=== PATIENT | female | born 1955 | race Caucasian/White ===

== ENCOUNTER 2020-05-23 11:46 | Inpatient (IN) | payer MEDICARE, MEDICAID, SELFPAY ==
[2020-05-23] VITALS (13 sets, daily range): BP systolic 124–164; BP diastolic 52–64; PULSE 86–104; RESP 16–20; TEMP 36.6–38; O2SAT 83–100; BMI 31.1; BMI 35.2
--- NOTE | 2020-05-23 11:57 | HMH.EDGENADL ---
ED Disposition Clinical Impression: Gangrene of lower extremity, Hyponatremia Disposition: Admitted As Inpatient Condition on Discharge: Serious Referrals: PCP,No [Primary Care Provider] - - Critical Care Critical Care Time: No Attestation: On , the high probability of a clinically significant, sudden or life threatening deterioration of the following system(s) required my full and direct attention, intervention and personal management. The time I documented below is in addition to time spent performing reported procedures but includes the following listed in this critical care notation. Medical Decision Making - Medical Records Medical records reviewed: Yes: I reviewed the patient's medical records. - Raudel Inquiry Pt receiving controlled substance: No Vital Signs: 05/23/20 11:47 05/23/20 12:18 05/23/20 12:20 Temperature 98.4 F 100.4 F H Temperature Source Oral Oral Pulse Rate [Right Radial] 104 H 94 H Respiratory Rate 20 18 Blood Pressure [Right Arm] 157/52 H 124/52 L Blood Pressure Mean [Right Arm] 87 76 Blood Pressure Source [Right Arm] Automatic Cuff Automatic Cuff Blood Pressure Position [Right Arm] Sitting Sitting 02 Sat by Pulse Oximetry 97 96 Oxygen Delivery Method Room Air Room Air Oxygen Flow Rate (LPM) 05/23/20 14:06 05/23/20 14:30 Temperature 98.7 F Temperature Source Oral Pulse Rate [Right Radial] 93 H 92 H Respiratory Rate 18 18 Blood Pressure [Right Arm] 146/58 H 157/60 H Blood Pressure Mean [Right Arm] 87 92 Blood Pressure Source [Right Arm] Automatic Cuff Blood Pressure Position [Right Arm] Sitting 02 Sat by Pulse Oximetry 94 L 91 L Oxygen Delivery Method Room Air Nasal Cannula Oxygen Flow Rate (LPM) 2 - Lab Data Lab Results 05/23/20 11:30: SARS-CoV-2 IgG Ab (Rapid) Negative, SARS-CoV-2 IgM Ab (Rapid) Negative 05/23/20 11:50: WBC 12.7 H, RBC 2.56 L, Hgb 8.6 L, Hct 24.6 L, MCV 96.1, MCH 33.6 H, MCHC 35.0, RDW 14.3, Plt Count 347, MPV 8.0, Neut % (Auto) 81.9 H, Lymph % (Auto) 9.9 L, Eddy % (Auto) 7.4, Eos % (Auto) 0.4, Baso % (Auto) 0.4, Neut # (Auto) 10.4 H, Lymph # (Auto) 1.3, Eddy # (Auto) 0.9, Eos # (Auto) 0.1, Baso # (Auto) 0.1, ESR > 140 H 05/23/20 11:50: PT 42.5 H, INR 4.56 H, APTT 52.1 H* 05/23/20 11:50: Sodium 129 L, Potassium 3.5, Chloride 88 L, Carbon Dioxide 27, Anion Gap 17.5 H, BUN 18 H, Creatinine 0.80, Estimated Creat Clear 69, Estimated GFR 72, Est GFR ( Amer) 87, Glucose 146 H, Calcium 9.1, Total Bilirubin 1.1, AST 52 H, ALT 20, Alkaline Phosphatase 118, C-Reactive Protein 67.1 H, Total Protein 7.1, Albumin 3.8, Globulin 3.3 H, Albumin/Globulin Ratio 1.2 05/23/20 11:50: Lactate 2.4 H 05/23/20 12:15: Urine Color Yellow, Urine Appearance Clear, Urine pH 6.0, Ur Specific [place] 1.010, Urine Protein Negative, Urine Glucose (UA) Negative, Urine Ketones 1+, Urine Blood Negative, Urine Nitrate Negative, Urine Bilirubin Negative, Urine Urobilinogen 0.2, Ur Leukocyte Esterase Negative, Urine RBC None, Urine WBC Occasional, Ur Squamous Epith Cells 10-20, Urine Bacteria Trace Result diagrams: 05/23/20 11:50 05/23/20 11:50 Orders (Tests/Meds): ED MEDICATIONS Discontinued Medications Generic Name Dose Route Start Last Admin Trade Name Charlene PRN Reason Stop Dose Admin Acetaminophen 1,000 mg 05/23/20 12:20 05/23/20 12:34 Tylenol 500mg Tablet PO 05/23/20 12:21 1,000 mg ONCE ONE Administration Vancomycin HCl 2,000 mg/ 250 mls @ 125 mls/hr 05/23/20 12:10 05/23/20 13:51 Sodium Chloride IV 05/23/20 14:09 125 mls/hr ONCE ONE Administration Protocol Clindamycin Phosphate 900 mg/ 106 mls @ 100 mls/hr 05/23/20 12:12 05/23/20 13:51 Sodium Chloride IV 05/23/20 13:15 100 mls/hr ONCE ONE Administration Protocol Cefepime HCl 1 gm/ Sodium 50 mls @ 100 mls/hr 05/23/20 12:13 05/23/20 12:35 Chloride IV 05/23/20 12:14 100 mls/hr ONCE ONE Administration Protocol Sodium Chloride 500 mls @ 999 mls/hr
--- NOTE | 2020-05-23 12:06 | XR_ITS ---
PROCEDURE: XR TIBIA FIBULA LT 2V CLINICAL INDICATION: gangrene/fall COMPARISON: No exams were available for comparison FINDINGS: No fracture or dislocation. No lytic or blastic change. There is normal mineralization. The joint spaces are well-preserved. No significant degenerative/arthritic changes. No erosive changes evident. Other findings:Soft tissue swelling IMPRESSION: Soft tissue swelling otherwise negative Dictated by: Jame Allen MD 05/23/2020 14:19 Jame Allen MD in [place] 05/23/2020 14:19
--- NOTE | 2020-05-23 12:06 | XR_ITS ---
PROCEDURE: XR ANKLE RT MIN 3V CLINICAL INDICATION: gangrene/fall COMPARISON: No exams were available for comparison FINDINGS: No fracture or dislocation. No lytic or blastic change. Artifact from a pillow are garment noted along the lower leg posteriorly IMPRESSION: No acute findings. Dictated by: Jame Allen MD 05/23/2020 14:24 Jame Allen MD in [place] 05/23/2020 14:24
--- NOTE | 2020-05-23 12:06 | XR_ITS ---
PROCEDURE: XR KNEE LT 3V CLINICAL INDICATION: gangrene/fall Pain COMPARISON: CT CT ANGIO LE BI from 05/23/2020 FINDINGS: No fracture or dislocation. No lytic or blastic change. There is normal mineralization. The joint spaces are well-preserved. No significant degenerative/arthritic changes. No erosive changes evident. Other findings:Mild diffuse soft tissue swelling. Increased density in the suprapatellar region suggesting knee joint effusion IMPRESSION: Soft tissue swelling with possible knee joint effusion otherwise negative Dictated by: Jame Allen MD 05/23/2020 14:20 Jame Allen MD in [place] 05/23/2020 14:20
--- NOTE | 2020-05-23 12:06 | XR_ITS ---
PROCEDURE: XR TIBIA FIBULA RT 2V CLINICAL INDICATION: gangrene/fall Pain COMPARISON: No exams were available for comparison FINDINGS: No fracture or dislocation. No lytic or blastic change. There is normal mineralization. The joint spaces are well-preserved. No significant degenerative/arthritic changes. No erosive changes evident. Other findings:Artifact from a pillow or garment along the posterior aspect of the leg obscures soft tissue detail IMPRESSION: No acute findings. Dictated by: Jame Allen MD 05/23/2020 14:23 Jame Allen MD in [place] 05/23/2020 14:23
--- NOTE | 2020-05-23 12:06 | XR_ITS ---
PROCEDURE: XR ANKLE LT MIN 3V CLINICAL INDICATION: gangrene/fall COMPARISON: No exams were available for comparison FINDINGS: Mild diffuse soft tissue swelling. No bony or joint abnormality evident. IMPRESSION: Soft tissue swelling otherwise negative Dictated by: Jame Allen MD 05/23/2020 14:22 Jame Allen MD in [place] 05/23/2020 14:22
--- NOTE | 2020-05-23 12:06 | XR_ITS ---
PROCEDURE: XR FOOT LT MIN 3V CLINICAL INDICATION: gangrene/fall Pain COMPARISON: No exams were available for comparison FINDINGS: No fracture or dislocation. No lytic or blastic change. There is normal mineralization. The joint spaces are well-preserved. No significant degenerative/arthritic changes. No erosive changes evident. Other findings:Mild diffuse soft tissue swelling IMPRESSION: Mild diffuse soft tissue swelling otherwise negative Dictated by: Jame Allen MD 05/23/2020 14:21 Jame Allen MD in [place] 05/23/2020 14:21
--- NOTE | 2020-05-23 12:06 | XR_ITS ---
PROCEDURE: XR FOOT RT MIN 3V CLINICAL INDICATION: gangrene/fall Pain COMPARISON: No exams were available for comparison FINDINGS: No fracture or dislocation. No lytic or blastic change. There is normal mineralization. The joint spaces are well-preserved. No significant degenerative/arthritic changes. No erosive changes evident. Other findings:None. IMPRESSION: No acute findings. Dictated by: Jame Allen MD 05/23/2020 14:26 Jame Allen MD in [place] 05/23/2020 14:26
--- NOTE | 2020-05-23 12:06 | CT_ITS ---
Procedure: CT ANGIO LE BI CLINICAL HISTORY: gangrene Left knee and left lower extremity gangrene COMPARISON: CT ABDPELW CT ABD PELVIS W/ CONTRAST from 09/13/2014 TECHNIQUE: IV Contrast: 100ml Optiray 350 Axial images obtained with sagittal and coronal reformats. All CT scans at the facility use one or more dose reduction, viz: automated exposure control, ma/kV adjustment per patient size (including targeted exams where dose is matched to indication, i.e. head), or iterative reconstruction technique. FINDINGS: There are diffuse atheromatous changes involving the abdominal aorta and its branches. There is mild dilatation of the mid aspect of the abdominal aorta at 2 cm. This is 7 cm below the level of the left renal artery. There is severe stenosis of the ostium the celiac artery of approximately 90 percent. The SMA is small but with no significant stenosis. The PAULINE is patent. There are 2 right renal arteries and 1 left renal artery. Calcific plaque is present at the bifurcation of the left renal artery without significant stenosis. Mild amount mural thrombus is present along the right aspect of the abdominal aorta at the area of dilatation. Scattered atheromatous changes are present involving the right common iliac and external iliac artery as well as the right superficial femoral artery and popliteal artery. No significant stenosis. There is 3 vessel runoff to the ankle on the right. The left iliac, femoral, SFA and popliteal also demonstrate scattered atheromatous changes but with no significant stenotic lesion in. There is 3 vessel runoff to the ankle on the left. There is fairly extensive subcutaneous edema of the left lower extremity beginning in the upper thigh and extending through the foot. There is mild subcutaneous edema on the right beginning at the level of the knee. No bony erosive process is evident. No localized fluid collection evident that would indicate an abscess. There is also mild edema of the quadriceps muscles on the left. No soft tissue gas apparent. Patchy infiltrate is present in the right middle lobe. There is a well demarcated zone of decreased attenuation involving most of the liver with what appears represent represent normal attenuation in the anterior peripheral aspect of the right and left hepatic lobe. This with somewhat similar on the previous exam but with different degrees of attenuation on that study. The spleen, gallbladder, and adrenal glands are unremarkable. There is lobularity of both kidneys. The pancreas has an unremarkable appearance. There is a Marrero catheter present. There is diffuse colonic diverticulosis. There is thickening of the colon at the rectosigmoid region and could be due to nondistention versus colitis. The anterior abdominal wall is cut off on the left. Bowel gas pattern is nonspecific with air in gas-filled loops of small and large bowel. No evidence of appendicitis. There are osteoarthritic changes of the hips. On the right there are sub chondral cystic changes with collapse of the right femoral head and flattening of the right femoral head which may be due to osteoarthritis with subchondral cystic change and dysplastic change versus avascular necrosis. Previously noted large cystic mass of the abdomen pelvis is no longer apparent. IMPRESSION: 1. No occluding thrombus or embolus evident within the lower extremities. 2. There is mild diffuse atheromatous changes of the aorta and its branches as well as the lower extremities as described above but no significant stenotic lesion evident of the lower extremities. 3. 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 4. Mild dilatation of the abdominal aorta at 2 cm with mura
--- NOTE | 2020-05-23 12:06 | XR_ITS ---
PROCEDURE: XR KNEE RT 3V CLINICAL INDICATION: gangrene/fall Pain COMPARISON: No exams were available for comparison FINDINGS: No fracture or dislocation. No lytic or blastic change. There is normal mineralization. The joint spaces are well-preserved. No significant degenerative/arthritic changes. No erosive changes evident. Other findings:None. IMPRESSION: No acute findings. Dictated by: Jame Allen MD 05/23/2020 14:22 Jame Allen MD in [place] 05/23/2020 14:22
--- NOTE | 2020-05-23 12:15 | PC.NURSE ---
Pt BLE and maria l feet have sloughing like skin noted but also dry areas of skin that have peeled off, 2-3+ edema noted bilaterally. Skin noted around sloughing area area dark in color. 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
[2020-05-23 12:18] LABS: Basophils # 0.1 K/mm3 (0-0.2); Basophils % 0.4 % (0.1-2.0); Eosinophils # 0.1 K/mm3 (0.0-0.4); Eosinophils % 0.4 % (0.1-12.0); Hematocrit 24.6 % (37.0-47.0); Hemoglobin 8.6 g/dL (12.2-16.2); Lymphocytes # 1.3 K/mm3 (0.7-4.5); Lymphocytes % 9.9 % (10-50); Mean Corpuscular Hemoglobin 33.6 pg (27.0-31.2); Mean Corpuscular Volume 96.1 fl (81-99); Monocytes # 0.9 K/mm3 (0.1-1.0); Monocytes % 7.4 % (1.7-9.3); Neutrophils # 10.4 K/mm3 (1.8-7.8); Neutrophils % 81.9 % (37.0-80.0); Platelet Count 347 K/mm3 (142-424); Red Blood Count 2.56 M/mm3 (4.20-5.40); Red Cell Distribution Width 14.3 % (11.5-17.5); White Blood Count 12.7 K/mm3 (4.8-10.8)
[2020-05-23 12:24] LABS: Alanine Aminotransferase 20 U/L (12-78); Albumin Level 3.8 g/dl (3.5-5.0); Albumin/Globulin Ratio 1.2 (1.1-1.8); Alkaline Phosphatase 118 U/L (38-126); Anion Gap 17.5 mEq/L (5-15); Aspartate Amino Transferase 52 U/L (14-36); Bilirubin,Total 1.1 mg/dl (0.2-1.3); Blood Urea Nitrogen 18 mg/dl (7-17); Calcium 9.1 mg/dl (8.4-10.2); Carbon Dioxide 27 mmol/L (22.0-30.0); Chloride 88 mmol/L (98-107); Creatinine Clearance Estimated 69 mL/min (50-200); Estimated Glomerular Filt Rate 72 ml/min (>60); GFR (African American) 87 ML/MIN (>60); Globulin 3.3 g/dL (1.3-3.2); Glucose 146 mg/dl (74-100); Potassium 3.5 mmoL/L (3.5-5.1); Sodium 129 mmol/L (136-145); Total Protein,Serum 7.1 g/dl (6.3-8.2)
[2020-05-23 12:26] LABS: Prothrombin Time 42.5 seconds (9.4-11.8)
[2020-05-23 12:28] LABS: C-Reactive Protein 67.1 mg/L (0-4)
[2020-05-23 12:39] LABS: Lactic Acid 2.4 mmol/L (0.7-2.1)
[2020-05-23 12:44] LABS: Erythrocyte Sedimentation Rate > 140 mm/hr (0-30)
[2020-05-23 12:47] LABS: Microscopic, Urine URINE MICROSCOPIC (MICROSCOPIC)
[2020-05-23 12:48] LABS: Appearance,Urine CLEAR (Clear); Bilirubin,Urine Negative (Negative); Blood, Urine Negative (Negative); Color,Urine YELLOW (Yellow); Glucose,Urine (UA) Negative (Negative); Ketones,Urine 1+ (Negative); Leukocyte Esterase,Urine Negative (Negative); Nitrate,Urine Negative (Negative); Protein,Urine Negative (Negative); Urobilinogen,Urine 0.2 EU/dl (0.2)
[2020-05-23 12:50] LABS: Activated Partial Thrombo Time 52.1 seconds (23.6-34.0); INR 4.56 (0.9-1.1)
[2020-05-23 13:08] LABS: Coronavirus 19 IgG Antibody Negative (Negative); Coronavirus 19 IgM Antibody Negative (Negative)
[2020-05-23 13:10] LABS: WBC,Urine Occasional #/hpf (0-3)
[2020-05-23 13:11] LABS: Bacteria,Urine Trace /lpf
--- NOTE | 2020-05-23 13:43 | PC.NURSE ---
pt return from ct
--- NOTE | 2020-05-23 14:30 | PC.NURSE ---
placed call for surgeon, dr Das speaking with Dr Aquino at this time.
--- NOTE | 2020-05-23 14:37 | PC.NURSE ---
Dr Das speaking with Dr Guevara at this time
--- NOTE | 2020-05-23 14:43 | PC.NURSE ---
dr julia aviles, if he will accept pt for service then heidy will consult.
--- NOTE | 2020-05-23 14:50 | PC.NURSE ---
ALONDRA DOBSON speaking with Dr. Knight who is cold reduction roller for service pts
--- NOTE | 2020-05-23 15:03 | PC.NURSE ---
notified care management of admission
--- NOTE | 2020-05-23 15:33 | PC.NURSE ---
notified per Dr. Knight that after speaking with Dr. Mckeon- Dr. Mckeon is pts PCP. Dr. Moraes office has called us to speak with ER to speak about admitting pt. ER MD is speaking with at this time
--- NOTE | 2020-05-23 15:41 | HMH.PHAVTE ---
[facility] Pharmacy VTE Monitoring - Patient Demographics Admission date: 05/23/20 Report Date: 05/23/20 Time: 15:41 Allergies/Adverse Reactions: Patient Allergies codeine [CODEINE] Allergy (Unknown, Verified 05/23/20 12:33) Penicillins [PENICILLINS] Allergy (Unknown, Verified 05/23/20 12:33) Height: 1.57 m Weight: 77.111 kg Patient Problems: Current Active Problems Gangrene of lower extremity (Acute) Hyponatremia (Acute) - VTE Risk Labs: VTE Related Lab Results Hgb 8.6 g/dL (12.2-16.2) L 05/23/20 11:50 Hct 24.6 % (37.0-47.0) L 05/23/20 11:50 Plt Count 347 K/mm3 (142-424) 05/23/20 11:50 PT 42.5 seconds (9.4-11.8) H 05/23/20 11:50 INR 4.56 (0.9-1.1) H 05/23/20 11:50 APTT 52.1 seconds (23.6-34.0) H* 05/23/20 11:50 BUN 18 mg/dl (7-17) H 05/23/20 11:50 Creatinine 0.80 mg/dl (0.52-1.04) 05/23/20 11:50 Estimated Creat Clear 69 mL/min (50-200) 05/23/20 11:50 Clinical Trial Participant: No - Prophylaxis VTE Prophylaxis Ordered?: Yes Types of VTE Prophylaxis: TEDS Knee High
--- NOTE | 2020-05-23 15:45 | HMH.PHACONS ---
- Pharmacy Consult Date: 05/23/20 Time: 15:45 Referring provider: DR. GONZALEZ Reason for Consult:: VANCOMYCIN DOSING Allergies and ADEs:: Allergies Allergy/AdvReac Type Severity Reaction Status Date / Time codeine [CODEINE] Allergy Unknown Verified 05/23/20 12:33 Penicillins [PENICILLINS] Allergy Unknown Verified 05/23/20 12:33 Home Medications:: Home Medications Medication Instructions Recorded Confirmed Type Amlodipine Besylate [Amlodipine 10 mg PO DAILY 05/23/20 05/23/20 History 10mg Tab] Aspirin [Aspirin 81mg EC Tab] 81 mg PO DAILY 05/23/20 05/23/20 History Atorvastatin Calcium [Lipitor 40mg 40 mg PO HS 05/23/20 05/23/20 History Tablet] Warfarin Sodium 2.5 mg PO DIRECTED 05/23/20 05/23/20 History Warfarin Sodium 5 mg PO DIRECTED 05/23/20 05/23/20 History lisinopriL [Lisinopril 40mg Tablet] 80 mg PO DAILY 05/23/20 05/23/20 History Height: 1.57 m Weight: 77.111 kg Laboratory Results:: Laboratory Results - last 24 hr 05/23/20 11:30: SARS-CoV-2 IgG Ab (Rapid) Negative, SARS-CoV-2 IgM Ab (Rapid) Negative 05/23/20 11:50: WBC 12.7 H, RBC 2.56 L, Hgb 8.6 L, Hct 24.6 L, MCV 96.1, MCH 33.6 H, MCHC 35.0, RDW 14.3, Plt Count 347, MPV 8.0, Neut % (Auto) 81.9 H, Lymph % (Auto) 9.9 L, Dew[place] % (Auto) 7.4, Eos % (Auto) 0.4, Baso % (Auto) 0.4, Neut # (Auto) 10.4 H, Lymph # (Auto) 1.3, Dewitt # (Auto) 0.9, Eos # (Auto) 0.1, Baso # (Auto) 0.1, ESR > 140 H 05/23/20 11:50: PT 42.5 H, INR 4.56 H, APTT 52.1 H* 05/23/20 11:50: Sodium 129 L, Potassium 3.5, Chloride 88 L, Carbon Dioxide 27, Anion Gap 17.5 H, BUN 18 H, Creatinine 0.80, Estimated Creat Clear 69, Estimated GFR 72, Est GFR ( Amer) 87, Glucose 146 H, Calcium 9.1, Total Bilirubin 1.1, AST 52 H, ALT 20, Alkaline Phosphatase 118, C-Reactive Protein 67.1 H, Total Protein 7.1, Albumin 3.8, Globulin 3.3 H, Albumin/Globulin Ratio 1.2 05/23/20 11:50: Lactate 2.4 H 05/23/20 12:15: Urine Color Yellow, Urine Appearance Clear, Urine pH 6.0, Ur Specific [place] 1.010, Urine Protein Negative, Urine Glucose (UA) Negative, Urine Ketones 1+, Urine Blood Negative, Urine Nitrate Negative, Urine Bilirubin Negative, Urine Urobilinogen 0.2, Ur Leukocyte Esterase Negative, Urine RBC None, Urine WBC Occasional, Ur Squamous Epith Cells 10-20, Urine Bacteria Trace Medical History: Denies:: Diabetes Mellitus Type 1, Diabetes Mellitus Type 2 Assessment and Plan - Assessment and plan all Dx Assessment and Plan for all problems:: IBW (kg): 50.10 Dosing wt(kg): 77 Estimated Creatinine clearance (ml/min): 45.0 CRCL method: Cockcroft and Gault using ibw(default). Drug selected: Vancomycin Loading dose (mg): 0 Vd (liters): 61.6 (factor used: 0.8 L/kg) Reji (hr-1): 0.042 Half life (hrs): 16.50 Recommended dose: 1500 mg Interval: 24 hrs Infusion time (hrs): 2.0 Predicted peak (mcg/mL): 36.8 Predicted trough (mcg/mL): 14.61 Total body weight is being used for vancomycin dosing. Recommendations: Give Vancomycin 1500 mg q 24 hrs with an expected Cpeak of 36.8 mcg/ml and an expected Ctrough of 14.61 mcg/ml Thank you for the consult, will continue to follow.
[2020-05-23 16:15] LABS: Reflex Lactic Add Lactic Reflex
--- NOTE | 2020-05-23 16:18 | PC.NURSE ---
report called to conchita hurst rn on second floor, stated she will sent staff down to transport pt
--- NOTE | 2020-05-23 16:26 | PC.NURSE ---
spoke with office about consult and was told that Dr. Guevara knew and would see patient in the morning(05/24/2020).
--- NOTE | 2020-05-23 16:39 | HMH.HP ---
*Admission Date: 05/23/20 *Chief complaint: Bilateral leg pain *History of present illness: Ms Hull is a 64-year-old female with a history of a CVA 2 years ago who has not left her house in the last year with a history of hypertension, hypercholesterolemia, previous first CVA at the age of 22, ASCVD, left ICA stenosis, acute upper GI bleed, tobacco use disorder, and previous kidney stones, who presented to [facility] with worsening pain of bilateral lower extremities after a ground-level mechanical fall 4 days ago whereby she landed on her left knee. She also noticed foul-smelling odor from her legs but states that she has been unable to check her own legs. Nobody has checked her legs for her. EMS felt she had gangrene to both lower extremities that the patient was unaware of. She has not been taking any medication for this. She states that her nephew sees her once weekly but otherwise she has not seen a physician or anybody outside of her home. She did have a tele-visit with Dr. Mckeon on 01/24/2020 for renewal of medications. At that time she had a plan to come to [facility] for laboratory work but was unable to find someone to accompany her. She denies fever, chills, nausea, vomiting, numbness, tingling, diarrhea, constipation, shortness of breath, and palpitations. She does have a chronic cough and continues to smoke. With evaluation in the emergency room she was felt to be hemodynamically stable. White blood cell count was noted to be elevated. Also noted was hyponatremia with a sodium of 129, elevated CRP and sed rate. She was started on IV vancomycin, cefepime, and clindamycin on arrival. Blood cultures were obtained. She had several x-rays which showed no fractures. CT angiogram of the lower extremities bilaterally reveals no occluding thrombus or embolus, mild diffuse atheromatosis changes of the aorta and its branches as well as the lower extremities. 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 No obvious abscess. She did receive 4 mg of IV morphine for pain control. Orthopedic surgeon was consulted. At the time of this exam patient appears comfortable. She is eating her dinner. She is conversant. She has a frequent cough and appears short of breath with conversation. [facility] History Medical History: Reports:: Atherosclerotic Heart Disease, Carotid Stenosis, Cerebrovascular Accident, Gastroesophageal Reflux Disease(GERD), Gastrointestinal Bleed, Heart Murmur, Hyperlipidemia, Hypertension, Kidney Stones Denies:: Diabetes Mellitus Type 1, Diabetes Mellitus Type 2 *Have you ever received a pneumonia vaccine?: No *Have you received a flu vaccine this season?: No Other Medical History: Reports: Anemia Laterality Cases: Right: Carpal Tunnel Release Other Surgeries: Yes: Hysterectomy-Partial Comment: stent for kidney stones - *Social History Last grade of school completed: High school graduate Smoking Status: Current every day smoker # Packs/Day (cigarettes): 2 Alcohol Intake: current Alcohol Intake Frequency:: 0-2 drinks per day *Occupational Status:: other Housing: house Household Members: other (Nephew) *Travel in the last 8 weeks: None Family Hx:: Cancer (mother with lung cancer and father with cholangiocarcinoma) Review of Systems - Constitutional Denies chills, Denies fever(s) - Eyes Denies change in vision - ENT Denies ear pain, Denies headache(s), Denies nasal congestion, Denies sore throat - *Cardiovascular Reports shortness of breath, Reports shortness of breath with activity, Denies chest pain - *Respiratory Reports cough (non Productive), Denies coughing up blood - *Gastrointestinal Denies abdominal pain, Denies change in bowel habits, Denies constipation, Denies heartburn, Denies vomiting blood, Denies loose st
[2020-05-23 17:04] LABS: Lactic Acid Follow Up (RFLX 1) 0.9 mmol/L (0.7-2.1)
--- NOTE | 2020-05-23 19:02 | PC.NURSE ---
report given to lukasz
--- NOTE | 2020-05-23 20:07 | PC.NURSE ---
Pt alert and oriented and able to make needs known. Does have scattered wheezes. Have cleaned legs with warm cloth and applied kristina bandages per Dr. Bose. Bruising to L upper leg and 2 intact blisters anteriorly on leg. CB in reach.K Pad also in place to L leg per Dr. Bose. VSS. Marrero in place and draining yellow urine. Pt did pull out R AC IV, there is still an IV in th LAC with 0.45 NS 20 K infusing per nov.
[2020-05-24] VITALS (27 sets, daily range): BP systolic 95–151; BP diastolic 51–97; PULSE 78–100; RESP 16–20; TEMP 36.6–37.3; O2SAT 3–98; BMI 34.4
--- NOTE | 2020-05-24 04:14 | PC.NURSE ---
Pt has rested intermittently this shift. Pt has c/o of pain in LLE x3 this shift. PRN pain meds have been administered per MAR along with application of warm blankets and position change. SARAY wraps and dressing remain in place on BLE with no drainage noted. Wheezing heard during inhalation and exhalation t/o all lung reyna upon auscultation. Pt remains in upper 90's on 2LNC. Marrero is draining clear, dark yellow urine per gravity. No other acute changes at this time, will continue to monitor.
--- NOTE | 2020-05-24 06:15 | PC.NURSE ---
0435 PRN morphine administered for 10/10 pain in left heel. Pt then called out x3 stating the medicine isn't help, you have to do something patient was given warm blankets, position changes attempted x2 with no decrease in pain. MD Bose notified, new orders received. SEE PROVIDER NOTIFICATION.
[2020-05-24 06:33] LABS: Basophils % 0.2 % (0.1-2.0); Eosinophils # 0.1 K/mm3 (0.0-0.4); Eosinophils % 0.7 % (0.1-12.0); Lymphocytes # 1.2 K/mm3 (0.7-4.5); Lymphocytes % 9.4 % (10-50); Mean Corpuscular HGB Conc 33.4 g/dL (31.8-35.4); Mean Corpuscular Hemoglobin 33.7 pg (27.0-31.2); Mean Corpuscular Volume 100.9 fl (81-99); Mean Platelet Volume 8.2 fl (7.4-10.4); Neutrophils # 10.1 K/mm3 (1.8-7.8); Neutrophils % 81.8 % (37.0-80.0); Platelet Count 279 K/mm3 (142-424); Red Blood Count 2.18 M/mm3 (4.20-5.40); Red Cell Distribution Width 14.5 % (11.5-17.5); White Blood Count 12.4 K/mm3 (4.8-10.8)
[2020-05-24 06:40] LABS: Chloride 94 mmol/L (98-107); Hemoglobin 7.3 g/dL (12.2-16.2); Potassium 3.4 mmoL/L (3.5-5.1); Sodium 131 mmol/L (136-145)
[2020-05-24 06:43] LABS: Blood Urea Nitrogen 14 mg/dl (7-17); Creatinine Clearance Estimated 76 mL/min (50-200); Estimated Glomerular Filt Rate 84 ml/min (>60); GFR (African American) 102 ML/MIN (>60)
[2020-05-24 06:44] LABS: Anion Gap 9.4 mEq/L (5-15); Calcium 8.2 mg/dl (8.4-10.2); Carbon Dioxide 31 mmol/L (22.0-30.0); Glucose 126 mg/dl (74-100)
[2020-05-24 06:54] LABS: INR 5.07 (0.9-1.1)
--- NOTE | 2020-05-24 08:13 | HMH.ACPN2 ---
Internal Medicine - PN: Subj *Date: 05/24/20 *Time: 08:13 Interval history: Patient states she is in a lot of pain this morning. She states the worst pain is in her left heel and it is a burning pain. She states the morphine is not helping at all. She continues to get short of breath when lying down and if she has to talk for long periods of time. Her sats have been slightly low this morning in the upper 80s. Exam Vital signs and Labs for Last 24 Hours: Temp Pulse Resp BP Pulse Ox 98.0 F 78 18 104/51 L 95 05/24/20 08:00 05/24/20 08:00 05/24/20 08:00 05/24/20 08:00 05/24/20 08:00 Laboratory Results - last 24 hr 05/23/20 11:30: SARS-CoV-2 IgG Ab (Rapid) Negative, SARS-CoV-2 IgM Ab (Rapid) Negative 05/23/20 11:50: WBC 12.7 H, RBC 2.56 L, Hgb 8.6 L, Hct 24.6 L, MCV 96.1, MCH 33.6 H, MCHC 35.0, RDW 14.3, Plt Count 347, MPV 8.0, Neut % (Auto) 81.9 H, Lymph % (Auto) 9.9 L, [place] % (Auto) 7.4, Eos % (Auto) 0.4, Baso % (Auto) 0.4, Neut # (Auto) 10.4 H, Lymph # (Auto) 1.3, [place] # (Auto) 0.9, Eos # (Auto) 0.1, Baso # (Auto) 0.1, ESR > 140 H 05/23/20 11:50: PT 42.5 H, INR 4.56 H, APTT 52.1 H* 05/23/20 11:50: Sodium 129 L, Potassium 3.5, Chloride 88 L, Carbon Dioxide 27, Anion Gap 17.5 H, BUN 18 H, Creatinine 0.80, Estimated Creat Clear 69, Estimated GFR 72, Est GFR ( Amer) 87, Glucose 146 H, Calcium 9.1, Total Bilirubin 1.1, AST 52 H, ALT 20, Alkaline Phosphatase 118, C-Reactive Protein 67.1 H, Total Protein 7.1, Albumin 3.8, Globulin 3.3 H, Albumin/Globulin Ratio 1.2 05/23/20 11:50: Lactate 2.4 H 05/23/20 12:15: Urine Color Yellow, Urine Appearance Clear, Urine pH 6.0, Ur Specific Dale 1.010, Urine Protein Negative, Urine Glucose (UA) Negative, Urine Ketones 1+, Urine Blood Negative, Urine Nitrate Negative, Urine Bilirubin Negative, Urine Urobilinogen 0.2, Ur Leukocyte Esterase Negative, Urine RBC None, Urine WBC Occasional, Ur Squamous Epith Cells 10-20, Urine Bacteria Trace 05/23/20 16:46: Lactate 0.9 05/24/20 06:03: WBC 12.4 H, RBC 2.18 L, Hgb 7.3 L*, Hct 22.0 L*, MCV 100.9 H, MCH 33.7 H, MCHC 33.4, RDW 14.5, Plt Count 279, MPV 8.2, Neut % (Auto) 81.8 H, Lymph % (Auto) 9.4 L, [place] % (Auto) 8.0, Eos % (Auto) 0.7, Baso % (Auto) 0.2, Neut # (Auto) 10.1 H, Lymph # (Auto) 1.2, [place] # (Auto) 1.0, Eos # (Auto) 0.1, Baso # (Auto) 0.0 05/24/20 06:03: Sodium 131 L, Potassium 3.4 L, Chloride 94 L, Carbon Dioxide 31 H, Anion Gap 9.4, BUN 14, Creatinine 0.70, Estimated Creat Clear 76, Estimated GFR 84, Est GFR ( Amer) 102, Glucose 126 H, Calcium 8.2 L, TSH 9.10 H 05/24/20 06:03: PT 47.0 H, INR 5.07 H 05/24/20 07:12: Blood Type O Positive, Crossmatch (AHG) See Detail I & O for Last 24 hours: Intake & Output 05/21/20 05/22/20 05/23/20 05/24/20 11:59 11:59 11:59 11:59 Intake Total 2405 / 2405 Output Total 1825 / 1825 Balance 580 / 580 Weight 170 lb 187 lb 5 oz - Constitutional no acute distress - *Routine Respiratory Exam Present: rhonchi, wheezes - *Routine Cardiovascular Exam Present: RRR - *Routine Abdominal Exam Present: soft, normoactive bowel sounds. Absent: tenderness - *Routine Extremities Exam Present: edema (mild bilateral LE's). Absent: cyanosis, clubbing - *Routine Skin Exam Present: warm. Absent: rash Comments: Bilateral elbows with some ecchymosis. Left knee with ecchymosis and effusion. Below the knee is erythema with chunks of dry skin. Great toenails are extended. Right knee without ecchymosis. Minimal edema of the right leg. Anterior lower leg with chunks of dry skin. Both feet with extremely dry skin. - *Routine Neurological Exam Present: alert, oriented X3 Assessment and Plan (1) Cellulitis Current visit: Yes Status: Acute Category: Medical Code(s): L03.90 - Cellulitis, unspecified (2) Hypertension Current visit: Yes Status: Chronic Category: Medical Code(s): I10 - Essential (primary) hypertension (3) History of CVA (cerebrovascular ac
[2020-05-24 08:45] LABS: Iron 24 ug/dL (37-170)
[2020-05-24 08:54] LABS: Total Iron Binding Capacity 272 ug/dL (265-497)
[2020-05-24 08:55] LABS: Reticulocyte % (Auto) 5.2 % (0.9-3.2)
--- NOTE | 2020-05-24 09:02 | XR_ITS ---
PROCEDURE: XR CHEST PORTABLE CLINICAL HISTORY: Asthmatic bronchitis COPD COMPARISON: No exams were available for comparison FINDINGS: There is borderline cardiomegaly without failure. Calcified nodules are present in the right mid upper lung zone. The remaining lungs are clear. No acute bony abnormalities. IMPRESSION: Borderline cardiomegaly with old granulomatous disease Dictated by: Jame Allen MD 05/24/2020 11:06 Jame Allen MD in [place] 05/24/2020 11:06
[2020-05-24 09:13] LABS: 25-OH Vitamin D, Total 28.3 ng/mL (30-100)
[2020-05-24 09:22] LABS: Ferritin 181 ng/ml (11.1-264)
[2020-05-24 10:02] LABS: Vitamin B12 665 pg/mL (239-931)
[2020-05-24 10:06] LABS: Folate 7.46 ng/mL
--- NOTE | 2020-05-24 11:05 | HMH.PTWOUND ---
Rehab Inpt Wound Evaluation Rehab IP Wound Evaluation Start: 05/24/20 08:58 Freq: ONCE Status: Active Protocol: Document 05/24/20 10:58 PHOBLAZE (Rec: 05/24/20 11:05 PHORNE [id number]) Rehab PT Wound Assessment Subjective Subjective 64 yowf adm to [facility] with L knee hematoma after fall and significant B lower leg hyperkeratosis. She reports she lives alone and is unable to reach or even see her lower legs and so she does not care for them. Wound Left Medial Knee Wound Type Blister Is This a Chronic Wound No Wound Length (cm) 3.0 Wound Width (cm) 2.0 Wound Bed Appearance Blisters,Edematous Wound Margins Description Well Defined Surrounding Tissue Appearance Purple Edema Type Non-Pitting Edema Degree 2+ Query Text:1+ Trace, Barely Detectable, Rebound 15-30 seconds 2+ Moderate, Slight Indentation, Rebound 10-20 seconds 3+ Deep, Deeper Indentation, Rebound > 30 seconds 4+ Very Deep, Rebound > 60 seconds Edema Appearance Puffy,Purple Drainage Amount None Wound Debridement Amount of Tissue None Removed Dressing Change Patient Tolerance Tolerated Well Plan/Recommendation Comment Currently the only noticable wound pt has is the blister on the medial L knee as noted above which is most likely due to edema and hematoma after her fall at home. B lwoer legs have significant amoutns of hyperkeratosis, but no wounds noted at this time. Nsg instructed to clean B LE very well and then cover with petroleum jelly and gauze to facilitate to removal of this dry skin. Once this is accomplished, new open areas may be noted. However, no inpatient wound care is required at this time, just adequate hygene from the pts perspective. She may need rehab placement if she is unable to provide adequate
--- NOTE | 2020-05-24 12:33 | HMH.ORTHOCON ---
*Admission Date: 05/23/20 *Reason for consult:: eval for BLE BKA *History of present illness: 64-year-old female admitted overnight through the emergency department with pain in bilateral lower extremities. The ER physician contacted me with concern that she would require bilateral BKA's for gangrene. The patient notes that she recently fell at home. She has a history of CVA with left-sided weakness and uses a walker at home. She caught her great toe on the carpet and fell forward, landing on the left lower extremity. She cannot see her legs and was not able to assess the status of her skin; she does not believe she had any open wounds. After her pain continued to increase, she asked that 911 be called and she be transported to the hospital. She typically sees Dr. Mckeon as an outpatient, but has not left her house in 1 year. After the COVID-19 pandemic kit, she stopped coming for outpatient visits. He saw her via telehealth for medicine refills and arranged to have her INR checked in her car, so she did not do, to the hospital. However, she did not have anyone that would bring her to the hospital. She has been on Coumadin for several years and her dosage has not changed. She is compliant with her medication at home but has not had her INR checked in some time. On admission her INR was 4.56, today it is 5. Hemoglobin is dropped 7.3 overnight. She has been seen by wound care, who recommended soaking the legs with sterile saline and Vaseline to help soften and remove hyperkeratotic tissue on the legs. She denies any fevers or chills at home, but did have mild leukocytosis on admission, with white blood cell count of 12.7; it is 12.4 today. She was started on antibiotic therapy on admission, with Vanco, cefepime and clindamycin. Patient denies any history of diabetes, no baseline peripheral neuropathy. [facility] History I have reviewed the patient's past medical history: Yes Medical History: Reports:: Atherosclerotic Heart Disease, Carotid Stenosis, Cerebrovascular Accident, Gastroesophageal Reflux Disease(GERD), Gastrointestinal Bleed, Heart Murmur, Hyperlipidemia, Hypertension, Kidney Stones Denies:: Diabetes Mellitus Type 1, Diabetes Mellitus Type 2 *Have you ever received a pneumonia vaccine?: No *Have you received a flu vaccine this season?: No Other Medical History: Reports: Anemia Laterality Cases: Right: Carpal Tunnel Release Other Surgeries: Yes: Hysterectomy-Partial - *Social History Last grade of school completed: High school graduate Smoking Status: Current every day smoker Tobacco Type: cigarettes # Packs/Day (cigarettes): 1 Alcohol Intake: current Alcohol Intake Frequency:: 0-2 drinks per day *Occupational Status:: disabled Housing: house Household Members: other (Nephew) *Travel in the last 8 weeks: None Family Hx:: Cancer (mother with lung cancer and father with cholangiocarcinoma) Review of Systems - Review of Systems Review of systems:: pertinent systems reviewed and negative unless documented below - *Neurologic Reports abnormal walking (uses a walker), Denies abnormal speech, Denies seizure-like activity, Denies dizziness, Denies headache(s) Meds Home Medications Medication Instructions Recorded Confirmed Type Amlodipine Besylate [Amlodipine 10 mg PO DAILY 05/23/20 05/23/20 History 10mg Tab] Aspirin [Aspirin 81mg EC Tab] 81 mg PO DAILY 05/23/20 05/23/20 History Atorvastatin Calcium [Lipitor 40mg 40 mg PO HS 05/23/20 05/23/20 History Tablet] Warfarin Sodium 2.5 mg PO VUONG 05/23/20 05/24/20 History Warfarin Sodium 5 mg PO MOTUWETHFRSA 05/23/20 05/24/20 History lisinopriL [Lisinopril 40mg Tablet] 80 mg PO DAILY 05/23/20 05/23/20 History Allergies Allergy/AdvReac Type Severity Reaction Status Date / Time codeine [CODEINE] Allergy Unknown Verified 05/23/20 12:33 Penicillins [PENICILLINS] Allergy Unknown Verified 05/23/20 12:33 Exam Vital signs and Labs for Last 24 Hours: Temp Pulse
--- NOTE | 2020-05-24 15:06 | HMH.ORTHOCON ---
*Admission Date: 05/23/20 <Taylor Verdin - 05/24/20 15:56> *Reason for consult:: Nail trim and Routine foot care evaluation <Taylor Verdin - 05/24/20 15:56> *History of present illness: 64-year-old female admitted overnight through the emergency department with pain in bilateral lower extremities. The ER physician contacted me with concern that she would require bilateral BKA's for gangrene. The patient notes that she recently fell at home. She has a history of CVA with left-sided weakness and uses a walker at home. She caught her great toe on the carpet and fell forward, landing on the left lower extremity. She cannot see her legs and was not able to assess the status of her skin; she does not believe she had any open wounds. After her pain continued to increase, she asked that 911 be called and she be transported to the hospital. She typically sees Dr. Mckeon as an outpatient, but has not left her house in 1 year. After the COVID-19 pandemic kit, she stopped coming for outpatient visits. He saw her via telehealth for medicine refills and arranged to have her INR checked in her car, so she did not do, to the hospital. However, she did not have anyone that would bring her to the hospital. She has been on Coumadin for several years and her dosage has not changed. She is compliant with her medication at home but has not had her INR checked in some time. On admission her INR was 4.56, today it is 5. Hemoglobin is dropped 7.3 overnight. She has been seen by wound care, who recommended soaking the legs with sterile saline and Vaseline to help soften and remove hyperkeratotic tissue on the legs. She denies any fevers or chills at home, but did have mild leukocytosis on admission, with white blood cell count of 12.7; it is 12.4 today. She was started on antibiotic therapy on admission, with Vanco, cefepime and clindamycin. Patient denies any history of diabetes, no baseline peripheral neuropathy. Podiatry consult placed by Dr Guevara for patient to have Routine foot care evaluation with nail trimming. The patient was awake and resting in bed upon entering her room. Patient states that her legs hurt and that she had suffered a fall at home. Patient is badly bruised to her left upper leg thigh and knee. There were a couple of fluid filled blisters noted to the medial side of the knee as well. Patient has hyperkeratotic skin noted to lower legs, patches on her feet, tops of toes, soles of feet. B/L hallux nails are the longest of nails, extending out 4-5 inches from the base of the nailbed and Pincer nail deformity squeezing her toe flesh in the center of the nail causing alot of pain when trimming the nail back. All the nails are yellow discolored and crumble when trimmed. Nails 2-5 are long but she did not voice pain when trimming. The Left 3rd nail avulsed off when trimming, no blood noted. The b/l hallux now have excess skin after trimming due from the Pincer deformity pushing the skin up under the nail. This should hopefully reside once the skin relaxes back to normal. The nails 2-5 b/l was curved inward on the nailbed, no SOI noted. Patient's pedal pulses palpated, she has trace of pedal edema and the left lower leg has some erythema as well as 1+edema noted. Their is bruising noted to the top of left foot and toes from her fall. Skin is very dry, leathery texture, some peeling also seen. <Taylor Verdin - 05/24/20 18:18> [facility] History Medical History: Reports:: Atherosclerotic Heart Disease, Carotid Stenosis, Cerebrovascular Accident, Gastroesophageal Reflux Disease(GERD), Gastrointestinal Bleed, Heart Murmur, Hyperlipidemia, Hypertension, Kidney Stones Denies:: Diabetes Mellitus Type 1, Diabetes Mellitus Type 2 <Taylor Verdin - 05/24/20 15:56> *Have you ever received a pneumonia vaccine?: No <Taylor Verdin 05/24/20 15:56> *Have you received a flu vaccine this season?: No <Taylor Verdin 05/24/20 15:56> Other Medical History: Repor
--- NOTE | 2020-05-24 21:05 | PC.NURSE ---
Pt's room air sat at rest = 87%.
--- NOTE | 2020-05-25 03:40 | PC.NURSE ---
A&OX4. PT HAS TOLERATED 3LNC WELL THIS SHIFT. PT HAS HAD NO C/O SOA OR TROUBLE BREATHING. BRUISING PRESENT TO LLE. BLISTER PRESENT TO TOP OF L KNEE. PT HAS BLE WRAPPED, CDI. PT HAS C/O PAIN IN LLE T/O SHIFT, 10 ON 1-10 SCALE. PT HAS REQUESTED HER PRN MORPHINE Q2H THIS SHIFT. PT STATES THAT THIS HELPS HER PAIN FOR A LITTLE WHILE BUT SHE FEELS IT COMING BACK EVERY 2 HOURS. THIS NURSE ENCOURAGED PT TO MOVE HER LEGS AND FEET WHILE LAYING IN THE BED. PT DEMONSTRATED DOING SO. PT HAS ATTEMPTED TO HAVE A BM X2 THIS SHIFT WITH NO SUCCESS. PT HAS HAD NO OTHER C/O. F/C PRESENT DRAINING DARK YELLOW URINE. VSS WILL CONTINUE TO MONITOR.
[2020-05-25 04:00] VITALS: BP 129/61; PULSE 88; RESP 17; TEMP 36.9; O2SAT 95
[2020-05-25 05:00] VITALS: BMI 36.1
[2020-05-25 06:39] VITALS: PULSE 94; PULSE 95; O2SAT 94
[2020-05-25 07:54] VITALS: BP 147/63; PULSE 99; RESP 17; TEMP 37; O2SAT 90
--- NOTE | 2020-05-25 08:08 | HMH.ACPN2 ---
Internal Medicine - PN: Subj *Date: 05/25/20 *Time: 08:08 Interval history: Patient states she is feeling better today. She slept good for the first time in a while. She is able to eat breakfast this morning. She was seen by Ortho and podiatry yesterday. Exam Vital signs and Labs for Last 24 Hours: Temp Pulse Resp BP Pulse Ox 98.6 F 99 H 17 147/63 H 90 L 05/25/20 07:54 05/25/20 07:54 05/25/20 07:54 05/25/20 07:54 05/25/20 07:54 Laboratory Results - last 24 hr 05/24/20 06:03: Vitamin B12 665, Folate 7.46 05/24/20 06:03: 25-OH Vitamin D Total 28.3 L 05/24/20 06:03: Iron 24 L, TIBC 272, Iron Saturation 8.16773 L 05/24/20 06:03: Retic Count (auto) 5.2 H 05/24/20 06:03: Ferritin 181 05/24/20 07:12: Blood Type O Positive, Antibody Screen Negative, Crossmatch (AHG) See Detail 05/24/20 08:10: Blood Type Confirm O Positive 05/24/20 16:28: Hgb 11.0 L D, Hct 32.0 L I & O for Last 24 hours: Intake & Output 05/22/20 05/23/20 05/24/20 05/25/20 11:59 11:59 11:59 11:59 Intake Total 2405 / 2405 2886 / 2886 Output Total 1825 / 1825 775 / 775 Balance 580 / 580 2111 / 2111 Weight 170 lb 187 lb 5 oz 196 lb - Constitutional no acute distress - *Routine Respiratory Exam Present: decreased breath sounds, wheezes (less) - *Routine Cardiovascular Exam Present: RRR - *Routine Abdominal Exam Present: soft, normoactive bowel sounds. Absent: tenderness - *Routine Extremities Exam Absent: cyanosis, clubbing, edema Comments: bilateral legs wrapped, nails have been trimmed, still ecchymosis around the left knee - *Routine Skin Exam Present: warm. Absent: rash - *Routine Neurological Exam Present: alert, oriented X3 Assessment and Plan (1) Cellulitis Current visit: Yes Status: Acute Category: Medical Code(s): L03.90 - Cellulitis, unspecified (2) Hypertension Current visit: Yes Status: Chronic Category: Medical Code(s): I10 - Essential (primary) hypertension (3) History of CVA (cerebrovascular accident) Current visit: Yes Status: Chronic Category: Medical Code(s): Z86.73 - Personal history of transient ischemic attack (TIA), and cerebral infarction without residual deficits (4) COPD (chronic obstructive pulmonary disease) Current visit: Yes Status: Chronic Category: Medical Code(s): J44.9 - Chronic obstructive pulmonary disease, unspecified (5) Hyperlipidemia Current visit: Yes Status: Chronic Category: Medical Code(s): E78.5 - Hyperlipidemia, unspecified (6) Hyponatremia Current visit: Yes Status: Chronic Category: Medical Code(s): E87.1 - Hypo-osmolality and hyponatremia (7) Anemia Current visit: Yes Status: Acute Category: Medical Code(s): D64.9 - Anemia, unspecified (8) Onychodystrophy Start date: 05/24/20 Current visit: Yes Status: Acute Category: Medical Code(s): L60.3 - Nail dystrophy (9) Onychogryphosis Start date: 05/24/20 Current visit: Yes Status: Acute Category: Medical Code(s): L60.2 - Onychogryphosis (10) Pincer nail deformity Start date: 05/24/20 Current visit: Yes Status: Acute Category: Medical Code(s): L60.8 - Other nail disorders (11) Hyperkeratosis of skin Start date: 05/24/20 Current visit: Yes Status: Acute Category: Medical Code(s): L85.9 - Epidermal thickening, unspecified (12) Avulsion of nail Start date: 05/24/20 (Left 3rd nail) Current visit: Yes Status: Acute Category: Medical (13) Onychoincurvatum Start date: 05/24/20 Current visit: Yes Status: Acute Category: Medical Code(s): L60.8 - Other nail disorders (14) Onychomycosis Start date: 05/24/20 Current visit: Yes Status: Acute Category: Medical Code(s): B35.1 - Tinea unguium (15) Pain around nail Start date: 05/24/20 Current visit: Yes Status: Acute Category: Medical (16) Leg edema, left Start date: 05/24/20 Current visit: Yes Status: A
[2020-05-25 09:32] LABS: Anion Gap 9.9 mEq/L (5-15); Blood Urea Nitrogen 15 mg/dl (7-17); Carbon Dioxide 30 mmol/L (22.0-30.0); Chloride 97 mmol/L (98-107); Creatinine Clearance Estimated 80 mL/min (50-200); Estimated Glomerular Filt Rate 72 ml/min (>60); GFR (African American) 87 ML/MIN (>60); Glucose 141 mg/dl (74-100); Potassium 3.9 mmoL/L (3.5-5.1); Sodium 133 mmol/L (136-145)
[2020-05-25 09:43] LABS: Basophils % 0.2 % (0.1-2.0); Eosinophils # 0.2 K/mm3 (0.0-0.4); Eosinophils % 1.4 % (0.1-12.0); Hematocrit 29.9 % (37.0-47.0); Hemoglobin 10.2 g/dL (12.2-16.2); Lymphocytes # 1.1 K/mm3 (0.7-4.5); Lymphocytes % 8.8 % (10-50); Mean Corpuscular HGB Conc 34.1 g/dL (31.8-35.4); Mean Corpuscular Hemoglobin 32.1 pg (27.0-31.2); Mean Corpuscular Volume 94.3 fl (81-99); Monocytes # 0.9 K/mm3 (0.1-1.0); Monocytes % 6.9 % (1.7-9.3); Neutrophils # 10.2 K/mm3 (1.8-7.8); Neutrophils % 82.6 % (37.0-80.0); Platelet Count 267 K/mm3 (142-424); Red Blood Count 3.17 M/mm3 (4.20-5.40); Red Cell Distribution Width 16.6 % (11.5-17.5); White Blood Count 12.3 K/mm3 (4.8-10.8)
[2020-05-25 09:54] LABS: INR 5.23 (0.9-1.1); Prothrombin Time 48.3 seconds (9.4-11.8)
--- NOTE | 2020-05-25 11:04 | HMH.OTEV ---
OT Inpatient Evaluation Rehab OT IP Evaluation Start: 05/25/20 09:05 Freq: ONCE Status: Complete Protocol: Document 05/25/20 10:56 LARA (Rec: 05/25/20 11:04 [facility] [id number]) Rehab OT IP Assessment Subjective History Pt oriented x 3 on arrival. Pt agreeable to engage in therapy evaluation. Pt was admitted via ED on 05/23/20 after a fall at home on left knee and continued pain in bilateral lower extremities ( gangrene). Pt has a past medical history of HTN, CVA, HCL, ASCVD, ICA stenosis, and upper GI bleed. Pt reports she lived at home alone prior to admission. Pt claims he nephew does check on her twice a week, but she does not have 24 hour supervision. Pt claims she is independent with ADLs such as showering, dressing, and feeding. She also reports she cooks small meals for herself and cleans, but her family does grocery shop for her. Pt uses a walker at all times during ambulation. Pt no longer drives and has not left her house since last CVA. Subjective My legs are sore. Objective Patient Orientation Person,Place,Birthday Upper Extremity Gross ROM WFL Transfer Training Sit/Stand Transfer Assist Level Minimal x 1 (25% assist) Chair Transfer Ability Minimal x 1 (25% assist) Chair Transfer Technique Sit to/from Ambulatory Chair Transfer Assistive Devices Rolling Walker Lower Body Dressing Ability Maximum Assistance Rehab OT IP prob,goals,plan Problems Date of Evaluation: 05/25/20 OT IP Problems Bed Mobility,Transfers,Gait, Balance,Self care,Safety Rehab Potential Rehab Potential Good Equipment Needs Assistive Devices Rolling / Wheeled Walker Plan OT intervention Plan Bed Mobility,Transfers,Gait, Balance,Self care,Safety, Therapeutic Exercise OT Plan Frequency Daily Duration LOS Discharge Goals Sit to Stand Chair Transfer Ability Superv
--- NOTE | 2020-05-25 11:08 | HMH.PTEV ---
Physical Therapy Evaluation Rehab PT IP Evaluation Start: 05/25/20 09:04 Freq: .once Status: Active Protocol: Document 05/25/20 10:58 MERLINE (Rec: 05/25/20 11:08 MERLINE [id number]) Subjective/History History History Patient was admitted to [facility] 05/23/20 secondary to knee pain after a fall 4 days prior at home. Upon arrival to ER she was diagnosed with gangrene to B distal lower extremities. Patient lives at home with nephew who is only home 1 day per week. Pt report she requires other family members to complete household and community tasks. Pt reports she has not left home in approx 1 year. Subjective Subjective My legs are sore. Rehab PT IP Eval Objective Appearance Patient Behavior Appropriate,Cooperative Patient Orientation Person,Place,Time,Birthday Difficulty following instructions none Speech Pattern Clear,Appropriate Ambulation Patient Able to Ambulate Yes Ambulation Observation IP General Gait Pattern Observation Decrease Weight Bear (L) Ambulation Distance (feet) 5 Ambulation Assistive Device Rolling Walker Ambulation Ability Minimal x 1 (25% assist) Balance Ability to Arise Able, uses arms to help Sitting Balance Steady, safe Standing Balance Unsteady Dynamic Sitting Balance Ability Normal Dynamic Standing Balance Ability Good Transfers Sit to Stand Chair Transfer Ability Minimal x 1 (25% assist) ROM All Extremities PT ROM Status WFL MMT All Extremities PT MMT WFL Rehab PT IP prob,goals,plan Problems Date of Evaluation: 05/25/20 PT IP Problems Transfers,Gait,Balance,Self care,Safety Rehab Potential Rehab Potential Good Plan PT Intervention Plan Bed Mobility,Transfers,Gait, Balance,Self care,Safety, Therapeutic Exercise PT Plan Frequency BID Duration LOS Discharge Goals Bed Transfer Ability Independent Sit to Stand Chair Transfer Ability Contact Guard/Hand Hold Ambulation Assistive Device Rolling Walker Ambulation Distance (feet) 100 Discharge Plan PT Discharge Plan Patient would benefit from discharging to SNF after
--- NOTE | 2020-05-25 11:26 | US_ITS ---
PROCEDURE: US LIVER CLINICAL INDICATION: abnormal PT/INR COMPARISON: CT CT ANGIO LE BI from 05/23/2020 FINDINGS: PANCREAS: Pancreas is not well delineated due to overlying bowel gas. CT or MRI without and with contrast with pancreatic protocol may provide further evaluation if clinically desired. LIVER: There is mostly increased echogenicity of the liver consistent with fatty liver. Areas of decreased echogenicity are present anteriorly and may be due to sparing of fatty liver. No biliary ductal dilatation. RIGHT KIDNEY: Unremarkable. Normal size and echogenicity. No hydronephrosis GALLBLADDER: No gallstones, gallbladder wall thickening, pericholecystic fluid, or biliary dilatation. IMPRESSION: Mostly fatty liver with decreased echogenicity peripherally which may be due to sparing of fatty liver otherwise negative Dictated by: Jame Allen MD 05/25/2020 18:00 Jame Allen MD in [place] 05/25/2020 18:00
--- NOTE | 2020-05-25 11:54 | SW/DCPLANNER ---
Addendum entered by Precious Blandon 05/30/20 11:17: PATIENT DISCHARGING TO [facility] TODAY AND WILL BE SKILLED UNDER HER MEDICARE BENEFIT.... Addendum entered by Precious Blandon 05/29/20 10:07: sent updates with anticipation for this patient to discharge to [facility] in the am ([facility]U) Addendum entered by Precious Blandon 05/28/20 13:52: MADE ROUNDS WITH DR GOLD THIS MORNING AND HE STATED PATIENT IS NOT READY TO DISCHARGE YET... I DID CONTACT DARYA AT [facility] AND TOLD HER PATIENT WAS NOT COMING TODAY AND WILL FOLLOW UP IN THE AM... Addendum entered by Maame Blanco 05/25/20 14:34: This patient has been accepted to [facility] per Lillian for Thursday. I will notify patient, sister in law and Dr Bose. Dr Bose is fine with waiting till Thursday for this patient. COVID testing will be ordered. Addendum entered by Maame Blanco 05/25/20 12:09: Patient information has been faxed to [facility] at this time. Original Note: I have spoke with this patient regarding discharge plans. PT/OT has recommended short term placement to regain strength. Patient will also require daily dressing changes that she admits she can NOT complete herself. I did explain the options of placement vs home health to this patient. Patient stated that she prefers to return home with home health but is open to placement. Patient requested that I contact her sister in law (Mariah) at [phone]. I did call and speak with Mariah this morning. Mariah stated that she thinks patient would be better served at discharge to discharge to a short term facility for rehab. Mariah stated that she would prefer patient to be in [facility] or closer to [place]. Patient preferred [place] location. I will contact [facility] and [facility] regarding bed availability. Discharge date is unknown at this time. I will also follow up with
--- NOTE | 2020-05-25 12:43 | HMH.ORTHPN ---
Subjective Date: 05/25/20 Time: 12:00 Principal diagnosis: L leg hematoma, cellulitis Interval history: The patient feels better today after 2 units PRBC, wound care for her legs and nail trim. PN: Obj Ex Vital signs: Temp Pulse Resp BP Pulse Ox 98.6 F 99 H 17 147/63 H 90 L 05/25/20 07:54 05/25/20 07:54 05/25/20 07:54 05/25/20 07:54 05/25/20 07:54 - Constitutional no acute distress, obese - Routine HEENT Exam Head: Present: normocephalic Eye: Present: EOMI ENT: Present: mucous membranes moist - Routine Neck Exam Present: trachea midline - Routine Respiratory Exam Absent: respiratory distress - Routine Cardiovascular Exam Present: RRR - Routine Abdominal Exam Present: soft. Absent: tenderness - Routine Extremities Exam Comments: Left lower extremity with extensive ecchymosis across the knee circumferentially and the medial and lateral thighs. There are 2 small hemorrhagic blisters over the medial aspect of the knee, but otherwise no open wounds on either lower extremity. There are no gangrenous changes on bilateral lower extremities No wounds, ulcers or open lesions on bilateral feet Toenails are thick and yellow, much improved after nail trim There is diffuse, scaly hyperkeratosis on bilateral lower extremities from the knee distally -- much improved from yesterday Moderate peripheral edema, nonpitting. Mild erythema of left lower extremity may be consistent with a mild cellulitis, improving Range of motion left knee restricted by swelling and pain, though patient does tolerate arc from 0 to 90 degrees; range of motion right knee 0 to 120 degrees with some discomfort Strength is 5 out of 5 in bilateral lower extremities with hip flexion and extension, knee flexion and extension, ankle dorsiflexion and plantarflexion Palpable pedal pulses bilateral lower extremities, though weakly so; skin is thickened keratotic in this region Skin is warm and pink, appears to be well perfused Sensation intact to light touch bilateral lower extremities in all distributions - Routine Skin Exam Present: warm - Routine Neurological Exam Present: alert, oriented X3, moving all extremities, normal tone, vision grossly intact, hearing grossly intact, normal speech. Absent: sensory deficit, motor deficit, altered mental status - Urinary Catheter Management Marrero Cath placed during this visit: no Progress Note: A&P (1) Cellulitis Status: Acute Current Visit: Yes (2) Hypertension Status: Chronic Current Visit: Yes (3) History of CVA (cerebrovascular accident) Status: Chronic Current Visit: Yes (4) COPD (chronic obstructive pulmonary disease) Status: Chronic Current Visit: Yes (5) Hyperlipidemia Status: Chronic Current Visit: Yes (6) Hyponatremia Status: Chronic Current Visit: Yes (7) Anemia Status: Acute Current Visit: Yes (8) Onychodystrophy Status: Acute Current Visit: Yes (9) Onychogryphosis Status: Acute Current Visit: Yes (10) Pincer nail deformity Status: Acute Current Visit: Yes (11) Hyperkeratosis of skin Status: Acute Current Visit: Yes (12) Avulsion of nail Status: Acute Current Visit: Yes (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 Assessment and Plan for All Diagnoses:: 64yo F status post fall at home, w/LLE hematoma, BLE hyperkeratotic plaques w/onychomycosis -- continue local wound care/debridement of hyperkeratoses -- elevate, ice L thigh/knee frequently -- physical therapy for mobilization, gait training, strength -- will continue to follow while admitted, january f/u PRN after discharge
[2020-05-25 13:14] LABS: Vancomycin,Trough 12.8 ug/mL (5.0-10.0)
--- NOTE | 2020-05-25 13:53 | HMH.PHACONS ---
- Pharmacy Consult Date: 05/25/20 Time: 13:53 Referring provider: DR. GONZALEZ Reason for Consult:: VANCOMYCIN TROUGH LEVEL Allergies and ADEs:: Allergies Allergy/AdvReac Type Severity Reaction Status Date / Time codeine [CODEINE] Allergy Unknown Verified 05/23/20 12:33 Penicillins [PENICILLINS] Allergy Unknown Verified 05/23/20 12:33 Home Medications:: Home Medications Medication Instructions Recorded Confirmed Type Amlodipine Besylate [Amlodipine 10 mg PO DAILY 05/23/20 05/23/20 History 10mg Tab] Aspirin [Aspirin 81mg EC Tab] 81 mg PO DAILY 05/23/20 05/23/20 History Atorvastatin Calcium [Lipitor 40mg 40 mg PO HS 05/23/20 05/23/20 History Tablet] Warfarin Sodium 2.5 mg PO VUONG 05/23/20 05/24/20 History Warfarin Sodium 5 mg PO MOTUWETHFRSA 05/23/20 05/24/20 History lisinopriL [Lisinopril 40mg Tablet] 80 mg PO DAILY 05/23/20 05/23/20 History Height: 1.57 m Weight: 88.904 kg Laboratory Results:: Laboratory Results - last 24 hr 05/24/20 07:12: Crossmatch (AHG) See Detail 05/24/20 16:28: Hgb 11.0 L D, Hct 32.0 L 05/25/20 09:00: WBC 12.3 H, RBC 3.17 L D, Hgb 10.2 L, Hct 29.9 L, MCV 94.3, MCH 32.1 H, MCHC 34.1, RDW 16.6, Plt Count 267, MPV 8.0, Neut % (Auto) 82.6 H, Lymph % (Auto) 8.8 L, [place] % (Auto) 6.9, Eos % (Auto) 1.4, Baso % (Auto) 0.2, Neut # (Auto) 10.2 H, Lymph # (Auto) 1.1, [place] # (Auto) 0.9, Eos # (Auto) 0.2, Baso # (Auto) 0.0 05/25/20 09:00: Sodium 133 L, Potassium 3.9, Chloride 97 L, Carbon Dioxide 30, Anion Gap 9.9, BUN 15, Creatinine 0.80, Estimated Creat Clear 80, Estimated GFR 72, Est GFR ( Amer) 87, Glucose 141 H, Calcium 8.0 L 05/25/20 09:00: PT 48.3 H, INR 5.23 H 05/25/20 11:10: Vancomycin Trough 12.8 H Medical History: Reports:: Atherosclerotic Heart Disease, Carotid Stenosis, Cerebrovascular Accident, Gastroesophageal Reflux Disease(GERD), Gastrointestinal Bleed, Heart Murmur, Hyperlipidemia, Hypertension, Kidney Stones Denies:: Diabetes Mellitus Type 1, Diabetes Mellitus Type 2 Assessment and Plan (1) Cellulitis Current visit: Yes Status: Acute Category: Medical Code(s): L03.90 - Cellulitis, unspecified (2) Hypertension Current visit: Yes Status: Chronic Category: Medical Code(s): I10 - Essential (primary) hypertension (3) History of CVA (cerebrovascular accident) Current visit: Yes Status: Chronic Category: Medical Code(s): Z86.73 - Personal history of transient ischemic attack (TIA), and cerebral infarction without residual deficits (4) COPD (chronic obstructive pulmonary disease) Current visit: Yes Status: Chronic Category: Medical Code(s): J44.9 - Chronic obstructive pulmonary disease, unspecified (5) Hyperlipidemia Current visit: Yes Status: Chronic Category: Medical Code(s): E78.5 - Hyperlipidemia, unspecified (6) Hyponatremia Current visit: Yes Status: Chronic Category: Medical Code(s): E87.1 - Hypo-osmolality and hyponatremia (7) Anemia Current visit: Yes Status: Acute Category: Medical Code(s): D64.9 - Anemia, unspecified (8) Onychodystrophy Start date: 05/24/20 Current visit: Yes Status: Acute Category: Medical Code(s): L60.3 - Nail dystrophy (9) Onychogryphosis Start date: 05/24/20 Current visit: Yes Status: Acute Category: Medical Code(s): L60.2 - Onychogryphosis (10) Pincer nail deformity Start date: 05/24/20 Current visit: Yes Status: Acute Category: Medical Code(s): L60.8 - Other nail disorders (11) Hyperkeratosis of skin Start date: 05/24/20 Current visit: Yes Status: Acute Category: Medical Code(s): L85.9 - Epidermal thickening, unspecified (12) Avulsion of nail Start date: 05/24/20 (Left 3rd nail) Current visit: Yes Status: Acute Category: Medical (13) Onychoincurvatum Start date: 05/24/20 Current visit: Yes Status: Acute Category: Medical Code(s): L60.8 - Other nail disorders (14) Onychomycosis Start date: 05/24
[2020-05-25 16:00] VITALS: BP 167/76; PULSE 100; RESP 19; TEMP 36.9; O2SAT 88
--- NOTE | 2020-05-25 16:50 | PC.NURSE ---
PATIENT A&OX4, LUNGS DIMINSHED, PATIENT DOES NOT TAKE DEEP BREATHS WHEN INSTRUCTED. PULSES EQUAL. THIS RN REMOVED OLD DRESSING FROM BLE. YELLOW DRAINAGE NOTED ON LEFT LOWER LEG DRESSING. BLE WASHED WITH HIBACLENS SOAP AND WATER. AREA PATTED DRIED, VASELINE GAUZE AND AQUAPHORE APPLIED. BLE WRAPPED WITH KERLIX AND SECURED WITH TAPE. PATIENT HAD MINIMAL COMPLAINT OF PAIN DURING WOUND DRESSING CHANGE. PATIENT UP TO CHAIR FOR SEVERAL HOURS, PATIENT AMBULATED FROM CHAIR TO BED USING A WALKER. PATIENT COMPLAINED OF PAIN DURING AMBULATION OF 5 FEET. NO OTHER NEEDS OR CONCERNS AT THIS TIME.
--- NOTE | 2020-05-25 19:05 | PC.NURSE ---
report given to merry
[2020-05-25 19:47] VITALS: BP 144/58; PULSE 98; RESP 18; TEMP 37.3; O2SAT 92
[2020-05-25 20:13] VITALS: PULSE 89; O2SAT 92
[2020-05-26] VITALS (8 sets, daily range): BP systolic 128–159; BP diastolic 70–90; PULSE 87–99; RESP 18–20; TEMP 36.8–37.7; O2SAT 83–92; BMI 36.2
--- NOTE | 2020-05-26 04:03 | PC.NURSE ---
Pt is alert and oriented x4. Pt rested well with eyes closed most of this shift. Upon awakening from a deep rest, pt rang out for this RN's assistance. Upon entering room pt noted to be anxious and stating she is confused . Pt able to answer all questions appropriately for this RN. Encouraged deep breathing exercises with pt while at bedside. Pt states, I woke up frightful and confused and got nervous . Pt tolerated 3lnc well with no c/o soa. RA sat noted at 87% at beginning of shift. Will attempt to wean o2 this am. Pt states she does not wear o2 at home. PERRLA. Bilateral hand deaf and hard of hearing teacher noted equal and strong. Cap refill < 3 seconds. Bilateral lung sounds noted with inspiratory and expiratory wheezing t/o upon auscultation. Active bowel sounds noted in all 4 quads. No BM noted this shift thus far. Passing flatulence often. FC site noted c/d/i. Urine noted clear and straw color per FC. BLE noted discolored with bruising, dsg x2 in place noted c/d/i. BLE remain elevated while lying in bed. Ice pack intermittently applied to LLE. VSS. Remains safe. Call light within reach. Will continue to monitor.
--- NOTE | 2020-05-26 05:05 | PC.NURSE ---
RA sat noted at 83% this am. Reapplied 3lnc at this time. O2 sats noted at 91% on 3lnc. No respiratory distress noted.
[2020-05-26 09:17] LABS: Occult Blood,Stool Positive (Negative)
--- NOTE | 2020-05-26 09:20 | HMH.ACPN2 ---
Internal Medicine - PN: Ko *Date: 05/26/20 *Time: :20 Interval history: She is to be discharged Thursday to SNF. She still asks for morphine regularly. She does not want her catheter removed at this time. Exam Vital signs and Labs for Last 24 Hours: Temp Pulse Resp BP Pulse Ox 98.5 F 95 H 20 146/77 H 92 L 05/26/20 08:00 05/26/20 08:00 05/26/20 08:00 05/26/20 08:00 05/26/20 08:00 Laboratory Results - last 24 hr 05/24/20 07:12: Crossmatch (AHG) See Detail 05/25/20 09:00: WBC 12.3 H, RBC 3.17 L D, Hgb 10.2 L, Hct 29.9 L, MCV 94.3, MCH 32.1 H, MCHC 34.1, RDW 16.6, Plt Count 267, MPV 8.0, Neut % (Auto) 82.6 H, Lymph % (Auto) 8.8 L, [place] % (Auto) 6.9, Eos % (Auto) 1.4, Baso % (Auto) 0.2, Neut # (Auto) 10.2 H, Lymph # (Auto) 1.1, [place] # (Auto) 0.9, Eos # (Auto) 0.2, Baso # (Auto) 0.0 05/25/20 09:00: Sodium 133 L, Potassium 3.9, Chloride 97 L, Carbon Dioxide 30, Anion Gap 9.9, BUN 15, Creatinine 0.80, Estimated Creat Clear 80, Estimated GFR 72, Est GFR ( Amer) 87, Glucose 141 H, Calcium 8.0 L 05/25/20 09:00: PT 48.3 H, INR 5.23 H 05/25/20 11:10: Vancomycin Trough 12.8 H 05/26/20 08:20: Stool Occult Blood Positive A I & O for Last 24 hours: Intake & Output 05/23/20 05/24/20 05/25/20 05/26/20 11:59 11:59 11:59 11:59 Intake Total 2405 / 2405 2886 / 2886 1925 / 1925 Output Total 1825 / 1825 775 / 775 1025 / 1025 Balance 580 / 580 2111 / 2111 900 / 900 Weight 170 lb 187 lb 5 oz 196 lb 197 lb 1 oz Microbiology Reports for the Last 24 Hours: Microbiology 05/23/20 11:50 Blood Blood Culture - Preliminary NO GROWTH AFTER 48 HOURS 05/23/20 11:50 Blood Blood Culture - Preliminary NO GROWTH AFTER 48 HOURS - Constitutional no acute distress - *Routine HEENT Exam Head: Present: normocephalic Eye: Present: PERRL ENT: Present: mucous membranes moist - *Routine Respiratory Exam Present: CTA bilaterally (Much improved!) - *Routine Cardiovascular Exam Present: RRR - *Routine Abdominal Exam Present: soft, tenderness (nontender) - *Routine Extremities Exam Present: edema (much reduced, skin improved) Assessment and Plan (1) Cellulitis Current visit: Yes Status: Acute Category: Medical Code(s): L03.90 - Cellulitis, unspecified (2) Hypertension Current visit: Yes Status: Chronic Category: Medical Code(s): I10 - Essential (primary) hypertension (3) History of CVA (cerebrovascular accident) Current visit: Yes Status: Chronic Category: Medical Code(s): Z86.73 - Personal history of transient ischemic attack (TIA), and cerebral infarction without residual deficits (4) COPD (chronic obstructive pulmonary disease) Current visit: Yes Status: Chronic Category: Medical Code(s): J44.9 - Chronic obstructive pulmonary disease, unspecified (5) Hyperlipidemia Current visit: Yes Status: Chronic Category: Medical Code(s): E78.5 - Hyperlipidemia, unspecified (6) Hyponatremia Current visit: Yes Status: Chronic Category: Medical Code(s): E87.1 - Hypo-osmolality and hyponatremia (7) Anemia Current visit: Yes Status: Acute Category: Medical Code(s): D64.9 - Anemia, unspecified (8) Onychodystrophy Start date: 05/24/20 Current visit: Yes Status: Acute Category: Medical Code(s): L60.3 - Nail dystrophy (9) Onychogryphosis Start date: 05/24/20 Current visit: Yes Status: Acute Category: Medical Code(s): L60.2 - Onychogryphosis (10) Pincer nail deformity Start date: 05/24/20 Current visit: Yes Status: Acute Category: Medical Code(s): L60.8 - Other nail disorders (11) Hyperkeratosis of skin Start date: 05/24/20 Current visit: Yes Status: Acute Category: Medical Code(s): L85.9 - Epidermal thickening, unspecified (12) Avulsion of nail Start date: 05/24/20 (Left 3rd nail) Current visit: Yes Status: Acute Category: Medical (13)
--- NOTE | 2020-05-26 19:15 | PC.NURSE ---
PATIENT IS A&O X4, LUNGS ARE DIMINISHED. PULSES EQUAL. THIS RN REMOVED OLD DRESSING: SANGUINEOUS DRAINAGE NOTED ON LEFT LOWER LIMB. THIS RN WASHED BLE WITH HIBICLENS AND WATER, DRIED AREA, APPLY AQUAPHOR OINTMENT AND WRAPPED WITH KERLIX. PATIENT TOLERATED WELL, NO COMPLAINTS OF PAIN DURING CLEANING. PATIENT REFUSED TO AMBULATE TO CHAIR DURING THIS RN SHIFT. NO OTHER CONCERNS AT THIS TIME.
--- NOTE | 2020-05-26 21:42 | HMH.ORTHPN ---
Subjective Date: 05/26/20 Time: 10:00 Principal diagnosis: L leg hematoma, cellulitis Interval history: pt c/o pain and is concerned about morphine being discontinued in favor of orals. EXAM--previously discussed with Dr. Guevara. No apparent change, sensate to light touch toes and moves toes/ankles. Seems to have adequate perfusion. Findings otherwise as previously noted. ASSESSMENT--Orthopaedically stable w/o indications for surgical intervention at present. PLAN--dispositon per attending. PN: Obj Ex Vital signs: Temp Pulse Resp BP Pulse Ox 98.6 F 87 18 152/90 H 90 L 05/26/20 19:32 05/26/20 21:01 05/26/20 19:32 05/26/20 19:32 05/26/20 19:32 - Urinary Catheter Management Marrero Cath placed during this visit: no Progress Note: A&P (1) Cellulitis Status: Acute Current Visit: Yes (2) Hypertension Status: Chronic Current Visit: Yes (3) History of CVA (cerebrovascular accident) Status: Chronic Current Visit: Yes (4) COPD (chronic obstructive pulmonary disease) Status: Chronic Current Visit: Yes (5) Hyperlipidemia Status: Chronic Current Visit: Yes (6) Hyponatremia Status: Chronic Current Visit: Yes (7) Anemia Status: Acute Current Visit: Yes (8) Onychodystrophy Status: Acute Current Visit: Yes (9) Onychogryphosis Status: Acute Current Visit: Yes (10) Pincer nail deformity Status: Acute Current Visit: Yes (11) Hyperkeratosis of skin Status: Acute Current Visit: Yes (12) Avulsion of nail Status: Acute Current Visit: Yes (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
[2020-05-27] VITALS (11 sets, daily range): BP systolic 142–171; BP diastolic 65–89; PULSE 70–102; RESP 18–22; TEMP 36.8–37.3; O2SAT 89–95; BMI 36.1
--- NOTE | 2020-05-27 03:40 | PC.NURSE ---
0308: Pt states she is very soa and it is difficult for her to breathe. HOB elevated, 3lnc in use at this time. O2 sats noted at 83% on 3lnc. Titrated O2 up to 4lnc, O2 noted at 85%. Titrated O2 up to 4.5 lnc, O2 noted at 87%. Pt continues to exhibit respiratory distress. 0311: Spoke with PCP iron pellet tester, Juice, to update about pt complaints at this time. 4.5lnc, O2 at 87%. SOA. RR 22. HR 107. Next Duoneb tx at 0600. Denies pain when asked by this RN. Wheezing noted to bilat lung sounds. pt noted very anxious at this time. gave orders for: Albuterol neb tx once, Lasix 20 mg IV once, Solumedrol 125 mg IV once, and decrease IVF to 50 ml/hr. Administered all meds to pt, tolerated well. O2 increased to 95% during Albuterol tx. Slowly decreased O2 back down to 3lnc, O2 noted at 91% at this time. No respiratory distress noted. Pt states she feels much better. HOB remains elevated.
--- NOTE | 2020-05-27 05:55 | PC.NURSE ---
Pt is alert and oriented x4. Pt rested well this shift with eyes closed. C/o at beginning of shift, administered scheduled [place] per nov. No further c/o pain this shift. PERRLA. 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 Cap refill < 3 seconds. Tolerated 3lnc well until this am. Did well with Albuterol tx and tolerated lasix and Solumedrol well with adequate output noted. 900 ml out since being given lasix this am. Pt remains on 3lnc this am, with O2 sats WNL at 91%. No further respiratory distress noted. Bilateral lungs noted with wheezing and rhonchi this am with diminished breath sounds noted bilaterally. Encouraged use of incentive spirometer while awake. FC remains in place, site c/d/i. Urine noted clear and dark yellow in color. VSS. Remains safe. Call light within reach. Will continue to monitor.
[2020-05-27 08:38] LABS: Covid-19 Nasal PCR Sendout UK Not Detected
[2020-05-27 09:52] LABS: Basophils % 0.2 % (0.1-2.0); Eosinophils # 0.1 K/mm3 (0.0-0.4); Eosinophils % 1.2 % (0.1-12.0); Hematocrit 34.8 % (37.0-47.0); Hemoglobin 11.8 g/dL (12.2-16.2); Lymphocytes # 0.4 K/mm3 (0.7-4.5); Lymphocytes % 3.4 % (10-50); Mean Corpuscular HGB Conc 33.8 g/dL (31.8-35.4); Mean Corpuscular Hemoglobin 32.2 pg (27.0-31.2); Mean Corpuscular Volume 95.2 fl (81-99); Mean Platelet Volume 8.2 fl (7.4-10.4); Monocytes # 0.2 K/mm3 (0.1-1.0); Monocytes % 1.3 % (1.7-9.3); Neutrophils # 11.4 K/mm3 (1.8-7.8); Neutrophils % 93.9 % (37.0-80.0); Platelet Count 425 K/mm3 (142-424); Red Blood Count 3.66 M/mm3 (4.20-5.40); Red Cell Distribution Width 15.7 % (11.5-17.5); White Blood Count 12.2 K/mm3 (4.8-10.8)
[2020-05-27 09:54] LABS: Chloride 95 mmol/L (98-107); Potassium 4.5 mmoL/L (3.5-5.1); Sodium 134 mmol/L (136-145)
[2020-05-27 09:57] LABS: Anion Gap 16.5 mEq/L (5-15); Blood Urea Nitrogen 13 mg/dl (7-17); Calcium 8.6 mg/dl (8.4-10.2); Carbon Dioxide 27 mmol/L (22.0-30.0); Creatinine Clearance Estimated 80 mL/min (50-200); Estimated Glomerular Filt Rate 72 ml/min (>60); GFR (African American) 87 ML/MIN (>60); Glucose 175 mg/dl (74-100); MANUAL DIFFERENTIAL MANUAL DIFFERENTIAL (MANUAL DIFF)
[2020-05-27 10:46] LABS: Lymphocytes % 9 % (10-50); Neutrophils % 91 % (42-76); Total Cells Counted 100
[2020-05-27 10:47] LABS: Platelet Estimate Normal; RBC Morphology Normal
--- NOTE | 2020-05-27 10:52 | HMH.ACPN ---
Internal Medicine - PN: Subj *Date: 05/27/20 *Time: 10:52 Exam Vital signs and Labs for Last 24 Hours: Temp Pulse Resp BP Pulse Ox 98.6 F 96 H 20 150/89 H 94 L 05/27/20 07:40 05/27/20 10:24 05/27/20 07:40 05/27/20 07:40 05/27/20 07:40 Laboratory Results - last 24 hr 05/25/20 15:00: COVID-19 PCR Not detected 05/27/20 09:32: WBC 12.2 H, RBC 3.66 L, Hgb 11.8 L, Hct 34.8 L, MCV 95.2, MCH 32.2 H, MCHC 33.8, RDW 15.7, Plt Count 425 H D, MPV 8.2, Neut % (Auto) 93.9 H, Lymph % (Auto) 3.4 L, [place] % (Auto) 1.3 L, Eos % (Auto) 1.2, Baso % (Auto) 0.2, Neut # (Auto) 11.4 H, Lymph # (Auto) 0.4 L, [place] # (Auto) 0.2, Eos # (Auto) 0.1, Baso # (Auto) 0.0, Total Counted 100, Neutrophils % (Manual) 91 H, Lymphocytes % (Manual) 9 L, Platelet Estimate Normal, RBC Morphology Normal 05/27/20 09:32: Sodium 134 L, Potassium 4.5, Chloride 95 L, Carbon Dioxide 27, Anion Gap 16.5 H, BUN 13, Creatinine 0.80, Estimated Creat Clear 80, Estimated GFR 72, Est GFR ( Amer) 87, Glucose 175 H, Calcium 8.6 I & O for Last 24 hours: Intake & Output 05/24/20 05/25/20 05/26/20 05/27/20 23:59 23:59 23:59 23:59 Intake Total 2824 / 2824 2165 / 2285 1838 / 1838 1299 / 1299 Output Total 1325 / 1325 575 / 575 1999 / 1999 3250 / 3250 Balance 1499 / 1499 1590 / 1710 -162 / -162 -195 / -1950 Weight 84.964 kg 88.904 kg 89.386 kg 88.961 kg Assessment and Plan (1) Cellulitis Current visit: Yes Status: Acute Category: Medical Code(s): L03.90 - Cellulitis, unspecified (2) Hypertension Current visit: Yes Status: Chronic Category: Medical Code(s): I10 - Essential (primary) hypertension (3) History of CVA (cerebrovascular accident) Current visit: Yes Status: Chronic Category: Medical Code(s): Z86.73 - Personal history of transient ischemic attack (TIA), and cerebral infarction without residual deficits (4) COPD (chronic obstructive pulmonary disease) Current visit: Yes Status: Chronic Category: Medical Code(s): J44.9 - Chronic obstructive pulmonary disease, unspecified (5) Hyperlipidemia Current visit: Yes Status: Chronic Category: Medical Code(s): E78.5 - Hyperlipidemia, unspecified (6) Hyponatremia Current visit: Yes Status: Chronic Category: Medical Code(s): E87.1 - Hypo-osmolality and hyponatremia (7) Anemia Current visit: Yes Status: Acute Category: Medical Code(s): D64.9 - Anemia, unspecified (8) Onychodystrophy Start date: 05/24/20 Current visit: Yes Status: Acute Category: Medical Code(s): L60.3 - Nail dystrophy (9) Onychogryphosis Start date: 05/24/20 Current visit: Yes Status: Acute Category: Medical Code(s): L60.2 - Onychogryphosis (10) Pincer nail deformity Start date: 05/24/20 Current visit: Yes Status: Acute Category: Medical Code(s): L60.8 - Other nail disorders (11) Hyperkeratosis of skin Start date: 05/24/20 Current visit: Yes Status: Acute Category: Medical Code(s): L85.9 - Epidermal thickening, unspecified (12) Avulsion of nail Start date: 05/24/20 (Left 3rd nail) Current visit: Yes Status: Acute Category: Medical (13) Onychoincurvatum Start date: 05/24/20 Current visit: Yes Status: Acute Category: Medical Code(s): L60.8 - Other nail disorders (14) Onychomycosis Start date: 05/24/20 Current visit: Yes Status: Acute Category: Medical Code(s): B35.1 - Tinea unguium (15) Pain around nail Start date: 05/24/20 Current visit: Yes Status: Acute Category: Medical (16) Leg edema, left Start date: 05/24/20 Current visit: Yes Status: Acute Category: Medical Code(s): R60.0 - Localized edema The patient's infection will respond to the chosen ABx?: Yes Is the patient receiving the right drug, dose, and route?: Yes Could a more targeted ABx be ordered?: No (VANCOMYCIN, CEFEPIME, CLINDA-PATIENT WITH GANGRENE OF LE.)
[2020-05-27 11:41] LABS: Vancomycin,Trough 12.2 ug/mL (5.0-10.0)
--- NOTE | 2020-05-27 13:21 | HMH.ACPN2 ---
Internal Medicine - PN: Subj *Date: 05/27/20 *Time: 13:21 Interval history: She had an episode during the night where her oxygen saturations dropped and she was wheezing. I ordered an albuterol treatment, Solu-Medrol 125 mg IV, and 20 mg IV of furosemide. This seemed to resolve the issue. She seems stable on rounds today. She still does not want the catheter removed. She is anxious about leaving the hospital. She asks how she will be transported tomorrow if she is discharged. Exam Vital signs and Labs for Last 24 Hours: Temp Pulse Resp BP Pulse Ox 98.6 F 96 H 20 150/89 H 94 L 05/27/20 07:40 05/27/20 10:24 05/27/20 07:40 05/27/20 07:40 05/27/20 07:40 Laboratory Results - last 24 hr 05/25/20 15:00: COVID-19 PCR Not detected 05/27/20 09:30: Vancomycin Trough 12.2 H 05/27/20 09:32: WBC 12.2 H, RBC 3.66 L, Hgb 11.8 L, Hct 34.8 L, MCV 95.2, MCH 32.2 H, MCHC 33.8, RDW 15.7, Plt Count 425 H D, MPV 8.2, Neut % (Auto) 93.9 H, Lymph % (Auto) 3.4 L, Dunn % (Auto) 1.3 L, Eos % (Auto) 1.2, Baso % (Auto) 0.2, Neut # (Auto) 11.4 H, Lymph # (Auto) 0.4 L, Dunn # (Auto) 0.2, Eos # (Auto) 0.1, Baso # (Auto) 0.0, Total Counted 100, Neutrophils % (Manual) 91 H, Lymphocytes % (Manual) 9 L, Platelet Estimate Normal, RBC Morphology Normal 05/27/20 09:32: Sodium 134 L, Potassium 4.5, Chloride 95 L, Carbon Dioxide 27, Anion Gap 16.5 H, BUN 13, Creatinine 0.80, Estimated Creat Clear 80, Estimated GFR 72, Est GFR ( Amer) 87, Glucose 175 H, Calcium 8.6 I & O for Last 24 hours: Intake & Output 05/25/20 05/26/20 05/27/2020 11:59 11:59 11:59 11:59 Intake Total 2886 / 2886 2285 / 2285 1910 / 1910 240 / 240 Output Total 775 / 775 1325 / 1325 4325 / 4325 Balance 2110 / 2110 960 / 960 -2415 / -2415 240 / 240 Weight 196 lb 197 lb 1 oz 196 lb 2 oz - Constitutional no acute distress - *Routine HEENT Exam Head: Present: normocephalic Eye: Present: PERRL ENT: Present: mucous membranes moist - *Routine Respiratory Exam Present: wheezes (Some wheezes but moving air fairly well.) - *Routine Cardiovascular Exam Present: RRR - *Routine Abdominal Exam Present: soft. Absent: tenderness - *Routine Exam Comments: Marrero catheter in place, urine clear. - *Routine Extremities Exam Present: edema (Less), joint swelling (The bruising of the knee seems to be improving.) Assessment and Plan (1) Cellulitis Current visit: Yes Status: Acute Category: Medical Code(s): L03.90 - Cellulitis, unspecified (2) Hypertension Current visit: Yes Status: Chronic Category: Medical Code(s): I10 - Essential (primary) hypertension (3) History of CVA (cerebrovascular accident) Current visit: Yes Status: Chronic Category: Medical Code(s): Z86.73 - Personal history of transient ischemic attack (TIA), and cerebral infarction without residual deficits (4) COPD (chronic obstructive pulmonary disease) Current visit: Yes Status: Chronic Category: Medical Code(s): J44.9 - Chronic obstructive pulmonary disease, unspecified (5) Hyperlipidemia Current visit: Yes Status: Chronic Category: Medical Code(s): E78.5 - Hyperlipidemia, unspecified (6) Hyponatremia Current visit: Yes Status: Chronic Category: Medical Code(s): E87.1 - Hypo-osmolality and hyponatremia (7) Anemia Current visit: Yes Status: Acute Category: Medical Code(s): D64.9 - Anemia, unspecified (8) Onychodystrophy Start date: 05/24/20 Current visit: Yes Status: Acute Category: Medical Code(s): L60.3 - Nail dystrophy (9) Onychogryphosis Start date: 05/24/20 Current visit: Yes Status: Acute Category: Medical Code(s): L60.2 - Onychogryphosis (10) Pincer nail deformity Start date: 05/24/20 Current visit: Yes Status: Acute Category: Medical Code(s): L60.8 - Other nail disorders (11) Hyperkeratosis of skin Start date: 05/24/20 Current visit: Yes Status: Acute Category: Medical
--- NOTE | 2020-05-27 13:33 | HMH.ORTHPN ---
Subjective Date: 05/27/20 Time: 09:39 Principal diagnosis: L leg hematoma, cellulitis Interval history: states episode of SOB last night. Albuterol RX given. States pain in legs when WB. Denies loss of sensation or pain with movement of feet/legs. Legs currently covered and edema treatment underway. Possible dicharge in a.m. if Dr. Bose feels indicated. PN: Obj Ex Vital signs: Temp Pulse Resp BP Pulse Ox 98.6 F 96 H 20 150/89 H 94 L 05/27/20 07:40 05/27/20 10:24 05/27/20 07:40 05/27/20 07:40 05/27/20 07:40 - Urinary Catheter Management Marrero Cath placed during this visit: no Progress Note: A&P (1) Cellulitis Status: Acute Current Visit: Yes (2) Hypertension Status: Chronic Current Visit: Yes (3) History of CVA (cerebrovascular accident) Status: Chronic Current Visit: Yes (4) COPD (chronic obstructive pulmonary disease) Status: Chronic Current Visit: Yes (5) Hyperlipidemia Status: Chronic Current Visit: Yes (6) Hyponatremia Status: Chronic Current Visit: Yes (7) Anemia Status: Acute Current Visit: Yes (8) Onychodystrophy Status: Acute Current Visit: Yes (9) Onychogryphosis Status: Acute Current Visit: Yes (10) Pincer nail deformity Status: Acute Current Visit: Yes (11) Hyperkeratosis of skin Status: Acute Current Visit: Yes (12) Avulsion of nail Status: Acute Current Visit: Yes (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
--- NOTE | 2020-05-27 19:40 | PC.NURSE ---
THIS RN REMOVED OLD DRESSING ON BLE. CLEANED AREA WITH HIBICLENS AND WATER. APPLIED AQUAPHOR AND WRAPPED WITH KERLIX. PATIENT TOLERATED WELL. PATIENT USED WALKER TO HELP STABLE SELF TO SIT ON BEDSIDE COMMODE. PATIENT TOLERATED WELL. NO NEW CONCERNS AT THIS TIME.
[2020-05-28] VITALS (8 sets, daily range): BP systolic 142–169; BP diastolic 62–87; PULSE 78–95; RESP 16–18; TEMP 36.6–36.9; O2SAT 95–99; BMI 35.2
--- NOTE | 2020-05-28 03:12 | PC.NURSE ---
Pt is alert and oriented x4. Rested intermittently t/o shift with eyes closed. No acute changes noted from previous shift. Denies pain when asked. Pt states she feels much better. PERRLA. Bilateral hand insurance collector noted equal and strong. Cap refill < 3 seconds. Left lung noted clear t/o and right lung noted with wheezing t/o upon auscultation. Tolerated 3lnc well with no c/o soa. Nicotine patch applied per pt request. Pt noted less anxious since applying patch, very pleasant. BLE remained elevated while lying in bed. +2 non-pitting edema noted to LLE. Tolerates amb with standby assit from staff and use of walker to BSC well. Adequate urine output noted per FC. FC site noted c/d/i. Complete bed bath with hair care, [place]ot[place] care and nail care provided to pt this shift. VSS. Remains safe. Call light within reach. Will continue to monitor.
[2020-05-28 06:38] LABS: Chloride 95 mmol/L (98-107)
[2020-05-28 06:39] LABS: Sodium 134 mmol/L (136-145)
[2020-05-28 06:41] LABS: Blood Urea Nitrogen 17 mg/dl (7-17); Creatinine Clearance Estimated 78 mL/min (50-200); Estimated Glomerular Filt Rate 84 ml/min (>60); GFR (African American) 102 ML/MIN (>60)
[2020-05-28 06:42] LABS: Calcium 8.3 mg/dl (8.4-10.2); Carbon Dioxide 30 mmol/L (22.0-30.0); Glucose 135 mg/dl (74-100)
[2020-05-28 06:45] LABS: Basophils % 0.1 % (0.1-2.0); Eosinophils % 0.2 % (0.1-12.0); Mean Corpuscular HGB Conc 33.8 g/dL (31.8-35.4); Mean Corpuscular Hemoglobin 31.9 pg (27.0-31.2); Mean Corpuscular Volume 94.3 fl (81-99); Mean Platelet Volume 7.4 fl (7.4-10.4); Monocytes # 1.1 K/mm3 (0.1-1.0); Neutrophils % 82.7 % (37.0-80.0)
[2020-05-28 07:10] LABS: Hematocrit 31.7 % (37.0-47.0); Lymphocytes # 0.8 K/mm3 (0.7-4.5); Lymphocytes % 7.3 % (10-50); Monocytes % 9.7 % (1.7-9.3); Neutrophils # 9.1 K/mm3 (1.8-7.8); Platelet Count 429 K/mm3 (142-424); Red Blood Count 3.36 M/mm3 (4.20-5.40); Red Cell Distribution Width 15.3 % (11.5-17.5)
[2020-05-28 07:18] LABS: Hemoglobin 10.7 g/dL (12.2-16.2)
--- NOTE | 2020-05-28 08:21 | HMH.ACPN2 ---
<Bertha Bob - Last Filed: 05/28/20 08:21> Internal Medicine - PN: Subj *Date: 05/28/20 *Time: 08:21 Interval history: Patient is nervous about being transferred to [place] today. She continues to want her Marrero catheter due to difficulty getting out of bed. Is eating without problems. Bowels have moved. She has periods of shortness of breath. She has been out of bed to the bedside commode. Exam Vital signs and Labs for Last 24 Hours: Temp Pulse Resp BP Pulse Ox 97.9 F 93 H 18 168/87 H 95 05/28/20 07:39 05/28/20 07:39 05/28/20 07:39 05/28/20 07:39 05/28/20 07:39 Laboratory Results - last 24 hr 05/25/20 15:00: COVID-19 PCR Not detected 05/27/20 09:30: Vancomycin Trough 12.2 H 05/27/20 09:32: WBC 12.2 H, RBC 3.66 L, Hgb 11.8 L, Hct 34.8 L, MCV 95.2, MCH 32.2 H, MCHC 33.8, RDW 15.7, Plt Count 425 H D, MPV 8.2, Neut % (Auto) 93.9 H, Lymph % (Auto) 3.4 L, Fleming % (Auto) 1.3 L, Eos % (Auto) 1.2, Baso % (Auto) 0.2, Neut # (Auto) 11.4 H, Lymph # (Auto) 0.4 L, Fleming # (Auto) 0.2, Eos # (Auto) 0.1, Baso # (Auto) 0.0, Total Counted 100, Neutrophils % (Manual) 91 H, Lymphocytes % (Manual) 9 L, Platelet Estimate Normal, RBC Morphology Normal 05/27/20 09:32: Sodium 134 L, Potassium 4.5, Chloride 95 L, Carbon Dioxide 27, Anion Gap 16.5 H, BUN 13, Creatinine 0.80, Estimated Creat Clear 80, Estimated GFR 72, Est GFR ( Amer) 87, Glucose 175 H, Calcium 8.6 05/28/20 05:50: WBC 11.0 H, RBC 3.36 L, Hgb 10.7 L, Hct 31.7 L, MCV 94.3, MCH 31.9 H, MCHC 33.8, RDW 15.3, Plt Count 429 H, MPV 7.4, Neut % (Auto) 82.7 H, Lymph % (Auto) 7.3 L, Fleming % (Auto) 9.7 H, Eos % (Auto) 0.2, Baso % (Auto) 0.1, Neut # (Auto) 9.1 H, Lymph # (Auto) 0.8, Fleming # (Auto) 1.1 H, Eos # (Auto) 0.0, Baso # (Auto) 0.0 05/28/20 05:50: Sodium 134 L, Potassium 4.0, Chloride 95 L, Carbon Dioxide 30, Anion Gap 13.0, BUN 17 D, Creatinine 0.70, Estimated Creat Clear 78, Estimated GFR 84, Est GFR ( Amer) 102, Glucose 135 H D, Calcium 8.3 L I & O for Last 24 hours: Intake & Output 05/25/20 05/26/20 05/27/20 05/28/20 11:59 11:59 11:59 11:59 Intake Total 2886 / 2886 2285 / 2285 1910 / 1910 1856 / 1856 Output Total 775 / 775 1325 / 1325 4325 / 5275 2725 / 2725 Balance 2111 / 2111 960 / 960 -2415 / -3365 -869 / -869 Weight 196 lb 197 lb 1 oz 196 lb 2 oz 191 lb 3 oz - Constitutional no acute distress, cooperative Comments: Dyspneic with talking - *Routine Respiratory Exam Comments: Bilateral inspiratory wheezing. - *Routine Cardiovascular Exam Present: RRR - *Routine Abdominal Exam Present: soft, normoactive bowel sounds. Absent: tenderness - *Routine Extremities Exam Comments: Next dressings on bilateral lower extremities. Much less edema. Much less ecchymosis around the left knee. - *Routine Neurological Exam Present: alert, oriented X3 Assessment and Plan (1) Cellulitis Current visit: Yes Status: Acute Category: Medical Code(s): L03.90 - Cellulitis, unspecified (2) Hypertension Current visit: Yes Status: Chronic Category: Medical Code(s): I10 - Essential (primary) hypertension (3) History of CVA (cerebrovascular accident) Current visit: Yes Status: Chronic Category: Medical Code(s): Z86.73 - Personal history of transient ischemic attack (TIA), and cerebral infarction without residual deficits (4) COPD (chronic obstructive pulmonary disease) Current visit: Yes Status: Chronic Category: Medical Code(s): J44.9 - Chronic obstructive pulmonary disease, unspecified (5) Hyperlipidemia Current visit: Yes Status: Chronic Category: Medical Code(s): E78.5 - Hyperlipidemia, unspecified (6) Hyponatremia Current visit: Yes Status: Chronic Category: Medical Code(s): E87.1 - Hypo-osmolality and hyponatremia (7) Anemia Current visit: Yes Status: Acute Category: Medical Code(s): D64.9 - Anemia, unspecified (8) Onychodystrophy Start date: 05/24/20 Current visit: Yes
[2020-05-28 16:52] LABS: Prothrombin Time 14.9 seconds (9.4-11.8)
--- NOTE | 2020-05-28 18:00 | PC.NURSE ---
ALERT AND ORIENTED X4. PT APPEARS TO ENJOY THE COMPANY OF STAFF. SMOKING CESSATION EDUCATION PROVIDED, PT VERBALIZED UNDERSTANDING. APPETITE IS ADEQUATE. CIWA SCORE IS ZERO. LUNGS CONTINUE TO HAVE SCATTERED INSPIRATORY WHEEZING. O2 SATURATION REMAINS IN MID 90'S ON RA AND 85% ON RA. ABDOMEN IS SOFT, LARGE, ROUND, AND NON-TENDER WITH ACTIVE BS IN ALL QUADS. NO REPORTED BM. STANDBY ASSIST TO AMBULATE WITH WALKER AND BSC. VSS. NO DISTRESS NOTED. WILL CONTINUE TO MONITOR
--- NOTE | 2020-05-28 19:13 | PC.NURSE ---
report given to lukasz
[2020-05-29] VITALS (7 sets, daily range): BP systolic 128–181; BP diastolic 69–82; PULSE 74–99; RESP 18–19; TEMP 36.6–36.8; O2SAT 91–99; BMI 33.7
--- NOTE | 2020-05-29 03:03 | PC.NURSE ---
A&OX4. PT TOLERATING 2LNC T/O SHIFT. PT UP TO BC WITH X1 ASSIST, NO BM THUS FAR. FC PRESENT DRAINING DARK YELLOW URINE. ADEQUATE URINE OUTPUT NOTED. PT BLE WRAPPED IN KERLEX, CDI. PT C/O PAIN IN BLE AT BEGINNING OF SHIFT, TX WITH SCHEDULED PAIN MED. ON REASSESSMENT, PT RESTING IN BED WITH NO MORE C/O PAIN. PT HAS HAD NO MORE C/O THUS FAR. RESTING IN BED MAJORITY OF SHIFT. VSS WILL CONTINUE TO MONITOR.
--- NOTE | 2020-05-29 06:53 | PC.NURSE ---
PT AMBULATING VERY WELL WITH USE OF WALKER AND STANDBY ASSIST TO BATHROOM THIS MORNING. PT REPORTS PASSING LOTS OF GAS. NO OTHER C/O. VSS WILL CONTINUE TO MONITOR.
[2020-05-29 08:16] LABS: Basophils % 0.4 % (0.1-2.0); Eosinophils # 0.1 K/mm3 (0.0-0.4); Eosinophils % 1.3 % (0.1-12.0); Hematocrit 32.6 % (37.0-47.0); Hemoglobin 10.9 g/dL (12.2-16.2); Lymphocytes # 1.3 K/mm3 (0.7-4.5); Mean Corpuscular HGB Conc 33.4 g/dL (31.8-35.4); Mean Corpuscular Hemoglobin 31.6 pg (27.0-31.2); Mean Corpuscular Volume 94.7 fl (81-99); Mean Platelet Volume 7.6 fl (7.4-10.4); Monocytes # 1.1 K/mm3 (0.1-1.0); Neutrophils # 6.1 K/mm3 (1.8-7.8); Neutrophils % 70.2 % (37.0-80.0); Platelet Count 491 K/mm3 (142-424); Red Blood Count 3.45 M/mm3 (4.20-5.40); Red Cell Distribution Width 15.1 % (11.5-17.5); White Blood Count 8.7 K/mm3 (4.8-10.8)
[2020-05-29 08:29] LABS: Chloride 92 mmol/L (98-107); Potassium 3.6 mmoL/L (3.5-5.1); Sodium 133 mmol/L (136-145)
[2020-05-29 08:32] LABS: Anion Gap 12.6 mEq/L (5-15); Blood Urea Nitrogen 20 mg/dl (7-17); Carbon Dioxide 32 mmol/L (22.0-30.0); Creatinine Clearance Estimated 75 mL/min (50-200); Estimated Glomerular Filt Rate 63 ml/min (>60); GFR (African American) 76 ML/MIN (>60)
[2020-05-29 08:33] LABS: Calcium 8.4 mg/dl (8.4-10.2); Glucose 107 mg/dl (74-100)
--- NOTE | 2020-05-29 08:43 | HMH.ACPN2 ---
<Bertha Bob - Last Filed: 05/29/20 08:43> Internal Medicine - PN: Subj *Date: 05/29/20 *Time: 08:43 Interval history: Patient feels she is better today. Her breathing has been easy. She has been up to the bathroom and had a bowel movement this morning. She had excellent urinary output after receiving Lasix yesterday. She is eating without difficulty. Left knee periodically hurts especially after ambulation. She has continued to work with physical therapy. She is sort of looking forward to her rehab. Laboratory data that today with a sodium of 133, potassium of 3.6, BUN is 20 with a creatinine of 0.9. Hemoglobin is 10.9 with hematocrit of 32.6. White blood cell count is 8700. Cultures are negative at 5 days. Exam Vital signs and Labs for Last 24 Hours: Temp Pulse Resp BP Pulse Ox 98.2 F 74 19 128/69 93 L 05/29/20 07:49 05/29/20 07:49 05/29/20 07:49 05/29/20 07:49 05/29/20 07:49 Laboratory Results - last 24 hr 05/28/20 05:50: PT 14.9 H, INR 1.50 H 05/29/20 06:35: WBC 8.7, RBC 3.45 L, Hgb 10.9 L, Hct 32.6 L, MCV 94.7, MCH 31.6 H, MCHC 33.4, RDW 15.1, Plt Count 491 H, MPV 7.6, Neut % (Auto) 70.2, Lymph % (Auto) 15.0, Hayes % (Auto) 13.0 H, Eos % (Auto) 1.3, Baso % (Auto) 0.4, Neut # (Auto) 6.1, Lymph # (Auto) 1.3, Hayes # (Auto) 1.1 H, Eos # (Auto) 0.1, Baso # (Auto) 0.0 05/29/20 06:35: Sodium 133 L, Potassium 3.6, Chloride 92 L, Carbon Dioxide 32 H, Anion Gap 12.6, BUN 20 H, Creatinine 0.90 D, Estimated Creat Clear 75, Estimated GFR 63, Est GFR ( Amer) 76 D, Glucose 107 H, Calcium 8.4 I & O for Last 24 hours: Intake & Output 05/26/20 05/27/20 05/28/20 05/29/20 11:59 11:59 11:59 11:59 Intake Total 2285 / 2285 1910 / 1910 1856 / 1856 600 / 600 Output Total 1325 / 1325 4325 / 5275 2725 / 2725 3625 / 3625 Balance 960 / 960 -2415 / -3365 -869 / -869 -3025 / -3025 Weight 197 lb 1 oz 196 lb 2 oz 191 lb 3 oz 183 lb 9 oz Microbiology Reports for the Last 24 Hours: Microbiology 05/23/20 11:50 Blood Blood Culture - Final NO GROWTH AFTER 5 DAYS 05/23/20 11:50 Blood Blood Culture - Final NO GROWTH AFTER 5 DAYS - Constitutional no acute distress - *Routine Respiratory Exam Comments: Scattered inspiratory and expiratory distant wheezing. Good bilateral air exchange - *Routine Cardiovascular Exam Present: RRR - *Routine Abdominal Exam Present: soft, normoactive bowel sounds, obese. Absent: tenderness - *Routine Extremities Exam Present: full ROM. Absent: edema, calf tenderness - *Routine Skin Exam Comments: Bilateral lower legs with softer skin and less dry/ skin. Ecchymosis around the knee and foot is less. - *Routine Neurological Exam Present: alert, oriented X3 Assessment and Plan (1) Cellulitis Current visit: Yes Status: Acute Category: Medical Code(s): L03.90 - Cellulitis, unspecified (2) Hypertension Current visit: Yes Status: Chronic Category: Medical Code(s): I10 - Essential (primary) hypertension (3) History of CVA (cerebrovascular accident) Current visit: Yes Status: Chronic Category: Medical Code(s): Z86.73 - Personal history of transient ischemic attack (TIA), and cerebral infarction without residual deficits (4) COPD (chronic obstructive pulmonary disease) Current visit: Yes Status: Chronic Category: Medical Code(s): J44.9 - Chronic obstructive pulmonary disease, unspecified (5) Hyperlipidemia Current visit: Yes Status: Chronic Category: Medical Code(s): E78.5 - Hyperlipidemia, unspecified (6) Hyponatremia Current visit: Yes Status: Chronic Category: Medical Code(s): E87.1 - Hypo-osmolality and hyponatremia (7) Anemia Current visit: Yes Status: Acute Category: Medical Code(s): D64.9 - Anemia, unspecified (8) Onychodystrophy Start date: 05/24/20 Current visit: Yes Status: Acute Category: Medical Code(s): L60.3
[2020-05-29 12:59] LABS: INR 1.25 (0.9-1.1); Prothrombin Time 12.5 seconds (9.4-11.8)
--- NOTE | 2020-05-29 20:35 | PC.NURSE ---
Alert and oriented and able to make needs known. NAD. have weaned 02 to RA and kaley well. Marrero removed and voiding well. SBA to bathroom. CB in reach. No acute changes. Dsgs changed this shift to BLE.
--- NOTE | 2020-05-30 02:42 | PC.NURSE ---
Pt is alert and oriented x4. No acute changes noted since previous shift. Pt rested intermittently t/o shift. PERRLA. Bilateral hand locker room supervisor noted equal and strong. Cap refill < 3 seconds. Bilateral lungs noted clear t/o upon auscultation. Tolerated RA well with no c/o SOA. No use of supplemental O2 needed this shift thus far. Pt states her nasal canal feels dry and irritated and requesting to have nasal spray in am , none on MAR for administration. Pt refused for this RN to call MD this shift, said she would tolerate it, seems to be better some after breathing tx administrations . CIWA performed, score noted 0. Will continue to monitor for signs of ETOH w/d. Bowel sounds noted in all 4 quads upon auscultation. Tolerates regular diet well with no complaints. Non-pitting edema noted to LLE. Dsg remain c/d/i on BLE. Elevated BLE while lying in bed. Tolerates ambulation well with use of walker to and from bathroom with standby staff assist. Urine noted clear and bright yellow in color. VSS. Remains safe. Call light within reach. Will continue to monitor.
[2020-05-30 04:00] VITALS: BP 172/80; PULSE 88; RESP 17; TEMP 36.9; O2SAT 90
[2020-05-30 05:00] VITALS: BMI 34.0
[2020-05-30 06:23] LABS: Basophils # 0.1 K/mm3 (0-0.2); Basophils % 0.5 % (0.1-2.0); Eosinophils # 0.2 K/mm3 (0.0-0.4); Hematocrit 33.4 % (37.0-47.0); Lymphocytes # 1.5 K/mm3 (0.7-4.5); Lymphocytes % 16.5 % (10-50); Mean Corpuscular Hemoglobin 31.4 pg (27.0-31.2); Mean Corpuscular Volume 95.1 fl (81-99); Monocytes % 11.7 % (1.7-9.3); Neutrophils # 6.2 K/mm3 (1.8-7.8); Neutrophils % 69.3 % (37.0-80.0); Platelet Count 523 K/mm3 (142-424); Red Blood Count 3.51 M/mm3 (4.20-5.40); Red Cell Distribution Width 14.9 % (11.5-17.5); White Blood Count 8.9 K/mm3 (4.8-10.8)
[2020-05-30 06:29] LABS: Chloride 92 mmol/L (98-107); Potassium 3.7 mmoL/L (3.5-5.1); Sodium 134 mmol/L (136-145)
[2020-05-30 06:31] LABS: Blood Urea Nitrogen 18 mg/dl (7-17); Creatinine Clearance Estimated 75 mL/min (50-200); Estimated Glomerular Filt Rate 63 ml/min (>60); GFR (African American) 76 ML/MIN (>60)
[2020-05-30 06:32] VITALS: O2SAT 91
[2020-05-30 06:32] LABS: Anion Gap 9.7 mEq/L (5-15); Calcium 8.8 mg/dl (8.4-10.2); Carbon Dioxide 36 mmol/L (22.0-30.0); Glucose 104 mg/dl (74-100)
[2020-05-30 06:33] VITALS: PULSE 71; PULSE 74
[2020-05-30 08:00] VITALS: BP 142/60; PULSE 80; RESP 17; TEMP 36.7; O2SAT 94
--- NOTE | 2020-05-30 08:07 | HMH.ACPN2 ---
<Bertha Bob - Last Filed: 05/30/20 08:07> Internal Medicine - PN: Subj *Date: 05/30/20 *Time: 08:07 Interval history: Patient feels she is doing well. Her breathing has been stable without her oxygen. She has walked independently to the bathroom. She is eating without difficulties. Bowels have moved. She is voiding QS without her catheter. Labs this morning reveal white blood cell count of 8900 with a hemoglobin of 11 and hematocrit of 33.4. Blood chemistries are stable. INR is pending Exam Vital signs and Labs for Last 24 Hours: Temp Pulse Resp BP Pulse Ox 98.5 F 74 17 172/80 H 91 L 05/30/20 04:00 05/30/20 06:33 05/30/20 04:00 05/30/20 04:00 05/30/20 06:32 Laboratory Results - last 24 hr 05/29/20 06:35: WBC 8.7, RBC 3.45 L, Hgb 10.9 L, Hct 32.6 L, MCV 94.7, MCH 31.6 H, MCHC 33.4, RDW 15.1, Plt Count 491 H, MPV 7.6, Neut % (Auto) 70.2, Lymph % (Auto) 15.0, Millard % (Auto) 13.0 H, Eos % (Auto) 1.3, Baso % (Auto) 0.4, Neut # (Auto) 6.1, Lymph # (Auto) 1.3, Millard # (Auto) 1.1 H, Eos # (Auto) 0.1, Baso # (Auto) 0.0 05/29/20 06:35: PT 12.5 H, INR 1.25 H 05/29/20 06:35: Sodium 133 L, Potassium 3.6, Chloride 92 L, Carbon Dioxide 32 H, Anion Gap 12.6, BUN 20 H, Creatinine 0.90 D, Estimated Creat Clear 75, Estimated GFR 63, Est GFR ( Amer) 76 D, Glucose 107 H, Calcium 8.4 05/30/20 06:08: WBC 8.9, RBC 3.51 L, Hgb 11.0 L, Hct 33.4 L, MCV 95.1, MCH 31.4 H, MCHC 33.0, RDW 14.9, Plt Count 523 H, MPV 8.0, Neut % (Auto) 69.3, Lymph % (Auto) 16.5, Millard % (Auto) 11.7 H, Eos % (Auto) 2.0, Baso % (Auto) 0.5, Neut # (Auto) 6.2, Lymph # (Auto) 1.5, Millard # (Auto) 1.0, Eos # (Auto) 0.2, Baso # (Auto) 0.1 05/30/20 06:08: Sodium 134 L, Potassium 3.7, Chloride 92 L, Carbon Dioxide 36 H, Anion Gap 9.7, BUN 18 H, Creatinine 0.90, Estimated Creat Clear 75, Estimated GFR 63, Est GFR ( Amer) 76, Glucose 104 H, Calcium 8.8 I & O for Last 24 hours: Intake & Output 05/27/20 05/28/20 05/29/20 05/30/20 11:59 11:59 11:59 11:59 Intake Total 1910 / 1910 1856 / 1856 600 / 600 970 / 970 Output Total 4325 / 5275 2725 / 2725 3625 / 3625 251 / 251 Balance -2415 / -3365 -869 / -869 -3025 / -3025 719 / 719 Weight 196 lb 2 oz 191 lb 3 oz 183 lb 9 oz 185 lb 3 oz Microbiology Reports for the Last 24 Hours: Microbiology 05/29/20 14:45 Nasopharyngeal Coronavirus COVID-19 PCR - Final - Constitutional no acute distress (Sitting on the bedside getting ready to eat breakfast. She has just been to the bathroom and is not short of breath.) - *Routine Respiratory Exam Comments: Rare scattered wheezing - *Routine Cardiovascular Exam Present: RRR - *Routine Abdominal Exam Present: soft, normoactive bowel sounds. Absent: tenderness - *Routine Extremities Exam Absent: edema Comments: Legs continue to heal. Currently she has wraps from the knees down to the toes. - *Routine Neurological Exam Present: alert, oriented X3 Assessment and Plan (1) Cellulitis Current visit: Yes Status: Acute Category: Medical Code(s): L03.90 - Cellulitis, unspecified (2) Hypertension Current visit: Yes Status: Chronic Category: Medical Code(s): I10 - Essential (primary) hypertension (3) History of CVA (cerebrovascular accident) Current visit: Yes Status: Chronic Category: Medical Code(s): Z86.73 - Personal history of transient ischemic attack (TIA), and cerebral infarction without residual deficits (4) COPD (chronic obstructive pulmonary disease) Current visit: Yes Status: Chronic Category: Medical Code(s): J44.9 - Chronic obstructive pulmonary disease, unspecified (5) Hyperlipidemia Current visit: Yes Status: Chronic Category: Medical Code(s): E78.5 - Hyperlipidemia, unspecified (6) Hyponatremia Current visit: Yes Status: Chronic Category: Medical Code(s): E87.1 - Hypo-osmolality and hyponatremia (7) Anemia Current visit: Yes Status: Acute Category: Medical Code(s): D64
--- NOTE | 2020-05-30 08:14 | HMH.DCSUM ---
General - General Admission date:: 05/23/20 Discharge date: 05/30/20 HPI HPI: Ms Hull is a 64-year-old female with a history of a CVA 2 years ago who has not left her house in the last year with a history of hypertension, hypercholesterolemia, previous first CVA at the age of 22, ASCVD, left ICA stenosis, acute upper GI bleed, tobacco use disorder, and previous kidney stones, who presented to [facility] with worsening pain of bilateral lower extremities after a ground-level mechanical fall 4 days ago whereby she landed on her left knee. She also noticed foul-smelling odor from her legs but stated that she had been unable to check her own legs. Nobody checked her legs for her. EMS felt she had gangrene to both lower extremities that the patient was unaware of. She had not been taking any medication for this. She stated that her nephew was seeing her once weekly but otherwise she had not seen a physician or anybody outside of her home. She did have a tele-visit with Dr. Mckeon on 01/24/2020 for renewal of medications. At that time she had a plan to come to [facility] for laboratory work but was unable to find someone to accompany her. She denied fever, chills, nausea, vomiting, numbness, tingling, diarrhea, constipation, shortness of breath, and palpitations. She did have a chronic cough and continued to smoke. With evaluation in the emergency room she was felt to be hemodynamically stable. White blood cell count was noted to be elevated. Also noted was hyponatremia with a sodium of 129, elevated CRP and sed rate. She was started on IV vancomycin, cefepime, and clindamycin on arrival. Blood cultures were obtained. She had several x-rays which showed no fractures. 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 She did receive 4 mg of IV morphine for pain control. Orthopedic surgeon was consulted. At the time of exam patient appeared comfortable. She was eating her dinner. She was conversant. She had a frequent cough and appeared short of breath with conversation. Hospital Course Hospital Course: On admission patient was started on dose of Cefepime, Vancomycin and , clindamycin, Patient was started on wound care on admission With leg scrubs with Hibiclens and application of Aquaphor. They were then wrapped as well. She was seen by Dr. English, Orthopedic surgeon, who felt Patient had bilateral lower extremity hyperkeratotic plaques. She did not feel the patient had any signs of gangrene. She felt the hematoma was likely due to combination of supratherapeutic INR and a fall at home. She recommended wound care starting with scrubbing of the bilateral lower extremities with Hibiclens to remove the keratoses. Soaking with saline to moisten gauze and or Vaseline were noted to be helpful. She felt she was on appropriate antibiotic treatment. She recommended offloading of the bilateral heels with elevating the legs to keep the swelling and control.Physical therapy was ordered for patient ambulation and strength. Patient was also seen by podiatry who trimmed bilateral hallux nails Which were extending 5 inches out from the base of the nailbed. Patient was smoking 1-1/2 packs/day prior to admission. She did have some breathing difficulties and was started on duo nebs and continued with oxygen. She did have an issue 1 night which required IV Lasix, Solu-Medrol, and an additional neb treatment which resolved the issue. She received additional dose of Lasix after which she diuresed well. She was able to be weaned from the oxygen with satisfact
[2020-05-30 09:45] VITALS: PULSE 81; PULSE 82
[2020-05-30 12:22] LABS: INR 1.21 (0.9-1.1); Prothrombin Time 12.1 seconds (9.4-11.8)
--- NOTE | 2020-05-30 14:00 | PC.NURSE ---
PATIENT COMPLAINS OF PAIN TO BLE UPON MOVEMENT. THIS RN ADMINISTERED SCHEDULED PAIN MEDICATION. THIS RN PROVIDED D/C INSTRUCTIONS TO PATIENT AND TO RICK ESPINOSA MARKHAM. NO NEW CONCERNS AT D/C.
== END 2020-05-30 12:35 | DRG 603 ==
LOC: ER 15:03 → 2ND 15:39
PROVIDERS: Nurse Practitioner Family; Physician Assistant; Admitting Provider Family Medicine; Emergency Provider Physician Assistant; PCP Family Medicine; Visit Provider Family Medicine
DX: L03.116 Cellulitis of left lower limb (principal); E87.1 Hypo-osmolality and hyponatremia; I69.354 Hemiplegia and hemiparesis following cerebral infarction affecting left non-dominant side; L03.115 Cellulitis of right lower limb; I10 Essential (primary) hypertension; J44.9 Chronic obstructive pulmonary disease, unspecified; E78.5 Hyperlipidemia, unspecified; K21.9 Gastro-esophageal reflux disease without esophagitis; L85.9 Epidermal thickening, unspecified; I25.10 Atherosclerotic heart disease of native coronary artery without angina pectoris; D64.9 Anemia, unspecified; Z72.0 Tobacco use; R79.1 Abnormal coagulation profile; L60.8 Other nail disorders; Z79.01 Long term (current) use of anticoagulants; Z88.8 Allergy status to other drugs, medicaments and biological substances; Z88.5 Allergy status to narcotic agent
CPT/HCPCS: 36415; 71045; 73562; 73590; 73610; 73630; 73701; 76705; 80048; 80053; 80202; 81001; 82272; 82306; 82607; 82728; 82746; 83540; 83550; 83605; 84443; 85007; 85014; 85018; 85025; 85044; 85610; 85651; 85730; 86140; 86328; 86850; 87040; 94640; 94761; 96365; 96366; 96375; 97116; 97165; 97530; 99285; G0328; J0692; J2405; J3370; P9016; Q9967; U0003

== ENCOUNTER → 2020-09-28 12:13 | Outpatient (CLI) | payer MEDICARE, MEDICAID, SELFPAY ==
[2020-09-28 13:12] LABS: Blood Urea Nitrogen 20 mg/dl (7-17); Calcium 10.4 mg/dl (8.4-10.2); Carbon Dioxide 20 mmol/L (22.0-30.0); Chloride 89 mmol/L (98-107); Estimated Glomerular Filt Rate 38 ml/min (>60); GFR (African American) 46 ML/MIN (>60); Glucose 111 mg/dl (74-100); Sodium 129 mmol/L (136-145)
== END ==
PROVIDERS: Visit Provider Family Medicine
DX: I10 Essential (primary) hypertension (principal)
CPT/HCPCS: 80048

== ENCOUNTER 2020-11-07 23:44 | Inpatient (IN) | payer MEDICARE, MEDICAID, SELFPAY ==
[2020-11-07 23:40] VITALS: BP 104/46; PULSE 86; RESP 16; TEMP 37.1; O2SAT 90; BMI 32.0
--- NOTE | 2020-11-07 23:47 | ECG_ITS ---
APPROVED REPORT Exam: Resting ECG HR:85 bpm ECG Measurements Heart Rate 85 AXES NH 128 P 55 QRSd 82 QRS 71 QT 390 T 63 QTc 464 Conclusion Normal sinus rhythm ST abnormality, possible digitalis effect Abnormal ECG Electronically signed by : Jacob Delgado, 11/08/2020 08:52:26
[2020-11-08] VITALS (38 sets, daily range): BP systolic 90–165; BP diastolic 33–91; PULSE 79–110; RESP 15–22; TEMP 36.4–36.7; O2SAT 93–100; BMI 31.1
[2020-11-08] LABS: Adenovirus,PCR Not Detected (NotDetected); Bordetella Pertussis Not Detected (NotDetected); Chlamydophila Pneumoniae, PCR Not Detected (NotDetected); Coronavirus 19, PCR Not Detected (NotDetected); Coronavirus 229E Not Detected (NotDetected); Coronavirus NL63 Not Detected (NotDetected); Coronavirus OC43 Not Detected (NotDetected); Coronovirus HKU1,PCR Not Detected (NotDetected); Human Metapneumovirus Not Detected (NotDetected); Influenza A, PCR Not Detected (NotDetected); Influenza AH1, 2009 Not Detected (NotDetected); Influenza AH1, PCR Not Detected (NotDetected); Influenza AH3,PCR Not Detected (NotDetected); Influenza B, PCR Not Detected (NotDetected); Mycoplasma Pneumoniae, PCR Not Detected (NotDetected); Parainfluenza 1, PCR Not Detected (NotDetected); Parainfluenza 2, PCR Not Detected (NotDetected); Parainfluenza 3, PCR Not Detected (NotDetected); Parainfluenza 4, PCR Not Detected (NotDetected); Respiratory Syncytial Virus Not Detected (NotDetected); Rhinovirus/Enterovirus Not Detected (NotDetected)
[2020-11-08 00:03] LABS: Basophils # 0.1 K/mm3 (0-0.2); Basophils % 0.4 % (0.1-2.0); Eosinophils % 0.3 % (0.1-12.0); Hematocrit 29.1 % (37.0-47.0); Hemoglobin 9.5 g/dL (12.2-16.2); Lymphocytes # 2.9 K/mm3 (0.7-4.5); Lymphocytes % 22.3 % (10-50); Mean Corpuscular HGB Conc 32.6 g/dL (31.8-35.4); Mean Corpuscular Hemoglobin 32.1 pg (27.0-31.2); Mean Corpuscular Volume 98.5 fl (81-99); Mean Platelet Volume 7.9 fl (7.4-10.4); Monocytes # 0.6 K/mm3 (0.1-1.0); Monocytes % 4.7 % (1.7-9.3); Neutrophils # 9.4 K/mm3 (1.8-7.8); Neutrophils % 72.3 % (37.0-80.0); Platelet Count 328 K/mm3 (142-424); Red Blood Count 2.96 M/mm3 (4.20-5.40); Red Cell Distribution Width 13.8 % (11.5-17.5); White Blood Count 12.9 K/mm3 (4.8-10.8)
[2020-11-08 00:09] LABS: Alanine Aminotransferase 20 U/L (12-78); Albumin Level 4.1 g/dl (3.5-5.0); Albumin/Globulin Ratio 1.4 (1.1-1.8); Alkaline Phosphatase 81 U/L (38-126); Amylase 53 U/L (30-110); Anion Gap 27.4 mEq/L (5-15); Aspartate Amino Transferase 41 U/L (14-36); Bilirubin,Total 0.7 mg/dl (0.2-1.3); Blood Urea Nitrogen 46 mg/dl (7-17); Calcium 10.4 mg/dl (8.4-10.2); Carbon Dioxide 14 mmol/L (22.0-30.0); Chloride 94 mmol/L (98-107); Creatinine Clearance Estimated 47 mL/min (50-200); Estimated Glomerular Filt Rate 35 ml/min (>60); GFR (African American) 42 ML/MIN (>60); Globulin 2.9 g/dL (1.3-3.2); Glucose 134 mg/dl (74-100); Lipase 290 U/L (23-300); Sodium 133 mmol/L (136-145)
--- NOTE | 2020-11-08 00:10 | HMH.EDGIBL ---
ED Disposition Clinical Impression: History of CVA (cerebrovascular accident), Tobacco use disorder, Acute blood loss anemia (ABLA), Prolonged pt (prothrombin time), Lactic acidosis, Elevated erythrocyte sedimentation rate, Hypokalemia, Renal insufficiency, Obesity (BMI 30.0-34.9) GI bleed Qualifiers: GI bleed type/associated pathology: unspecified gastrointestinal hemorrhage type Qualified Code(s): K92.2 - Gastrointestinal hemorrhage, unspecified EtOH dependence Qualifiers: Substance use status: unspecified alcohol-induced disorder Qualified Code(s): F10.29 - Alcohol dependence with unspecified alcohol-induced disorder Disposition: Admitted As Inpatient Condition on Discharge: Serious Instructions: DI for Acute Abdominal Pain Referrals: Chung Mckeon MD [Primary Care Provider] - - Critical Care Critical Care Time: Yes Attestation: On 11/07/20, the high probability of a clinically significant, sudden or life threatening deterioration of the following system(s) required my full and direct attention, intervention and personal management. The time I documented below is in addition to time spent performing reported procedures but includes the following listed in this critical care notation. Total Critical Care Time: 60 Vital system(s) involved:: Metabolic Failure, Renal Failure My critical care processes included: Assessment & monitoring of V/S, Initial and Re-exams, Data Review/Interpretation, Coordinating Care, Medication Orders and management, Documentation Medical Decision Making - Medical Records Medical records reviewed: Yes: I reviewed the patient's medical records. - Raudel Inquiry Pt receiving controlled substance: No Vital Signs: 11/07/20 23:40 11/08/20 00:00 11/08/20 01:00 Temperature 98.7 F Temperature Source Oral Pulse Rate Pulse Rate [Left] 86 88 86 Respiratory Rate 16 18 22 Blood Pressure [Left Arm] 104/46 L 101/44 L 119/49 L Blood Pressure Mean [Left Arm] 65 63 72 Blood Pressure Source [Left Arm] Automatic Cuff Blood Pressure Position [Left Arm] Supine 02 Sat by Pulse Oximetry 90 L 95 95 Oxygen Delivery Method Room Air Nasal Cannula Nasal Cannula Oxygen Flow Rate (LPM) 2 2 11/08/20 01:30 11/08/20 02:00 11/08/20 02:03 Temperature Temperature Source Pulse Rate 79 Pulse Rate [Left] 79 82 Respiratory Rate 22 Blood Pressure [Left Arm] 94/41 L 90/54 L Blood Pressure Mean [Left Arm] 58 66 Blood Pressure Source [Left Arm] Blood Pressure Position [Left Arm] 02 Sat by Pulse Oximetry 93 L 95 Oxygen Delivery Method Nasal Cannula Nasal Cannula Oxygen Flow Rate (LPM) 2 2 11/08/20 02:30 11/08/20 03:00 11/08/20 03:30 Temperature Temperature Source Pulse Rate Pulse Rate [Left] 83 83 87 Respiratory Rate 17 16 17 Blood Pressure [Left Arm] 107/41 L 104/36 L 117/46 L Blood Pressure Mean [Left Arm] 63 58 69 Blood Pressure Source [Left Arm] Automatic Cuff Automatic Cuff Automatic Cuff Blood Pressure Position [Left Arm] Supine Supine Supine 02 Sat by Pulse Oximetry 99 99 98 Oxygen Delivery Method Nasal Cannula Nasal Cannula Nasal Cannula Oxygen Flow Rate (LPM) 2 2 2 11/08/20 03:55 11/08/20 04:30 11/08/20 04:48 Temperature Temperature Source Pulse Rate Pulse Rate [Left] 84 81 92 H Respiratory Rate Blood Pressure [Left Arm] 113/39 L 102/45 L 123/59 L Blood Pressure Mean [Left Arm] 63 64 80 Blood Pressure Source [Left Arm] Blood Pressure Position [Left Arm] 02 Sat by Pulse Oximetry 99 97 100 Oxygen Delivery Method Nasal Cannula Nasal Cannula Nasal Cannula Oxygen Flow Rate (LPM) 2 2 2 11/08/20 05:00 11/08/20 05:30 11/08/20 06:00 Temperature Temperature Source Pulse Rate Pulse Rate [Left] 82 90 87 Respiratory Rate 16 Blood Pressure [Left Arm] 113/52 L 112/49 L 107/45 L Blood Pressure Mean [Left Arm] 72 70 65 Blood Pressure Source [Left Arm] Blood Pressure Position [Left Arm] 02 Sat by Pulse Oximetry 97 98 97 O
--- NOTE | 2020-11-08 00:18 | XR_ITS ---
PROCEDURE: XR CHEST PORTABLE CLINICAL HISTORY: SOA Shortness of air COMPARISON: CR XR CHEST PORTABLE from 05/24/2020 FINDINGS: The cardiomediastinal silhouette and pulmonary vascularity are within normal limits. The lungs are clear without infiltrates, suspicious nodules, or pleural effusions. Old granulomatous disease. No acute bony findings. IMPRESSION: No acute findings. Dictated by: Jame Allen MD 11/08/2020 05:01 Jame Allen MD in [place] 11/08/2020 05:01
[2020-11-08 00:26] LABS: Potassium 2.4 mmoL/L (3.5-5.1)
--- NOTE | 2020-11-08 00:28 | CT_ITS ---
PROCEDURE: CT ABDOMEN PELVIS WO CON CLINICAL INDICATION: ABD PAIN, POSSIBLE GI BLEED COMPARISON: CT ABDPELW CT ABD PELVIS W/ CONTRAST from 09/13/2014 TECHNIQUE: Axial images obtained with sagittal and coronal reformats. All CT scans at the facility use one or more dose reduction, viz: automated exposure control, ma/kV adjustment per patient size (including targeted exams where dose is matched to indication, i.e. head), or iterative reconstruction technique. FINDINGS: There is mild thickening of the pericardium inferiorly. Coronary artery calcifications are present. Irregular areas of decreased attenuation are present throughout the liver having a similar appearance compared to 09/13/2014 and may be due to fatty infiltration. The liver has a somewhat lobular contour. The spleen is unremarkable. No adrenal mass. Nonobstructing punctate bilateral renal calculi are noted. No hydronephrosis. No ureteral calculi. The pancreas is unremarkable. No evidence of appendicitis. No intestinal obstruction or free air. There is diffuse colonic diverticulosis but no evidence of diverticulitis. Urinary bladder is collapsed the. Previously there was a large pelvic mass extending into the abdomen. This is no longer apparent. There has been interval hysterectomy. Severe osteoarthritic changes are present involving the right hip with subchondral cystic changes and mild collapse of the femoral head IMPRESSION: 1. Overall no significant change with no acute finding. 2. Abnormal appearance of the liver with streaky areas of low-attenuation similar to the previous exam and may represent a atypical areas of fatty infiltration. 3. Iyer diverticulosis. No evidence of diverticulitis. 4. Nonobstructing bilateral renal calculi. 5. Severe end-stage osteoarthritis of the right hip with subchondral cystic changes and mild flattening of the femoral heads Dictated by: Jame Allen MD 11/08/2020 05:25 Jame Allen MD in [place] 11/08/2020 05:25
[2020-11-08 00:32] LABS: ABG Base Excess -14.7 mmol/L (-2.4-2.3); ABG HCO3 12.1 mmhg (22.0-26.0); ABG Oxygen Saturation 97 % (90-100); ABG PCO2 26.5 mmhg (35.0-45.0); ABG PH 7.28 mmol/L (7.35-7.45); ABG PO2 118.5 mmhg (80-100); ABG TCO2 12.9 mmhg (23-27)
[2020-11-08 00:33] LABS: Ethyl Alcohol 55 mg/dl (0-10)
[2020-11-08 00:33] LABS: Allen's Test Acceptable; Oxygen 2L NC %; Source Right Radial
[2020-11-08 00:33] LABS: Occult Blood,Stool Positive (Negative)
[2020-11-08 00:33] LABS: Procalcitonin 0.193 ng/mL (0.0-2.0)
[2020-11-08 00:53] LABS: Erythrocyte Sedimentation Rate 122 mm/hr (0-30)
[2020-11-08 01:13] LABS: Troponin I 0.07 ng/ml (0.00-0.034)
--- NOTE | 2020-11-08 01:25 | PC.NURSE ---
RECEIVED CALL FROM LAB. SPOKE WITH ANGI AND SHE STATED THAT HAD RAN THE PT/INR TWICE AND KEEPS SAYING IT WON'T RUN AND GIVE ME A RESULT ; KEPT STATING NO COAGULATION . DISCUSSED FURTHER AND WE AGREED TO DRAW A DIFFERENT TUBE FOR HER TO RUN. SHE AGREED TO RUN ADDITIONAL QC ON THE EQUIPMENT.
[2020-11-08 02:53] LABS: Lactic Acid 7.9 mmol/L (0.7-2.1)
[2020-11-08 03:21] LABS: Troponin I 0.07 ng/ml (0.00-0.034)
[2020-11-08 03:40] LABS: Microscopic, Urine URINE MICROSCOPIC (MICROSCOPIC)
[2020-11-08 04:06] LABS: Appearance,Urine CLEAR (Clear); Blood, Urine TRACE-L (Negative); Color,Urine YELLOW (Yellow); Glucose,Urine (UA) Negative (Negative); Ketones,Urine 1+ (Negative); Leukocyte Esterase,Urine Negative (Negative); Nitrate,Urine Negative (Negative); PH,Urine 5.5 (5.0-8.5); Protein,Urine 1+ (Negative); Specific Gravity, Urine 1.015 (1.005-1.030); Urobilinogen,Urine 0.2 EU/dl (0.2)
[2020-11-08 04:18] LABS: Bilirubin,Urine Negative (Negative)
[2020-11-08 04:26] LABS: Amorphous Sediment,Urine 1+ /lpf; Bacteria,Urine 1+ /lpf; RBC,Urine Occasional #/hpf (0-3)
[2020-11-08 05:51] LABS: Reflex Lactic Add Lactic Reflex
[2020-11-08 06:01] LABS: Lactic Acid Follow Up (RFLX 1) 1.3 mmol/L (0.7-2.1)
[2020-11-08 06:13] LABS: Prothrombin Time > 300.0 seconds (9.4-11.8)
[2020-11-08 06:29] LABS: Chloride 102 mmol/L (98-107); Sodium 134 mmol/L (136-145)
[2020-11-08 06:32] LABS: Blood Urea Nitrogen 50 mg/dl (7-17); Creatinine Clearance Estimated 54 mL/min (50-200); Estimated Glomerular Filt Rate 41 ml/min (>60); GFR (African American) 50 ML/MIN (>60)
[2020-11-08 06:33] LABS: Anion Gap 13.7 mEq/L (5-15); Carbon Dioxide 21 mmol/L (22.0-30.0); Glucose 164 mg/dl (74-100)
[2020-11-08 06:47] LABS: Basophils % 0.2 % (0.1-2.0); Eosinophils # 0.1 K/mm3 (0.0-0.4); Eosinophils % 0.6 % (0.1-12.0); Lymphocytes # 0.4 K/mm3 (0.7-4.5); Lymphocytes % 2.3 % (10-50); Mean Corpuscular HGB Conc 32.7 g/dL (31.8-35.4); Mean Corpuscular Hemoglobin 32.2 pg (27.0-31.2); Mean Corpuscular Volume 98.6 fl (81-99); Mean Platelet Volume 8.9 fl (7.4-10.4); Monocytes # 0.5 K/mm3 (0.1-1.0); Monocytes % 2.5 % (1.7-9.3); Neutrophils # 17.9 K/mm3 (1.8-7.8); Neutrophils % 94.3 % (37.0-80.0); Platelet Count 250 K/mm3 (142-424); Red Blood Count 2.42 M/mm3 (4.20-5.40); Red Cell Distribution Width 14.2 % (11.5-17.5); White Blood Count 18.9 K/mm3 (4.8-10.8)
[2020-11-08 06:48] LABS: Troponin I 0.01 ng/ml (0.00-0.034)
[2020-11-08 06:51] LABS: Hematocrit 23.8 % (37.0-47.0); Hemoglobin 7.8 g/dL (12.2-16.2); Potassium 2.7 mmoL/L (3.5-5.1)
[2020-11-08 06:52] LABS: Calcium 8.8 mg/dl (8.4-10.2)
[2020-11-08 06:53] LABS: MANUAL DIFFERENTIAL MANUAL DIFFERENTIAL (MANUAL DIFF)
--- NOTE | 2020-11-08 06:55 | PC.NURSE ---
placed on bedside commode
--- NOTE | 2020-11-08 06:57 | PC.NURSE ---
Notified fredi of critical H&H and potassium
--- NOTE | 2020-11-08 07:09 | PC.NURSE ---
Dr Carbajal speaking with Dr Mckeon at this time.
--- NOTE | 2020-11-08 07:15 | PC.NURSE ---
Pt up to bedside potty chair.
--- NOTE | 2020-11-08 07:20 | PC.NURSE ---
Pt had a bloody bowel movement at this time
--- NOTE | 2020-11-08 07:32 | PC.NURSE ---
pt resting, easily aroused to verbal stimuli. offers no c/o at present
--- NOTE | 2020-11-08 07:36 | PC.NURSE ---
Pt up to bedside commode again at this time. call ward within reach for when she finishes.
[2020-11-08 07:49] LABS: Anisocytosis 1+; Lymphocytes % 11 % (10-50); Monocytes % 4 % (2-9); Neutrophils % 85 % (42-76); Total Cells Counted 100
[2020-11-08 07:50] LABS: Hypochromasia 1+; Platelet Estimate Normal
--- NOTE | 2020-11-08 08:12 | PC.NURSE ---
Pt arrived to the floor at this time.
--- NOTE | 2020-11-08 09:26 | HMH.HP ---
*Admission Date: 11/08/20 <Jyothi Gillespie 11/08/20 09:37> *Chief complaint: blood in stool, vomiting blood <Jyothi Gillespie 11/08/20 09:37> *History of present illness: Ms. Hull is a 65-year-old female with a history of CVA, hypertension, ASCVD, UTIs, and history of an upper GI bleed. She is on Coumadin and states that home health was checking her Coumadin level up until a few months ago when she was discharged from home health. She has been scared to follow-up in the office of [facility] due to Covid for her Coumadin checks, therefore she has not had it checked. She states for the past few weeks she has had some lower abdominal pressure and gas. Her bowel movements were not normal. Last night she had 2 bowel movements that looked like black paste. She called 911 and was transported to the emergency room. She states she did have an episode of vomiting dark black blood in the ambulance on the way to the ER. She was evaluated in the emergency room and found to be anemic. She states she had dark bowel movements all night long. She was admitted and a blood transfusion was ordered. Her INR was greater than 9.99. Her white blood cell count was elevated this morning at 18.9 and her hemoglobin and hematocrit were down to 7.8 and 23.8. Her potassium was also low at 2.7 and her renal function was elevated. Her initial troponin was elevated, but it has normalized. Her stool for blood was positive and her alcohol level was 55. <Jyothi Gillespie 11/08/20 09:37> [facility] History I have reviewed the patient's past medical history: Yes <Jyothi Gillespie 11/08/20 09:37> Medical History: Reports:: Atherosclerotic Heart Disease, Carotid Stenosis, Cerebrovascular Accident, Gastroesophageal Reflux Disease(GERD), Gastrointestinal Bleed, Heart Murmur, Hyperlipidemia, Hypertension, Kidney Stones Denies:: Cancer, Diabetes Mellitus Type 1, Diabetes Mellitus Type 2, MRSA <Jyothi Gillespie 11/08/20 09:37> *Have you ever received a pneumonia vaccine?: No <Jyothi Gillespie 11/08/20 09:37> *Have you received a flu vaccine this season?: No <Jyothi Gillespie 11/08/20 09:37> Other Medical History: Reports: Anemia <Jyothi Gillespie 11/08/20 09:37> Laterality Cases: Right: Carpal Tunnel Release <Jyothi Gillespie 11/08/20 09:37> Other Surgeries: Yes: Hysterectomy-Partial <Jyothi Gillespie 11/08/20 09:37> Amputation: No <Jyothi Gillespie 11/08/20 09:37> - *Social History Smoking Status: Current every day smoker <Jyothi Gillespie 11/08/20 09:37> Tobacco Type: cigarettes <Jyothi Gillespie 11/08/20 09:37> # Packs/Day (cigarettes): 2 <Jyothi Gillespie 11/08/20 09:37> Alcohol Intake: current <Jyothi Gillespie 11/08/20 09:37> Alcohol Intake Frequency:: 3 or more drinks per day <Jyothi Gillespie 11/08/20 09:37> *Occupational Status:: disabled <Jyothi Gillespie 11/08/20 09:37> Housing: house <Jyothi Gillespie 11/08/20 09:37> Household Members: children <Jyothi Gillespie 11/08/20 09:37> *Travel in the last 8 weeks: None <Jyothi Gillespie 11/08/20 09:37> Family Hx:: Cancer <Jyothi Gillespie 11/08/20 09:37> Review of Systems - Constitutional Reports malaise, Reports weakness, Denies chills, Denies fever(s) <Jyothi Gillespie 11/08/20 09:37> - Eyes Denies blurry vision, Denies double vision <Jyothi Gillespie 11/08/20 09:37> - ENT Denies nasal congestion, Denies sore throat <Jyothi Gillespie 11/08/20 09:37> - *Cardiovascular Reports shortness of breath, Denies chest pain <Jyothi Gillespie 11/08/20 09:37> - *Respiratory Reports shortness of breath, Denies cough <Jyothi Gillespie 11/08/20 09:37> - *Gastrointestinal Reports abdominal pain, Reports coffee ground vomit, Reports vomiting blood, Reports black, tarry stools, Reports nausea, Reports vomiting <Jyothi Gillespie 11/08/20 09:37> - *Genitourinary Denies difficulty urinating, Denies painful urination <Jyothi Gillespie 11/08/20 09:37> - *Musculoskeletal Denies joint pain <Jyothi Gillespie
--- NOTE | 2020-11-08 15:32 | P.CONPHA_ITS ---
[facility] Pharmacy VTE Monitoring - Patient Demographics Admission date: 11/08/20 Report Date: 11/08/20 Time: 15:32 Allergies/Adverse Reactions: Patient Allergies codeine [CODEINE] Allergy (Unknown, Verified 11/07/20 23:47) Penicillins [PENICILLINS] Allergy (Unknown, Verified 11/07/20 23:47) Height: 1.57 m Weight: 77.111 kg Patient Problems: Current Active Problems Hypertension (Chronic) History of CVA (cerebrovascular accident) (Chronic) COPD (chronic obstructive pulmonary disease) (Chronic) Hyperlipidemia (Chronic) Tobacco use disorder (Chronic) EtOH dependence (Chronic) GI bleed (Acute) Acute blood loss anemia (ABLA) (Acute) Prolonged pt (prothrombin time) (Acute) Lactic acidosis (Acute) Elevated erythrocyte sedimentation rate (Acute) Hypokalemia (Acute) Renal insufficiency (Acute) Obesity (BMI 30.0-34.9) (Acute) - VTE Risk Labs: VTE Related Lab Results Hgb 7.8 g/dL (12.2-16.2) L* 11/08/20 06:04 Hct 23.8 % (37.0-47.0) L* 11/08/20 06:04 Plt Count 250 K/mm3 (142-424) 11/08/20 06:04 PT > 300.0 seconds (9.4-11.8) H* 11/08/20 01:39 INR > 9.99 (0.9-1.1) H 11/08/20 01:39 BUN 50 mg/dl (7-17) H 11/08/20 06:04 Creatinine 1.30 mg/dl (0.52-1.04) H 11/08/20 06:04 Estimated Creat Clear 54 mL/min (50-200) 11/08/20 06:04 Was VTE Risk Assessment Performed: No VTE Score: 6 VTE Risk Level: Moderate Risk Clinical Trial Participant: No - Prophylaxis VTE Prophylaxis Ordered?: Yes Types of VTE Prophylaxis: TEDS Knee High, Pharmacological Pharmacologic Type: Warfarin (INR SUPRATHERAPEUTIC AT >9.99)
--- NOTE | 2020-11-08 16:20 | PC.NURSE ---
PT HAS DONE OK TODAY. PT HAS BEEN UP WITH ASSISTANCE TO BSC QUITE FREQUENTLY. MULTIPLE BLOODY STOOLS. NO VOMITING THIS SHIFT. PT RECEIVED A SHOWER THIS SHIFT. PT IS ON HER SECOND UNIT OF PRBC, TOLERATING WELL. VSS. WILL CONT. TO MONITOR.
--- NOTE | 2020-11-08 17:36 | PC.NURSE ---
PER MD GOLD- GET A ONE HOUR POST H&H BETWEEN THE SECOND AND THIRD UNIT AND CALL HIM WITH RESULTS.
[2020-11-08 18:25] LABS: Hematocrit 32.1 % (37.0-47.0)
[2020-11-08 18:55] LABS: Hemoglobin 10.4 g/dL (12.2-16.2)
--- NOTE | 2020-11-08 19:03 | PC.NURSE ---
PER MD GOLD, DO NOT INFUSE LAST TWO UNITS OF BLOOD.
[2020-11-09] VITALS (16 sets, daily range): BP systolic 86–147; BP diastolic 48–97; PULSE 61–87; RESP 18–21; TEMP 36.4–36.8; O2SAT 90–100; BMI 31.2
--- NOTE | 2020-11-09 04:06 | PC.NURSE ---
PATIENT UP TO BEDSIDE COMMODE SEVERAL TIMES DURING THIS RN SHIFT. PATIENT HAD SMALL AMOUNT OF BLOODY STOOL WITH EACH BOWEL MOVEMENT. PATIENT COMPLAINED OF CRAMPING, THIS RN ADMINISTERED TYLENOL. NO OTHER CONCERNS AT THIS TIME.
--- NOTE | 2020-11-09 05:41 | PC.NURSE ---
PATIENT COMPLAINS OF DIFFICULTY BREATHING. THIS RN PAGED DR. GOLD, THIS RN PROVIDED SYMPTOMS AND REPORT OF BLOOD CULTURES. ORDERED DUO NEBS Q6HRS PRN. NO OTHER CONCERNS AT THIS TIME.
[2020-11-09 07:04] LABS: Basophils % 0.1 % (0.1-2.0); Hematocrit 26.4 % (37.0-47.0); Lymphocytes # 0.9 K/mm3 (0.7-4.5); Lymphocytes % 7.7 % (10-50); Mean Corpuscular HGB Conc 32.3 g/dL (31.8-35.4); Mean Corpuscular Hemoglobin 31.1 pg (27.0-31.2); Mean Corpuscular Volume 96.1 fl (81-99); Mean Platelet Volume 8.6 fl (7.4-10.4); Monocytes # 0.8 K/mm3 (0.1-1.0); Monocytes % 7.2 % (1.7-9.3); Neutrophils # 9.6 K/mm3 (1.8-7.8); Platelet Count 208 K/mm3 (142-424); Red Blood Count 2.75 M/mm3 (4.20-5.40); White Blood Count 11.3 K/mm3 (4.8-10.8)
[2020-11-09 07:16] LABS: Chloride 105 mmol/L (98-107); Sodium 136 mmol/L (136-145)
[2020-11-09 07:17] LABS: Potassium 3.6 mmoL/L (3.5-5.1)
[2020-11-09 07:19] LABS: Blood Urea Nitrogen 57 mg/dl (7-17); Creatinine Clearance Estimated 62 mL/min (50-200); Estimated Glomerular Filt Rate 50 ml/min (>60); GFR (African American) 60 ML/MIN (>60)
[2020-11-09 07:20] LABS: Anion Gap 8.6 mEq/L (5-15); Calcium 8.7 mg/dl (8.4-10.2); Carbon Dioxide 26 mmol/L (22.0-30.0); Glucose 156 mg/dl (74-100)
[2020-11-09 07:23] LABS: MANUAL DIFFERENTIAL MANUAL DIFFERENTIAL (MANUAL DIFF)
[2020-11-09 07:35] LABS: INR > 8.00 (0.9-1.1)
[2020-11-09 07:38] LABS: Prothrombin Time 78.7 seconds (9.4-11.8)
[2020-11-09 07:59] LABS: Hemoglobin 8.5 g/dL (12.2-16.2)
[2020-11-09 08:23] LABS: Activated Partial Thrombo Time 61.2 seconds (23.6-34.0)
--- NOTE | 2020-11-09 08:33 | HMH.ACPN2 ---
<Jyothi Gillespie - Last Filed: 11/09/20 08:33> Internal Medicine - PN: Subj *Date: 11/09/20 *Time: 08:33 Interval history: Patient states she is feeling a little bit better today. Her abdomen is still cramping and she is still having blood in her stool. She has had numerous bowel movements throughout the night and is actually on the bedside commode this morning. She states she was able to sleep a little bit better last night and tolerated some food. She has had no further hematemesis. Exam Vital signs and Labs for Last 24 Hours: Temp Pulse Resp BP Pulse Ox 97.5 F L 87 18 138/97 H 100 11/09/20 08:00 11/09/20 08:00 11/09/20 08:00 11/09/20 08:00 11/09/20 08:00 Laboratory Results - last 24 hr 11/08/20 02:45: Blood Type O Positive, Antibody Screen Negative, Crossmatch (AHG) See Detail 11/08/20 18:13: Hgb 10.4 L D, Hct 32.1 L 11/09/20 06:14: APTT 61.2 H* D 11/09/20 06:14: PT 78.7 H, INR > 8.00 H 11/09/20 06:14: WBC 11.3 H D, RBC 2.75 L, Hgb 8.5 L D, Hct 26.4 L, MCV 96.1, MCH 31.1, MCHC 32.3, RDW 15.0, Plt Count 208, MPV 8.6, Neut % (Auto) 85.0 H, Lymph % (Auto) 7.7 L, [place] % (Auto) 7.2, Eos % (Auto) 0.0 L, Baso % (Auto) 0.1, Neut # (Auto) 9.6 H, Lymph # (Auto) 0.9, [place] # (Auto) 0.8, Eos # (Auto) 0.0, Baso # (Auto) 0.0 11/09/20 06:14: Sodium 136, Potassium 3.6 D, Chloride 105, Carbon Dioxide 26 D, Anion Gap 8.6, BUN 57 H, Creatinine 1.10 H, Estimated Creat Clear 62, Estimated GFR 50 L, Est GFR ( Amer) 60, Glucose 156 H, Calcium 8.7, Magnesium 1.0 L I & O for Last 24 hours: Intake & Output 11/06/20 11/07/20 11/08/20 11/09/20 11:59 11:59 11:59 11:59 Intake Total 970 / 970 Output Total 625 / 625 508 / 508 Balance -625 / -625 462 / 462 Weight 170 lb 170 lb Microbiology Reports for the Last 24 Hours: Microbiology 11/08/20 01:30 Blood Blood Culture - Preliminary - Constitutional no acute distress - *Routine Respiratory Exam Present: CTA bilaterally - *Routine Cardiovascular Exam Present: RRR - *Routine Abdominal Exam Present: soft, normoactive bowel sounds, tenderness (diffuse), distended - *Routine Extremities Exam Present: edema (trace bilateral LE edema). Absent: cyanosis, clubbing - *Routine Skin Exam Present: warm. Absent: rash - *Routine Neurological Exam Present: alert, oriented X3 Assessment and Plan (1) GI bleed Status: Acute Qualifiers: GI bleed type/associated pathology: unspecified gastrointestinal hemorrhage type Qualified Code(s): K92.2 - Gastrointestinal hemorrhage, unspecified Category: Medical Code(s): K92.2 - Gastrointestinal hemorrhage, unspecified (2) Acute blood loss anemia (ABLA) Status: Acute Category: Medical Code(s): D62 - Acute posthemorrhagic anemia (3) Elevated erythrocyte sedimentation rate Status: Acute Category: Medical Code(s): R70.0 - Elevated erythrocyte sedimentation rate (4) Hypokalemia Status: Acute Category: Medical Code(s): E87.6 - Hypokalemia (5) Lactic acidosis Status: Acute Category: Medical Code(s): E87.2 - Acidosis (6) Prolonged pt (prothrombin time) Status: Acute Category: Medical Code(s): R79.1 - Abnormal coagulation profile (7) Renal insufficiency Status: Acute Category: Medical Code(s): N28.9 - Disorder of kidney and ureter, unspecified (8) EtOH dependence Status: Chronic Qualifiers: Substance use status: unspecified alcohol-induced disorder Qualified Code(s): F10.29 - Alcohol dependence with unspecified alcohol-induced disorder Category: Medical Code(s): F10.20 - Alcohol dependence, uncomplicated (9) History of CVA (cerebrovascular accident) Status: Chronic Category: Medical Code(s): Z86.73 - Personal history of transient ischemic attack (TIA), and cerebral infarction without residual deficits (10) Tobacco use disorder Status: Chronic Category: Medical Code(s): F17.200 - Nicotine dependence, unspecified, uncomplicat
--- NOTE | 2020-11-09 08:44 | PC.NURSE ---
NOTIFIED DR GOLD OF LAB VALUES.
--- NOTE | 2020-11-09 11:12 | HMH.GSCON ---
*Admission Date: 11/08/20 *Reason for consult:: GI bleed *History of present illness: Ms. Hull is a 65-year-old female with a history of CVA, hypertension, ASCVD, UTIs, and reported prior history of an upper GI bleed. She is on chronic warfarin anticoagulation therapy and previously was evaluated by [facility]. She has been reluctant to come in for INR evaluation due to concerns about Covid. She states for the past few weeks she has had some lower abdominal pressure and gas. She had developed symptoms consistent with melena. She called 911 and was transported to the emergency room. She states she did have an episode of vomiting dark black blood in the ambulance on the way to the ER. . Evaluation in the emergency department revealed initial hemoglobin of 9.5. This decreased to 7.8. She was transfused a couple of units of packed red blood cells which resulted in good response with hemoglobin of 10.4. However her hemoglobin has subsequently diminished once again. Her INR was greater than 9.99 on admission. Her potassium was also low at 2.7 and her renal function was elevated. Her initial troponin was elevated, but it has normalized. Her stool for blood was positive and her alcohol level was 55. INR is still approximately 8. Surgical consultation was obtained. Her main complaint is abdominal cramping and swelling. Review of Systems - Review of Systems Review of systems:: pertinent systems reviewed and negative unless documented below - *Neurologic Reports dizziness, Reports weakness, Denies localized weakness, Denies headache(s), Denies seizure-like activity [facility] History I have reviewed the patient's past medical history: Yes Medical History: Reports:: Atherosclerotic Heart Disease, Carotid Stenosis, Cerebrovascular Accident, Gastroesophageal Reflux Disease(GERD), Gastrointestinal Bleed, Heart Murmur, Hyperlipidemia, Hypertension, Kidney Stones Denies:: Cancer, Diabetes Mellitus Type 1, Diabetes Mellitus Type 2, MRSA *Have you ever received a pneumonia vaccine?: No *Have you received a flu vaccine this season?: No Other Medical History: Reports: Anemia Laterality Cases: Right: Carpal Tunnel Release Other Surgeries: Yes: Hysterectomy-Partial Amputation: No - *Social History Smoking Status: Current every day smoker Tobacco Type: cigarettes # Packs/Day (cigarettes): 2 Alcohol Intake: current Alcohol Intake Frequency:: 3 or more drinks per day *Occupational Status:: disabled Housing: house Household Members: children *Travel in the last 8 weeks: None Family Hx:: Cancer Meds Home Medications Medication Instructions Recorded Confirmed Type Warfarin Sodium 2.5 - 5 mg PO DAILY 05/23/20 11/08/20 History Amlodipine Besylate [Amlodipine 10 mg PO DAILY #30 tab 05/30/20 11/08/20 Rx 10mg Tab] Aspirin [Aspirin 81mg EC Tab] 81 mg PO DAILY #30 tab 05/30/20 11/08/20 Rx Atorvastatin Calcium [Lipitor 40mg 40 mg PO HS #30 tab 05/30/20 11/08/20 Rx Tablet*] Ferrous Sulfate [Ferrous Sulfate 325 mg PO BID #60 tab 05/30/20 11/08/20 Rx 325mg Tablet] Albuterol Sulfate [Proventil-HFA 2 puffs IH QIDP PRN 11/08/20 11/08/20 History 90mcg/puff Inh] Furosemide [Furosemide 20mg Tab*] 20 mg PO DAILY 11/08/20 11/08/20 History Levothyroxine Sodium [Synthroid 25 mcg PO DAILY 11/08/20 11/08/20 History 25mcg (0.025mg) tablet] Multivitamin [Multi-Vitamin Plain] 1 each PO DAILY 11/08/20 11/08/20 History lisinopriL [Lisinopril 40mg Tablet] 40 mg PO DAILY 11/08/20 11/08/20 History Allergies Allergy/AdvReac Type Severity Reaction Status Date / Time codeine [CODEINE] Allergy Unknown Verified 11/07/20 23:47 Penicillins [PENICILLINS] Allergy Unknown Verified 11/07/20 23:47 Exam Vital signs and Labs for Last 24 Hours: Temp Pulse Resp BP Pulse Ox 97.5 F L 87 18 138/97 H 100 11/09/20 08:00 11/09/20 08:00 11/09/20 08:00 11/09/20 08:00 11/09/20 08:00 Laboratory Results - last 24 hr 11/08/20 02:45: Bl
[2020-11-09 11:23] LABS: Lymphocytes % 8 % (10-50); Monocytes % 4 % (2-9); Neutrophils % 82 % (42-76); Platelet Estimate Normal; RBC Morphology Normal; Total Cells Counted 100
--- NOTE | 2020-11-09 16:01 | PC.NURSE ---
SHE IS AOX4, ABLE TO MAKE NEEDS KNOWN TO STAFF, SHE HAS TOLERATED AMBULATION TO THE BSC BUT OTHERWISE HAS BEEN IN BED FOR MOST OF THE DAY. SHE IS STILL REQUIRING 2LNC FOR O2 SUPPORT, SHE HAS NOT C/O SOB THIS SHIFT, SHE HAS C/O OF GASTRIC DISCOMFORT THIS SHIFT AND WAS TREATED WITH PROTONIX IV PER MAR WITH GOOD EFFECTIVENESS. MULTIPLE SMALL MUCOID BM'S NOTED THIS SHIFT, STOOL IS BLACK AND WATERY IN APPEARANCE. HER VS HAVE REMAINED STABLE, SHE WAS MEDICATED WITH PRN TYLENOL X1 FOR PAIN. NO NEEDS AT THIS TIME.
--- NOTE | 2020-11-09 19:30 | PC.NURSE ---
RA SATS 94 RETURN PT TO 2LPM NC
[2020-11-10] VITALS (16 sets, daily range): BP systolic 90–120; BP diastolic 43–80; PULSE 69–87; RESP 16–20; TEMP 36.4–36.8; O2SAT 95–100; BMI 31.2
[2020-11-10 07:14] LABS: Basophils % 0.2 % (0.1-2.0); Eosinophils % 0.7 % (0.1-12.0); Hematocrit 30.1 % (37.0-47.0); Hemoglobin 10.1 g/dL (12.2-16.2); Lymphocytes # 1.2 K/mm3 (0.7-4.5); Lymphocytes % 32.7 % (10-50); Mean Corpuscular HGB Conc 33.4 g/dL (31.8-35.4); Mean Corpuscular Hemoglobin 30.3 pg (27.0-31.2); Mean Corpuscular Volume 90.6 fl (81-99); Mean Platelet Volume 7.8 fl (7.4-10.4); Monocytes # 0.4 K/mm3 (0.1-1.0); Monocytes % 9.5 % (1.7-9.3); Neutrophils # 2.1 K/mm3 (1.8-7.8); Platelet Count 154 K/mm3 (142-424); Red Blood Count 3.33 M/mm3 (4.20-5.40); Red Cell Distribution Width 14.9 % (11.5-17.5); White Blood Count 3.7 K/mm3 (4.8-10.8)
[2020-11-10 07:23] LABS: Chloride 109 mmol/L (98-107); Potassium 3.8 mmoL/L (3.5-5.1); Sodium 139 mmol/L (136-145)
[2020-11-10 07:26] LABS: Blood Urea Nitrogen 46 mg/dl (7-17); Creatinine Clearance Estimated 68 mL/min (50-200); Estimated Glomerular Filt Rate 63 ml/min (>60); GFR (African American) 76 ML/MIN (>60)
[2020-11-10 07:27] LABS: Calcium 8.6 mg/dl (8.4-10.2); Glucose 103 mg/dl (74-100)
[2020-11-10 07:37] LABS: INR 1.51 (0.9-1.1); Prothrombin Time 17.3 seconds (9.4-11.8)
[2020-11-10 07:53] LABS: Anion Gap 6.8 mEq/L (5-15); Carbon Dioxide 27 mmol/L (22.0-30.0)
--- NOTE | 2020-11-10 08:36 | HMH.ACPN2 ---
Internal Medicine - PN: Subj *Date: 11/10/20 *Time: 08:36 Interval history: Patient feels hungry this morning. Exam Vital signs and Labs for Last 24 Hours: Temp Pulse Resp BP Pulse Ox 98.3 F 80 19 113/52 L 97 11/10/20 08:00 11/10/20 08:00 11/10/20 08:00 11/10/20 08:00 11/10/20 08:00 Laboratory Results - last 24 hr 11/08/20 02:45: Blood Type O Positive, Antibody Screen Negative, Crossmatch ([facility]) See Detail 11/09/20 06:14: Total Counted 100, Neutrophils % (Manual) 82 H, Band Neutrophils % 2.0, Lymphocytes % (Manual) 8 L, Monocytes % (Manual) 4, Metamyelocytes % 4.0 H, Platelet Estimate Normal, RBC Morphology Normal 11/10/20 06:25: WBC 3.7 L D, RBC 3.33 L, Hgb 10.1 L, Hct 30.1 L, MCV 90.6, MCH 30.3, MCHC 33.4, RDW 14.9, Plt Count 154 D, MPV 7.8, Neut % (Auto) 57.0, Lymph % (Auto) 32.7, [place] % (Auto) 9.5 H, Eos % (Auto) 0.7, Baso % (Auto) 0.2, Neut # (Auto) 2.1, Lymph # (Auto) 1.2, [place] # (Auto) 0.4, Eos # (Auto) 0.0, Baso # (Auto) 0.0 11/10/20 06:25: PT 17.3 H, INR 1.51 H 11/10/20 06:25: Sodium 139, Potassium 3.8, Chloride 109 H, Carbon Dioxide 27, Anion Gap 6.8, BUN 46 H, Creatinine 0.90, Estimated Creat Clear 68, Estimated GFR 63, Est GFR ( Amer) 76 D, Glucose 103 H, Calcium 8.6 Vital Signs - 24 hr 11/09/20 15:18 11/09/20 15:20 11/09/20 15:25 Temperature 97.7 F 97.7 F 97.9 F Pulse Rate 83 81 82 Pulse Rate [Left] Respiratory Rate 18 18 18 Blood Pressure 95/51 L 118/72 125/58 L Blood Pressure [Left Arm] 02 Sat by Pulse Oximetry 100 100 100 11/09/20 15:30 11/09/20 15:35 11/09/20 15:50 Temperature 98.0 F 97.9 F 98 F Pulse Rate 84 83 84 Pulse Rate [Left] Respiratory Rate 18 18 18 Blood Pressure 119/67 120/71 117/73 Blood Pressure [Left Arm] 02 Sat by Pulse Oximetry 99 99 100 11/09/20 16:05 11/09/20 16:20 11/09/20 17:20 Temperature 97.8 F 98 F 98.3 F Pulse Rate 83 83 84 Pulse Rate [Left] Respiratory Rate 18 18 18 Blood Pressure 119/51 L 100/48 L 138/78 Blood Pressure [Left Arm] 02 Sat by Pulse Oximetry 100 100 100 11/09/20 18:00 11/09/20 19:25 11/09/20 19:58 Temperature 98.3 F 98.1 F Pulse Rate 84 84 Pulse Rate [Left] 85 Respiratory Rate 18 18 Blood Pressure 124/72 Blood Pressure [Left Arm] 117/57 L 02 Sat by Pulse Oximetry 100 94 L 99 11/09/20 23:55 11/10/20 00:00 11/10/20 00:05 Temperature 97.8 F 97.8 F 97.7 F Pulse Rate 79 81 81 Pulse Rate [Left] Respiratory Rate 20 20 20 Blood Pressure 86/67 L 91/53 L 110/48 L Blood Pressure [Left Arm] 02 Sat by Pulse Oximetry 100 98 99 11/10/20 00:10 11/10/20 00:15 11/10/20 00:30 Temperature 97.7 F 97.6 F 97.6 F Pulse Rate 79 77 80 Pulse Rate [Left] Respiratory Rate 20 18 18 Blood Pressure 104/58 L 115/47 L 120/70 Blood Pressure [Left Arm] 02 Sat by Pulse Oximetry 100 100 98 11/10/20 00:45 11/10/20 01:00 11/10/20 02:00 Temperature 97.7 F 97.8 F 97.7 F Pulse Rate 74 77 87 Pulse Rate [Left] Respiratory Rate 18 18 20 Blood Pressure 103/45 L 98/47 L 102/43 L Blood Pressure [Left Arm] 02 Sat by Pulse Oximetry 99 98 97 11/10/20 03:00 11/10/20 03:27 11/10/20 04:00 Temperature 98.1 F Pulse Rate 71 69 Pulse Rate [Left] 82 Respiratory Rate 16 16 16 Blood Pressure 99/46 L 91/49 L Blood Pressure [Left Arm] 104/50 L 02 Sat by Pulse Oximetry 99 98 100 11/10/20 04:27 11/10/20 08:00 Temperature 97.5 F L 98.3 F Pulse Rate 79 Pulse Rate [Left] 80 Respiratory Rate 16 19 Blood Pressure 104/80 L Blood Pressure [Left Arm] 113/52 L 02 Sat by Pulse Oximetry 100 97 I & O for Last 24 hours: Intake & Output 11/07/20 11/08/20 11/09/20 11/10/20 23:59 23:59 23:59 23:59 Intake Total 610 / 610 960 / 960 970 / 970 Output Total 633 / 633 1100 / 1550 450 / 450 Balance -23 / -23 -140 / -590 520 / 520 Weight 175 lb 170 lb 169 lb 12.095 oz 169 lb 12.095 oz Microbiology Reports for the Last 24 Hours: Microbiology 11/08/20 01:30 Blood Blood Culture - Preli
--- NOTE | 2020-11-10 09:00 | HMH.GSPN ---
Subjective Patient reports: feels better Narrative: Overall feels better. Still describes some abdominal soreness. Cramping has improved. She requests mashed potatoes. She also asks about something to help her sleep in the evening. Progress Note: A&P (1) GI bleed Status: Acute (2) Acute blood loss anemia (ABLA) Status: Acute Assessment and plan: Coagulation profile improved. Hemoglobin 10 after 4 unit transfusion. Monitor hemoglobin for stability. Proton pump inhibitor. EGD in the near future. (3) Elevated erythrocyte sedimentation rate Status: Acute (4) Hypokalemia Status: Acute (5) Lactic acidosis Status: Acute (6) Prolonged pt (prothrombin time) Status: Acute (7) Renal insufficiency Status: Acute (8) EtOH dependence Status: Chronic (9) History of CVA (cerebrovascular accident) Status: Chronic (10) Tobacco use disorder Status: Chronic (11) COPD (chronic obstructive pulmonary disease) Status: Chronic (12) Hyperlipidemia Status: Chronic (13) Hypertension Status: Chronic Exam Vital signs and Labs for Last 24 Hours: Temp Pulse Resp BP Pulse Ox 98.3 F 80 19 113/52 L 97 11/10/20 08:00 11/10/20 08:00 11/10/20 08:00 11/10/20 08:00 11/10/20 08:00 Laboratory Results - last 24 hr 11/08/20 02:45: Blood Type O Positive, Antibody Screen Negative, Crossmatch ([facility]) See Detail 11/09/20 06:14: Total Counted 100, Neutrophils % (Manual) 82 H, Band Neutrophils % 2.0, Lymphocytes % (Manual) 8 L, Monocytes % (Manual) 4, Metamyelocytes % 4.0 H, Platelet Estimate Normal, RBC Morphology Normal 11/10/20 06:25: WBC 3.7 L D, RBC 3.33 L, Hgb 10.1 L, Hct 30.1 L, MCV 90.6, MCH 30.3, MCHC 33.4, RDW 14.9, Plt Count 154 D, MPV 7.8, Neut % (Auto) 57.0, Lymph % (Auto) 32.7, [place] % (Auto) 9.5 H, Eos % (Auto) 0.7, Baso % (Auto) 0.2, Neut # (Auto) 2.1, Lymph # (Auto) 1.2, [place] # (Auto) 0.4, Eos # (Auto) 0.0, Baso # (Auto) 0.0 11/10/20 06:25: PT 17.3 H, INR 1.51 H 11/10/20 06:25: Sodium 139, Potassium 3.8, Chloride 109 H, Carbon Dioxide 27, Anion Gap 6.8, BUN 46 H, Creatinine 0.90, Estimated Creat Clear 68, Estimated GFR 63, Est GFR ( Amer) 76 D, Glucose 103 H, Calcium 8.6 I & O for Last 24 hours: Intake & Output 11/07/20 11/08/20 11/09/20 11/10/20 11:59 11:59 11:59 11:59 Intake Total 970 / 970 1570 / 1570 Output Total 625 / 625 508 / 508 1050 / 1050 Balance -625 / -625 462 / 462 520 / 520 Weight 170 lb 170 lb 169 lb 12.095 oz Microbiology Reports for the Last 24 Hours: Microbiology 11/08/20 01:30 Blood Blood Culture - Preliminary Gram Positive Cocci 11/08/20 01:30 Blood Blood Culture - Preliminary NO GROWTH AFTER 48 HOURS - *Routine Abdominal Exam Present: soft
[2020-11-10 09:10] LABS: Magnesium 1.6 mg/dl (1.6-2.3)
--- NOTE | 2020-11-10 14:54 | PC.NURSE ---
SHE IS AOX4, HAS BEEN UP TO CHAIR FOR MOST OF SHIFT, SHE HAS AMBULATED TO BR WITH HER WALKER/STANDBY ASSIST MULTIPLE TIMES. SHE STILL REQUIRES 2LNC FOR O2 SUPPORT, TOLERATING ADVANCED DIET WELL, SHE HAS NOT C/O ABD DISCOMFORT AND DENIES N/D. VITAL SIGNS HAVE REMAINED STABLE AND SHE STATES THAT SHE FEELS BETTER TODAY. SCDS HAVE BEEN IN PLACE T/O SHIFT. GOOD CATH WAS D/C THIS AM AND URINARY OUTPUT HAS BEEN NOTED SINCE REMOVING THE CATHETER. NO NEEDS AT THIS TIME WILL CONTINUE TO MONITOR.
[2020-11-11] VITALS: BP 97/40; PULSE 81; RESP 16; TEMP 36.3; O2SAT 98
[2020-11-11 04:00] VITALS: BP 111/53; PULSE 61; RESP 18; TEMP 36.3; O2SAT 91
--- NOTE | 2020-11-11 04:38 | PC.NURSE ---
PATIENT IS A&L X4, LUNGS ARE DIMINISHED WITH AUDIBLE WHEEZING HEARD. BUE EDEMA NOTED DURING 2ND ASSESSMENT. PATIENT RESTED WELL THRU THIS RN SHIFT. NO OTHER CONCERNS AT THIS TIME.
[2020-11-11 05:00] VITALS: BMI 31.4
[2020-11-11 07:33] LABS: Basophils % 0.4 % (0.1-2.0); Eosinophils # 0.1 K/mm3 (0.0-0.4); Eosinophils % 1.9 % (0.1-12.0); Hematocrit 28.3 % (37.0-47.0); Hemoglobin 9.5 g/dL (12.2-16.2); Lymphocytes # 1.6 K/mm3 (0.7-4.5); Lymphocytes % 30.3 % (10-50); Mean Corpuscular HGB Conc 33.5 g/dL (31.8-35.4); Mean Corpuscular Hemoglobin 30.7 pg (27.0-31.2); Mean Corpuscular Volume 91.6 fl (81-99); Mean Platelet Volume 8.1 fl (7.4-10.4); Monocytes # 0.4 K/mm3 (0.1-1.0); Monocytes % 7.1 % (1.7-9.3); Neutrophils # 3.2 K/mm3 (1.8-7.8); Neutrophils % 60.3 % (37.0-80.0); Platelet Count 166 K/mm3 (142-424); Red Blood Count 3.09 M/mm3 (4.20-5.40); Red Cell Distribution Width 14.7 % (11.5-17.5); White Blood Count 5.3 K/mm3 (4.8-10.8)
[2020-11-11 07:55] LABS: Chloride 107 mmol/L (98-107); Potassium 3.4 mmoL/L (3.5-5.1); Sodium 137 mmol/L (136-145)
[2020-11-11 07:58] LABS: Blood Urea Nitrogen 26 mg/dl (7-17); Creatinine Clearance Estimated 69 mL/min (50-200); Estimated Glomerular Filt Rate 72 ml/min (>60); GFR (African American) 87 ML/MIN (>60)
[2020-11-11 07:59] LABS: Anion Gap 6.4 mEq/L (5-15); Calcium 8.3 mg/dl (8.4-10.2); Carbon Dioxide 27 mmol/L (22.0-30.0); Glucose 101 mg/dl (74-100)
[2020-11-11 08:00] VITALS: BP 119/51; PULSE 76; RESP 18; TEMP 36.6; O2SAT 95
--- NOTE | 2020-11-11 09:24 | HMH.GSPN ---
Subjective Narrative: Patient overall states that she feels better. She tolerated full liquids yesterday. Her main complaint is right wrist pain where she has significant bruising. She asked for pain medication for this. She has had 4 unit transfusion during this hospitalization and hemoglobin stable over the past 24 hours. Progress Note: A&P (1) GI bleed Status: Acute Assessment and plan: N.p.o. after midnight tonight for tentative EGD tomorrow with either surgery or gastroenterology. (2) Acute blood loss anemia (ABLA) Status: Acute (3) Elevated erythrocyte sedimentation rate Status: Acute (4) Hypokalemia Status: Acute (5) Lactic acidosis Status: Acute (6) Prolonged pt (prothrombin time) Status: Acute (7) Renal insufficiency Status: Acute (8) EtOH dependence Status: Chronic (9) History of CVA (cerebrovascular accident) Status: Chronic (10) Tobacco use disorder Status: Chronic (11) COPD (chronic obstructive pulmonary disease) Status: Chronic (12) Hyperlipidemia Status: Chronic (13) Hypertension Status: Chronic Exam Vital signs and Labs for Last 24 Hours: Temp Pulse Resp BP Pulse Ox 97.8 F 76 18 119/51 L 95 11/11/20 08:00 11/11/20 08:00 11/11/20 08:00 11/11/20 08:00 11/11/20 08:00 Laboratory Results - last 24 hr 11/10/20 06:25: Magnesium 1.6 D 11/11/20 07:09: WBC 5.3 D, RBC 3.09 L, Hgb 9.5 L, Hct 28.3 L, MCV 91.6, MCH 30.7, MCHC 33.5, RDW 14.7, Plt Count 166, MPV 8.1, Neut % (Auto) 60.3, Lymph % (Auto) 30.3, [place] % (Auto) 7.1, Eos % (Auto) 1.9, Baso % (Auto) 0.4, Neut # (Auto) 3.2, Lymph # (Auto) 1.6, [place] # (Auto) 0.4, Eos # (Auto) 0.1, Baso # (Auto) 0.0 11/11/20 07:09: Sodium 137, Potassium 3.4 L, Chloride 107, Carbon Dioxide 27, Anion Gap 6.4, BUN 26 H D, Creatinine 0.80, Estimated Creat Clear 69, Estimated GFR 72, Est GFR ( Amer) 87, Glucose 101 H, Calcium 8.3 L I & O for Last 24 hours: Intake & Output 11/08/20 11/09/20 11/10/20 11/11/20 11:59 11:59 11:59 11:59 Intake Total 970 / 970 1570 / 1570 720 / 720 Output Total 625 / 625 508 / 508 1050 / 1050 Balance -625 / -625 462 / 462 520 / 520 720 / 720 Weight 170 lb 170 lb 169 lb 12.095 oz 170 lb 13.732 oz Microbiology Reports for the Last 24 Hours: Microbiology 11/08/20 01:30 Blood Blood Culture - Preliminary Streptococcus oralis - *Routine Abdominal Exam Present: distended. Absent: tenderness
--- NOTE | 2020-11-11 10:46 | HMH.ACPN2 ---
Internal Medicine - PN: Subj *Date: 11/11/20 *Time: 10:46 Interval history: Patient reports feeling hungry today. She also reports right wrist pain associated with a large bruised area on right forearm Exam Vital signs and Labs for Last 24 Hours: Temp Pulse Resp BP Pulse Ox 97.8 F 76 18 119/51 L 95 11/11/20 08:00 11/11/20 08:00 11/11/20 08:00 11/11/20 08:00 11/11/20 08:00 Laboratory Results - last 24 hr 11/11/20 07:09: WBC 5.3 D, RBC 3.09 L, Hgb 9.5 L, Hct 28.3 L, MCV 91.6, MCH 30.7, MCHC 33.5, RDW 14.7, Plt Count 166, MPV 8.1, Neut % (Auto) 60.3, Lymph % (Auto) 30.3, [place] % (Auto) 7.1, Eos % (Auto) 1.9, Baso % (Auto) 0.4, Neut # (Auto) 3.2, Lymph # (Auto) 1.6, [place] # (Auto) 0.4, Eos # (Auto) 0.1, Baso # (Auto) 0.0 11/11/20 07:09: Sodium 137, Potassium 3.4 L, Chloride 107, Carbon Dioxide 27, Anion Gap 6.4, BUN 26 H D, Creatinine 0.80, Estimated Creat Clear 69, Estimated GFR 72, Est GFR ( Amer) 87, Glucose 101 H, Calcium 8.3 L Vital Signs - 24 hr 11/10/20 12:00 11/10/20 16:00 11/10/20 20:00 Temperature 97.9 F 98.0 F 97.5 F L Pulse Rate [Left] 77 81 73 Respiratory Rate 17 20 18 Blood Pressure [Left Arm] 90/64 L 92/75 L 119/57 L 02 Sat by Pulse Oximetry 97 95 100 11/11/20 00:00 11/11/20 04:00 11/11/20 08:00 Temperature 97.4 F L 97.4 F L 97.8 F Pulse Rate [Left] 81 61 76 Respiratory Rate 16 18 18 Blood Pressure [Left Arm] 97/40 L 111/53 L 119/51 L 02 Sat by Pulse Oximetry 98 91 L 95 I & O for Last 24 hours: Intake & Output 11/08/20 11/09/20 11/10/20 11/11/20 23:59 23:59 23:59 23:59 Intake Total 610 / 610 960 / 960 1210 / 1210 480 / 480 Output Total 633 / 633 1100 / 1550 450 / 450 Balance -23 / -23 -140 / -590 760 / 760 480 / 480 Weight 170 lb 169 lb 12.095 oz 169 lb 12.095 oz 170 lb 13.732 oz Microbiology Reports for the Last 24 Hours: Microbiology 11/08/20 01:30 Blood Blood Culture - Preliminary Streptococcus oralis - Constitutional no acute distress - *Routine HEENT Exam Head: Present: normocephalic Eye: Present: EOMI ENT: Present: mucous membranes moist - *Routine Neck Exam Present: supple. Absent: lymphadenopathy - *Routine Respiratory Exam Present: wheezes (occasioanl with deep breathing) - *Routine Cardiovascular Exam Present: RRR - *Routine Abdominal Exam Present: soft, normoactive bowel sounds, tenderness (minimal epigastric), distended - *Routine Extremities Exam Absent: cyanosis, clubbing, edema - *Routine Skin Exam Present: warm, ecchymosis (large, confluent area on underside of right forearm) - *Routine Neurological Exam Present: alert, oriented X3 Assessment and Plan (1) GI bleed Status: Acute Qualifiers: GI bleed type/associated pathology: unspecified gastrointestinal hemorrhage type Qualified Code(s): K92.2 - Gastrointestinal hemorrhage, unspecified Category: Medical Code(s): K92.2 - Gastrointestinal hemorrhage, unspecified (2) Acute blood loss anemia (ABLA) Status: Acute Category: Medical Code(s): D62 - Acute posthemorrhagic anemia (3) Elevated erythrocyte sedimentation rate Status: Acute Category: Medical Code(s): R70.0 - Elevated erythrocyte sedimentation rate (4) Hypokalemia Status: Acute Category: Medical Code(s): E87.6 - Hypokalemia (5) Lactic acidosis Status: Acute Category: Medical Code(s): E87.2 - Acidosis (6) Prolonged pt (prothrombin time) Status: Acute Category: Medical Code(s): R79.1 - Abnormal coagulation profile (7) Renal insufficiency Status: Acute Category: Medical Code(s): N28.9 - Disorder of kidney and ureter, unspecified (8) EtOH dependence Status: Chronic Qualifiers: Substance use status: unspecified alcohol-induced disorder Qualified Code(s): F10.29 - Alcohol dependence with unspecified alcohol-induced disorder Category: Medical Code(s): F10.20 - Alcohol dependence, uncomplicated (9) Histo
--- NOTE | 2020-11-11 15:19 | PC.NURSE ---
SHE IS AOX4 AND APPEARS TO BE FEELING BETTER TODAY. SHE HAS BEEN ABLE TO TOLERATE AMBULATING WITH A WALKER TO THE RESTROOM WITH 1 ASSIST T/O SHIFT, WAS UP TO CHAIR FOR MEALS, TOLERATING LIQUID DIET, SHE HAS NOT REQUIRED O2 SUPPORT THIS SHIFT SOME WHEEZING NOTED BILATERALLY ON AUSCULTATION, SHE HAS DENIED N/V/D AND ABD PAIN, ABD IS SOFT AND NON-TENDER ON PALPATION WITH ACTIVE BOWEL SOUNDSX4, PT WAS EDUCATED ON THE NEED TO BE NPO AT MIDNIGHT R/T EGD . SHE HAS MILD EDEMA TO HER LOWER EXTREMITIES, SHE HAS WORN SCDS DEVICES THIS SHIFT BUT REMOVES THEM WHEN SHE WANTS. NO NEEDS AT THIS TIME, WILL CONTINUE TO MONITOR.
[2020-11-11 16:00] VITALS: BP 135/60; PULSE 92; RESP 19; TEMP 36.9; O2SAT 98
[2020-11-11 20:00] VITALS: BP 112/52; PULSE 77; RESP 18; TEMP 36.5; O2SAT 91
[2020-11-12] VITALS (16 sets, daily range): BP systolic 104–168; BP diastolic 50–96; PULSE 72–104; RESP 16–20; TEMP 36.3–37.1; O2SAT 90–99; BMI 34.1
--- NOTE | 2020-11-12 04:09 | PC.NURSE ---
Addendum entered by Zulma Shukla RN 11/12/20 05:30: Refuses IVF at this time; states wants to rest my arm . Original Note: At the beginning of shift pt. reported that her bm have become less frequent and no marcell blood noted. T/o shift pt. has had frequent bm with 3 episodes of marcell blood noted. Last bm was qi colored, formed, with no marcell blood noted. Abd distended and pt. reports tenderness to upper quadrants. C/o wrist pain x1; tx with tramadol per mar; effectiveness reported.
--- NOTE | 2020-11-12 06:24 | PC.NURSE ---
PT OFF THE FLOOR VIA W/C WITH OR STAFF AT 0625
--- NOTE | 2020-11-12 07:04 | HMH.ANESCL ---
[facility] Anesthesia Checklist - Patient Identification Patient Identification: Arm Band - Structural Data Admitted From: Home Planned Operative Procedure/s: egd Consent for Planned Operative Procedure(s) Verified: Yes Verified Documents: Surgical Consent, History and Physical - NPO Status Verified Time NPO: 00:00 - Additional verifications Anesthesia Reactions: No - Airway Assessment C-Spine Mobility Assessed: Yes (mp2) TMJ Mobility Assessed: Yes Dentition: Poor Dentition - Neurological Assessment Level of Consciousness: Awake, Alert - Anesthesia Plan Anesthesia Risk discussed: Yes Anesthesia Plan: Verified ASA Class: III Anesthesia Type: MAC [facility] History I have reviewed the patient's past medical history: Yes Medical History: Reports:: Atherosclerotic Heart Disease, Carotid Stenosis, Cerebrovascular Accident, Gastroesophageal Reflux Disease(GERD), Gastrointestinal Bleed, Heart Murmur, Hyperlipidemia, Hypertension, Kidney Stones Denies:: Cancer, Diabetes Mellitus Type 1, Diabetes Mellitus Type 2, MRSA *Have you ever received a pneumonia vaccine?: No *Have you received a flu vaccine this season?: No Other Medical History: Reports: Anemia Anesthesia experience/problems:: nac Laterality Cases: Right: Carpal Tunnel Release Other Surgeries: Yes: Hysterectomy-Partial Amputation: No - *Social History Smoking Status: Current every day smoker Tobacco Type: cigarettes # Packs/Day (cigarettes): 2 Alcohol Intake: current Alcohol Intake Frequency:: 3 or more drinks per day Substance Use Type: denies use *Occupational Status:: disabled Housing: house Household Members: children *Travel in the last 8 weeks: None Family Hx:: Cancer
--- NOTE | 2020-11-12 07:19 | HMH.SCOPE ---
- Procedure: Date: 11/12/20 Patient Date of :: 1955 Procedure Performed:: Esophagogastroduodenoscopy with biopsy Indications:: Ms. Hull is a 65-year-old female with a history of CVA, hypertension, ASCVD, UTIs, and reported prior history of an upper GI bleed. She is on chronic warfarin anticoagulation therapy and previously was evaluated by home health. She has been reluctant to come in for INR evaluation due to concerns about Covid. She states for the past few weeks she has had some lower abdominal pressure and gas. She had developed symptoms consistent with melena. She called 911 and was transported to the emergency room. She states she did have an episode of vomiting dark black blood in the ambulance on the way to the ER. . Evaluation in the emergency department revealed initial hemoglobin of 9.5. This decreased to 7.8. She was transfused a couple of units of packed red blood cells which resulted in good response with hemoglobin of 10.4. However her hemoglobin has subsequently diminished once again. Her INR was greater than 9.99 on admission. She did undergo additional transfusion and has had stable hemoglobin with correction of INR. Plan was made for upper endoscopy. Performing Provider:: Robert Perez MD Referring Provider:: Chung Mckeon MD Sedation:: MAC sedation Procedure:: Patient was taken to endoscopy procedure room. She was positioned in a lateral decubitus position. Adequate intravenous sedation was achieved with anesthesia titration of propofol. Olympus endoscope was inserted via the oropharynx. She had some spasticity of the esophagus however overall esophagus appeared unremarkable. Stomach was cannulated and insufflated. There is some diffuse gastritis. Retroflexion revealed a very small hiatal hernia. There was an ulcer versus erosion at the cardia which had some heme material but mostly clean-based exudate. In the antrum there were 2 small ulcers with clean base but surrounding hypertrophic gastritis. Pylorus was traversed. There was some mild duodenitis. Biopsy was obtained adjacent to one of the ulcers in the prepyloric location. There was good hemostasis. Stomach was desufflated and the endoscope was withdrawn. Findings:: Erosion/punctate ulcer at the cardia. 2 small clean-based ulcers in the antrum. Diffuse gastritis. Mild duodenitis Recommendations:: Continue proton pump inhibitors. May consider Cytotec. Refrain from anticoagulation if possible. Ethanol intake cessation. Consider repeat endoscopy in 8 to 12 weeks. Complications:: None immediately apparent Estimated blood obtained (mL): 1
--- NOTE | 2020-11-12 07:39 | PC.NURSE ---
Pt arrived back to the floor at this time.
--- NOTE | 2020-11-12 07:52 | HMH.ACPN ---
Internal Medicine - PN: Subj *Date: 11/12/20 *Time: 07:52 Exam Vital signs and Labs for Last 24 Hours: Temp Pulse Resp BP Pulse Ox 98.2 F 87 18 130/54 L 98 11/12/20 03:25 11/12/20 03:25 11/12/20 03:25 11/12/20 03:25 11/12/20 03:25 Laboratory Results - last 24 hr 11/11/20 07:09: Sodium 137, Potassium 3.4 L, Chloride 107, Carbon Dioxide 27, Anion Gap 6.4, BUN 26 H D, Creatinine 0.80, Estimated Creat Clear 69, Estimated GFR 72, Est GFR ( Amer) 87, Glucose 101 H, Calcium 8.3 L I & O for Last 24 hours: Intake & Output 11/09/20 11/10/20 11/11/20 11/12/20 23:59 23:59 23:59 23:59 Intake Total 960 / 960 1210 / 1210 2812 / 2812 Output Total 1100 / 1550 450 / 450 Balance -140 / -590 760 / 760 2812 / 2812 Weight 77 kg 77 kg 77.5 kg 84.085 kg Microbiology Reports for the Last 24 Hours: Microbiology 11/08/20 01:30 Blood Blood Culture - Preliminary Streptococcus oralis Assessment and Plan (1) GI bleed Status: Acute Qualifiers: GI bleed type/associated pathology: unspecified gastrointestinal hemorrhage type Qualified Code(s): K92.2 - Gastrointestinal hemorrhage, unspecified Category: Medical Code(s): K92.2 - Gastrointestinal hemorrhage, unspecified (2) Acute blood loss anemia (ABLA) Status: Acute Category: Medical Code(s): D62 - Acute posthemorrhagic anemia (3) Elevated erythrocyte sedimentation rate Status: Acute Category: Medical Code(s): R70.0 - Elevated erythrocyte sedimentation rate (4) Hypokalemia Status: Acute Category: Medical Code(s): E87.6 - Hypokalemia (5) Lactic acidosis Status: Acute Category: Medical Code(s): E87.2 - Acidosis (6) Prolonged pt (prothrombin time) Status: Acute Category: Medical Code(s): R79.1 - Abnormal coagulation profile (7) Renal insufficiency Status: Acute Category: Medical Code(s): N28.9 - Disorder of kidney and ureter, unspecified (8) EtOH dependence Status: Chronic Qualifiers: Substance use status: unspecified alcohol-induced disorder Qualified Code(s): F10.29 - Alcohol dependence with unspecified alcohol-induced disorder Category: Medical Code(s): F10.20 - Alcohol dependence, uncomplicated (9) History of CVA (cerebrovascular accident) Status: Chronic Category: Medical Code(s): Z86.73 - Personal history of transient ischemic attack (TIA), and cerebral infarction without residual deficits (10) Tobacco use disorder Status: Chronic Category: Medical Code(s): F17.200 - Nicotine dependence, unspecified, uncomplicated (11) COPD (chronic obstructive pulmonary disease) Status: Chronic Category: Medical Code(s): J44.9 - Chronic obstructive pulmonary disease, unspecified (12) Hyperlipidemia Status: Chronic Category: Medical Code(s): E78.5 - Hyperlipidemia, unspecified (13) Hypertension Status: Chronic Category: Medical Code(s): I10 - Essential (primary) hypertension The patient's infection will respond to the chosen ABx?: Yes Is the patient receiving the right drug, dose, and route?: Yes Could a more targeted ABx be ordered?: No
--- NOTE | 2020-11-12 08:36 | HMH.ACPN2 ---
<Bertha Bob - Last Filed: 11/12/20 08:36> Internal Medicine - PN: Subj *Date: 11/12/20 *Time: 08:36 Interval history: Patient had an EGD by Dr. Perez this a.m. with the following results: Findings:: Erosion/punctate ulcer at the cardia. 2 small clean-based ulcers in the antrum. Diffuse gastritis. Mild duodenitis. Patient states she slept a little. She states she was somewhat nervous. This a.m. she is is starved and requests breakfast. She denies chest pain. She is somewhat short of breath and request a breathing treatment. Exam Vital signs and Labs for Last 24 Hours: Temp Pulse Resp BP Pulse Ox 97.3 F L 80 16 104/59 L 96 11/12/20 07:40 11/12/20 07:40 11/12/20 07:40 11/12/20 07:40 11/12/20 07:40 I & O for Last 24 hours: Intake & Output 11/09/20 11/10/20 11/11/20 11/12/20 11:59 11:59 11:59 11:59 Intake Total 970 / 970 1570 / 1570 720 / 720 2332 / 2332 Output Total 508 / 508 1050 / 1050 Balance 462 / 462 520 / 520 720 / 720 2332 / 2332 Weight 170 lb 169 lb 12.095 oz 170 lb 13.732 oz 185 lb 6 oz Microbiology Reports for the Last 24 Hours: Microbiology 11/08/20 01:30 Blood Blood Culture - Preliminary Streptococcus oralis - Constitutional no acute distress - *Routine Respiratory Exam Present: wheezes Comments: Soft expiratory wheeze scattered throughout anteriorly and posteriorly - *Routine Cardiovascular Exam Present: RRR - *Routine Abdominal Exam Present: soft, normoactive bowel sounds. Absent: tenderness - *Routine Extremities Exam Absent: edema - *Routine Neurological Exam Present: alert, oriented X3 Assessment and Plan (1) GI bleed Status: Acute Qualifiers: GI bleed type/associated pathology: unspecified gastrointestinal hemorrhage type Qualified Code(s): K92.2 - Gastrointestinal hemorrhage, unspecified Category: Medical Code(s): K92.2 - Gastrointestinal hemorrhage, unspecified (2) Acute blood loss anemia (ABLA) Status: Acute Category: Medical Code(s): D62 - Acute posthemorrhagic anemia (3) Elevated erythrocyte sedimentation rate Status: Acute Category: Medical Code(s): R70.0 - Elevated erythrocyte sedimentation rate (4) Hypokalemia Status: Acute Category: Medical Code(s): E87.6 - Hypokalemia (5) Lactic acidosis Status: Acute Category: Medical Code(s): E87.2 - Acidosis (6) Prolonged pt (prothrombin time) Status: Acute Category: Medical Code(s): R79.1 - Abnormal coagulation profile (7) Renal insufficiency Status: Acute Category: Medical Code(s): N28.9 - Disorder of kidney and ureter, unspecified (8) EtOH dependence Status: Chronic Qualifiers: Substance use status: unspecified alcohol-induced disorder Qualified Code(s): F10.29 - Alcohol dependence with unspecified alcohol-induced disorder Category: Medical Code(s): F10.20 - Alcohol dependence, uncomplicated (9) History of CVA (cerebrovascular accident) Status: Chronic Category: Medical Code(s): Z86.73 - Personal history of transient ischemic attack (TIA), and cerebral infarction without residual deficits (10) Tobacco use disorder Status: Chronic Category: Medical Code(s): F17.200 - Nicotine dependence, unspecified, uncomplicated (11) COPD (chronic obstructive pulmonary disease) Status: Chronic Category: Medical Code(s): J44.9 - Chronic obstructive pulmonary disease, unspecified (12) Hyperlipidemia Status: Chronic Category: Medical Code(s): E78.5 - Hyperlipidemia, unspecified (13) Hypertension Status: Chronic Category: Medical Code(s): I10 - Essential (primary) hypertension (14) Gastric cardia ulcer Status: Acute Category: Medical Code(s): K22.10 - Ulcer of esophagus without bleeding (15) Gastritis and duodenitis Status: Acute Category: Medical Code(s): K29.90 - Gastroduodenitis, unspecified, without bleeding - Assessment and plan a
--- NOTE | 2020-11-12 13:25 | DIET.NUTRFU ---
Diet advanced to bland today, pt tolerated 75-100% full liquid diet. Weight gain of 14# past 24h, received IVF with K/Mag/Thiamine yesterday. She has had diarrhea, improved over past 48h. Denies any other GI symptoms. Pt has been provided diet education/counseling on gastric ulcer healing, potential anticoagulant/vitamin K interaction, and sobriety.
[2020-11-12 13:42] LABS: Thyroid Stimulating Hormone 6.92 uIU/mL (0.465-4.68)
--- NOTE | 2020-11-12 18:17 | PC.NURSE ---
Pt has been pleasant this shift. Lung sounds are CTA. No cough noted. No edema noted to BLE. Pt ambulates w/ walker w/ standby assist. Gait is satisfactory. No other acute changes or complaints at this time.
[2020-11-13] VITALS: BP 126/51; PULSE 79; RESP 16; TEMP 37.1; O2SAT 94
[2020-11-13 03:52] VITALS: BP 137/57; PULSE 90; RESP 19; TEMP 37; O2SAT 95
--- NOTE | 2020-11-13 04:30 | PC.NURSE ---
Pt. has not c/o n/v/d, pain or dizziness this shift. Intermittent non productive cough noted with inspiratory wheezes to bilat lungs. Abd distended but pt. reports it's not as tender as yesterday . Saw bruise noted; elevated on pillows.
[2020-11-13 05:00] VITALS: BMI 34.9
[2020-11-13 05:39] VITALS: PULSE 84; PULSE 88; O2SAT 92
[2020-11-13 07:23] LABS: Basophils % 0.5 % (0.1-2.0); Eosinophils # 0.2 K/mm3 (0.0-0.4); Eosinophils % 2.4 % (0.1-12.0); Hematocrit 28.6 % (37.0-47.0); Hemoglobin 9.4 g/dL (12.2-16.2); Lymphocytes % 21.8 % (10-50); Mean Platelet Volume 7.8 fl (7.4-10.4); Monocytes % 10.8 % (1.7-9.3); Neutrophils # 5.9 K/mm3 (1.8-7.8); Neutrophils % 64.6 % (37.0-80.0); Platelet Count 197 K/mm3 (142-424); Red Blood Count 3.15 M/mm3 (4.20-5.40); Red Cell Distribution Width 15.5 % (11.5-17.5); White Blood Count 9.1 K/mm3 (4.8-10.8)
[2020-11-13 07:35] LABS: Anion Gap 4.3 mEq/L (5-15); Blood Urea Nitrogen 11 mg/dl (7-17); Calcium 8.5 mg/dl (8.4-10.2); Carbon Dioxide 30 mmol/L (22.0-30.0); Chloride 105 mmol/L (98-107); Creatinine Clearance Estimated 76 mL/min (50-200); Estimated Glomerular Filt Rate 84 ml/min (>60); GFR (African American) 102 ML/MIN (>60); Glucose 107 mg/dl (74-100); Potassium 3.3 mmoL/L (3.5-5.1); Sodium 136 mmol/L (136-145)
[2020-11-13 08:00] VITALS: BP 106/46; PULSE 89; RESP 16; TEMP 36.6; O2SAT 96
--- NOTE | 2020-11-13 08:19 | HMH.ACPN2 ---
<Bertha Bob - Last Filed: 11/13/20 08:19> Internal Medicine - PN: Subj *Date: 11/13/20 *Time: 08:19 Interval history: Patient states she would like to go home today. She says everything is working fine. She has had 2 neb treatments due to wheezing with shortness of breath. She denies chest pain. EGD per Dr. Perez yesterday revealed erosion/punctate ulcer at the cardia and 2 small clear-based ulcers in the atrium with diffuse gastritis and mild duodenitis. CBC today with a hemoglobin of 9.4 and hematocrit of 28.6. BMP with a slightly low potassium at 3.3; BUN is 11 and creatinine 0.7. TSH is 6.92 and we will restart levothyroxine. Exam Vital signs and Labs for Last 24 Hours: Temp Pulse Resp BP Pulse Ox 98.6 F 88 19 137/57 L 92 L 11/13/20 03:52 11/13/20 05:39 11/13/20 03:52 11/13/20 03:52 11/13/20 05:39 Laboratory Results - last 24 hr 11/11/20 07:09: TSH 6.92 H 11/13/20 05:30: WBC 9.1 D, RBC 3.15 L, Hgb 9.4 L, Hct 28.6 L, MCV 91.0, MCH 30.0, MCHC 33.0, RDW 15.5, Plt Count 197, MPV 7.8, Neut % (Auto) 64.6, Lymph % (Auto) 21.8, Tyrrell % (Auto) 10.8 H, Eos % (Auto) 2.4, Baso % (Auto) 0.5, Neut # (Auto) 5.9, Lymph # (Auto) 2.0, Tyrrell # (Auto) 1.0, Eos # (Auto) 0.2, Baso # (Auto) 0.0 11/13/20 05:30: Sodium 136, Potassium 3.3 L, Chloride 105, Carbon Dioxide 30, Anion Gap 4.3 L, BUN 11 D, Creatinine 0.70, Estimated Creat Clear 76, Estimated GFR 84, Est GFR ( Amer) 102, Glucose 107 H, Calcium 8.5 I & O for Last 24 hours: Intake & Output 02/2711/11/20 11/12/20 11/13/20 11:59 11:59 11:59 11:59 Intake Total 1570 / 1570 720 / 720 2332 / 2332 2360 / 2360 Output Total 1050 / 1050 700 / 700 Balance 520 / 520 720 / 720 2332 / 2332 1660 / 1660 Weight 169 lb 12.095 oz 170 lb 13.732 oz 185 lb 6 oz 190 lb Microbiology Reports for the Last 24 Hours: Microbiology 11/08/20 01:30 Blood Blood Culture - Final NO GROWTH AFTER 5 DAYS Assessment and Plan (1) GI bleed Status: Acute Qualifiers: GI bleed type/associated pathology: unspecified gastrointestinal hemorrhage type Qualified Code(s): K92.2 - Gastrointestinal hemorrhage, unspecified Category: Medical Code(s): K92.2 - Gastrointestinal hemorrhage, unspecified (2) Acute blood loss anemia (ABLA) Status: Acute Category: Medical Code(s): D62 - Acute posthemorrhagic anemia (3) Elevated erythrocyte sedimentation rate Status: Acute Category: Medical Code(s): R70.0 - Elevated erythrocyte sedimentation rate (4) Hypokalemia Status: Acute Category: Medical Code(s): E87.6 - Hypokalemia (5) Lactic acidosis Status: Acute Category: Medical Code(s): E87.2 - Acidosis (6) Prolonged pt (prothrombin time) Status: Acute Category: Medical Code(s): R79.1 - Abnormal coagulation profile (7) Renal insufficiency Status: Acute Category: Medical Code(s): N28.9 - Disorder of kidney and ureter, unspecified (8) EtOH dependence Status: Chronic Qualifiers: Substance use status: unspecified alcohol-induced disorder Qualified Code(s): F10.29 - Alcohol dependence with unspecified alcohol-induced disorder Category: Medical Code(s): F10.20 - Alcohol dependence, uncomplicated (9) History of CVA (cerebrovascular accident) Status: Chronic Category: Medical Code(s): Z86.73 - Personal history of transient ischemic attack (TIA), and cerebral infarction without residual deficits (10) Tobacco use disorder Status: Chronic Category: Medical Code(s): F17.200 - Nicotine dependence, unspecified, uncomplicated (11) COPD (chronic obstructive pulmonary disease) Status: Chronic Category: Medical Code(s): J44.9 - Chronic obstructive pulmonary disease, unspecified (12) Hyperlipidemia Status: Chronic Category: Medical Code(s): E78.5 - Hyperlipidemia, unspecified (13) Hypertension Status: Chronic Category: Medical Code(s): I10 - Essential (primary) hyper
--- NOTE | 2020-11-13 09:47 | SW/DCPLANNER ---
Patient information and order has been faxed to [facility] for a nebulizer machine. I have followed up with Amalia at [facility] and confirmed patient information/order has been reviewed and neb machine will be delivered to patients room. I will also speak with [employer] regarding Meals [employer] Wheels for this patient. Patient will discharge home today.
--- NOTE | 2020-11-13 14:20 | HMH.DCSUM ---
General - General Admission date:: 11/08/20 Discharge date: 11/13/20 HPI HPI: Ms. Hull is a 65-year-old female with a history of CVA, hypertension, ASCVD, UTIs, and history of an upper GI bleed. She is on Coumadin and states that home health was checking her Coumadin level up until a few months ago when she was discharged from home health. She has been scared to follow-up in the office of [facility] due to Covid for her Coumadin checks, therefore she has not had it checked. She states for the past few weeks she has had some lower abdominal pressure and gas. Her bowel movements were not normal. Last night she had 2 bowel movements that looked like black paste. She called 911 and was transported to the emergency room. She states she did have an episode of vomiting dark black blood in the ambulance on the way to the ER. She was evaluated in the emergency room and found to be anemic. She states she had dark bowel movements all night long. She was admitted and a blood transfusion was ordered. Her INR was greater than 9.99. Her white blood cell count was elevated this morning at 18.9 and her hemoglobin and hematocrit were down to 7.8 and 23.8. Her potassium was also low at 2.7 and her renal function was elevated. Her initial troponin was elevated, but it has normalized. Her stool for blood was positive and her alcohol level was 55. Hospital Course Hospital Course: The patient's abdominal pelvic CT showed nothing acute. She was admitted and given vitamin K due to her elevated INR. She was started on IV fluids and a blood transfusion was ordered. She was also given potassium supplementation. By 11/09/2020 she was still having quite a bit of blood in her stool. She continued with some abdominal cramping. Her H&H had improved with transfusion, but then decreased back down to 8.5 and 26.4. Her INR was still greater than 8 and her potassium normalized. 2 more units of blood were ordered and she was given another dose of vitamin K. Surgery was consulted due to her GI bleed. Her preliminary blood cultures were also positive, therefore cefepime was added. She was seen in consultation by Dr. Perez who wanted to wait until her coagulation profile normalized with an INR of 1.5 or less before doing an upper endoscopy. The patient's H&H and INR both improved. She was advanced to full liquid diet. She was continued on PPIs and tolerated her advance diet. She had 4 total units transfused and her H&H stabilized. Her blood cultures returned positive for Streptococcus oralis. She was taken to the OR on 11/12/2020 for an EGD with biopsy. An erosion/punctate ulcer was found at the cardia and there were 2 small clean-based ulcers in the antrum. She had diffuse gastritis and mild duodenitis. Dr. Perez recommended continuing PPIs and possibly considering Cytotec. He wanted to refrain from anticoagulation if possible and also recommended alcohol cessation. He felt she would need a repeat endoscopy in 8 to 12 weeks. The patient began feeling better and tolerated her advance diet. Pros and cons of anticoagulation were discussed with the patient and she preferred not to take any anticoagulation. By 11/13/2020, she wanted to go home. She felt better and had had 2 neb treatments due to wheezing and shortness of breath. This improved. Her H&H were stable. Her TSH was elevated and her levothyroxine was restarted. She was stable to be discharged home and will take DuoNeb's at home and remain off of all anticoagulation. She will need repeat EGD in 8 weeks. Alcohol cessation was also discussed with the patient. She will follow-up in the office in 2 weeks. Objective Vital signs: Temp Pulse Resp BP Pulse Ox 97.9 F 89 16 106/46 L 96 11/13/20 08:00 11/13/20 08:00 11/13/20 08:00 11/13/20 08:00 11/13/20 08:00 Narrative: - Constitutional Comments: Does not appear to feel well. - *Routine HEENT Exam Head: Pre
--- NOTE | 2020-11-14 10:58 | SW/DCPLANNER ---
CALLED THIS MORNING TO SET UP MEALS ON WHEELS FOR THIS PATIENT: I HAVE TO LEAVE A VOICE MESSAGE WITH PATIENT INFORMATION TO ... HOPEFUL TO GET PATIENT SET UP THIS WEEK FOR MEAL SERVICES...
== END 2020-11-13 12:30 | disposition home or self-care (01) | DRG 811 ==
LOC: ER 11-08 07:02 → 2ND 11-08 07:48
PROVIDERS: Nurse Practitioner Family; Surgery; Admitting Provider Family Medicine; Emergency Provider Emergency Medicine; PCP Family Medicine; Visit Provider Family Medicine
PROC: 0DJ08ZZ Inspection of Upper Intestinal Tract, Via Natural or Artificial Opening Endoscopic (ICD-10-PCS; CPT 43235; principal; 2020-11-12 07:00)
DX: D62 Acute posthemorrhagic anemia (principal); K22.11 Ulcer of esophagus with bleeding; K25.0 Acute gastric ulcer with hemorrhage; F10.29 Alcohol dependence with unspecified alcohol-induced disorder; Z88.0 Allergy status to penicillin; Z88.5 Allergy status to narcotic agent; Z79.51 Long term (current) use of inhaled steroids; Z79.899 Other long term (current) drug therapy; R79.1 Abnormal coagulation profile; Y90.2 Blood alcohol level of 40-59 mg/100 ml; Z86.73 Personal history of transient ischemic attack (TIA), and cerebral infarction without residual deficits; Z72.0 Tobacco use; J44.9 Chronic obstructive pulmonary disease, unspecified
CPT/HCPCS: 43239; 36415; 71045; 74176; 80048; 80053; 81001; 82150; 82272; 82803; 83605; 83690; 83735; 84145; 84443; 84484; 85007; 85014; 85018; 85025; 85610; 85651; 85730; 86850; 87040; 87077; 87186; 87581; 87633; 87798; 88305; 93005; 94640; 96365; 96367; 96372; 96375; 99285; G0328; J2405; P9016

== ENCOUNTER 2023-10-06 16:16 | Inpatient (IN) | payer MEDICARE, MEDICAID, SELFPAY ==
[2023-10-06 17:06] VITALS: BP 198/118; PULSE 89; RESP 20; TEMP 36.7; O2SAT 96; BMI 27.4
--- NOTE | 2023-10-06 17:25 | XR_ITS ---
PROCEDURE INFORMATION: Exam: XR Chest Exam date and time: 10/06/2023 5:28 PM Age: 68 years old Clinical indication: Shortness of breath; Additional info: SOA, rll wheezing TECHNIQUE: Imaging protocol: Radiologic exam of the chest. Views: 1 view. COMPARISON: CR XR CHEST PORTABLE 11/08/2020 12:53 AM FINDINGS: Lungs: Stable right upper lobe calcified granulomas. No consolidation. Pleural spaces: Unremarkable. No pleural effusion. No pneumothorax. Heart/Mediastinum: Calcified atherosclerotic changes of the thoracic aorta. No cardiomegaly. Bones/joints: Unremarkable. IMPRESSION: No acute pulmonary findings.
--- NOTE | 2023-10-06 17:33 | PC.NURSE ---
XR AT BEDSIDE
--- NOTE | 2023-10-06 17:48 | ED_ITS ---
Discharge Plan Disposition Patient Disposition: Admitted Chief Complaint: Shortness of Breath/Dyspnea Prescriptions Prescriptions: No Action levothyroxine 25 MCG tablet 25 mcg PO DAILY multivitamin with folic acid 1 EACH tablet 1 each PO DAILY albuterol sulfate 200 PUFFS HFA aerosol inhaler 2 puffs IH QIDP PRN (Reason: Shortness Of Breath) lisinopril 40 MG tablet 40 mg PO DAILY furosemide 20 MG tablet 20 mg PO DAILY ipratropium-albuterol 3 ML solution for nebulization 3 ml IH Q6HP PRN (Reason: Shortness Of Breath) Qty: 50 1RF sucralfate 1 GM tablet 1 gm PO ACHS Qty: 120 1RF pantoprazole 40 MG tablet,delayed release (DR/EC) 40 mg PO DAILY Qty: 30 1RF ferrous sulfate 325 MG tablet 325 mg PO BID Qty: 60 0RF atorvastatin 40 MG tablet 40 mg PO HS Qty: 30 0RF amlodipine 10 MG tablet 10 mg PO DAILY Qty: 30 0RF Referrals Follow up/Referrals: Chung Mckeon MD [Primary Care Provider] - See instructions Clinical Impressions Clinical Impression: CHF exacerbation, Acute exacerbation of chronic obstructive pulmonary disease, Acute hypokalemia Discharge ED Provider: Praful Renner General Adult HPI General Chief complaint: Shortness of Breath/Dyspnea Stated complaint: SOA, diarrhea, nausea Time Seen by Provider: 10/06/23 16:20 Mode of Arrival: Wheelchair Source of Information: Patient and Relative Limitations: No Limitations Description of Symptoms (Recalled from ER Triage Doc. by RN): Patient reports increased SOA, fatigue, nausea, and diarrhea. Family member present in room states she has not seen a doctor in over 2 years. Patient reports cellulitis years ago to bilateral legs. Bilateral legs/feet are now severly unkept. History of Present Illness HPI narrative: 68 male history of hypertension, hyperlipidemia, c/o ED still smoking 2 packs a day and not on home oxygen chronic lower extreme edema presenting with shortness of breath. Patient states she has been getting short of breath the last 3 to 4 days. Has not seen a doctor in over 2 years. States that she is out of her breathing treatments, still smoking 2 packs a day. Denies chest pain, nausea or vomiting, but shortness of breath is associated with dry cough. No fevers or chills. She states that her and chronic skin changes have gotten worse and she is concerned about cellulitis as well. Related Data Home Medications Medication Instructions Recorded Confirmed albuterol sulfate 90 mcg/actuation 2 puffs IH QIDP PRN Shortness Of 11/08/20 11/08/20 aerosol inhaler Breath furosemide 20 mg tablet 20 mg PO DAILY Edema 11/08/20 11/08/20 levothyroxine 25 mcg tablet 25 mcg PO DAILY hypothyroidism 11/08/20 11/08/20 lisinopril 40 mg tablet 40 mg PO DAILY Hypertension 11/08/20 11/08/20 multivitamin with folic acid 400 1 each PO DAILY Supplement 11/08/20 11/08/20 mcg tablet Previous Rx's Medication Instructions Recorded amlodipine 10 mg tablet 10 mg PO DAILY Hypertension #30 05/30/20 tabs atorvastatin 40 mg tablet 40 mg PO HS Cholesterol #30 tabs 05/30/20 ferrous sulfate 325 mg (65 mg 325 mg PO BID . #60 tabs 05/30/20 iron) tablet ipratropium 0.5 mg-albuterol 3 mg 3 ml IH Q6HP PRN Shortness Of 11/13/20 (2.5 mg base)/3 mL nebulization Breath #50 neb soln pantoprazole 40 mg tablet,delayed 40 mg PO DAILY #30 tabs 11/13/20 release sucralfate 1 gram tablet 1 gm PO ACHS #120 tabs 11/13/20 Allergies Allergy/AdvReac Type Severity Reaction Status Date / Time codeine [CODEINE] Allergy Unknown Verified 11/07/20 23:47 Penicillins [PENICILLINS] Allergy Unknown Verified 11/07/20 23:47 [facility] Disclaimer: The information contained in this section may have been updated after the patient was seen, as this information can be updated by other users. Social History Smoking Status: Current every day smoker tobacco type: cigarettes packs per day: 2 alcohol intake: current substance use type: denies use current occupational status: disabled Travel in the last 8 weeks: None household members: children housing: house caffeine: No ROS Obtained: Yes All systems reviewed & no additional complaints except as d ocumented Physical Exam General General appearance: alert, in no apparent distress and other (Chronically ill, very unkempt) Head Head exam: atraumatic and normocephalic Eye Eye exam: Present normal appearance, PERRL and EOMI ENT ENT exam: Present mucous membranes moist Neck Neck exam: Present normal inspection, full ROM and trachea midline Respiratory Respiratory exam: Present wheezes (Diffuse, bilateral); Absent respiratory distress, stridor, accessory muscle use or prolonged expiratory phase Cardiovascular Cardiovascular exam: Present regular rate and normal rhythm Abdominal Exam Abdominal exam: Present soft and distention; Absent tenderness, guarding, rebound or rigidity Extremities Exam Extremities exam: Present other (Chronic skin changes with woody/tree bark appearance. No erythema, tenderness, warmth, edema, or any other concerns.); Absent edema Neurological Exam Neurological exam: Present alert, oriented X3, CN II-XII intact and normal gait; Absent motor sensory deficit Skin Skin exam: Present warm and dry; Absent diaphoresis or erythema Medical Decision Making Medical Records Medical records reviewed: Yes I reviewed the patient's medical records. Raudel Inquiry Pt receiving controlled substance: No Raudel was queried for this patient: No Vital Signs: 10/06/23 17:06 Temperature 98.0 F Temperature Source Oral Pulse Rate [Right Radial] 89 Respiratory Rate 20 Blood Pressure [Right Arm] 198/118 H Blood Pressure Mean [Right Arm] 144 Blood Pressure Source [Right Arm] Automatic Cuff Blood Pressure Position [Right Arm] Supine 02 Sat by Pulse Oximetry 96 Oxygen Delivery Method Room Air Lab Data Lab Results 10/06/23 17:56: WBC 7.6, RBC 3.45 L, Hgb 12.8, Hct 33.5 L, MCV 97.3, MCH 37.3 H, MCHC 38.3 H, RDW 14.2, Plt Count 287, MPV 10.0, Neut % (Auto) 77.0, Lymph % (Auto) 13.8, [place] % (Auto) 8.1, Eos % (Auto) 0.9, Baso % (Auto) 0.2, Neut # (Auto) 5.8, Lymph # (Auto) 1.0, [place] # (Auto) 0.6, Eos # (Auto) 0.1, Baso # (Auto) 0.0, Sodium 132 L, Potassium 2.3 L*, Chloride 86 L, Carbon Dioxide 34 H, Anion Gap 14.3, BUN 19 H, Creatinine 1.00, Estimated Creat Clear 58, Estimated GFR 55 L, Est GFR ( Amer) 67, Glucose 180 H, Calcium 6.5 L, Total Bilirubin 1.2, AST 38 H, ALT 20, Alkaline Phosphatase 107, Troponin I 0.60 H, NT-Pro-B Natriuret Pep 7130 H, Total Protein 7.5, Albumin 4.0, Globulin 3.5 H, Albumin/Globulin Ratio 1.1 10/06/23 17:56 10/06/23 17:56 Orders (Tests/Meds): ED MEDICATIONS Generic Name Dose Route Start Last Admin Trade Name Freq PRN Reason Stop Dose Admin Potassium Chloride/Water 100 mls @ 100 mls/hr 10/06/23 18:44 10/06/23 18:58 Potassium Chloride 10meq/100ml Ivpb IV 10/06/23 20:43 100 mls/hr Q1H ANGEL LUIS Administration Discontinued Medications Generic Name Dose Route Start Last Admin Trade Name Freq PRN Reason Stop Dose Admin Albuterol/Ipratropium 6 ml 10/06/23 17:25 10/06/23 18:00 Ipratropium/Albuterol 3 Ml Neb IH 10/06/23 17:26 6 ml ONCE ONE Administration Aspirin 325 mg 10/06/23 18:50 10/06/23 18:53 Aspirin 325mg Tablet PO 10/06/23 18:51 325 mg ONCE ONE Administration Furosemide 40 mg 10/06/23 18:44 10/06/23 18:52 Furosemide 40mg/4ml Vial IV 10/06/23 18:45 40 mg ONCE ONE Administration Methylprednisolone Sodium Succinate 125 mg 10/06/23 17:25 10/06/23 18:16 Methylprednisolone Sod Succ 125mg Vial IV 10/06/23 17:26 125 mg ONCE ONE Administration Potassium Chloride 60 meq 10/06/23 18:44 10/06/23 18:52 Potassium Chloride 20meq Tab PO 10/06/23 18:45 60 meq ONCE ONE Administration ORDERS Category Date Time Status XR chest portable Stat Exams 10/06/23 17:25 Completed Brain Natriuretic Peptide Stat Lab 10/06/23 17:56 Completed Complete Blood Count Auto Diff Stat Lab 10/06/23 17:56 Completed Comprehensive Metabolic Panel Stat Lab 10/06/23 17:56 Completed Diarrhea 23 Panel, PCR Stat Lab 10/06/23 17:05 Received Rapid PCR Covid and Flu A/B Stat Lab 10/06/23 18:30 Received Troponin I Q3H Lab 10/06/23 20:30 Ordered Troponin I Q3H Lab 10/06/23 23:30 Ordered Troponin I Stat Lab 10/06/23 17:56 Completed Medical Decision Narrative: 68 male history of hypertension, hyperlipidemia, c/o ED still smoking 2 packs a day and not on home oxygen chronic lower extreme edema presenting with shortness of breath. Patient states she has been getting short of breath the last 3 to 4 days. Has not seen a doctor in over 2 years. States that she is out of her breathing treatments, still smoking 2 packs a day. Denies chest pain, nausea or vomiting, but shortness of breath is associated with dry cough. No fevers or chills. She states that her and chronic skin changes have gotten worse and she is concerned about cellulitis as well. It should be noted the patient has not seen a family doctor in a very long time and does not manage her comorbidities, complicating care. History was obtained via conversation with patient and family. On arrival, patient hemodynamically stable, alert, oriented x4, appropriate, GCS 15, moving all extremities spontaneously, pupils equal and reactive to light. Full physical exam performed and significant for chronically ill, unkempt woman in no acute distress. Lungs have diffuse end expiratory wheezes, but no focal breath sounds. No increased work of breathing or hypoxemia. No lower extremity edema, the patient does have chronic skin changes that appear to be secondary to hygiene. Tree bark appearance, no evidence of cellulitis or edema. Differential includes COPD exacerbation, pneumonia, bronchitis, CHF, ACS, IA, pneumothorax, among others. Patient was given DuoNeb, Solu-Medrol for symptomatic management and correction of underlying abnormalities. Workup independently interpreted and significant for no leukocytosis. Patient does have elevated BNP at 7100 and troponin elevated 0.6, likely stress troponin. Chest x-ray without acute cardiopulmonary airspace disease. Chemistry concerning for hypokalemia of 2.3, this was repleted with 60 mill equivalent p.o. as well as 20 mill equivalent IV. See radiology read for full review of final results. Heart score 6. Given full dose aspirin. On reevaluation, patient resting comfortably in bed. Patient was also given irbesartan 75 mg for blood pressure. Admitting team, Dr. Bose from [place] was contacted and patient to be admitted for CHF exacerbation. Given patient presentation, workup, history, this most likely represents acute CHF exacerbation and COPD exacerbation. Because patient high risk for clinical decompensation, deemed appropriate for inpatient admission. Results were relayed to patient who voiced understanding and patient was agreeable to inpatient admission and management. Patient was admitted to the hospital for further definitive management. Critical Care Critical Care Time Critical Care Time: Yes (CP) Attestation: On 10/06/23, the high probability of a clinically significant, sudden or life threatening deterioration of the following system(s) required my full and direct attention, intervention and personal management. The time I documented below is in addition to time spent performing reported procedures but includes the following listed in this critical care notation. Total Time Total Critical Care Time: 45
[2023-10-06] MEDS: IPRATROPIUM/ALBUTEROL 3 ML NEB 6 ML IH (18:00)
[2023-10-06] MEDS: METHYLPREDNISOLONE SOD SUCC 125MG VIAL 125 MG IV (18:16)
[2023-10-06 18:25] LABS: Chloride 86 mmol/L (98-107); Sodium 132 mmol/L (136-145)
[2023-10-06 18:26] LABS: Basophils % 0.2 % (0.1-2.0); Eosinophils # 0.1 K/mm3 (0.0-0.4); Eosinophils % 0.9 % (0.1-12.0); Hematocrit 33.5 % (37.0-47.0); Hemoglobin 12.8 g/dL (12.2-16.2); Lymphocytes % 13.8 % (10-50); Mean Corpuscular HGB Conc 38.3 g/dL (31.8-35.4); Mean Corpuscular Hemoglobin 37.3 pg (27.0-31.2); Mean Corpuscular Volume 97.3 fl (81-99); Monocytes # 0.6 K/mm3 (0.1-1.0); Monocytes % 8.1 % (1.7-9.3); Neutrophils # 5.8 K/mm3 (1.8-7.8); Platelet Count 287 K/mm3 (142-424); Red Blood Count 3.45 M/mm3 (4.20-5.40); Red Cell Distribution Width 14.2 % (11.5-17.5); White Blood Count 7.6 K/mm3 (4.8-10.8)
[2023-10-06 18:28] LABS: Alanine Aminotransferase 20 U/L (12-78); Albumin/Globulin Ratio 1.1 (1.1-1.8); Alkaline Phosphatase 107 U/L (38-126); Anion Gap 14.3 mEq/L (5-15); Aspartate Amino Transferase 38 U/L (14-36); Bilirubin,Total 1.2 mg/dl (0.2-1.3); Blood Urea Nitrogen 19 mg/dl (7-17); Carbon Dioxide 34 mmol/L (22.0-30.0); Creatinine Clearance Estimated 58 mL/min (50-200); Estimated Glomerular Filt Rate 55 ml/min (>60); GFR (African American) 67 ML/MIN (>60); Globulin 3.5 g/dL (1.3-3.2); Total Protein,Serum 7.5 g/dl (6.3-8.2)
[2023-10-06 18:29] LABS: Calcium 6.5 mg/dl (8.4-10.2); Glucose 180 mg/dl (74-100)
[2023-10-06 18:36] LABS: Potassium 2.3 mmoL/L (3.5-5.1)
[2023-10-06 18:38] LABS: Influenza A, PCR Not Detected (NotDetected); Influenza B, PCR Not Detected (NotDetected)
[2023-10-06 18:39] LABS: NT Pro Brain Natriuretic Pep. 7130 pg/mL (0-125)
[2023-10-06 18:42] LABS: Adenovirus F 40/41, stool Not Detected (NotDetected); Astrovirus Not Detected (NotDetected); Campylobacter Not Detected (NotDetected); Clostridium Difficile A/B, PCR Not Detected (NotDetected); Cryptosporidium Not Detected (NotDetected); Cyclospora Cayetanesis Not Detected (NotDetected); Entamoeba histolytica Not Detected (NotDetected); Enteroaggregative E coli Not Detected (NotDetected); Enteropathogenic E coli Not Detected (NotDetected); Enterotoxigenic E coli Not Detected (NotDetected); Giardia lamblia Not Detected (NotDetected); Norovirus Not Detected (NotDetected); Plesimonas Shigalloides, PCR Not Detected (NotDetected); Rotavirus A Not Detected (NotDetected); Salmonella, PCR Not Detected (NotDetected); Sapovirus Not Detected (NotDetected); Shiga-like toxin E coli Not Detected (NotDetected); Shigella Enterovasive E coli Not Detected (NotDetected); Vibrio Cholerae Not Detected (NotDetected); Vibrio, PCR Not Detected (NotDetected); Yersinia Entercolitica, PCR Not Detected (NotDetected)
[2023-10-06] MEDS: POTASSIUM CHLORIDE 20MEQ TAB 60 MEQ PO (18:52)
[2023-10-06] MEDS: FUROSEMIDE 40MG/4ML VIAL 40 MG IV (18:52)
[2023-10-06] MEDS: ASPIRIN 325MG TABLET 325 MG PO (18:53)
--- NOTE | 2023-10-06 18:57 | PC.NURSE ---
DR VIVIAN PINEDA FOR DR GOLD
--- NOTE | 2023-10-06 18:57 | PC.NURSE ---
DR JIMENEZ AT BEDSIDE TO UPDATE PT AND FAMILY
[2023-10-06] MEDS: KCl 10mEq/100ml 100 ML 100 MEQ IV ×2 (18:58→21:54)
--- NOTE | 2023-10-06 19:04 | PC.NURSE ---
DR JIMENEZ SPEAKING WITH DR PARK
[2023-10-06 19:10] LABS: Coronavirus 19, PCR Detected (NotDetected)
[2023-10-06 19:14] VITALS: BP 127/62; PULSE 79; RESP 19; O2SAT 96
[2023-10-06] MEDS: LACTATED RINGERS 1000ML 1,000 ML 100 ML IV (19:19)
--- NOTE | 2023-10-06 19:21 | PC.NURSE ---
I attempted to give report, Kely is still in report and will call back.
--- NOTE | 2023-10-06 19:23 | PC.NURSE ---
House contacted for an admission
--- NOTE | 2023-10-06 19:28 | ECG_ITS ---
APPROVED REPORT Exam: Resting ECG HR:83 bpm ECG Measurements Heart Rate 83 AXES MS 133 P 52 QRSd 102 QRS 64 QT 401 T 265 QTc 441 Conclusion SINUS RHYTHM WITH FREQUENT VENTRICULAR PREMATURE COMPLEXES ST DEVIATION AND MODERATE T-WAVE ABNORMALITY, CONSIDER ANTERIOR ISCHEMIA [-0.1+ mV T-WAVE IN V3/V4] ABNORMAL ECG UNCONFIRMED REPORT Electronically signed by : Jacob Delgado MD 10/09/2023 14:46:37
[2023-10-06 19:53] VITALS: BP 127/62; PULSE 88; RESP 15; TEMP 37.2; O2SAT 99
[2023-10-06 20:00] VITALS: BP 141/58; PULSE 82; RESP 18; TEMP 36.6; O2SAT 96
--- NOTE | 2023-10-06 20:08 | PC.NURSE ---
pt arrived to the floor @ 20:02
[2023-10-06 22:05] LABS: Troponin I 0.54 ng/ml (0.00-0.034)
[2023-10-06 23:36] VITALS: PULSE 87; PULSE 88
[2023-10-06] MEDS: IPRATROPIUM/ALBUTEROL 3 ML NEB IH (23:37)
[2023-10-06 23:52] VITALS: BP 128/76; PULSE 73; RESP 16; TEMP 36.4; O2SAT 98
[2023-10-06 23:56] LABS: Troponin I 0.52 ng/ml (0.00-0.034)
[2023-10-07] VITALS (12 sets, daily range): BP systolic 105–148; BP diastolic 54–103; PULSE 51–100; RESP 16–19; TEMP 36.6–36.8; O2SAT 93–99; BMI 32.3
--- NOTE | 2023-10-07 02:23 | PC.WOUNDNOTE ---
left leg right leg
[2023-10-07] MEDS: ACETAMINOPHEN 325MG TAB 650 MG PO (03:13)
--- NOTE | 2023-10-07 09:09 | HMH.PHAINT1 ---
Pharmacy Intervention Comments: Patient is no longer taking home meds per primary care physician.
[2023-10-07] MEDS: IPRATROPIUM/ALBUTEROL 3 ML NEB IH ×3 (09:27→18:53)
--- NOTE | 2023-10-07 09:29 | P.HP_ITS ---
History of Present Illness *Admission Date: 10/07/23 *Reason for visit:: shortness of breath, abdominal pain *History of present illness: 68 female history of hypertension, hyperlipidemia, c/o ED still smoking 2 packs a day and not on home oxygen chronic lower extreme edema presenting with shortness of breath. Patient states she has been getting short of breath the last 3 to 4 days. Has not seen a doctor in over 2 years. States that she is out of her breathing treatments, still smoking 2 packs a day. Denies chest pain, nausea or vomiting, but shortness of breath is associated with dry cough. No fevers or chills. She states that her and chronic skin changes have gotten worse and she is concerned about cellulitis as well. It should be noted the patient has not seen a family doctor in a very long time and does not manage her comorbidities, complicating care. History was obtained via conversation with patient and family. On arrival, patient hemodynamically stable, alert, oriented x4, appropriate, GCS 15, moving all extremities spontaneously, pupils equal and reactive to light. Full physical exam performed and significant for chronically ill, unkempt woman in no acute distress. Lungs have diffuse end expiratory wheezes, but no focal breath sounds. No increased work of breathing or hypoxemia. No lower extremity edema, the patient does have chronic skin changes that appear to be secondary to hygiene. Tree bark appearance, no evidence of cellulitis or edema. Differential includes COPD exacerbation, pneumonia, bronchitis, CHF, ACS, ID, pneumothorax, among others. Patient was given DuoNeb, Solu-Medrol for symptomatic management and correction of underlying abnormalities. Workup independently interpreted and significant for no leukocytosis. Patient does have elevated BNP at 7100 and troponin elevated 0.6, likely stress troponin. Chest x-ray without acute cardiopulmonary airspace disease. Chemistry concerning for hypokalemia of 2.3, this was repleted with 60 mill equivalent p.o. as well as 20 mill equivalent IV. See radiology read for full r eview of final results. Heart score 6. Given full dose aspirin. On reevaluation, patient resting comfortably in bed. Patient was also given irbesartan 75 mg for blood pressure. Admitting team, Dr. Bose from [place] was contacted and patient to be admitted for CHF exacerbation. Given patient presentation, workup, history, this most likely represents acute CHF exacerbation and COPD exacerbation. Because patient high risk for clinical decompensation, deemed appropriate for inpatient admission. Results were relayed to patient who voiced understanding and patient was agreeable to inpati ent admission and management. Patient was admitted to the hospital for further definitive management. (above as per ER physician) Patient's covid test came back positive as well. She states along with the SOA, she has had some stomach cramping and diarrhea for the past 4 days. [facility] Disclaimer: The information contained in this section may have been updated after the patient was seen, as this information can be updated by other users. Medical History (Updated 10/07/23 @ 12:57 by PUMA Carter) Bleeding ulcer COPD (chronic obstructive pulmonary disease) CVA (cerebral vascular accident) Gangrene Gangrene of lower extremity Hemiparesis, left History of ectopic Hyperlipidemia Hypertension Hypertension Onychodystrophy Onychogryphosis Tobacco use disorder Surgical History (Updated 10/07/23 @ 12:42 by PUMA Carter) History of carpal tunnel release History of partial hysterectomy History of ureter stent Social History Smoking Status: Current every day smoker tobacco type: cigarettes packs per day: 2 alcohol intake: current substance use type: denies use current occupational status: disabled Travel in the last 8 weeks: None household members: children housing: house caffeine: No Review of Systems Constitutional Constitutional: Denies body ache(s), Denies chills, Reports fatigue, Denies fever(s), Denies headache(s), Reports poor appetite, Reports lethargy and Reports weakness Eyes Eyes: Denies blurry vision and Denies diplopia ENT Ears, Nose, Mouth, and Throat: Denies headache(s), Denies nasal congestion, Denies sore throat and Denies vertigo *Cardiovascular Cardiovascular: Denies chest pain, Reports dyspnea and Denies palpitations *Respiratory Respiratory: Reports chest congestion, Reports cough, Reports dyspnea and Reports wheezing *Gastrointestinal Gastrointestinal: Reports abdominal pain, Reports diarrhea, Reports nausea and Denies vomiting *Genitourinary Genitourinary: Denies difficulty voiding and Denies dysuria *Musculoskeletal Musculoskeletal: Denies arthralgias *Neurologic Neurologic: Denies headache(s), Denies vertigo and Reports weakness Endocrine Endocrine: Reports fatigue and Denies palpitations Allergic/Immunologic Allergic/Immunologic: Reports wheezing Meds Home Medications and Allergies Home Medications Medication Instructions Recorded Confirmed Type No Known Home Medications 10/07/23 10/07/23 History New Prescriptions to Start Prescriptions: Allergies Allergy/AdvReac Type Severity Reaction Status Date / Time codeine [CODEINE] Allergy Unknown Verified 11/07/20 23:47 Penicillins [PENICILLINS] Allergy Unknown Verified 11/07/20 23:47 Exam Data for Last 24 hours Vital signs and Labs for Last 24 Hours: Temp Pulse Resp BP Pulse Ox O2 Del Method O2 Flow Rate 98.2 F 66 16 120/54 L 99 Room Air 2 10/07/23 07:52 10/07/23 07:52 10/07/23 07:52 10/07/23 07:52 10/07/23 07:52 10/07/23 07:52 10/07/23 07:00 Laboratory Results - last 24 hr 10/06/23 17:56: WBC 7.6, RBC 3.45 L, Hgb 12.8, Hct 33.5 L, MCV 97.3, MCH 37.3 H, MCHC 38.3 H, RDW 14.2, Plt Count 287, MPV 10.0, Neut % (Auto) 77.0, Lymph % (Auto) 13.8, [place] % (Auto) 8.1, Eos % (Auto) 0.9, Baso % (Auto) 0.2, Neut # (Auto) 5.8, Lymph # (Auto) 1.0, [place] # (Auto) 0.6, Eos # (Auto) 0.1, Baso # (Auto) 0.0, Sodium 132 L, Potassium 2.3 L*, Chloride 86 L, Carbon Dioxide 34 H, Anion Gap 14.3, BUN 19 H, Creatinine 1.00, Estimated Creat Clear 58, Estimated GFR 55 L, Est GFR ( Amer) 67, Glucose 180 H, Calcium 6.5 L, Total Bilirubin 1.2, AST 38 H, ALT 20, Alkaline Phosphatase 107, Troponin I 0.60 H, NT-Pro-B Natriuret Pep 7130 H, Total Protein 7.5, Albumin 4.0, Globulin 3.5 H, Albumin/Globulin Ratio 1.1 10/06/23 18:30: SARS-CoV-2 (PCR) Detected A, Influenza A Untype (PCR) Not detected, Influenza Type B (PCR) Not detected 10/06/23 20:45: Troponin I 0.54 H 10/06/23 23:15: Troponin I 0.52 H I & O for Last 24 hours: Intake & Output 10/04/23 10/05/23 10/06/23 10/07/23 11:59 11:59 11:59 11:59 Intake Total 360 / 360 Balance 360 / 360 Weight 175 lb 9.6 oz Constitutional Constitutional: no acute distress *Routine HEENT Exam Head: Present normocephalic and atraumatic Eye: Present EOMI and PERRL ENT: Present mucous membranes dry *Routine Neck Exam Neck: Present supple and full ROM *Routine Respiratory Exam Respiratory: Present wheezes; Absent crackles *Routine Cardiovascular Exam Cardiovascular: Present RRR *Routine Abdominal Exam Abdominal: Present soft and normoactive bowel sounds; Absent tenderness *Routine Rectal Exam Rectal:: deferred *Routine Genitalia Exam Genitalia:: deferred *Routine Extremities Exam Extremities: Present edema (bilateral LE's); Absent cyanosis or clubbing *Routine Skin Exam Skin: Present intact and cracked (extremely dry and cracked skin on the bilateral lower extremities, nails are extremely long and yellow in color); Absent erythema *Routine Neurological Exam Neurological: Present alert and oriented X3 H&P: Result Impressions CXR - nothing acute Assessment and Plan *Assessment and plan (1) COVID-19: Status: Acute Category: Medical Code(s): U07.1 - COVID-19 (2) CHF exacerbation: Status: Acute Category: Medical Code(s): I50.9 - Heart failure, unspecified (3) Acute exacerbation of chronic obstructive pulmonary disease: Status: Acute Category: Medical Code(s): J44.1 - Chronic obstructive pulmonary disease with (acute) exacerbation (4) Acute hypokalemia: Status: Acute Category: Medical Code(s): E87.6 - Hypokalemia (5) Tobacco use disorder: Status: Chronic Category: Medical Code(s): F17.200 - Nicotine dependence, unspecified, uncomplicated (6) Onychogryphosis: Status: Acute Category: Medical Code(s): L60.2 - Onychogryphosis (7) Onychodystrophy: Status: Acute Category: Medical Code(s): L60.3 - Nail dystrophy (8) Hyperlipidemia: Status: Chronic Category: Medical Code(s): E78.5 - Hyperlipidemia, unspecified (9) Hypertension: Status: Chronic Category: Medical Code(s): I10 - Essential (primary) hypertension (10) Hyperkeratosis of skin: Status: Acute Category: Medical Code(s): L85.9 - Epidermal thickening, unspecified (11) History of CVA (cerebrovascular accident): Status: Chronic Category: Medical Code(s): Z86.73 - Personal history of transient ischemic attack (TIA), and cerebral infarction without residual deficits (12) COPD (chronic obstructive pulmonary disease): Status: Chronic Category: Medical Code(s): J44.9 - Chronic obstructive pulmonary disease, unspecified Plan Patient has been started on oxygen, nebs, steroids, and lasix. Will consult PT for wound care of the legs and podiatry for her feet and nails. Will replace potassium. Dr. Mckeon entry - Saw patient, agree with above note.
[2023-10-07 09:50] LABS: Mean Corpuscular Volume 97.1 fl (81-99)
[2023-10-07 09:54] LABS: Basophils % 0.6 % (0.1-2.0); Eosinophils % 0.2 % (0.1-12.0); Hematocrit 32.2 % (37.0-47.0); Lymphocytes % 18.4 % (10-50); Mean Corpuscular HGB Conc 35.3 g/dL (31.8-35.4); Mean Corpuscular Hemoglobin 34.3 pg (27.0-31.2); Mean Platelet Volume 8.6 fl (7.4-10.4); Monocytes # 0.5 K/mm3 (0.1-1.0); Monocytes % 9.4 % (1.7-9.3); Neutrophils # 3.9 K/mm3 (1.8-7.8); Neutrophils % 71.4 % (37.0-80.0); Platelet Count 305 K/mm3 (142-424); Red Blood Count 3.32 M/mm3 (4.20-5.40); Red Cell Distribution Width 14.1 % (11.5-17.5); White Blood Count 5.5 K/mm3 (4.8-10.8)
[2023-10-07 09:56] LABS: Hemoglobin 11.4 g/dL (12.2-16.2)
[2023-10-07 10:47] LABS: Chloride 87 mmol/L (98-107); Sodium 135 mmol/L (136-145)
[2023-10-07 10:50] LABS: Potassium 1.7 mmoL/L (3.5-5.1)
[2023-10-07 10:51] LABS: Anion Gap 11.7 mEq/L (5-15); Blood Urea Nitrogen 19 mg/dl (7-17); Calcium 6.1 mg/dl (8.4-10.2); Carbon Dioxide 38 mmol/L (22.0-30.0); Creatinine Clearance Estimated 62 mL/min (50-200); Estimated Glomerular Filt Rate 49 ml/min (>60); GFR (African American) 60 ML/MIN (>60); Glucose 162 mg/dl (74-100)
[2023-10-07] MEDS: KCl 20mEq/100ml 100 ML 50 MEQ IV ×3 (11:35→16:02)
--- NOTE | 2023-10-07 11:38 | HMH.PTWOUND ---
Rehab Inpt Wound Evaluation Rehab IP Wound Evaluation Start: 10/07/23 09:12 Freq: ONCE Status: Active Protocol: Document 10/07/23 10:00 SHERRELL (Rec: 10/07/23 11:38 PHORGILDA [id number]) Rehab PT Wound Assessment Subjective Subjective 68 yowf adm to [facility] with CHF, COPD exac, hypokalemia, and found to be COVID -19 +. SHe reports she lives with her sister in law, 1 [address] the home, and she generally uses a RW for all mobility She reports she does not use oxygen at home at baseline. She presents upon adm with chronic B LE edema with severe hyperkeratosis noted to B lower legs. Also B great toe nails are ~7 cm long at least. Wound Left Lower Leg Wound Type hyperkeratosis Is This a Chronic Wound Yes Edema Type Pitting Edema Degree 1+ Query Text:1+ Trace, Barely Detectable, Rebound 15-30 seconds 2+ Moderate, Slight Indentation, Rebound 10-20 seconds 3+ Deep, Deeper Indentation, Rebound > 30 seconds 4+ Very Deep, Rebound > 60 seconds Drainage Amount None Primary Dressing Unna Boot Comment 2 layer compression wrap system with zinc oxide Wound Debridement Method Forceps,Gauze,Mechanical Wound Debridement Amount of Tissue Large Removed Dressing Change Patient Tolerance Tolerated Well Right Lower Leg Wound Type hyperkeratosis Is This a Chronic Wound Yes Edema Type Pitting Edema Degree 1+ Query Text:1+ Trace, Barely Detectable, Rebound 15-30 seconds 2+ Moderate, Slight Indentation, Rebound 10-20 seconds 3+ Deep, Deeper Indentation, Rebound > 30 seconds 4+ Very Deep, Rebound > 60 seconds Drainage Amount None Primary Dressing Unna Boot Comment 2 layer compression wrap system with zinc oxide Wound Debridement Method Forceps,Gauze,Mechanical Wound Debridement Amount of Tissue Large Removed Dressing Change Patient Tolerance Tolerated Well Plan/Recommendation Comment Continue compression wraps as able. Will continue to debride B LE hyperkeratosis as tolerated. No open wounds noted at this time, but may be visible as hyperkeratotic tissue is removed. Eval Complexity Eval Charge Codes 50420 - High Complexity PHYSICIAN CERTIFICATION: I certify the specified therapy services for Umm Hull are required, authorized, and reviewed every 30 days.
--- NOTE | 2023-10-07 11:46 | EXP.POD.CONS ---
History of Present Illness *Admission Date: 10/07/23 *Reason for visit:: Nail dystrophy *History of present illness: 68F was admitted today for shortness of breath. Podiatry consulted for evaluation of feet/nails. PT consulted for lower extremity edema. Bilateral lower extremity wraps were just applied prior to podiatry consult. Patient reports she moved in with her [id number] in [place]. She does not leave the house much. She does have a walker but does not walk. Due to the length of her toenails she cannot put on shoes. She reports toenails hurt with any pressure. She reports the last nail trim was when I performed it, chart review shows that nail debridement was 05/24/20. [facility] Disclaimer: The information contained in this section may have been updated after the patient was seen, as this information can be updated by other users. Medical History (Updated 10/07/23 @ 12:57 by PUMA Carter) Bleeding ulcer COPD (chronic obstructive pulmonary disease) CVA (cerebral vascular accident) Gangrene Gangrene of lower extremity Hemiparesis, left History of ectopic Hyperlipidemia Hypertension Hypertension Onychodystrophy Onychogryphosis Tobacco use disorder Surgical History (Updated 10/07/23 @ 12:42 by PUMA Carter) History of carpal tunnel release History of partial hysterectomy History of ureter stent Social History Smoking Status: Current every day smoker tobacco type: cigarettes packs per day: 2 alcohol intake: current substance use type: denies use current occupational status: disabled Travel in the last 8 weeks: None household members: children housing: house caffeine: No Review of Systems Review of Systems Review of systems:: pertinent systems reviewed and negative unless documented below Constitutional Constitutional: Reports weakness Eyes Eyes: Reports system reviewed and no additional complaints, except as documented ENT Ears, Nose, Mouth, and Throat: Reports system reviewed and no additional complaints, except as documented *Cardiovascular Cardiovascular: Reports system reviewed and no additional complaints, except as documented and Reports dyspnea *Respiratory Respiratory: Reports system reviewed and no additional complaints, except as documented and Reports dyspnea *Gastrointestinal Gastrointestinal: Reports system reviewed and no additional complaints, except as documented and Reports nausea *Genitourinary Genitourinary: Reports system reviewed and no additional complaints, except as documented *Musculoskeletal Musculoskeletal: Reports system reviewed and no additional complaints, except as documented and Reports muscle weakness Integumentary/Breasts Skin/Breast: Reports system reviewed and no additional complaints, except as documented, Reports nail changes and Reports dry skin *Neurologic Neurologic: Reports system reviewed and no additional complaints, except as documented and Reports weakness Psychiatric Psychiatric: Reports system reviewed and no additional complaints, except as documented Endocrine Endocrine: Reports system reviewed and no additional complaints, except as documented Hematologic/Lymphatic Hematologic/Lymphatic: Reports system reviewed and no additional complaints, except as documented Allergic/Immunologic Allergic/Immunologic: Reports system reviewed and no additional complaints, except as documented Meds Home Medications and Allergies Home Medications Medication Instructions Recorded Confirmed Type No Known Home Medications 10/07/23 10/07/23 History New Prescriptions to Start Prescriptions: Allergies Allergy/AdvReac Type Severity Reaction Status Date / Time codeine [CODEINE] Allergy Unknown Verified 11/07/20 23:47 Penicillins [PENICILLINS] Allergy Unknown Verified 11/07/20 23:47 Exam (Inpt) Vital signs and Labs for Last 24 Hours: Temp Pulse Resp BP Pulse Ox O2 Del Method O2 Flow Rate 98.3 F 51 L 17 148/65 H 94 L Room Air 2 10/07/23 11:12 10/07/23 11:12 10/07/23 11:12 10/07/23 11:12 10/07/23 11:12 10/07/23 11:12 10/07/23 09:27 Laboratory Results - last 24 hr 10/06/23 17:56: WBC 7.6, RBC 3.45 L, Hgb 12.8, Hct 33.5 L, MCV 97.3, MCH 37.3 H, MCHC 38.3 H, RDW 14.2, Plt Count 287, MPV 10.0, Neut % (Auto) 77.0, Lymph % (Auto) 13.8, [place] % (Auto) 8.1, Eos % (Auto) 0.9, Baso % (Auto) 0.2, Neut # (Auto) 5.8, Lymph # (Auto) 1.0, [place] # (Auto) 0.6, Eos # (Auto) 0.1, Baso # (Auto) 0.0, Sodium 132 L, Potassium 2.3 L*, Chloride 86 L, Carbon Dioxide 34 H, Anion Gap 14.3, BUN 19 H, Creatinine 1.00, Estimated Creat Clear 58, Estimated GFR 55 L, Est GFR ( Amer) 67, Glucose 180 H, Calcium 6.5 L, Total Bilirubin 1.2, AST 38 H, ALT 20, Alkaline Phosphatase 107, Troponin I 0.60 H, NT-Pro-B Natriuret Pep 7130 H, Total Protein 7.5, Albumin 4.0, Globulin 3.5 H, Albumin/Globulin Ratio 1.1 10/06/23 18:30: SARS-CoV-2 (PCR) Detected A, Influenza A Untype (PCR) Not detected, Influenza Type B (PCR) Not detected 10/06/23 20:45: Troponin I 0.54 H 10/06/23 23:15: Troponin I 0.52 H 10/07/23 09:45: WBC 5.5 D, RBC 3.32 L, Hgb 11.4 L D, Hct 32.2 L, MCV 97.1, MCH 34.3 H, MCHC 35.3, RDW 14.1, Plt Count 305, MPV 8.6, Neut % (Auto) 71.4, Lymph % (Auto) 18.4, [place] % (Auto) 9.4 H, Eos % (Auto) 0.2, Baso % (Auto) 0.6, Neut # (Auto) 3.9, Lymph # (Auto) 1.0, [place] # (Auto) 0.5, Eos # (Auto) 0.0, Baso # (Auto) 0.0, Sodium 135 L, Potassium 1.7 L* D, Chloride 87 L, Carbon Dioxide 38 H, Anion Gap 11.7, BUN 19 H, Creatinine 1.10 H, Estimated Creat Clear 62, Estimated GFR 49 L, Est GFR ( Amer) 60, Glucose 162 H, Calcium 6.1 L I & O for Labs for Last 24 Hours: Intake & Output 10/04/23 10/05/23 10/06/23 10/07/23 11:59 11:59 11:59 11:59 Intake Total 360 / 360 Balance 360 / 360 Weight 175 lb 9.6 oz Constitutional: Present no acute distress, obese and disheveled Head: Present normocephalic Eye: Present as per HPI Neck: Present normal inspection Respiratory: Present normal respiratory effort Cardiac: Present pedal pulses present GI: Present soft Rectal (female): Present deferred (female): Present deferred Extremities: Present edema Skin: Present dry and warm Neuro: Present Motor Function Intact, Sensory Function Intact, Weakness, oriented x 3 and moves all extremities Comment:: Generalized b/l LE weakness secondary to disuse atrophy. Ankle: bilateral: normal inspection Feet/Toes: bilateral: hammer toe, bilateral: nail abnormalities (pain to toenails x10) and bilateral: onychomycosis (elongated toenail, b/l hallux ~3 inches long) Inspection: Present nail disorder Pulses: L dorsalis pedis pulse: normal and R dorsalis pedis pulse: normal Results Labs 10/07/23 09:45 10/07/23 09:45 Labs: Abnormal lab results 10/06/23 10/06/23 10/06/23 Range/Units 17:56 18:30 20:45 RBC 3.45 L (4.20-5.40) M/mm3 Hgb (12.2-16.2) g/dL Hct 33.5 L (37.0-47.0) % MCH 37.3 H (27.0-31.2) pg MCHC 38.3 H (31.8-35.4) g/dL [place] % (Auto) (1.7-9.3) % Sodium 132 L (136-145) mmol/L Potassium 2.3 L* (3.5-5.1) mmoL/L Chloride 86 L (98-107) mmol/L Carbon Dioxide 34 H (22.0-30.0) mmol/L BUN 19 H (7-17) mg/dl Creatinine (0.52-1.04) mg/dl Estimated GFR 55 L (>60) ml/min Glucose 180 H (74-100) mg/dl Calcium 6.5 L (8.4-10.2) mg/dl AST 38 H (14-36) U/L Troponin I 0.60 H 0.54 H (0.00-0.034) ng/ml NT-Pro-B Natriuret Pep 7130 H (0-125) pg/mL Globulin 3.5 H (1.3-3.2) g/dL SARS-CoV-2 (PCR) Detected A (NotDetected) 10/06/23 10/07/23 Range/Units 23:15 09:45 RBC 3.32 L (4.20-5.40) M/mm3 Hgb 11.4 L D (12.2-16.2) g/dL Hct 32.2 L (37.0-47.0) % MCH 34.3 H (27.0-31.2) pg MCHC (31.8-35.4) g/dL [place] % (Auto) 9.4 H (1.7-9.3) % Sodium 135 L (136-145) mmol/L Potassium 1.7 L* D (3.5-5.1) mmoL/L Chloride 87 L (98-107) mmol/L Carbon Dioxide 38 H (22.0-30.0) mmol/L BUN 19 H (7-17) mg/dl Creatinine 1.10 H (0.52-1.04) mg/dl Estimated GFR 49 L (>60) ml/min Glucose 162 H (74-100) mg/dl Calcium 6.1 L (8.4-10.2) mg/dl AST (14-36) U/L Troponin I 0.52 H (0.00-0.034) ng/ml NT-Pro-B Natriuret Pep (0-125) pg/mL Globulin (1.3-3.2) g/dL SARS-CoV-2 (PCR) (NotDetected) H & H 10/06/23 10/07/23 Range/Units 17:56 09:45 Hgb 12.8 11.4 L D (12.2-16.2) g/dL Hct 33.5 L 32.2 L (37.0-47.0) % All other labs normal. Assessment and Plan *Assessment and plan (1) Onychogryphosis: Status: Acute Category: Medical Code(s): L60.2 - Onychogryphosis (2) Onychodystrophy: Status: Acute Category: Medical Code(s): L60.3 - Nail dystrophy (3) Pincer nail deformity: Status: Acute Category: Medical Code(s): L60.8 - Other nail disorders (4) Hyperkeratosis of skin: Status: Acute Category: Medical Code(s): L85.9 - Epidermal thickening, unspecified (5) Pain around nail: Status: Acute Category: Medical (6) Tobacco use disorder: Status: Chronic Category: Medical Code(s): F17.200 - Nicotine dependence, unspecified, uncomplicated (7) Obesity (BMI 30.0-34.9): Status: Acute Category: Medical Code(s): E66.9 - Obesity, unspecified Plan Newly diagnosed DM, Ha1c 11.6% DM NAIL CARE: -Patient reports she can not put shoes due to length of toenails (>3 in). -Reports pain to all toenails. -Last nail debridement was 05/24/20. -Discussed the importance of keeping toenails well managed to avoid sore/ulcers which can result from the nails digging into the skin. -The patient can not bend over and has difficulty to cut the nails. -Indications: uncontrolled DM, nail dystrophy. 1. Nails were debrided x?s 10 utilizing manual debridement with a nail nipper. 2. Patient tolerated the procedure well. 3. Recommend the use of dima board to file nails down and keep thinner. 4. Follow up in 3 months or as needed. 5. Patient should call me sooner if any questions or concerns arise.
[2023-10-07 13:18] LABS: Hemoglobin A1C 11.6 % (4.0-6.0)
[2023-10-07] MEDS: ACETAMINOPHEN 500MG TAB 1000 MG PO (17:47)
[2023-10-07] MEDS: DEXAMETHASONE 4MG/ML 1ML VIAL 6 MG IV (18:26)
[2023-10-07] MEDS: TRAMADOL 50MG TABLET 50 MG PO (18:27)
[2023-10-07] MEDS: ERGOCALCIFEROL 50,000 UNITS (1.25MG) CAPSULE 50000 UNIT PO (18:40)
[2023-10-07 18:50] LABS: Anion Gap 10.9 mEq/L (5-15); Blood Urea Nitrogen 18 mg/dl (7-17); Calcium 5.7 mg/dl (8.4-10.2); Carbon Dioxide 34 mmol/L (22.0-30.0); Chloride 90 mmol/L (98-107); Creatinine Clearance Estimated 68 mL/min (50-200); Estimated Glomerular Filt Rate 62 ml/min (>60); GFR (African American) 75 ML/MIN (>60); Glucose 215 mg/dl (74-100); Sodium 133 mmol/L (136-145)
--- NOTE | 2023-10-07 18:53 | PC.NURSE ---
Patient a&o x4 and vss. Wound care saw patient today for keratosis and patient had c/o pain in legs. Patient had some relief with tylenol and tramadol given.
[2023-10-07 18:56] LABS: Potassium 1.9 mmoL/L (3.5-5.1)
--- NOTE | 2023-10-07 19:10 | CA_ITS ---
APPROVED REPORT EXAM: Comprehensive 2D, Doppler, and color-flow Echocardiogram Data Processing Supervisor: SUJIT Somers, RVS Ht: 5 ft 2 in Wt: 150lbs BSA: 1.69 BP: 193/118 mmHg Rhythm: Irregular Indications: COVID+, COPD, New CHF, SOB, HTN, Smoker Echo Enhancing Agent Comments: Poor acoustic windows throughout exam due to patient factors 2D Dimensions Left Atrium 3.65 cm LA Volume 54.30 mL LA Volume Index 32.448268 mL/m2 (M/F) 16-34 EF AP2 43.1 % GL Strain -5.4 % M-Mode Dimensions RVDd 1.21 cm (0.9-2.6) LA Diam 4.13 cm (1.9-4.0) LVDd 5.21 cm (3.5-5.7) LVDs 3.53 cm (3.5-5.7) IVSd 0.86 cm (0.6-1.1) PWd 1.16 cm (0.6-1.1) EF (Teich) 60.10% EPSs 0.49 cm FS 32.20% EDV (Teich) 130.10 mL TAPSE 2.13 (<1.7) ESV (Teich) 51.90 mL LV Diastology E Decel Time 277 (160-240 msec) E/A Ratio 0.90 MED A' 5.20 cm/s LAT A' 8.60 cm/s Aortic Valve DELICIA Index 1.41 cm2/m2 AoV Peak David. 112.0 (50-130 cm/s) AO Peak GR. 5.00 mmHg AO Mean GR. 2.50 (<5 mmHg) AO VTI 25.8 (18-25 cm) DELICIA (VTI) 2.44 (2.5-4.5 cm2) Mitral Valve MV A Velocity 134.0 (40-130 cm/s) E/A Ratio 0.90 MV Mean Gr. 3.70 (<2mmHg) Tricuspid Valve TR P. Velocity 245.00 cm/s RAP Estimate 10.00 mmHg RVSP 34.10 mmHg Left Ventricle The left ventricle is normal size. Left ventricular systolic function is low normal. There is normal left ventricular wall thickness. There is near akinesis of the LV apical wall. The left ventricular diastolic function is normal. LVEF is 50%. Right Ventricle The right ventricle is normal size. The right ventricular systolic function is normal. Atria The left atrium size is normal. The right atrium size is normal. There is no Doppler evidence of interatrial shunt. Aortic Valve The aortic valve is mildly thickened. There is no aortic valvular stenosis. No aortic regurgitation is present. Mitral Valve The mitral valve is normal in structure. No evidence of mitral valve stenosis. Mild mitral regurgitation. Tricuspid Valve The tricuspid valve leaflets are thin and pliable. Mild tricuspid regurgitation. RVSP is 25-30 mmHg. Pulmonic Valve The pulmonary valve is normal in structure. Trace pulmonic regurgitation. Great Vessels The aortic root is normal in size. The ascending aorta is not well-visualized. IVC is normal in size and collapses >50% with inspiration. Pericardium There is a small sized, anterior pericardial effusion present. The largest pocket measures 0.4 cm in diastole. There are no echo indications of tamponade. Other Information Study Quality: Fair Conclusion Low normal LV systolic function (LVEF 50%). Near akinesis of the LV apex. Mild MR, mild TR. Small sized, anterior pericardial effusion. The largest pocket measures 0.4 cm in diastole. No echo indications of tamponade. Of note, the patient's blood pressure at the time of image acquisition was 193/118 mmHg. Electronically signed by : Abigail Antonio MD 10/09/2023 12:01:42
[2023-10-07] MEDS: KCl 10mEq/100ml 100 ML 100 MEQ IV ×3 (19:18→22:48)
[2023-10-07] MEDS: OXAZEPAM 15 MG CAPSULE PO (20:33)
[2023-10-07] MEDS: ASCORBIC ACID 500MG TAB 500 MG PO (20:33)
[2023-10-07] MEDS: FAMOTIDINE 20MG TABLET 20 MG PO (20:34)
[2023-10-07] MEDS: POTASSIUM CHLORIDE 20MEQ TAB 60 MEQ PO (21:08)
[2023-10-08] VITALS (13 sets, daily range): BP systolic 106–172; BP diastolic 63–99; PULSE 54–105; RESP 17–18; TEMP 36.4–36.7; O2SAT 2–100; BMI 33.0
[2023-10-08] MEDS: IPRATROPIUM/ALBUTEROL 3 ML NEB IH ×4 (04:44→22:47)
[2023-10-08] MEDS: TRAMADOL 50MG TABLET 50 MG PO (06:58)
[2023-10-08 07:33] LABS: Anion Gap 13.4 mEq/L (5-15); Blood Urea Nitrogen 18 mg/dl (7-17); Calcium 5.7 mg/dl (8.4-10.2); Carbon Dioxide 32 mmol/L (22.0-30.0); Chloride 91 mmol/L (98-107); Creatinine Clearance Estimated 69 mL/min (50-200); Estimated Glomerular Filt Rate 62 ml/min (>60); GFR (African American) 75 ML/MIN (>60); Glucose 342 mg/dl (74-100); Sodium 134 mmol/L (136-145)
[2023-10-08 07:40] LABS: Eosinophils % 0.1 % (0.1-12.0); Hematocrit 32.3 % (37.0-47.0); Lymphocytes # 0.3 K/mm3 (0.7-4.5); Mean Corpuscular HGB Conc 33.9 g/dL (31.8-35.4); Mean Corpuscular Hemoglobin 32.7 pg (27.0-31.2); Mean Corpuscular Volume 96.4 fl (81-99); Mean Platelet Volume 8.6 fl (7.4-10.4); Monocytes # 0.2 K/mm3 (0.1-1.0); Monocytes % 5.9 % (1.7-9.3); Neutrophils # 3.3 K/mm3 (1.8-7.8); Platelet Count 295 K/mm3 (142-424); Red Blood Count 3.35 M/mm3 (4.20-5.40); Red Cell Distribution Width 13.7 % (11.5-17.5); White Blood Count 3.9 K/mm3 (4.8-10.8)
[2023-10-08 07:44] LABS: MANUAL DIFFERENTIAL MANUAL DIFFERENTIAL (MANUAL DIFF); Potassium 2.4 mmoL/L (3.5-5.1)
--- NOTE | 2023-10-08 08:09 | PC.NURSE ---
Oxide Furnace Tender scored patient a 4 on CIWA at 2019 and received PRN Oxazepam 15mg PO as ordered. Oxide Furnace Tender followed up with patient shortly after and patient was noted laying in bed with eyes closed and HOB elevated. At 0030, Nurse Tech voiced to va underwriter that patient is confused. Oxide Furnace Tender assessed patient, patient voiced to va underwriter that I feel really confused and I don't know where I am or why I am here. Oxide Furnace Tender educated patient on where and why she is at the hospital. Patient noted with no distress. Oxide Furnace Tender reassessed patient at 021, patient able to tell va underwriter at this time her name and where she is. Pt still noted with some confusion. Oxide Furnace Tender encouraged patient to drink water. Oxide Furnace Tender reassessed at 0300. Patient at this time was alert and orient X3. Will continue to monitor and report to oncoming shift.
--- NOTE | 2023-10-08 08:41 | P.PN_ITS ---
Subjective *Date: 10/08/23 *Time: 09:12 Interval history: Patient is feeling a little better this am. She had a rough night last night with leg pain. The tramadol did not seem to be helping. She then had what she thought was an anxiety attack and received anxiety medication which did help some. She normally drinks 4 glasses of alcohol a night and has not had any alcohol in 4 days. She states she was confused throughout the night and attributes this to alcohol withdrawal. She does feel better this morning. Medical Exam Vital signs and Labs for Last 24 Hours: Vital Signs Temp Pulse Pulse Resp BP Pulse Ox O2 Del Method 10/08/23 08:00 97.9 F 87 17 163/74 H 98 Nasal Cannula 10/08/23 08:02 2 L Room Air 10/08/23 04:00 83 10/08/23 07:00 Nasal Cannula 10/08/23 05:00 Nasal Cannula 10/08/23 04:00 97.7 F 86 18 169/99 H 98 Nasal Cannula 10/08/23 04:45 86 10/08/23 04:45 84 10/08/23 04:45 100 Nasal Cannula 10/08/23 03:00 Nasal Cannula 10/08/23 01:00 Nasal Cannula 10/08/23 00:00 97.7 F 90 18 172/92 H 99 Nasal Cannula 10/08/23 00:00 80 10/08/23 00:00 Nasal Cannula 10/07/23 20:00 91 H 10/07/23 20:00 97.9 F 92 H 18 105/61 L 98 Nasal Cannula 10/07/23 18:54 88 10/07/23 18:54 88 10/07/23 18:54 93 L Nasal Cannula 10/07/23 16:00 100 H 10/07/23 15:17 98.3 F 85 17 139/67 97 Nasal Cannula 10/07/23 14:18 84 10/07/23 14:18 89 10/07/23 12:00 81 10/07/23 11:12 98.3 F 51 L 17 148/65 H 94 L Room Air 10/07/23 09:27 72 10/07/23 09:27 70 10/07/23 09:27 93 L Nasal Cannula O2 Flow Rate 10/08/23 08:00 2 10/08/23 08:02 10/08/23 04:00 10/08/23 07:00 2 10/08/23 05:00 2 10/08/23 04:00 10/08/23 04:45 10/08/23 04:45 10/08/23 04:45 2 10/08/23 03:00 2 10/08/23 01:00 2 10/08/23 00:00 2 10/08/23 00:00 10/08/23 00:00 2 10/07/23 20:00 10/07/23 20:00 2 10/07/23 18:54 10/07/23 18:54 10/07/23 18:54 2 10/07/23 16:00 10/07/23 15:17 2 10/07/23 14:18 10/07/23 14:18 10/07/23 12:00 10/07/23 11:12 10/07/23 09:27 10/07/23 09:27 10/07/23 09:27 2 Intake and Output 10/07/23 10/08/23 10/08/23 19:59 03:59 11:59 Intake Total 480 / 840 120 / 840 240 / 840 Output Total 500 / 800 0 / 800 300 / 800 Balance -20 / 40 120 / 40 -60 / 40 Intake: Intake, Oral Amount 480 / 840 120 / 840 240 / 840 Output: Output, Urine Amount 500 / 800 0 / 800 300 / 800 Other: Number of Unmeasured Voids 1 0 0 Weight 179 lb 11.2 oz Patient Weight 10/08/23 11:59 Weight 179 lb 11.2 oz Laboratory Results - last 24 hr 10/07/23 09:45: WBC 5.5 D, RBC 3.32 L, Hgb 11.4 L D, Hct 32.2 L, MCV 97.1, MCH 34.3 H, MCHC 35.3, RDW 14.1, Plt Count 305, MPV 8.6, Neut % (Auto) 71.4, Lymph % (Auto) 18.4, [place] % (Auto) 9.4 H, Eos % (Auto) 0.2, Baso % (Auto) 0.6, Neut # (Auto) 3.9, Lymph # (Auto) 1.0, [place] # (Auto) 0.5, Eos # (Auto) 0.0, Baso # (Auto) 0.0, Sodium 135 L, Potassium 1.7 L* D, Chloride 87 L, Carbon Dioxide 38 H , Anion Gap 11.7, BUN 19 H, Creatinine 1.10 H, Estimated Creat Clear 62, Estimated GFR 49 L, Est GFR ( Amer) 60, Glucose 162 H, Hemoglobin A1c 11.6 H, Calcium 6.1 L 10/07/23 18:15: Sodium 133 L, Potassium 1.9 L*, Chloride 90 L, Carbon Dioxide 34 H, Anion Gap 10.9, BUN 18 H, Creatinine 0.90, Estimated Creat Clear 68, Estimated GFR 62, Est GFR ( Amer) 75 D, Glucose 215 H D, Calcium 5.7 L 10/08/23 07:10: WBC 3.9 L D, RBC 3.35 L, Hgb 11.0 L, Hct 32.3 L, MCV 96.4, MCH 32.7 H, MCHC 33.9, RDW 13.7, Plt Count 295, MPV 8.6, Neut % (Auto) 86.0 H, Lymph % (Auto) 8.0 L, [place] % (Auto) 5.9, Eos % (Auto) 0.1, Baso % (Auto) 0.0 L, Neut # (Auto) 3.3, Lymph # (Auto) 0.3 L, [place] # (Auto) 0.2, Eos # (Auto) 0.0, Baso # (Auto) 0.0, Sodium 134 L, Potassium 2.4 L* D, Chloride 91 L, Carbon Dioxide 32 H , Anion Gap 13.4, BUN 18 H, Creatinine 0.90, Estimated Creat Clear 69, Estimated GFR 62, Est GFR ( Amer) 75, Glucose 342 H D, Calcium 5.7 L I & O for Labs for Last 24 Hours: Intake & Output 10/05/23 10/06/23 10/07/23 10/08/23 11:59 11:59 11:59 11:59 Intake Total 360 / 360 840 / 840 Output Total 800 / 800 Balance 360 / 360 40 / 40 Weight 175 lb 9.6 oz 179 lb 11.2 oz Constitutional: Present no acute distress Respiratory: Present wheezes (improved) Cardiac: Present Irregularly Regular GI: Present soft and normal bowel sounds; Absent distention or tenderness Extremities: Present other (both lower legs with kristina bandages, toenails have been clipped) Neuro: Present alert and awake Assessment and Plan *Assessment and plan (1) COVID-19: Status: Acute Category: Medical Code(s): U07.1 - COVID-19 (2) CHF exacerbation: Status: Acute Category: Medical Code(s): I50.9 - Heart failure, unspecified (3) Acute exacerbation of chronic obstructive pulmonary disease: Status: Acute Category: Medical Code(s): J44.1 - Chronic obstructive pulmonary disease with (acute) exacerbation (4) Acute hypokalemia: Status: Acute Category: Medical Code(s): E87.6 - Hypokalemia (5) Tobacco use disorder: Status: Chronic Category: Medical Code(s): F17.200 - Nicotine dependence, unspecified, uncomplicated (6) Onychogryphosis: Status: Acute Category: Medical Code(s): L60.2 - Onychogryphosis (7) Onychodystrophy: Status: Acute Category: Medical Code(s): L60.3 - Nail dystrophy (8) Hyperlipidemia: Status: Chronic Category: Medical Code(s): E78.5 - Hyperlipidemia, unspecified (9) Hypertension: Status: Chronic Category: Medical Code(s): I10 - Essential (primary) hypertension (10) Hyperkeratosis of skin: Status: Acute Category: Medical Code(s): L85.9 - Epidermal thickening, unspecified (11) History of CVA (cerebrovascular accident): Status: Chronic Category: Medical Code(s): Z86.73 - Personal history of transient ischemic attack (TIA), and cerebral infarction without residual deficits (12) COPD (chronic obstructive pulmonary disease): Status: Chronic Category: Medical Code(s): J44.9 - Chronic obstructive pulmonary disease, unspecified (13) Type 2 diabetes mellitus: Status: Acute Category: Medical Code(s): E11.9 - Type 2 diabetes mellitus without complications Plan Potassium is still critical today. Will give 3 more runs of potassium. Glucose is elevated. Will start on sliding scale insulin. PT to follow with wound care. Dr. Mckeon entry - Saw patient, agree with above note. Stop Serax, start Diazepam, for alcohol withdrawal, replace potassium, start sliding scale insulin.
[2023-10-08 09:13] LABS: Lymphocytes % 9 % (10-50); Macrocytosis 1+; Monocytes % 5 % (2-9); Neutrophils % 86 % (42-76); Platelet Estimate Normal; Total Cells Counted 100
[2023-10-08] MEDS: KCl 20mEq/100ml 100 ML 50 MEQ IV ×3 (10:31→16:09)
[2023-10-08] MEDS: FAMOTIDINE 20MG TABLET 20 MG PO ×2 (10:32→21:35)
[2023-10-08] MEDS: FOLIC ACID 1MG TABLET 1 MG PO (10:32)
[2023-10-08] MEDS: ENOXAPARIN 40MG/0.4ML SYRINGE 40 MG SQ (10:32)
[2023-10-08] MEDS: ASCORBIC ACID 500MG TAB 500 MG PO ×3 (10:32→21:35)
[2023-10-08] MEDS: DEXAMETHASONE 4MG/ML 1ML VIAL 6 MG IV (10:35)
--- NOTE | 2023-10-08 10:45 | PC.NURSE ---
Patient complaint of burning with potassium infusion. Infusion decreased to 35 ml/hr with improvement of symptoms
[2023-10-08] MEDS: ZINC SULFATE 220MG CAPSULE 220 MG PO (11:41)
[2023-10-08] MEDS: humaLOG 100 UNITS/ML 3ML VIAL (SSI) SQ ×3 (11:42→21:35)
[2023-10-08] MEDS: THIAMINE 100MG TABLET 100 MG PO (11:42)
--- NOTE | 2023-10-08 11:44 | PC.NURSE ---
Patient requested to be up chair for lunch. PT assisted and patient up with 2 to chair. Tolerated fair. Requested breathing tx after getting up
[2023-10-08] MEDS: diazePAM 5MG TABLET 5 MG PO (17:38)
[2023-10-08] MEDS: MULTIVITAMIN TABLET 1 EACH PO (17:38)
--- NOTE | 2023-10-08 18:57 | PC.NURSE ---
Pt alert and oriented. On 2L O2. Tramadol for pain. Valium for low CIWA score secondary to increased anxiety and restless. Up to chair with 2 for most of the day. PRN duonebs for dyspnea. 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 [place] output adequate. Potassium replaced per orders
[2023-10-08 21:32] LABS: POC Glucose,Bedside 213 (70-110)
[2023-10-09] VITALS (12 sets, daily range): BP systolic 103–161; BP diastolic 43–90; PULSE 81–105; RESP 17–19; TEMP 36.5–36.9; O2SAT 95–99; BMI 33.0
[2023-10-09 06:57] LABS: Basophils % 0.2 % (0.1-2.0); Eosinophils % 0.4 % (0.1-12.0); Hematocrit 33.6 % (37.0-47.0); Hemoglobin 11.5 g/dL (12.2-16.2); Lymphocytes # 0.7 K/mm3 (0.7-4.5); Lymphocytes % 5.8 % (10-50); Mean Corpuscular HGB Conc 34.1 g/dL (31.8-35.4); Mean Corpuscular Volume 96.7 fl (81-99); Mean Platelet Volume 8.2 fl (7.4-10.4); Monocytes # 0.7 K/mm3 (0.1-1.0); Monocytes % 5.6 % (1.7-9.3); Neutrophils # 10.2 K/mm3 (1.8-7.8); Platelet Count 371 K/mm3 (142-424); Red Blood Count 3.48 M/mm3 (4.20-5.40); White Blood Count 11.6 K/mm3 (4.8-10.8)
[2023-10-09] MEDS: humaLOG 100 UNITS/ML 3ML VIAL (SSI) SQ ×4 (06:59→20:28)
[2023-10-09 07:00] LABS: MANUAL DIFFERENTIAL MANUAL DIFFERENTIAL (MANUAL DIFF)
[2023-10-09] MEDS: IPRATROPIUM/ALBUTEROL 3 ML NEB IH ×3 (07:25→17:39)
--- NOTE | 2023-10-09 08:25 | P.PN_ITS ---
Subjective *Date: 10/09/23 *Time: 08:50 Interval history: Patient states she is feeling a little bit better today. She still has some pain in her legs and would like to have a pain pill along with some Zofran before she has a dressing change today. She had a better night and was able to sleep. She has been eating well. Medical Exam Vital signs and Labs for Last 24 Hours: Vital Signs Temp Pulse Pulse Resp BP Pulse Ox O2 Del Method 10/09/23 04:00 81 10/09/23 07:40 98.1 F 105 H 19 161/86 H 96 Nasal Cannula 10/09/23 07:25 94 H 10/09/23 07:25 94 H 10/09/23 07:25 95 Nasal Cannula 10/09/23 04:00 97.7 F 91 H 17 103/43 L 96 Nasal Cannula 10/08/23 20:00 99 Nasal Cannula 10/09/23 03:00 Nasal Cannula 10/09/23 01:00 Nasal Cannula 10/09/23 00:00 99 Nasal Cannula 10/08/23 21:00 Nasal Cannula 10/09/23 00:00 85 10/09/23 00:00 97.9 F 89 18 110/44 L 99 Nasal Cannula 10/08/23 20:00 73 10/08/23 22:55 91 H 10/08/23 22:55 95 H 10/08/23 20:00 97.5 F L 85 17 158/77 H 99 Room Air 10/08/23 18:56 Nasal Cannula 10/08/23 16:00 100 H 10/08/23 11:16 100 H 10/08/23 17:40 Nasal Cannula 10/08/23 17:05 54 L 10/08/23 17:05 59 L 10/08/23 17:05 98 Nasal Cannula 10/08/23 15:43 97.9 F 105 H 17 145/98 H 93 L Nasal Cannula 10/08/23 15:10 Nasal Cannula 10/08/23 13:20 Nasal Cannula 10/08/23 11:50 98.1 F 95 H 18 106/63 L 100 Nasal Cannula 10/08/23 11:31 58 L 10/08/23 11:31 58 L 10/08/23 11:31 98 Nasal Cannula 10/08/23 11:23 Nasal Cannula 10/08/23 09:00 Nasal Cannula O2 Flow Rate 10/09/23 04:00 10/09/23 07:40 2 10/09/23 07:25 10/09/23 07:25 10/09/23 07:25 2 10/09/23 04:00 2 10/08/23 20:00 2 10/09/23 03:00 2 10/09/23 01:00 2 10/09/23 00:00 2 10/08/23 21:00 2 10/09/23 00:00 10/09/23 00:00 10/08/23 20:00 10/08/23 22:55 10/08/23 22:55 10/08/23 20:00 10/08/23 18:56 2 10/08/23 16:00 10/08/23 11:16 10/08/23 17:40 2 10/08/23 17:05 10/08/23 17:05 10/08/23 17:05 2 10/08/23 15:43 2 10/08/23 15:10 2 10/08/23 13:20 2 10/08/23 11:50 2 10/08/23 11:31 10/08/23 11:31 10/08/23 11:31 2 10/08/23 11:23 2 10/08/23 09:00 2 Intake and Output 10/08/23 10/09/23 10/09/23 19:59 03:59 11:59 Intake Total 440 / 800 120 / 800 240 / 800 Output Total 750 / 1350 0 / 1350 600 / 1350 Balance -310 / -550 120 / -550 -360 / -550 Intake: Intake, Oral Amount 240 / 600 120 / 600 240 / 600 Intake, Total IV Amount 200 / 200 KCl 20mEq/100ml 100 ml @ 50 mls 200 / 200 /hr IV Q2H [facility] Rx#:[id number] Output: Output, Urine Amount 750 / 1350 0 / 1350 600 / 1350 Other: Number of Unmeasured Voids 1 0 0 Weight 179 lb 11.2 oz Patient Weight 10/09/23 11:59 Weight 179 lb 11.2 oz Laboratory Results - last 24 hr 10/08/23 07:10: Total Counted 100, Neutrophils % (Manual) 86 H, Lymphocytes % (Manual) 9 L, Monocytes % (Manual) 5, Platelet Estimate Normal, RBC Morphology Not Reportable, Macrocytosis 1+ 10/08/23 20:52: POC Glucose 213 H 10/09/23 06:34: WBC 11.6 H D, RBC 3.48 L, Hgb 11.5 L, Hct 33.6 L, MCV 96.7, MCH 33.0 H, MCHC 34.1, RDW 14.0, Plt Count 371 D, MPV 8.2, Neut % (Auto) 88.0 H, Lymph % (Auto) 5.8 L, [place] % (Auto) 5.6, Eos % (Auto) 0.4, Baso % (Auto) 0.2, Neut # (Auto) 10.2 H, Lymph # (Auto) 0.7, [place] # (Auto) 0.7, Eos # (Auto) 0.0, Baso # (Auto) 0.0 I & O for Labs for Last 24 Hours: Intake & Output 10/06/23 10/07/23 10/08/23 10/09/23 11:59 11:59 11:59 11:59 Intake Total 360 / 360 1080 / 1080 800 / 800 Output Total 800 / 800 1350 / 1350 Balance 360 / 360 280 / 280 -550 / -550 Weight 175 lb 9.6 oz 179 lb 11.2 oz 179 lb 11.2 oz Constitutional: Present no acute distress Respiratory: Present wheezes (improved) Cardiac: Present Irregularly Regular GI: Present soft and normal bowel sounds; Absent distention or tenderness Extremities: Present other (both lower legs with kristina bandages, toenails have been clipped); Absent edema Neuro: Present alert and awake Assessment and Plan *Assessment and plan (1) COVID-19: Status: Acute Category: Medical Code(s): U07.1 - COVID-19 (2) CHF exacerbation: Status: Acute Category: Medical Code(s): I50.9 - Heart failure, unspecified (3) Acute exacerbation of chronic obstructive pulmonary disease: Status: Acute Category: Medical Code(s): J44.1 - Chronic obstructive pulmonary disease with (acute) exacerbation (4) Acute hypokalemia: Status: Acute Category: Medical Code(s): E87.6 - Hypokalemia (5) Tobacco use disorder: Status: Chronic Category: Medical Code(s): F17.200 - Nicotine dependence, unspecified, uncomplicated (6) Onychogryphosis: Status: Acute Category: Medical Code(s): L60.2 - Onychogryphosis (7) Onychodystrophy: Status: Acute Category: Medical Code(s): L60.3 - Nail dystrophy (8) Hyperlipidemia: Status: Chronic Category: Medical Code(s): E78.5 - Hyperlipidemia, unspecified (9) Hypertension: Status: Chronic Category: Medical Code(s): I10 - Essential (primary) hypertension (10) Hyperkeratosis of skin: Status: Acute Category: Medical Code(s): L85.9 - Epidermal thickening, unspecified (11) History of CVA (cerebrovascular accident): Status: Chronic Category: Medical Code(s): Z86.73 - Personal history of transient ischemic attack (TIA), and cerebral infarction without residual deficits (12) COPD (chronic obstructive pulmonary disease): Status: Chronic Category: Medical Code(s): J44.9 - Chronic obstructive pulmonary disease, unspecified (13) Type 2 diabetes mellitus: Status: Acute Category: Medical Code(s): E11.9 - Type 2 diabetes mellitus without complications (14) Elevated troponin: Status: Acute Category: Medical Code(s): R79.89 - Other specified abnormal findings of blood chemistry (15) Elevated brain natriuretic peptide (BNP) level: Status: Acute Category: Medical Code(s): R79.89 - Other specified abnormal findings of blood chemistry Plan Will recheck labs this am. Will order zofran so she can have this before she takes any pain medication as they make her nauseated. Dr. Mckeon entry - Saw patient, agree with above note, still do not have an echo report, will consult cardiology to see patient. Continue wound care.
[2023-10-09 08:35] LABS: Lymphocytes % 6 % (10-50); Monocytes % 5 % (2-9); Neutrophils % 87 % (42-76); Total Cells Counted 100
[2023-10-09 08:37] LABS: Anisocytosis 1+; Platelet Estimate Normal
[2023-10-09 08:55] LABS: Anion Gap 14.9 mEq/L (5-15); Blood Urea Nitrogen 19 mg/dl (7-17); Calcium 6.7 mg/dl (8.4-10.2); Carbon Dioxide 29 mmol/L (22.0-30.0); Chloride 95 mmol/L (98-107); Creatinine Clearance Estimated 69 mL/min (50-200); Estimated Glomerular Filt Rate 83 ml/min (>60); GFR (African American) 101 ML/MIN (>60); Glucose 167 mg/dl (74-100); Sodium 136 mmol/L (136-145)
[2023-10-09 09:00] LABS: Potassium 2.9 mmoL/L (3.5-5.1)
[2023-10-09 09:02] LABS: RBC Morphology Normal
[2023-10-09] MEDS: ACETAMINOPHEN 500MG TAB 1000 MG PO (09:10)
[2023-10-09] MEDS: ASCORBIC ACID 500MG TAB 500 MG PO ×3 (09:11→20:28)
[2023-10-09] MEDS: FOLIC ACID 1MG TABLET 1 MG PO (09:11)
[2023-10-09] MEDS: ZINC SULFATE 220MG CAPSULE 220 MG PO (09:11)
[2023-10-09] MEDS: THIAMINE 100MG TABLET 100 MG PO (09:11)
[2023-10-09] MEDS: FAMOTIDINE 20MG TABLET 20 MG PO ×2 (09:11→20:28)
[2023-10-09] MEDS: ENOXAPARIN 40MG/0.4ML SYRINGE 40 MG SQ (09:11)
[2023-10-09] MEDS: GUAIFENESIN/DEXTROMETHORPHAN 200MG/20MG 10ML UDC 10 ML PO (09:12)
[2023-10-09] MEDS: DEXAMETHASONE 4MG/ML 1ML VIAL 6 MG IV (09:12)
[2023-10-09] MEDS: SPIRONOLACTONE 25MG TABLET 50 MG PO (10:26)
[2023-10-09] MEDS: KCl 20mEq/100ml 100 ML 50 MEQ IV ×3 (10:26→17:05)
[2023-10-09] MEDS: OXYCODONE 5MG W/APAP 325MG TABLET 1 EACH PO (10:55)
[2023-10-09] MEDS: ONDANSETRON 4MG/2ML VIAL 4 MG IV (10:58)
--- NOTE | 2023-10-09 11:23 | P.CONCA_ITS ---
History of Present Illness History of Present Illness Consult date: 10/09/23 Requesting physician: Chung Mckeon Consult reason: chest pain Chief complaint: SOA History of present illness: 68-year-old white female who has not been to the doctor in many years presented to the emergency room 2 days ago with complaints of worsening dyspnea on exertion, fatigue, severe leg pain. She smokes 2 packs/day at home and on arrival had A1c of 11. She was also positive for COVID and has severe hyperkeratosis of bilateral lower extremity-tree trunk appearance. She also has proBNP 7000, troponins were relatively flat at 0.6, 0.5, 0.5. Her potassium was critically low at 1.9, chest x-ray was within normal limits, EKG showed sinus rhythm with occasional PVCs. Cardiology has been consulted due to complaint of mild chest discomfort and elevated cardiac enzymes. Patient denies any prior cardiac workup. She denies chest pressure and tightness at home but is severely limited with presumed COPD and severe lower extremity pain. [facility] Disclaimer: The information contained in this section may have been updated after the patient was seen, as this information can be updated by other users. Medical History Bleeding ulcer COPD (chronic obstructive pulmonary disease) CVA (cerebral vascular accident) Gangrene Gangrene of lower extremity Hemiparesis, left History of ectopic Hyperlipidemia Hypertension Hypertension Onychodystrophy Onychogryphosis Tobacco use disorder Surgical History History of carpal tunnel release History of partial hysterectomy History of ureter stent Social History Smoking Status: Current every day smoker tobacco type: cigarettes packs per day: 2 alcohol intake: current substance use type: denies use current occupational status: disabled Travel in the last 8 weeks: None household members: children housing: house caffeine: No Review of Systems Constitutional Constitutional: Denies headache(s) and Reports weakness Eyes Eyes: Denies loss of vision ENT Ears, Nose, Mouth, and Throat: Denies headache(s) and Denies vertigo *Cardiovascular Cardiovascular: Reports chest pain and Reports dyspnea *Respiratory Respiratory: Denies cough and Reports dyspnea *Gastrointestinal Gastrointestinal: Denies change in stool character, Denies nausea and Denies vomiting *Musculoskeletal Musculoskeletal: Denies muscle weakness Integumentary/Breasts Skin/Breast: Denies changing lesions *Neurologic Neurologic: Reports system reviewed and no additional complaints, except as documented, Denies headache(s), Denies loss of vision, Denies vertigo and Reports weakness Exam Data for Last 24 hours Vital signs and Labs for Last 24 Hours: Temp Pulse Resp BP Pulse Ox O2 Del Method O2 Flow Rate 97.9 F 94 H 19 148/90 H 96 Nasal Cannula 2 10/09/23 11:17 10/09/23 11:17 10/09/23 11:17 10/09/23 11:17 10/09/23 11:17 10/09/23 11:17 10/09/23 11:17 Laboratory Results - last 24 hr 10/08/23 20:52: POC Glucose 213 H 10/09/23 06:34: WBC 11.6 H D, RBC 3.48 L, Hgb 11.5 L, Hct 33.6 L, MCV 96.7, MCH 33.0 H, MCHC 34.1, RDW 14.0, Plt Count 371 D, MPV 8.2, Neut % (Auto) 88.0 H, Lymph % (Auto) 5.8 L, [place] % (Auto) 5.6, Eos % (Auto) 0.4, Baso % (Auto) 0.2, Neut # (Auto) 10.2 H, Lymph # (Auto) 0.7, [place] # (Auto) 0.7, Eos # (Auto) 0.0, Baso # (Auto) 0.0, Total Counted 100, Neutrophils % (Manual) 87 H, Band Neutrophils % 2.0, Lymphocytes % (Manual) 6 L, Monocytes % (Manual) 5, Platelet Estimate Normal, RBC Morphology Normal, Anisocytosis 1+, Sodium 136, Potassium 2.9 L* D, Chloride 95 L, Carbon Dioxide 29, Anion Gap 14.9, BUN 19 H, Creatinine 0.70 D, Estimated Creat Clear 69, Estimated GFR 83, Est GFR ( Amer) 101 D, Glucose 167 H D, Calcium 6.7 L I & O for Last 24 hours: Intake & Output 10/06/23 10/07/23 10/08/23 10/09/23 23:59 23:59 23:59 23:59 Intake Total 840 / 960 1040 / 1160 360 / 360 Output Total 500 / 500 1050 / 1050 600 / 600 Balance 340 / 460 -10 / 110 -240 / -240 Weight 150 lb 175 lb 9.6 oz 179 lb 11.2 oz 179 lb 10.828 oz Constitutional Constitutional: no acute distress and cooperative *Routine HEENT Exam Eye: Present PERRL *Routine Respiratory Exam Respiratory: Present CTA bilaterally; Absent accessory muscle use, wheezes or crackles Comments: Mild wheezing noted throughout *Routine Cardiovascular Exam Cardiovascular: Present RRR, Normal S1 and Normal S2; Absent murmur, gallop or rubs *Routine Abdominal Exam Abdominal: Present soft; Absent tenderness *Routine Extremities Exam Extremities: Present pulses intact; Absent cyanosis or edema Comments: Extreme hyperkeratosis of bilateral lower extremities with very thick brown cr usting appearance *Routine Skin Exam Skin: Present intact; Absent erythema or wounds *Routine Neurological Exam Neurological: Present alert and oriented X3 Routine Psychiatric Exam Psychiatric: Present cooperative Meds Home Medications and Allergies Home Medications Medication Instructions Recorded Confirmed Type No Known Home Medications 10/07/23 10/07/23 History New Prescriptions to Start Prescriptions: Allergies Allergy/AdvReac Type Severity Reaction Status Date / Time codeine [CODEINE] Allergy Unknown Verified 11/07/20 23:47 Penicillins [PENICILLINS] Allergy Unknown Verified 11/07/20 23:47 Assessment and Plan *Assessment and plan (1) Dyspnea on exertion: Status: Acute Category: Medical Code(s): R06.09 - Other forms of dyspnea (2) Elevated troponin: Status: Acute Category: Medical Code(s): R79.89 - Other specified abnormal findings of blood chemistry (3) Elevated brain natriuretic peptide (BNP) level: Status: Acute Category: Medical Code(s): R79.89 - Other specified abnormal findings of blood chemistry (4) Type 2 diabetes mellitus: Status: Acute Category: Medical Code(s): E11.9 - Type 2 diabetes mellitus without complications (5) COVID-19: Status: Acute Category: Medical Code(s): U07.1 - COVID-19 (6) Tobacco use disorder: Status: Chronic Category: Medical Code(s): F17.200 - Nicotine dependence, unspecified, uncomplicated (7) Onychogryphosis: Status: Acute Category: Medical Code(s): L60.2 - Onychogryphosis (8) Onychodystrophy: Status: Acute Category: Medical Code(s): L60.3 - Nail dystrophy (9) History of CVA (cerebrovascular accident): Status: Chronic Category: Medical Code(s): Z86.73 - Personal history of transient ischemic attack (TIA), and cerebral infa rction without residual deficits Plan Chest discomfort with elevated troponin -Patient has occasional dyspnea on exertion and chest discomfort in the setting of 2 pack/day tobacco use and A1c of 11 with severe hypokalemia and COVID-19 -She is asymptomatic at this time, her EKG shows sinus rhythm with occasional PVCs without ST or T wave changes -Very strong suspicion of underlying coronary disease but she is not presenting with ACS picture -Add aspirin statin beta-nichole and check 2D echo COPD with COVID-19 -2 pack/day smoker -On nasal cannula here -Plans per primary service Type 2 diabetes, A1c 11 -New diagnosis this admission, patient had not been to a doctor in many years -Add Jardiance for CV benefit, glucose control per primary service Severe hyperkeratosis bilateral lower extremities -Likely due to prolonged edema and hyperglycemia -PT is debriding at this time 10/09: Patient does not appear to be in ACS, will add aspirin statin beta-nichole Jardiance. Further plans pending 2D echo results. Would lean toward outpatient ischemic workup.
--- NOTE | 2023-10-09 12:44 | SW/DCPLANNER ---
Addendum entered by Maame Blanco 10/16/23 09:23: Malena w/ [facility] stated that she can accept this patient SNF level of care. I have called and updated patient's family: she is agreeable. The plan for this patient is to discharge SNF level of care today. Addendum entered by Maame Blanco 10/16/23 09:20: Per family request patient information has been faxed to [facility]. Addendum entered by Susan Baron RN 10/16/23 07:40: [facility] was unable to accept patient as well. Addendum entered by Susan Baron RN 10/15/23 16:47: Attempted to reach [facility] to see about bed availability. Had to leave a message. Spoke with patient about other possible options. She asked I speak with her sister in law regarding whatever facilities we should try next. Mark states they have 6 other referrals to review before hers. I contacted her sister in law and left a message. Addendum entered by Susan Baron RN 10/15/23 13:32: [facility] is unable to meet patient's needs. Sent information to [place]. Addendum entered by Susan Baron RN 10/15/23 10:02: patient now agreeable to placement. Patient is ok with [facility], [facility], or facility in [place]. Spoke with Connie at [facility] and they do have a bed available. They will review the patient's information and let me know. Original Note: I spoke w/ this patient regarding plans once medically stable for discharge. Patient stated that she resides at home and is agreeable to home health services. Patient requested that information/order to be faxed to [facility] once medically stable for discharge. Discharge date is unknown at this time. I will continue to follow up w/ patient and .
[2023-10-09] MEDS: IRBESARTAN 75MG TABLET 75 MG PO (13:13)
[2023-10-09] MEDS: ASPIRIN EC 81MG TABLET 81 MG PO (13:13)
[2023-10-09] MEDS: EMPAGLIFLOZIN 10MG TABLET 10 MG PO (13:13)
[2023-10-09 13:53] LABS: POC Glucose,Bedside 247 (70-110)
[2023-10-09 17:13] LABS: POC Glucose,Bedside 194 (70-110)
[2023-10-09] MEDS: MULTIVITAMIN TABLET 1 EACH PO (17:45)
[2023-10-09] MEDS: TRAMADOL 50MG TABLET 50 MG PO (19:37)
--- NOTE | 2023-10-09 19:40 | PC.NURSE ---
c/o mild h/a /10 and left lower leg pain aching /10. medicated with tramadol per patient request.
[2023-10-09] MEDS: INSULIN GLARGINE 100 UNITS/ML 3ML FLEXPEN 10 UNIT SQ (20:27)
[2023-10-09] MEDS: ATORVASTATIN 40MG TABLET 80 MG PO (20:28)
[2023-10-09 20:30] LABS: POC Glucose,Bedside 242 (70-110)
[2023-10-09] MEDS: diazePAM 5MG TABLET 5 MG PO (22:09)
[2023-10-10] VITALS (8 sets, daily range): BP systolic 127–163; BP diastolic 61–90; PULSE 63–97; RESP 18–19; TEMP 36.6–36.7; O2SAT 96–100; BMI 33.2
--- NOTE | 2023-10-10 04:06 | PC.NURSE ---
PATIENT UP TO BEDSIDE COMMODE. C/O EXTREME SOA. R.T. NOTIFIED. PT REQUESTING DUONEB. BREATH SOUNDS DECREASED, SCATTERED WHEEZES. 02 SAT 100%.
[2023-10-10] MEDS: IPRATROPIUM/ALBUTEROL 3 ML NEB IH ×5 (04:08→21:07)
--- NOTE | 2023-10-10 04:59 | PC.NURSE ---
RECEIVED DUONEB AT 0408 AND RECEIVED RELIEF FROM SOA. REMAINS IN [place]/CONTACT ISOLATION DUE TO COVID. VITAL SIGNS STABLE /AFEBRILE. SCORED 2 ON CIWA SCALE 2200 AND RECEIVED VALIUM 5 MG PO. CIWA AT THIS TIME 0. DRSGS TO LOWER LEGS C/D/I. F/C TO BSD LIGHT SAMANTHA AND CLEAR.
[2023-10-10 05:41] LABS: POC Glucose,Bedside 127 (70-110)
[2023-10-10 06:49] LABS: Basophils % 0.2 % (0.1-2.0); Eosinophils % 0.2 % (0.1-12.0); Hematocrit 32.6 % (37.0-47.0); Hemoglobin 10.9 g/dL (12.2-16.2); Lymphocytes % 10.2 % (10-50); Mean Corpuscular HGB Conc 33.6 g/dL (31.8-35.4); Mean Corpuscular Hemoglobin 32.7 pg (27.0-31.2); Mean Corpuscular Volume 97.5 fl (81-99); Mean Platelet Volume 8.8 fl (7.4-10.4); Monocytes # 0.7 K/mm3 (0.1-1.0); Monocytes % 6.9 % (1.7-9.3); Neutrophils # 8.3 K/mm3 (1.8-7.8); Neutrophils % 82.5 % (37.0-80.0); Platelet Count 391 K/mm3 (142-424); Red Blood Count 3.34 M/mm3 (4.20-5.40); Red Cell Distribution Width 13.9 % (11.5-17.5); White Blood Count 10.1 K/mm3 (4.8-10.8)
[2023-10-10 07:05] LABS: Anion Gap 11.8 mEq/L (5-15); Blood Urea Nitrogen 24 mg/dl (7-17); Calcium 6.3 mg/dl (8.4-10.2); Carbon Dioxide 32 mmol/L (22.0-30.0); Chloride 95 mmol/L (98-107); Creatinine Clearance Estimated 70 mL/min (50-200); Estimated Glomerular Filt Rate 55 ml/min (>60); GFR (African American) 67 ML/MIN (>60); Glucose 106 mg/dl (74-100); Sodium 136 mmol/L (136-145)
[2023-10-10 07:09] LABS: Potassium 2.8 mmoL/L (3.5-5.1)
--- NOTE | 2023-10-10 08:46 | EXP.ACUTE.PN ---
Subjective *Date: 10/10/23 *Time: 08:46 Interval history: Patient with no new complaints today, had a lot of pain yesterday with dressing change on left leg, cardiology note reviewed. Medical Exam Vital signs and Labs for Last 24 Hours: Vital Signs Temp Pulse Pulse Resp BP Pulse Ox O2 Del Method 10/10/23 04:00 98.0 F 80 18 145/70 H 100 Nasal Cannula 10/10/23 06:38 Nasal Cannula 10/10/23 05:00 Nasal Cannula 10/10/23 00:00 Nasal Cannula 10/10/23 04:00 97 H 10/10/23 03:00 Nasal Cannula 10/10/23 00:00 98.0 F 84 18 140/74 100 Nasal Cannula 10/10/23 01:00 Nasal Cannula 10/10/23 00:00 79 10/09/23 23:00 Nasal Cannula 10/09/23 20:00 98.4 F 93 H 18 133/70 98 Nasal Cannula 10/09/23 21:00 Nasal Cannula 10/09/23 20:00 98 Nasal Cannula 10/09/23 20:00 81 10/09/23 19:00 Nasal Cannula 10/09/23 16:00 94 H 10/09/23 17:47 95 H 10/09/23 17:47 95 H 10/09/23 17:47 98 Nasal Cannula 10/09/23 17:00 Nasal Cannula 10/09/23 15:00 Nasal Cannula 10/09/23 15:15 97.9 F 97 H 18 138/71 98 Nasal Cannula 10/09/23 14:52 95 H 10/09/23 13:00 Nasal Cannula 10/09/23 11:00 Nasal Cannula 10/09/23 09:00 Nasal Cannula 10/09/23 11:17 97.9 F 94 H 19 148/90 H 96 Nasal Cannula 10/09/23 11:15 92 H 10/09/23 11:15 92 H 10/09/23 11:15 97 Nasal Cannula O2 Flow Rate 10/10/23 04:00 3 10/10/23 06:38 3 10/10/23 05:00 3 10/10/23 00:00 2 10/10/23 04:00 10/10/23 03:00 3 10/10/23 00:00 3 10/10/23 01:00 3 10/10/23 00:00 10/09/23 23:00 3 10/09/23 20:00 3 10/09/23 21:00 3 10/09/23 20:00 3 10/09/23 20:00 10/09/23 19:00 2 10/09/23 16:00 10/09/23 17:47 10/09/23 17:47 10/09/23 17:47 2 10/09/23 17:00 2 10/09/23 15:00 2 10/09/23 15:15 2 10/09/23 14:52 10/09/23 13:00 2 10/09/23 11:00 2 10/09/23 09:00 2 10/09/23 11:17 2 10/09/23 11:15 10/09/23 11:15 10/09/23 11:15 2 Intake and Output 10/09/23 10/10/23 10/10/23 23:59 07:59 15:59 Intake Total 240 / 1384 544 / 544 Output Total 500 / 500 Balance 240 / 534 44 / 44 Intake: Intake, Oral Amount 240 / 1284 444 / 444 Intake, Total IV Amount 100 / 100 KCl 20mEq/100ml 100 ml @ 50 mls 100 / 100 /hr IV Q2H [facility] Rx#:[id number] Output: Output, Urine Amount 500 / 500 Other: Weight 180 lb 8.937 oz Patient Weight 10/10/23 23:59 Weight 180 lb 8.937 oz Laboratory Results - last 24 hr 10/06/23 17:05: Stl Aeromonas (PCR) Not detected, Stl C. cayetanensis PCR Not detected, Stool Rotavirus (PCR) Not detected, Stl Adenov F 40/41 PCR Not detected, Stool Astrovirus (PCR) Not detected, Stool Campylobacter PCR Not detected, Stl C.difficile Tox PCR Not detected, Stool Cryptosporidium PCR Not detected, Stl E.coli Shiga Tox PCR Not detected, Stool E coli O157 PCR TNP, Stl Enterotoxigenic E PCR Not detected, Stool EPEC (PCR) Not detected, Stool EAEC (PCR) Not detected, Stl E. histolytica PCR Not detected, Stool Giardia Lamblia PCR Not detected, Stool Salmonella PCR Not detected, Stool Sapovirus (PCR) Not detected, Stl P. shigelloides PCR Not detected, Stl Shigella/EIEC PCR Not detected, St Y.enterocolitica PCR Not detected, Stool Vibrio (PCR) Not detected, Stl Vibrio cholerae PCR Not detected, Stl Norovirus GI/GII PCR Not detected 10/09/23 06:34: Total Counted 100, Neutrophils % (Manual) 87 H, Band Neutrophils % 2.0, Lymphocytes % (Manual) 6 L, Monocytes % (Manual) 5, Platelet Estimate Normal, RBC Morphology Normal, Anisocytosis 1+, Sodium 136, Potassium 2.9 L* D, Chloride 95 L, Carbon Dioxide 29, Anion Gap 14.9, BUN 19 H, Creatinine 0.70 D, Estimated Creat Clear 69, Estimated GFR 83, Est GFR ( Amer) 101 D, Glucose 167 H D, Calcium 6.7 L 10/09/23 13:42: POC Glucose 247 H 10/09/23 16:59: POC Glucose 194 H 10/09/23 20:23: POC Glucose 242 H 10/10/23 05:32: POC Glucose 127 H 10/10/23 06:25: WBC 10.1, RBC 3.34 L, Hgb 10.9 L, Hct 32.6 L, MCV 97.5, MCH 32.7 H, MCHC 33.6, RDW 13.9, Plt Count 391, MPV 8.8, Neut % (Auto) 82.5 H, Lymph % (Auto) 10.2, [place] % (Auto) 6.9, Eos % (Auto) 0.2, Baso % (Auto) 0.2, Neut # (Auto) 8.3 H, Lymph # (Auto) 1.0, [place] # (Auto) 0.7, Eos # (Auto) 0.0, Baso # (Auto) 0.0, Sodium 136, Potassium 2.8 L*, Chloride 95 L, Carbon Dioxide 32 H, Anion Gap 11.8, BUN 24 H D, Creatinine 1.00 D, Estimated Creat Clear 70, Estimated GFR 55 L, Est GFR ( Amer) 67 D, Glucose 106 H D, Calcium 6.3 L I & O for Labs for Last 24 Hours: Intake & Output 10/07/23 10/08/23 10/09/23 10/10/23 23:59 23:59 23:59 23:59 Intake Total 840 / 960 1040 / 1160 840 / 1384 544 / 544 Output Total 500 / 500 1050 / 1050 850 / 850 500 / 500 Balance 340 / 460 -10 / 110 -10 / 534 44 / 44 Weight 175 lb 9.6 oz 179 lb 11.2 oz 179 lb 10.828 oz 180 lb 8.937 oz Constitutional: Present no acute distress Respiratory: Present wheezes (improved) Cardiac: Present Irregularly Regular GI: Present soft and normal bowel sounds; Absent distention or tenderness Extremities: Present other (both lower legs with kristina bandages, toenails have been clipped); Absent edema Neuro: Present alert and awake Assessment and Plan *Assessment and plan (1) COVID-19: Status: Acute Category: Medical Code(s): U07.1 - COVID-19 (2) CHF exacerbation: Status: Acute Category: Medical Code(s): I50.9 - Heart failure, unspecified (3) Acute exacerbation of chronic obstructive pulmonary disease: Status: Acute Category: Medical Code(s): J44.1 - Chronic obstructive pulmonary disease with (acute) exacerbation (4) Acute hypokalemia: Status: Acute Category: Medical Code(s): E87.6 - Hypokalemia (5) Tobacco use disorder: Status: Chronic Category: Medical Code(s): F17.200 - Nicotine dependence, unspecified, uncomplicated (6) Onychogryphosis: Status: Acute Category: Medical Code(s): L60.2 - Onychogryphosis (7) Onychodystrophy: Status: Acute Category: Medical Code(s): L60.3 - Nail dystrophy (8) Hyperlipidemia: Status: Chronic Category: Medical Code(s): E78.5 - Hyperlipidemia, unspecified (9) Hypertension: Status: Chronic Category: Medical Code(s): I10 - Essential (primary) hypertension (10) Hyperkeratosis of skin: Status: Acute Category: Medical Code(s): L85.9 - Epidermal thickening, unspecified (11) History of CVA (cerebrovascular accident): Status: Chronic Category: Medical Code(s): Z86.73 - Personal history of transient ischemic attack (TIA), and cerebral infarction without residual deficits (12) COPD (chronic obstructive pulmonary disease): Status: Chronic Category: Medical Code(s): J44.9 - Chronic obstructive pulmonary disease, unspecified (13) Type 2 diabetes mellitus: Status: Acute Category: Medical Code(s): E11.9 - Type 2 diabetes mellitus without complications (14) Elevated troponin: Status: Acute Category: Medical Code(s): R79.89 - Other specified abnormal findings of blood chemistry (15) Elevated brain natriuretic peptide (BNP) level: Status: Acute Category: Medical Code(s): R79.89 - Other specified abnormal findings of blood chemistry (16) Hypokalemia: Status: Acute Category: Medical Code(s): E87.6 - Hypokalemia (17) EtOH dependence: Status: Chronic Qualifiers: Substance use status: unspecified alcohol-induced disorder Qualified Code(s): F10.29 - Alcohol dependence with unspecified alcohol-induced disorder Category: Medical Code(s): F10.20 - Alcohol dependence, uncomplicated Plan Patient is slowly improving, replace potassium today
[2023-10-10] MEDS: KCl 20mEq/100ml 100 ML 50 MEQ IV ×3 (09:20→13:24)
[2023-10-10] MEDS: POTASSIUM CHLORIDE 20MEQ TAB 60 MEQ PO (09:23)
[2023-10-10] MEDS: ZINC SULFATE 220MG CAPSULE 220 MG PO (09:24)
[2023-10-10] MEDS: FOLIC ACID 1MG TABLET 1 MG PO (09:24)
[2023-10-10] MEDS: FAMOTIDINE 20MG TABLET 20 MG PO ×2 (09:24→21:09)
[2023-10-10] MEDS: SPIRONOLACTONE 25MG TABLET 50 MG PO (09:25)
[2023-10-10] MEDS: EMPAGLIFLOZIN 10MG TABLET 10 MG PO (09:25)
[2023-10-10] MEDS: ASPIRIN EC 81MG TABLET 81 MG PO (09:25)
[2023-10-10] MEDS: ASCORBIC ACID 500MG TAB 500 MG PO ×3 (09:25→21:08)
[2023-10-10] MEDS: THIAMINE 100MG TABLET 100 MG PO (09:25)
[2023-10-10] MEDS: IRBESARTAN 75MG TABLET 75 MG PO (09:26)
[2023-10-10] MEDS: ENOXAPARIN 40MG/0.4ML SYRINGE 40 MG SQ (09:26)
[2023-10-10] MEDS: DEXAMETHASONE 4MG/ML 1ML VIAL 6 MG IV (09:26)
[2023-10-10] MEDS: humaLOG 100 UNITS/ML 3ML VIAL (SSI) SQ ×3 (11:37→21:07)
[2023-10-10 11:45] LABS: POC Glucose,Bedside 205 (70-110)
[2023-10-10] MEDS: POTASSIUM CHLORIDE 20MEQ TAB 40 MEQ PO ×2 (13:24→21:09)
[2023-10-10] MEDS: MULTIVITAMIN TABLET 1 EACH PO (17:06)
[2023-10-10 17:15] LABS: POC Glucose,Bedside 277 (70-110)
[2023-10-10 20:49] LABS: POC Glucose,Bedside 194 (70-110)
[2023-10-10] MEDS: INSULIN GLARGINE 100 UNITS/ML 3ML FLEXPEN 10 UNIT SQ (21:07)
[2023-10-10] MEDS: diazePAM 5MG TABLET 5 MG PO (21:08)
[2023-10-10] MEDS: ATORVASTATIN 40MG TABLET 80 MG PO (21:08)
[2023-10-11] VITALS (23 sets, daily range): BP systolic 100–161; BP diastolic 52–83; PULSE 64–176; RESP 15–18; TEMP 36.1–36.7; O2SAT 94–100; BMI 36.8
[2023-10-11] MEDS: ONDANSETRON 4MG/2ML VIAL 4 MG IV (00:41)
[2023-10-11] MEDS: OXYCODONE 5MG W/APAP 325MG TABLET 1 EACH PO ×4 (00:41→20:15)
[2023-10-11] MEDS: IPRATROPIUM/ALBUTEROL 3 ML NEB IH ×3 (00:49→14:59)
--- NOTE | 2023-10-11 02:22 | PC.NURSE ---
Pt alert and oriented x4. Pt is currently on 2L of O2 and receiving duonebs Q3 per pt request. pt has C/O tremors, and FINK's this shift and CIWA scores have trended downwards: 1999 -, 2199 - , 199 - . Pt received medications for symptoms per Dr order and treated recommend per NOV. Education given to pt about CIWA scale and dosing for treatment of scores. pt has C/O jaimes in legs and requested pain medications, Pt treated per MAR for moderate to severe pain. Pt leg dressing remain wrapped. Pt admits to having trouble sleeping early in the shift and has since been able to fall sleep and is currently resting well.
[2023-10-11] MEDS: diazePAM 5MG TABLET 5 MG PO ×3 (05:00→20:15)
--- NOTE | 2023-10-11 05:31 | ECG_ITS ---
APPROVED REPORT Exam: Resting ECG HR:184 bpm ECG Measurements Heart Rate 184 AXES QRSd 88 QRS 83 QT 243 T 3 QTc 339 Conclusion ATRIAL FIBRILLATION WITH RAPID VENTRICULAR RESPONSE LOW QRS VOLTAGE IN PRECORDIAL LEADS [QRS DEFLECTION < 1.0 mV IN CHEST LEADS] POSSIBLE ANTERIOR MYOCARDIAL INFARCTION , PROBABLY OLD [30 ms Q WAVE IN V3/V4, OR R < 0.2 mV IN V4] CRITICAL TEST RESULT UNCONFIRMED REPORT Electronically signed by : Jacob Delgado MD 10/13/2023 16:47:22
[2023-10-11] MEDS: dilTIAZem HCL 100 MG in 0.9 % SODIUM CHLORIDE 100 ML 15 MG IV (06:09)
[2023-10-11] MEDS: dilTIAZem 25MG/5ML VIAL 10 MG IV (06:10)
[2023-10-11 06:19] LABS: Anion Gap 17.8 mEq/L (5-15); Blood Urea Nitrogen 29 mg/dl (7-17); Calcium 6.9 mg/dl (8.4-10.2); Carbon Dioxide 24 mmol/L (22.0-30.0); Chloride 100 mmol/L (98-107); Creatinine Clearance Estimated 58 mL/min (50-200); Estimated Glomerular Filt Rate 45 ml/min (>60); GFR (African American) 54 ML/MIN (>60); Glucose 251 mg/dl (74-100); Potassium 5.8 mmoL/L (3.5-5.1); Sodium 136 mmol/L (136-145)
[2023-10-11 06:24] LABS: POC Glucose,Bedside 272 (70-110)
--- NOTE | 2023-10-11 06:25 | PC.NURSE ---
pt moved to 216 @ 06:00
--- NOTE | 2023-10-11 06:25 | PC.NURSE ---
Pt transferred to stepdown room 216 @ 6am due to increased HR and abnormal EKG findings, Report given to DOROTHY Dove
[2023-10-11 06:32] LABS: Basophils # 0.1 K/mm3 (0-0.2); Basophils % 0.5 % (0.1-2.0); Eosinophils % 0.1 % (0.1-12.0); Hematocrit 38.6 % (37.0-47.0); Lymphocytes # 1.6 K/mm3 (0.7-4.5); Lymphocytes % 9.3 % (10-50); Mean Corpuscular Hemoglobin 32.4 pg (27.0-31.2); Mean Corpuscular Volume 101.3 fl (81-99); Mean Platelet Volume 8.5 fl (7.4-10.4); Monocytes % 5.7 % (1.7-9.3); NT Pro Brain Natriuretic Pep. 16000 pg/mL (0-125); Neutrophils % 84.4 % (37.0-80.0); Platelet Count 776 K/mm3 (142-424); Red Blood Count 3.81 M/mm3 (4.20-5.40); Red Cell Distribution Width 13.9 % (11.5-17.5); White Blood Count 16.6 K/mm3 (4.8-10.8)
[2023-10-11 06:36] LABS: ABG Base Excess -4.1 mmol/L (-2.4-2.3); ABG Oxygen Saturation 90 % (90-100); ABG PCO2 36.3 mmhg (35.0-45.0); ABG PH 7.38 mmol/L (7.35-7.45); ABG TCO2 22.1 mmhg (23-27); Allen's Test Acceptable; Oxygen 2lpm nc %; Source Right Radial
[2023-10-11 06:39] LABS: Activated Partial Thrombo Time 28.2 seconds (22.8-30.6); INR 1.01 (0.9-1.1); Prothrombin Time 10.9 seconds (10.1-12.5)
[2023-10-11 06:41] LABS: MANUAL DIFFERENTIAL MANUAL DIFFERENTIAL (MANUAL DIFF)
[2023-10-11] MEDS: humaLOG 100 UNITS/ML 3ML VIAL (SSI) SQ ×4 (06:48→20:14)
--- NOTE | 2023-10-11 06:52 | PC.NURSE ---
PT TX FROM MS TO SD @ 0600; THIS RN TOOK OVER CARE FROM LAYO, RN
[2023-10-11 06:53] LABS: D-Dimer 0.94 ug/mL (0.0-0.5)
[2023-10-11 07:13] LABS: Hemoglobin 12.4 g/dL (12.2-16.2)
[2023-10-11 07:48] LABS: Lymphocytes % 12 % (10-50); Macrocytosis 1+; Monocytes % 3 % (2-9); Neutrophils % 85 % (42-76); Platelet Estimate Marked Increase; Total Cells Counted 100
[2023-10-11] MEDS: ENOXAPARIN 40MG/0.4ML SYRINGE 40 MG SQ (08:03)
[2023-10-11] MEDS: DEXAMETHASONE 4MG/ML 1ML VIAL 6 MG IV (08:03)
[2023-10-11] MEDS: SPIRONOLACTONE 25MG TABLET 50 MG PO (08:03)
[2023-10-11] MEDS: FAMOTIDINE 20MG TABLET 20 MG PO ×2 (08:04→20:15)
[2023-10-11] MEDS: ASPIRIN EC 81MG TABLET 81 MG PO (08:04)
[2023-10-11] MEDS: EMPAGLIFLOZIN 10MG TABLET 10 MG PO (08:04)
[2023-10-11] MEDS: ASCORBIC ACID 500MG TAB 500 MG PO ×3 (08:04→20:15)
[2023-10-11] MEDS: ZINC SULFATE 220MG CAPSULE 220 MG PO (08:04)
[2023-10-11] MEDS: IRBESARTAN 75MG TABLET 75 MG PO (08:04)
[2023-10-11] MEDS: FOLIC ACID 1MG TABLET 1 MG PO (08:04)
--- NOTE | 2023-10-11 08:35 | PC.NURSE ---
got pt up to bsc and then to chair for breakfast, HR back to 80-90's
--- NOTE | 2023-10-11 09:44 | PC.NURSE ---
decreased dilt drip to 10mg/hr, HR 70-80's
--- NOTE | 2023-10-11 10:12 | P.PN_ITS ---
Subjective *Date: 10/11/23 *Time: 10:12 Interval history: Patient had difficulty breathing early this morning and was found to be in A. fib with RVR, HR was 170's. She was transferred to step down and diltiazem drip was given, HR in the 80's now, still in A. fib. Medical Exam Vital signs and Labs for Last 24 Hours: Vital Signs Temp Pulse Pulse Pulse Resp BP Pulse Ox 10/11/23 09:59 98 H 10/11/23 09:59 82 10/11/23 09:59 98 10/11/23 08:00 100 H 10/11/23 08:15 96 H 10/11/23 07:15 157 H 10/11/23 07:45 176 H 10/11/23 07:30 157 H 10/11/23 07:00 169 H 10/11/23 08:30 88 18 114/56 L 10/11/23 08:00 97.6 F 10/11/23 08:52 10/11/23 08:52 99 10/11/23 08:00 99 H 18 118/57 L 10/11/23 08:25 10/11/23 05:00 10/11/23 04:00 97.9 F 10/11/23 05:08 86 10/11/23 05:08 74 10/11/23 05:08 94 L 10/11/23 04:00 80 10/11/23 02:33 10/11/23 01:00 10/11/23 00:00 98.0 F 64 18 161/83 H 94 L 10/11/23 00:00 97 10/11/23 00:00 80 10/10/23 20:00 90 10/10/23 22:49 10/10/23 20:00 97 10/10/23 21:00 10/10/23 20:00 97.8 F 96 H 18 161/90 H 97 10/10/23 18:26 10/10/23 17:00 10/10/23 16:00 63 19 155/76 H 97 10/10/23 16:50 92 H 10/10/23 16:50 89 10/10/23 16:50 96 10/10/23 16:00 90 10/10/23 15:00 10/10/23 13:00 10/10/23 12:00 90 10/10/23 12:00 94 H 18 163/84 H 98 10/10/23 12:30 80 10/10/23 12:30 83 10/10/23 12:30 98 10/10/23 11:00 O2 Del Method O2 Flow Rate 10/11/23 09:59 10/11/23 09:59 10/11/23 09:59 Nasal Cannula 2 10/11/23 08:00 10/11/23 08:15 10/11/23 07:15 10/11/23 07:45 10/11/23 07:30 10/11/23 07:00 10/11/23 08:30 10/11/23 08:00 10/11/23 08:52 Nasal Cannula 2 10/11/23 08:52 Nasal Cannula 2 10/11/23 08:00 10/11/23 08:25 Nasal Cannula 2 10/11/23 05:00 Nasal Cannula 2 10/11/23 04:00 10/11/23 05:08 10/11/23 05:08 10/11/23 05:08 Nasal Cannula 2 10/11/23 04:00 10/11/23 02:33 Nasal Cannula 2 10/11/23 01:00 Nasal Cannula 2 10/11/23 00:00 Nasal Cannula 2 10/11/23 00:00 Nasal Cannula 2 10/11/23 00:00 10/10/23 20:00 10/10/23 22:49 Nasal Cannula 2 10/10/23 20:00 Nasal Cannula 2 10/10/23 21:00 Nasal Cannula 2 10/10/23 20:00 2 10/10/23 18:26 Nasal Cannula 2 10/10/23 17:00 Nasal Cannula 2 10/10/23 16:00 Nasal Cannula 2 10/10/23 16:50 10/10/23 16:50 10/10/23 16:50 Nasal Cannula 2 10/10/23 16:00 10/10/23 15:00 Nasal Cannula 2 10/10/23 13:00 Nasal Cannula 2 10/10/23 12:00 10/10/23 12:00 Nasal Cannula 10/10/23 12:30 10/10/23 12:30 10/10/23 12:30 Nasal Cannula 3 10/10/23 11:00 Nasal Cannula 2 Intake and Output 10/10/23 10/11/23 10/11/23 23:59 07:59 15:59 Intake Total 420 / 2044 240 / 773.5 533.5 / 773.5 Output Total 0 / 500 300 / 300 Balance 420 / 1544 240 / 473.5 233.5 / 473.5 Intake: Intake, Oral Amount 420 / 1944 240 / 720 480 / 720 Intake, Total IV Amount 53.5 / 53.5 Output: Output, Urine Amount 0 / 500 300 / 300 Other: Number of Voids 0 Number of Unmeasured Voids 0 Weight 182 lb 12.211 oz Patient Weight 10/11/23 23:59 Weight 182 lb 12.211 oz Laboratory Results - last 24 hr 10/10/23 11:35: POC Glucose 205 H 10/10/23 17:05: POC Glucose 277 H 10/10/23 20:38: POC Glucose 194 H 10/11/23 06:00: WBC 16.6 H D, RBC 3.81 L, Hgb 12.4 D, Hct 38.6, MCV 101.3 H, MCH 32.4 H, MCHC 32.0, RDW 13.9, Plt Count 776 H D, MPV 8.5, Neut % (Auto) 84.4 H, Lymph % (Auto) 9.3 L, [place] % (Auto) 5.7, Eos % (Auto) 0.1, Baso % (Auto) 0.5, Neut # (Auto) 14.0 H, Lymph # (Auto) 1.6, [place] # (Auto) 1.0, Eos # (Auto) 0.0, Baso # (Auto) 0.1, Total Counted 100, Neutrophils % (Manual) 85 H, Lymphocytes % (Manual) 12, Monocytes % (Manual) 3, Platelet Estimate Marked increase, RBC Morphology Not Reportable, Macrocytosis 1+, PT 10.9, INR 1.01, APTT 28.2, D- Dimer 0.94 H, Sodium 136, Potassium 5.8 H D, Chloride 100, Carbon Dioxide 24, Anion Gap 17.8 H, BUN 29 H, Creatinine 1.20 H, Estimated Creat Clear 58, Estimated GFR 45 L, Est GFR ( Amer) 54 L, Glucose 251 H D, Calcium 6.9 L, NT-Pro-B Natriuret Pep 98414 H 10/11/23 06:07: Specimen Source Right radial, O2 % 2lpm nc, ABG pH 7.38, ABG pCO2 36.3, ABG pO2 59.0 L, ABG HCO3 21.0 L, ABG Total CO2 22.1 L, ABG O2 Saturation 90, ABG Base Excess -4.1 L, Jame Test Acceptable 10/11/23 06:16: POC Glucose 272 H I & O for Labs for Last 24 Hours: Intake & Output 10/08/23 10/09/23 10/10/23 10/11/23 23:59 23:59 23:59 23:59 Intake Total 1040 / 1160 840 / 1384 1804 / 2044 773.5 / 773.5 Output Total 1050 / 1050 850 / 850 500 / 500 300 / 300 Balance -10 / 110 -10 / 534 1304 / 1544 473.5 / 473.5 Weight 179 lb 11.2 oz 179 lb 10.828 oz 180 lb 8.937 oz 182 lb 12.211 oz Constitutional: Present no acute distress Respiratory: Present wheezes (improved) Cardiac: Present Irregularly Regular GI: Present soft and normal bowel sounds; Absent distention or tenderness Extremities: Present other (both lower legs with kristina bandages, toenails have been clipped); Absent edema Neuro: Present alert and awake Assessment and Plan *Assessment and plan (1) COVID-19: Status: Acute Category: Medical Code(s): U07.1 - COVID-19 (2) CHF exacerbation: Status: Acute Category: Medical Code(s): I50.9 - Heart failure, unspecified (3) Acute exacerbation of chronic obstructive pulmonary disease: Status: Acute Category: Medical Code(s): J44.1 - Chronic obstructive pulmonary disease with (acute) exacerbation (4) Acute hypokalemia: Status: Acute Category: Medical Code(s): E87.6 - Hypokalemia (5) Tobacco use disorder: Status: Chronic Category: Medical Code(s): F17.200 - Nicotine dependence, unspecified, uncomplicated (6) Onychogryphosis: Status: Acute Category: Medical Code(s): L60.2 - Onychogryphosis (7) Onychodystrophy: Status: Acute Category: Medical Code(s): L60.3 - Nail dystrophy (8) Hyperlipidemia: Status: Chronic Category: Medical Code(s): E78.5 - Hyperlipidemia, unspecified (9) Hypertension: Status: Chronic Category: Medical Code(s): I10 - Essential (primary) hypertension (10) Hyperkeratosis of skin: Status: Acute Category: Medical Code(s): L85.9 - Epidermal thickening, unspecified (11) History of CVA (cerebrovascular accident): Status: Chronic Category: Medical Code(s): Z86.73 - Personal history of transient ischemic attack (TIA), and cerebral infarction without residual deficits (12) COPD (chronic obstructive pulmonary disease): Status: Chronic Category: Medical Code(s): J44.9 - Chronic obstructive pulmonary disease, unspecified (13) Type 2 diabetes mellitus: Status: Acute Category: Medical Code(s): E11.9 - Type 2 diabetes mellitus without complications (14) Elevated troponin: Status: Acute Category: Medical Code(s): R79.89 - Other specified abnormal findings of blood chemistry (15) Elevated brain natriuretic peptide (BNP) level: Status: Acute Category: Medical Code(s): R79.89 - Other specified abnormal findings of blood chemistry (16) Hypokalemia: Status: Acute Category: Medical Code(s): E87.6 - Hypokalemia (17) EtOH dependence: Status: Chronic Qualifiers: Substance use status: unspecified alcohol-induced disorder Qualified Code(s): F10.29 - Alcohol dependence with unspecified alcohol-induced disorder Category: Medical Code(s): F10.20 - Alcohol dependence, uncomplicated (18) Atrial fibrillation with RVR: Status: Acute Category: Medical Code(s): I48.91 - Unspecified atrial fibrillation Plan Continue diltizem drip, potassium is much higher today, will repeat lab to confirm level.
[2023-10-11 11:40] LABS: POC Glucose,Bedside 195 (70-110)
--- NOTE | 2023-10-11 12:00 | PC.NURSE ---
decreased dilt drip to 5mg/hr, HR staying 70-80's
[2023-10-11] MEDS: dilTIAZem HCL 100 MG in 0.9 % SODIUM CHLORIDE 100 ML 10 MG IV (13:46)
[2023-10-11 15:17] LABS: Anion Gap 14.9 mEq/L (5-15); Blood Urea Nitrogen 35 mg/dl (7-17); Calcium 6.8 mg/dl (8.4-10.2); Carbon Dioxide 25 mmol/L (22.0-30.0); Chloride 99 mmol/L (98-107); Creatinine Clearance Estimated 50 mL/min (50-200); Estimated Glomerular Filt Rate 37 ml/min (>60); GFR (African American) 45 ML/MIN (>60); Glucose 285 mg/dl (74-100); Potassium 5.9 mmoL/L (3.5-5.1); Sodium 133 mmol/L (136-145)
[2023-10-11 16:21] LABS: POC Glucose,Bedside 325 (70-110)
[2023-10-11] MEDS: MULTIVITAMIN TABLET 1 EACH PO (17:46)
[2023-10-11] MEDS: INSULIN GLARGINE 100 UNITS/ML 3ML FLEXPEN 10 UNIT SQ (20:14)
[2023-10-11] MEDS: ATORVASTATIN 40MG TABLET 80 MG PO (20:15)
[2023-10-11 20:27] LABS: POC Glucose,Bedside 322 (70-110)
[2023-10-12] VITALS (17 sets, daily range): BP systolic 103–186; BP diastolic 60–93; PULSE 60–100; RESP 11–30; TEMP 36.3–36.8; O2SAT 93–100; BMI 37.3
--- NOTE | 2023-10-12 04:39 | PC.NURSE ---
offered a bath to pt multiple times, pt refuses. Hair is matted and greasy. Reported to nurse.
[2023-10-12 05:45] LABS: POC Glucose,Bedside 180 (70-110)
[2023-10-12] MEDS: humaLOG 100 UNITS/ML 3ML VIAL (SSI) SQ ×4 (06:03→20:32)
[2023-10-12] MEDS: IPRATROPIUM/ALBUTEROL 3 ML NEB IH ×4 (06:14→18:43)
--- NOTE | 2023-10-12 08:30 | EXP.ACUTE.PN ---
Subjective *Date: 10/12/23 *Time: 08:30 Interval history: Patient states she feels better this morning, diltiazem drip was weaned off by nursing but no oral diltiazem was started. Medical Exam Vital signs and Labs for Last 24 Hours: Vital Signs Temp Pulse Pulse Resp BP Pulse Ox O2 Del Method 10/12/23 07:41 97.7 F 10/12/23 06:14 77 10/12/23 06:14 85 10/12/23 06:14 93 L Nasal Cannula 10/12/23 04:00 97.3 F L 10/12/23 02:00 68 12 120/67 Nasal Cannula 10/12/23 00:00 63 11 L 106/62 L 97 Nasal Cannula 10/11/23 22:00 67 16 100/56 L Nasal Cannula 10/11/23 20:00 72 15 133/65 100 Nasal Cannula 10/12/23 00:00 97.3 F L 10/12/23 06:56 Nasal Cannula 10/12/23 06:00 95 H 30 H 167/93 H 99 Nasal Cannula 10/12/23 05:00 Nasal Cannula 10/12/23 04:00 76 12 109/62 L 98 Nasal Cannula 10/12/23 04:00 Nasal Cannula 10/12/23 03:00 Nasal Cannula 10/12/23 01:00 Nasal Cannula 10/12/23 00:00 63 12 106/62 L 97 Nasal Cannula 10/11/23 23:00 Nasal Cannula 10/11/23 21:00 Nasal Cannula 10/11/23 20:00 Nasal Cannula 10/11/23 20:00 97.5 F L 10/11/23 19:10 73 10/11/23 19:09 73 10/11/23 19:09 Nasal Cannula 10/11/23 18:48 Nasal Cannula 10/11/23 16:00 75 16 122/57 L 100 Nasal Cannula 10/11/23 14:00 77 16 100/52 L 100 Nasal Cannula 10/11/23 16:00 100 Nasal Cannula 10/11/23 17:00 Nasal Cannula 10/11/23 16:28 80 10/11/23 12:00 80 10/11/23 16:00 97.7 F 10/11/23 14:59 76 10/11/23 14:59 78 10/11/23 14:59 100 Nasal Cannula 10/11/23 14:24 Nasal Cannula 10/11/23 13:00 Nasal Cannula 10/11/23 12:00 82 18 113/65 99 Nasal Cannula 10/11/23 11:51 97.0 F L 10/11/23 11:00 Nasal Cannula 10/11/23 10:00 79 16 113/54 L 98 Nasal Cannula 10/11/23 09:59 98 H 10/11/23 09:59 82 10/11/23 09:59 98 Nasal Cannula 10/11/23 08:52 Nasal Cannula 10/11/23 08:52 99 Nasal Cannula O2 Flow Rate FiO2 10/12/23 07:41 10/12/23 06:14 10/12/23 06:14 10/12/23 06:14 2 10/12/23 04:00 10/12/23 02:00 2 10/12/23 00:00 2 10/11/23 22:00 2 10/11/23 20:00 2 10/12/23 00:00 10/12/23 06:56 2 10/12/23 06:00 2 10/12/23 05:00 2 10/12/23 04:00 2 10/12/23 04:00 2 10/12/23 03:00 2 10/12/23 01:00 2 10/12/23 00:00 2 10/11/23 23:00 2 10/11/23 21:00 2 10/11/23 20:00 2 10/11/23 20:00 10/11/23 19:10 10/11/23 19:09 10/11/23 19:09 2 10/11/23 18:48 2 10/11/23 16:00 2 10/11/23 14:00 2 10/11/23 16:00 2 10/11/23 17:00 2 10/11/23 16:28 10/11/23 12:00 10/11/23 16:00 10/11/23 14:59 10/11/23 14:59 10/11/23 14:59 3 10/11/23 14:24 2 10/11/23 13:00 2 10/11/23 12:00 2 10/11/23 11:51 10/11/23 11:00 2 10/11/23 10:00 2 10/11/23 09:59 10/11/23 09:59 10/11/23 09:59 2 10/11/23 08:52 2 10/11/23 08:52 2 Intake and Output 10/11/23 10/12/23 10/12/23 23:59 07:59 15:59 Intake Total 872.333 / 2353.833 247.5 / 247.5 Output Total 0 / 950 500 / 500 Balance 872.333 / 1403.833 -252.5 / -252.5 Intake: Intake, Oral Amount 810 / 2190 240 / 240 Intake, Total IV Amount 62.333 / 163.833 7.5 / 7.5 Output: Output, Urine Amount 0 / 950 500 / 500 Other: Number of Unmeasured Voids 0 Weight 185 lb 6 oz Patient Weight 10/12/23 23:59 Weight 185 lb 6 oz Laboratory Results - last 24 hr 10/11/23 11:31: POC Glucose 195 H 10/11/23 14:55: Sodium 133 L, Potassium 5.9 H, Chloride 99, Carbon Dioxide 25, Anion Gap 14.9, BUN 35 H, Creatinine 1.40 H, Estimated Creat Clear 50, Estimated GFR 37 L, Est GFR ( Amer) 45 L, Glucose 285 H, Calcium 6.8 L 10/11/23 16:10: POC Glucose 325 H* 10/11/23 20:13: POC Glucose 322 H* 10/12/23 05:38: POC Glucose 180 H I & O for Labs for Last 24 Hours: Intake & Output 10/09/23 10/10/23 10/11/23 10/12/23 23:59 23:59 23:59 23:59 Intake Total 840 / 1384 1804 / 2044 2346.333 / 2353.833 247.5 / 247.5 Output Total 850 / 850 500 / 500 450 / 950 500 / 500 Balance -10 1304 / 1544 1896.333 / 1403.833 -252.5 / -252.5 Weight 179 lb 10.828 oz 180 lb 8.937 oz 182 lb 12.211 oz 185 lb 6 oz Constitutional: Present no acute distress Respiratory: Present wheezes (improved) Cardiac: Present Irregularly Regular GI: Present soft and normal bowel sounds; Absent distention or tenderness Extremities: Present other (both lower legs with kristina bandages, toenails have been clipped); Absent edema Neuro: Present alert and awake Assessment and Plan *Assessment and plan (1) COVID-19: Status: Acute Category: Medical Code(s): U07.1 - COVID-19 (2) CHF exacerbation: Status: Acute Category: Medical Code(s): I50.9 - Heart failure, unspecified (3) Acute exacerbation of chronic obstructive pulmonary disease: Status: Acute Category: Medical Code(s): J44.1 - Chronic obstructive pulmonary disease with (acute) exacerbation (4) Acute hypokalemia: Status: Acute Category: Medical Code(s): E87.6 - Hypokalemia (5) Tobacco use disorder: Status: Chronic Category: Medical Code(s): F17.200 - Nicotine dependence, unspecified, uncomplicated (6) Onychogryphosis: Status: Acute Category: Medical Code(s): L60.2 - Onychogryphosis (7) Onychodystrophy: Status: Acute Category: Medical Code(s): L60.3 - Nail dystrophy (8) Hyperlipidemia: Status: Chronic Category: Medical Code(s): E78.5 - Hyperlipidemia, unspecified (9) Hypertension: Status: Chronic Category: Medical Code(s): I10 - Essential (primary) hypertension (10) Hyperkeratosis of skin: Status: Acute Category: Medical Code(s): L85.9 - Epidermal thickening, unspecified (11) History of CVA (cerebrovascular accident): Status: Chronic Category: Medical Code(s): Z86.73 - Personal history of transient ischemic attack (TIA), and cerebral infarction without residual deficits (12) COPD (chronic obstructive pulmonary disease): Status: Chronic Category: Medical Code(s): J44.9 - Chronic obstructive pulmonary disease, unspecified (13) Type 2 diabetes mellitus: Status: Acute Category: Medical Code(s): E11.9 - Type 2 diabetes mellitus without complications (14) Elevated troponin: Status: Acute Category: Medical Code(s): R79.89 - Other specified abnormal findings of blood chemistry (15) Elevated brain natriuretic peptide (BNP) level: Status: Acute Category: Medical Code(s): R79.89 - Other specified abnormal findings of blood chemistry (16) Hypokalemia: Status: Acute Category: Medical Code(s): E87.6 - Hypokalemia (17) EtOH dependence: Status: Chronic Qualifiers: Substance use status: unspecified alcohol-induced disorder Qualified Code(s): F10.29 - Alcohol dependence with unspecified alcohol-induced disorder Category: Medical Code(s): F10.20 - Alcohol dependence, uncomplicated (18) Atrial fibrillation with RVR: Status: Acute Category: Medical Code(s): I48.91 - Unspecified atrial fibrillation Plan Repeat labs pending this morning, potassium replacement was stopped, start oral diltiazem at 60 mg every 8 hours and monitor HR.
[2023-10-12 09:04] LABS: Anion Gap 17.9 mEq/L (5-15); Blood Urea Nitrogen 43 mg/dl (7-17); Calcium 7.3 mg/dl (8.4-10.2); Carbon Dioxide 24 mmol/L (22.0-30.0); Chloride 99 mmol/L (98-107); Creatinine Clearance Estimated 45 mL/min (50-200); Estimated Glomerular Filt Rate 32 ml/min (>60); GFR (African American) 39 ML/MIN (>60); Glucose 220 mg/dl (74-100); Potassium 5.9 mmoL/L (3.5-5.1); Sodium 135 mmol/L (136-145)
[2023-10-12] MEDS: FOLIC ACID 1MG TABLET 1 MG PO (09:08)
[2023-10-12] MEDS: FAMOTIDINE 20MG TABLET 20 MG PO ×2 (09:08→20:32)
[2023-10-12] MEDS: ASPIRIN EC 81MG TABLET 81 MG PO (09:08)
[2023-10-12] MEDS: ASCORBIC ACID 500MG TAB 500 MG PO ×3 (09:08→20:32)
[2023-10-12] MEDS: EMPAGLIFLOZIN 10MG TABLET 10 MG PO (09:08)
[2023-10-12] MEDS: dilTIAZem 60MG TABLET 60 MG PO ×3 (09:08→23:52)
[2023-10-12] MEDS: ZINC SULFATE 220MG CAPSULE 220 MG PO (09:09)
[2023-10-12] MEDS: ENOXAPARIN 40MG/0.4ML SYRINGE 40 MG SQ (09:09)
[2023-10-12] MEDS: IRBESARTAN 75MG TABLET 75 MG PO (09:09)
[2023-10-12] MEDS: DEXAMETHASONE 4MG/ML 1ML VIAL 6 MG IV (09:10)
[2023-10-12] MEDS: ONDANSETRON 4MG/2ML VIAL 4 MG IV (09:57)
[2023-10-12] MEDS: OXYCODONE 5MG W/APAP 325MG TABLET 1 EACH PO (09:57)
--- NOTE | 2023-10-12 10:56 | EXP.CARD.PN ---
Subjective Subjective Date: 10/12/23 Time: 10:58 Principal diagnosis: COVID, CHF, COPD Interval history: 68 yo WF in bedside chair in NAD. Oxygen via NC Still with SOA Not able to lie flat for procedures even before this admission for COVID Exam Data for Last 24 hours Vital signs and Labs for Last 24 Hours: Temp Pulse Resp BP Pulse Ox O2 Del Method O2 Flow Rate 97.7 F 85 30 H 167/93 H 97 Nasal Cannula 3 10/12/23 07:41 10/12/23 09:20 10/12/23 06:00 10/12/23 06:00 10/12/23 09:20 10/12/23 09:20 10/12/23 09:20 FiO2 28 10/11/23 19:09 Laboratory Results - last 24 hr 10/11/23 11:31: POC Glucose 195 H 10/11/23 14:55: Sodium 133 L, Potassium 5.9 H, Chloride 99, Carbon Dioxide 25, Anion Gap 14.9, BUN 35 H, Creatinine 1.40 H, Estimated Creat Clear 50, Estimated GFR 37 L, Est GFR ( Amer) 45 L, Glucose 285 H, Calcium 6.8 L 10/11/23 16:10: POC Glucose 325 H* 10/11/23 20:13: POC Glucose 322 H* 10/12/23 05:38: POC Glucose 180 H 10/12/23 08:40: Sodium 135 L, Potassium 5.9 H, Chloride 99, Carbon Dioxide 24, Anion Gap 17.9 H, BUN 43 H, Creatinine 1.60 H, Estimated Creat Clear 45, Estimated GFR 32 L, Est GFR ( Amer) 39 L, Glucose 220 H D, Calcium 7.3 L I & O for Last 24 hours: Intake & Output 10/09/23 10/10/23 10/11/23 10/12/23 11:59 11:59 11:59 11:59 Intake Total 800 / 800 1444 / 1444 1613.5 / 1613.5 1820.333 / 1820.333 Output Total 1350 / 1350 750 / 750 450 / 450 500 / 500 Balance -550 / -550 694 / 694 1163.5 / 1163.5 1320.333 / 1320.333 Weight 179 lb 10.828 oz 180 lb 8.937 oz 182 lb 12.211 oz 185 lb 6 oz Constitutional Constitutional: no acute distress *Routine Respiratory Exam Respiratory: Present rhonchi *Routine Cardiovascular Exam Cardiovascular: Present irregularly irregular *Routine Extremities Exam Extremities: Present edema Progress Note: A&P Assessment and plan (1) COVID-19: Status: Acute (2) CHF exacerbation: Status: Acute (3) Acute exacerbation of chronic obstructive pulmonary disease: Status: Acute (4) Tobacco use disorder: Status: Chronic (5) Onychogryphosis: Status: Acute (6) Onychodystrophy: Status: Acute (7) Hyperlipidemia: Status: Chronic (8) Hypertension: Status: Chronic (9) Hyperkeratosis of skin: Status: Acute (10) History of CVA (cerebrovascular accident): Status: Chronic (11) Type 2 diabetes mellitus: Status: Acute (12) Elevated troponin: Status: Acute (13) Elevated brain natriuretic peptide (BNP) level: Status: Acute (14) EtOH dependence: Status: Chronic (15) Atrial fibrillation with RVR: Status: Acute Assessment and Plan Assessment and Plan for All Diagnoses:: Chest discomfort with elevated troponin (type 2 NSTEMI), likely secondary to pulmonary issues -occasional MACIAS and chest discomfort in the setting of 2 pack/day tobacco use and A1c of 11 -severe hypokalemia and COVID-19 on admission (10/06/2023) -EKG showed sinus rhythm with occasional PVCs without ST or T wave changes -Coronary artery calcifications noted on prior Abd CT, but she is not presenting with ACS picture -Add aspirin, statin, beta-nichole COPD with COVID-19 -2 pack/day smoker -On nasal cannula here -Plans per primary service Type 2 diabetes, A1c 11 -New diagnosis this admission, patient had not been to a doctor in many years -Add Jardiance for CV benefit, glucose control per primary service Severe hyperkeratosis bilateral lower extremities -Likely due to prolonged edema and hyperglycemia -PT is debriding at this time A. fib with RVR over the weekend -rate controlled with IV diltiazem which has been switched to oral today -On lovenox for now but will switch to oral anticoagulation if no procedures planned. -CHADS-VASC score is at least 5 Thrombocytosis -Plt count 776K on 10/11/2023, likely due to COVID Hyperkalemia -Potassium supplementation and Aldactone discontinued, 10/12/2019 ISAURA -Cr 1.6 with GFR 32 on 10/12/2023 Hypertension -Add metoprolol succinate 25 mg daily -Continue irbesartan 75 mg daily -Continue diltiazem 60 mg Q8 for help with rate control Elevated BNP at 16,000/HFpEF -On Jardiance -Aldactone stopped due to hyperkalemia -Echo EF 50% with near akinesis of LV apex Coronary artery calcifications on prior abdominal CTA -on statin and ASA -EF 50% with akinesis of LV -Needs C but unable to lie flat for procedure -Continue aspirin, statin, ARB and will add metoprolol Holding additional diuretics due to ISAURA Add metoprolol for HTN/rate control Recommend Pulmonary consult for COPD/COVID/Oxygen requirement
[2023-10-12] MEDS: METOPROLOL SUCCINATE XL 25MG TABLET 25 MG PO (12:22)
[2023-10-12 12:31] LABS: POC Glucose,Bedside 245 (70-110)
--- NOTE | 2023-10-12 14:37 | P.CONS_ITS ---
History of Present Illness History of present illness: Ms. Hull is a 68-year-old female current smoker greater than 30 PPD, self-reported hypertension, dyslipidemia presented to the ER on 10/07/2023 with worsening respiratory distress Patient admission was clinically concerning for COPD and CHF exacerbation, initiated on oxygen. Nebulizations IV steroids and diuretic [facility] Disclaimer: The information contained in this section may have been updated after the patient was seen, as this information can be updated by other users. Medical History (Updated 10/12/23 @ 15:08 by Hunter Rodriguez MD) Acute and chronic respiratory failure with hypoxia Bleeding ulcer COPD (chronic obstructive pulmonary disease) CVA (cerebral vascular accident) EtOH dependence Gangrene Gangrene of lower extremity Hemiparesis, left History of ectopic Hyperlipidemia Hypertension Hypertension Onychodystrophy Onychogryphosis Tobacco use disorder Surgical History History of carpal tunnel release History of partial hysterectomy History of ureter stent Social History Smoking Status: Current every day smoker tobacco type: cigarettes packs per day: 2 alcohol intake: current substance use type: denies use current occupational status: disabled Travel in the last 8 weeks: None household members: children housing: house caffeine: No Review of Systems Constitutional Constitutional: Reports fatigue, Denies headache(s) and Reports weakness Eyes Eyes: Denies itchy eyes and Denies loss of vision ENT Ears, Nose, Mouth, and Throat: Denies headache(s), Denies lip swelling, Denies throat swelling and Denies vertigo *Cardiovascular Cardiovascular: Reports dyspnea, Reports dyspnea on exertion, Reports leg edema and Reports orthopnea *Respiratory Respiratory: Reports chest congestion, Reports cough, Reports dyspnea, Reports dyspnea on exertion, Denies hemoptysis, Denies pain on inspiration, Denies pain with cough and Reports wheezing *Gastrointestinal Gastrointestinal: Denies abdominal pain, Denies belching and Denies cramping *Musculoskeletal Musculoskeletal: Reports back pain, Reports myalgias and Reports other (No small joint swelling or Pain) *Neurologic Neurologic: Reports system reviewed and no additional complaints, except as documented, Denies headache(s), Denies loss of vision, Denies vertigo and Reports weakness Psychiatric Psychiatric: Reports anxiety, Denies homicidal ideation and Denies suicidal ideation Endocrine Endocrine: Reports fatigue and Denies heat intolerance Hematologic/Lymphatic Hematologic/Lymphatic: Denies easy bleeding and Denies lymphadenopathy Allergic/Immunologic Allergic/Immunologic: Denies itchy eyes, Denies lip swelling, Denies throat swelling and Reports wheezing Pulmonology Exam Inpatient Vital signs and Labs for Last 24 Hours: Temp Pulse Resp BP Pulse Ox O2 Del Method O2 Flow Rate 97.9 F 82 22 146/73 H 100 Nasal Cannula 2 10/12/23 11:09 10/12/23 12:47 10/12/23 12:00 10/12/23 12:00 10/12/23 12:00 10/12/23 13:00 10/12/23 13:00 FiO2 28 10/11/23 19:09 Laboratory Results - last 24 hr 10/11/23 14:55: Sodium 133 L, Potassium 5.9 H, Chloride 99, Carbon Dioxide 25, Anion Gap 14.9, BUN 35 H, Creatinine 1.40 H, Estimated Creat Clear 50, Estimated GFR 37 L, Est GFR ( Amer) 45 L, Glucose 285 H, Calcium 6.8 L 10/11/23 16:10: POC Glucose 325 H* 10/11/23 20:13: POC Glucose 322 H* 10/12/23 05:38: POC Glucose 180 H 10/12/23 08:40: Sodium 135 L, Potassium 5.9 H, Chloride 99, Carbon Dioxide 24, Anion Gap 17.9 H, BUN 43 H, Creatinine 1.60 H, Estimated Creat Clear 45, Estimated GFR 32 L, Est GFR ( Amer) 39 L, Glucose 220 H D, Calcium 7.3 L 10/12/23 12:17: POC Glucose 245 H I & O for Labs for Last 24 Hours: Intake & Output 10/09/23 10/10/23 10/11/23 10/12/23 23:59 23:59 23:59 23:59 Intake Total 840 / 1384 1804 / 2044 2346.333 / 2353.833 487.5 / 487.5 Output Total 850 / 850 500 / 500 450 / 950 500 / 500 Balance -10 / 534 1304 / 1544 1896.333 / 1403.833 -12.5 / -12.5 Weight 179 lb 10.828 oz 180 lb 8.937 oz 182 lb 12.211 oz 185 lb 6 oz Constitutional: Present moderate distress Head: Present normocephalic and atraumatic ENT: Present normal exam, normal oropharynx and mucous membranes moist Neck: Present normal inspection and full ROM Respiratory: Present respiratory distress, normal respiratory effort and able to speak in complete sentences; Absent wheezes or diminished air movement Cardiac: Present S1/S2, Tachycardia and radial pulses present GI: Present soft and distention; Absent tenderness or guarding Rectal (female): Present deferred (female): Present deferred Skin: Present intact; Absent cyanosis or jaundice Neuro: Present alert, awake and oriented x 3 Extremities: Present normal inspection; Absent clubbing or cyanosis Psychiatric: Present normal affect and cooperative Meds Home Medications and Allergies Home Medications Medication Instructions Recorded Confirmed Type No Known Home Medications 10/07/23 10/07/23 History New Prescriptions to Start Prescriptions: Allergies Allergy/AdvReac Type Severity Reaction Status Date / Time codeine [CODEINE] Allergy Unknown Verified 11/07/20 23:47 Penicillins [PENICILLINS] Allergy Unknown Verified 11/07/20 23:47 Results Laboratory Findings 10/11/23 06:00 10/12/23 08:40 ABG ABG pH 7.38 mmol/L (7.35-7.45) 10/11/23 06:07 ABG pCO2 36.3 mmhg (35.0-45.0) 10/11/23 06:07 ABG pO2 59.0 mmhg (80-100) L 10/11/23 06:07 ABG O2 Saturation 90 % (90-100) 10/11/23 06:07 PT/INR, D-dimer PT 10.9 seconds (10.1-12.5) 10/11/23 06:00 INR 1.01 (0.9-1.1) 10/11/23 06:00 D-Dimer 0.94 ug/mL (0.0-0.5) H 10/11/23 06:00 Abnormal lab findings: Abnormal Labs 10/06/23 10/06/23 10/06/23 17:56 18:30 20:45 WBC RBC 3.45 L Hgb Hct 33.5 L MCV MCH 37.3 H MCHC 38.3 H Plt Count Neut % (Auto) Lymph % (Auto) [place] % (Auto) Baso % (Auto) Neut # (Auto) Lymph # (Auto) Neutrophils % (Manual) Lymphocytes % (Manual) D-Dimer ABG pO2 ABG HCO3 ABG Total CO2 ABG Base Excess Sodium 132 L Potassium 2.3 L* Chloride 86 L Carbon Dioxide 34 H Anion Gap BUN 19 H Creatinine Estimated GFR 55 L Est GFR ( Amer) Glucose 180 H POC Glucose Hemoglobin A1c Calcium 6.5 L AST 38 H Troponin I 0.60 H 0.54 H NT-Pro-B Natriuret Pep 7130 H Globulin 3.5 H SARS-CoV-2 (PCR) Detected A 10/06/23 10/07/23 10/07/23 23:15 09:45 18:15 WBC RBC 3.32 L Hgb 11.4 L D Hct 32.2 L MCV MCH 34.3 H MCHC Plt Count Neut % (Auto) Lymph % (Auto) [place] % (Auto) 9.4 H Baso % (Auto) Neut # (Auto) Lymph # (Auto) Neutrophils % (Manual) Lymphocytes % (Manual) D-Dimer ABG pO2 ABG HCO3 ABG Total CO2 ABG Base Excess Sodium 135 L 133 L Potassium 1.7 L* D 1.9 L* Chloride 87 L 90 L Carbon Dioxide 38 H 34 H Anion Gap BUN 19 H 18 H Creatinine 1.10 H Estimated GFR 49 L Est GFR ( Amer) Glucose 162 H 215 H D POC Glucose Hemoglobin A1c 11.6 H Calcium 6.1 L 5.7 L AST Troponin I 0.52 H NT-Pro-B Natriuret Pep Globulin SARS-CoV-2 (PCR) 10/08/23 10/08/23 10/09/23 07:10 20:52 06:34 WBC 3.9 L D 11.6 H D RBC 3.35 L 3.48 L Hgb 11.0 L 11.5 L Hct 32.3 L 33.6 L MCV MCH 32.7 H 33.0 H MCHC Plt Count Neut % (Auto) 86.0 H 88.0 H Lymph % (Auto) 8.0 L 5.8 L [place] % (Auto) Baso % (Auto) 0.0 L Neut # (Auto) 10.2 H Lymph # (Auto) 0.3 L Neutrophils % (Manual) 86 H 87 H Lymphocytes % (Manual) 9 L 6 L D-Dimer ABG pO2 ABG HCO3 ABG Total CO2 ABG Base Excess Sodium 134 L Potassium 2.4 L* D 2.9 L* D Chloride 91 L 95 L Carbon Dioxide 32 H Anion Gap BUN 18 H 19 H Creatinine Estimated GFR Est GFR ( Amer) Glucose 342 H D 167 H D POC Glucose 213 H Hemoglobin A1c Calcium 5.7 L 6.7 L AST Troponin I NT-Pro-B Natriuret Pep Globulin SARS-CoV-2 (PCR) 10/09/23 10/09/23 10/09/23 13:42 16:59 20:23 WBC RBC Hgb Hct MCV MCH MCHC Plt Count Neut % (Auto) Lymph % (Auto) [place] % (Auto) Baso % (Auto) Neut # (Auto) Lymph # (Auto) Neutrophils % (Manual) Lymphocytes % (Manual) D-Dimer ABG pO2 ABG HCO3 ABG Total CO2 ABG Base Excess Sodium Potassium Chloride Carbon Dioxide Anion Gap BUN Creatinine Estimated GFR Est GFR ( Amer) Glucose POC Glucose 247 H 194 H 242 H Hemoglobin A1c Calcium AST Troponin I NT-Pro-B Natriuret Pep Globulin SARS-CoV-2 (PCR) 10/10/23 10/10/23 10/10/23 05:32 06:25 11:35 WBC RBC 3.34 L Hgb 10.9 L Hct 32.6 L MCV MCH 32.7 H MCHC Plt Count Neut % (Auto) 82.5 H Lymph % (Auto) [place] % (Auto) Baso % (Auto) Neut # (Auto) 8.3 H Lymph # (Auto) Neutrophils % (Manual) Lymphocytes % (Manual) D-Dimer ABG pO2 ABG HCO3 ABG Total CO2 ABG Base Excess Sodium Potassium 2.8 L* Chloride 95 L Carbon Dioxide 32 H Anion Gap BUN 24 H D Creatinine Estimated GFR 55 L Est GFR ( Amer) Glucose 106 H D POC Glucose 127 H 205 H Hemoglobin A1c Calcium 6.3 L AST Troponin I NT-Pro-B Natriuret Pep Globulin SARS-CoV-2 (PCR) 10/10/23 10/10/23 10/11/23 17:05 20:38 06:00 WBC 16.6 H D RBC 3.81 L Hgb Hct MCV 101.3 H MCH 32.4 H MCHC Plt Count 776 H D Neut % (Auto) 84.4 H Lymph % (Auto) 9.3 L [place] % (Auto) Baso % (Auto) Neut # (Auto) 14.0 H Lymph # (Auto) Neutrophils % (Manual) 85 H Lymphocytes % (Manual) D-Dimer 0.94 H ABG pO2 ABG HCO3 ABG Total CO2 ABG Base Excess Sodium Potassium 5.8 H D Chloride Carbon Dioxide Anion Gap 17.8 H BUN 29 H Creatinine 1.20 H Estimated GFR 45 L Est GFR ( Amer) 54 L Glucose 251 H D POC Glucose 277 H 194 H Hemoglobin A1c Calcium 6.9 L AST Troponin I NT-Pro-B Natriuret Pep 60748 H Globulin SARS-CoV-2 (PCR) 10/11/23 10/11/23 10/11/23 06:07 06:16 11:31 WBC RBC Hgb Hct MCV MCH MCHC Plt Count Neut % (Auto) Lymph % (Auto) [place] % (Auto) Baso % (Auto) Neut # (Auto) Lymph # (Auto) Neutrophils % (Manual) Lymphocytes % (Manual) D-Dimer ABG pO2 59.0 L ABG HCO3 21.0 L ABG Total CO2 22.1 L ABG Base Excess -4.1 L Sodium Potassium Chloride Carbon Dioxide Anion Gap BUN Creatinine Estimated GFR Est GFR ( Amer) Glucose POC Glucose 272 H 195 H Hemoglobin A1c Calcium AST Troponin I NT-Pro-B Natriuret Pep Globulin SARS-CoV-2 (PCR) 10/11/23 10/11/23 10/11/23 14:55 16:10 20:13 WBC RBC Hgb Hct MCV MCH MCHC Plt Count Neut % (Auto) Lymph % (Auto) [place] % (Auto) Baso % (Auto) Neut # (Auto) Lymph # (Auto) Neutrophils % (Manual) Lymphocytes % (Manual) D-Dimer ABG pO2 ABG HCO3 ABG Total CO2 ABG Base Excess Sodium 133 L Potassium 5.9 H Chloride Carbon Dioxide Anion Gap BUN 35 H Creatinine 1.40 H Estimated GFR 37 L Est GFR ( Amer) 45 L Glucose 285 H POC Glucose 325 H* 322 H* Hemoglobin A1c Calcium 6.8 L AST Troponin I NT-Pro-B Natriuret Pep Globulin SARS-CoV-2 (PCR) 10/12/23 10/12/23 10/12/23 05:38 08:40 12:17 WBC RBC Hgb Hct MCV MCH MCHC Plt Count Neut % (Auto) Lymph % (Auto) [place] % (Auto) Baso % (Auto) Neut # (Auto) Lymph # (Auto) Neutrophils % (Manual) Lymphocytes % (Manual) D-Dimer ABG pO2 ABG HCO3 ABG Total CO2 ABG Base Excess Sodium 135 L Potassium 5.9 H Chloride Carbon Dioxide Anion Gap 17.9 H BUN 43 H Creatinine 1.60 H Estimated GFR 32 L Est GFR ( Amer) 39 L Glucose 220 H D POC Glucose 180 H 245 H Hemoglobin A1c Calcium 7.3 L AST Troponin I NT-Pro-B Natriuret Pep Globulin SARS-CoV-2 (PCR) Assessment and Plan *Assessment and plan (1) COVID-19: Status: Acute Category: Medical Code(s): U07.1 - COVID-19 (2) Acute and chronic respiratory failure with hypoxia: Status: Acute Category: Medical Code(s): J96.21 - Acute and chronic respiratory failure with hypoxia Plan Ms. Hull is a 68-year-old female current smoker greater than 30 PPD, self- reported hypertension, dyslipidemia presented to the ER on 10/07/2023 with worsening respiratory distress Patient admission was clinically concerning for COPD and CHF exacerbation, initiated on oxygen. Nebulizations IV steroids and diuretics. Chest x-ray upon admission clear with no dense consolidation. ABG upon admission did not show any mild hypercarbic respiratory failure, mild hypoxic respiratory failure while on 2 L with a PaO2 of 59 continue. COVID-19 PCR positive admission from 10/06/2023. Patient has been receiving dexamethasone 6 mg IV daily Echocardiogram low normal LV systolic function with a EF of 50%. Near Akinesis of LV apical wall. Hemodynamically stable. Worsening renal function noted. On examination patient appeared to be in mild to moderate respiratory distress. Component of anxiety contributing to her symptoms. Saturating 95% and above on 2 L nasal cannula. Poor pleth noted. Auscultation clear with no significant w heezing Plan: Initiate Trelegy 100 inhaler along with DuoNebs every 6 hours only on as-needed basis Continue oxygen supplementation to maintain O2 saturation of 90 to 95%. Recommend following O2 placed before escalating oxygen requirements Continue dexamethasone 6 mg IV daily for a total of 10 days Follow with chest x-ray PA lateral. We will hold off on performing CT PE at this point of time. D-dimer elevated at 0.94 with LV apical akinesis. # Thank you for involving pulmonary in this patient care. Will continue to follow.
--- NOTE | 2023-10-12 15:11 | XR_ITS ---
PROCEDURE INFORMATION: Exam: XR Chest Exam date and time: 10/12/2023 5:41 PM Age: 68 years old Clinical indication: Other: Pnm TECHNIQUE: Imaging protocol: Radiologic exam of the chest. Views: 1 view. COMPARISON: CR XR CHEST PORTABLE 10/06/2023 5:28 PM FINDINGS: Lungs: Stable right upper lobe calcified granulomas. Hazy bilateral lobe opacities. Pleural spaces: No pneumothorax. Heart/Mediastinum: Cardiac prominence. Calcified atherosclerotic changes of the thoracic aorta. Bones/joints: Unremarkable. IMPRESSION: Hazy bilateral lower lobe opacities which may represent atelectasis, infection, pulmonary edema or pleural effusions.
[2023-10-12] MEDS: FLUTICASONE/UMECLIDIN/VILANTER 100/62.5/25MCG INHALER 1 PUFF IH (16:50)
[2023-10-12 17:19] LABS: POC Glucose,Bedside 360 (70-110)
--- NOTE | 2023-10-12 18:23 | PC.NURSE ---
Pt has been up to the chair fro the majority of the afternoon. pt is a/o x 4 lungs are clear throughout. bowel sounds are active in all quads. pt voids per bustamante. pt had bm this afternoon. pt had bandages to ble per phys therapy. nad noted.
[2023-10-12] MEDS: MULTIVITAMIN TABLET 1 EACH PO (18:49)
[2023-10-12 19:56] LABS: POC Glucose,Bedside 316 (70-110)
[2023-10-12] MEDS: ATORVASTATIN 40MG TABLET 80 MG PO (20:32)
[2023-10-12] MEDS: INSULIN GLARGINE 100 UNITS/ML 3ML FLEXPEN 20 UNIT SQ (20:33)
[2023-10-12] MEDS: diazePAM 5MG TABLET 5 MG PO (21:42)
[2023-10-13] VITALS (12 sets, daily range): BP systolic 98–143; BP diastolic 54–91; PULSE 50–85; RESP 18–20; TEMP 36.4–36.8; O2SAT 95–100; BMI 37.4
[2023-10-13] MEDS: IPRATROPIUM/ALBUTEROL 3 ML NEB IH ×2 (00:10→20:12)
--- NOTE | 2023-10-13 05:38 | PC.NURSE ---
Pt has rested intermittently. Pt got up to the chair. Pt complains of being anxious one time, treated per mar. Pt requests breathing treatment one time this shift. Remains on 2L NC for comfort, O2 sat >95%. Pt uses bedside commode, bustamante intact and draining. Bilateral upper lobes inspiratory wheezing noted. Abdomen is round and distended, but pt states she is not uncomfortable. Pt refuses to take a bath, states she will take one today. Call light in reach.
[2023-10-13] MEDS: FLUTICASONE/UMECLIDIN/VILANTER 100/62.5/25MCG INHALER 1 PUFF IH (06:10)
[2023-10-13 06:31] LABS: POC Glucose,Bedside 286 (70-110)
[2023-10-13] MEDS: humaLOG 100 UNITS/ML 3ML VIAL (SSI) SQ ×4 (06:43→20:56)
[2023-10-13 07:04] LABS: Basophils # 0.1 K/mm3 (0-0.2); Basophils % 0.3 % (0.1-2.0); Eosinophils % 0.1 % (0.1-12.0); Hematocrit 32.5 % (37.0-47.0); Hemoglobin 10.7 g/dL (12.2-16.2); Lymphocytes # 1.2 K/mm3 (0.7-4.5); Lymphocytes % 7.2 % (10-50); Mean Corpuscular HGB Conc 32.9 g/dL (31.8-35.4); Mean Corpuscular Hemoglobin 32.8 pg (27.0-31.2); Mean Corpuscular Volume 99.8 fl (81-99); Mean Platelet Volume 8.4 fl (7.4-10.4); Monocytes # 0.7 K/mm3 (0.1-1.0); Monocytes % 4.2 % (1.7-9.3); Neutrophils # 13.9 K/mm3 (1.8-7.8); Neutrophils % 88.1 % (37.0-80.0); Platelet Count 536 K/mm3 (142-424); Red Blood Count 3.26 M/mm3 (4.20-5.40); Red Cell Distribution Width 14.5 % (11.5-17.5); White Blood Count 15.8 K/mm3 (4.8-10.8)
[2023-10-13 07:07] LABS: MANUAL DIFFERENTIAL MANUAL DIFFERENTIAL (MANUAL DIFF)
[2023-10-13 07:15] LABS: Anion Gap 13.9 mEq/L (5-15); Blood Urea Nitrogen 47 mg/dl (7-17); Calcium 7.5 mg/dl (8.4-10.2); Carbon Dioxide 25 mmol/L (22.0-30.0); Chloride 98 mmol/L (98-107); Creatinine Clearance Estimated 42 mL/min (50-200); Estimated Glomerular Filt Rate 30 ml/min (>60); GFR (African American) 36 ML/MIN (>60); Glucose 224 mg/dl (74-100); Potassium 5.9 mmoL/L (3.5-5.1); Sodium 131 mmol/L (136-145)
--- NOTE | 2023-10-13 08:42 | P.PN_ITS ---
Subjective *Date: 10/13/23 *Time: 09:03 Interval history: Patient is sitting up in a chair which she says is the most comfortable position for her. She is pretty much short of breath all the time or requesting neb treatments frequently. Nurses feels she is very anxious. She denies chest pain. States her bowels have not moved in 5 days although she had diarrhea prior to her admission. She is up to the bedside commode and would like to have a walker. Laboratory data indicates white blood cell count of 15,800 with a hemoglobin of 10.7 hematocrit 32.5. Blood chemistries with a sodium of 131 potassium is 5.9 today. BUN is 47 and creatinine is 1.7. Physical therapy is providing wound care with daily dressing changes. Patient states it is quite painful although better than initially Medical Exam Vital signs and Labs for Last 24 Hours: Vital Signs Temp Pulse Pulse Resp BP Pulse Ox O2 Del Method 10/13/23 08:00 97.7 F 75 19 129/54 L 95 Nasal Cannula 10/13/23 06:56 Nasal Cannula 10/13/23 04:00 70 10/13/23 04:00 97.8 F 73 18 98/78 L 96 Nasal Cannula 10/13/23 05:00 Nasal Cannula 10/13/23 00:00 60 10/13/23 02:41 Nasal Cannula 10/13/23 01:00 Nasal Cannula 10/13/23 00:00 98.3 F 65 18 133/77 99 Nasal Cannula 10/13/23 00:11 60 10/13/23 00:11 64 10/12/23 23:00 Nasal Cannula 10/12/23 21:00 Nasal Cannula 10/12/23 20:00 Nasal Cannula 10/12/23 20:00 60 10/12/23 20:00 98.2 F 60 17 103/60 L 100 Nasal Cannula 10/12/23 19:00 Nasal Cannula 10/12/23 18:47 70 10/12/23 18:47 68 10/12/23 17:00 99 Nasal Cannula 10/12/23 17:00 Nasal Cannula 10/12/23 15:00 Nasal Cannula 10/12/23 16:00 70 10/12/23 15:22 97.9 F 68 18 111/90 100 Nasal Cannula 10/12/23 12:00 100 H 10/12/23 10:00 87 22 186/70 H 100 Nasal Cannula 10/12/23 13:00 Nasal Cannula 10/12/23 12:00 82 22 146/73 H 100 Nasal Cannula 10/12/23 12:47 82 10/12/23 12:47 77 10/12/23 11:00 Nasal Cannula 10/12/23 09:00 Nasal Cannula 10/12/23 11:09 97.9 F 10/12/23 09:20 85 10/12/23 09:20 81 10/12/23 09:20 97 Nasal Cannula O2 Flow Rate 10/13/23 08:00 2 10/13/23 06:56 2 10/13/23 04:00 10/13/23 04:00 2 10/13/23 05:00 2 10/13/23 00:00 10/13/23 02:41 2 10/13/23 01:00 2 10/13/23 00:00 2 10/13/23 00:11 10/13/23 00:11 10/12/23 23:00 2 10/12/23 21:00 2 10/12/23 20:00 2 10/12/23 20:00 10/12/23 20:00 10/12/23 19:00 2 10/12/23 18:47 10/12/23 18:47 10/12/23 17:00 2 10/12/23 17:00 2 10/12/23 15:00 2 10/12/23 16:00 10/12/23 15:22 2 10/12/23 12:00 10/12/23 10:00 2 10/12/23 13:00 2 10/12/23 12:00 2 10/12/23 12:47 10/12/23 12:47 10/12/23 11:00 2 10/12/23 09:00 2 10/12/23 11:09 10/12/23 09:20 10/12/23 09:20 10/12/23 09:20 3 Intake and Output 10/12/23 10/13/23 10/13/23 19:59 03:59 11:59 Intake Total 480 / 480 270 / 750 Output Total 600 / 600 400 / 1000 Balance -120 / -120 -400 / -520 270 / -250 Intake: Intake, Oral Amount 480 / 480 270 / 750 Output: Output, Urine Amount 600 / 600 400 / 1000 Other: Number of Unmeasured Voids 0 0 Weight 185 lb 11.478 oz Patient Weight 10/13/23 11:59 Weight 185 lb 11.478 oz Laboratory Results - last 24 hr 10/12/23 08:40: Sodium 135 L, Potassium 5.9 H, Chloride 99, Carbon Dioxide 24, Anion Gap 17.9 H, BUN 43 H, Creatinine 1.60 H, Estimated Creat Clear 45, Estimated GFR 32 L, Est GFR ( Amer) 39 L, Glucose 220 H D, Calcium 7.3 L 10/12/23 12:17: POC Glucose 245 H 10/12/23 16:45: POC Glucose 360 H* 10/12/23 19:44: POC Glucose 316 H* 10/13/23 06:24: POC Glucose 286 H 10/13/23 06:48: WBC 15.8 H, RBC 3.26 L, Hgb 10.7 L, Hct 32.5 L, MCV 99.8 H, MCH 32.8 H, MCHC 32.9, RDW 14.5, Plt Count 536 H D, MPV 8.4, Neut % (Auto) 88.1 H, Lymph % (Auto) 7.2 L, [place] % (Auto) 4.2, Eos % (Auto) 0.1, Baso % (Auto) 0.3, Neut # (Auto) 13.9 H, Lymph # (Auto) 1.2, [place] # (Auto) 0.7, Eos # (Auto) 0.0, Baso # (Auto) 0.1, Sodium 131 L, Potassium 5.9 H, Chloride 98, Carbon Dioxide 25, Anion Gap 13.9, BUN 47 H, Creatinine 1.70 H, Estimated Creat Clear 42, Estimated GFR 30 L, Est GFR ( Amer) 36 L, Glucose 224 H, Calcium 7.5 L I & O for Labs for Last 24 Hours: Intake & Output 10/10/23 10/11/23 10/12/23 10/13/23 11:59 11:59 11:59 11:59 Intake Total 1444 / 1444 1613.5 / 1613.5 1820.333 / 1820.333 750 / 750 Output Total 750 / 750 450 / 450 500 / 500 1000 / 1000 Balance 694 / 694 1163.5 / 1163.5 1320.333 / 1320.333 -250 / -250 Weight 180 lb 8.937 oz 182 lb 12.211 oz 185 lb 6 oz 185 lb 11.478 oz Constitutional: Present no acute distress Comment:: Sitting up in bedside comfort chair. Has just completed breakfast which she ate all of. Noted congested frequent cough Respiratory: Present decreased breath sounds (Bilateral bases), wheezes (Thr oughout posteriorly) and crackles (Left face) Cardiac: Present Reg Rate and Rhythm GI: Present soft, distention and normal bowel sounds Extremities: Present edema Comment:: Bilateral lower legs with dressing wraps. Neuro: Present alert and awake Assessment and Plan *Assessment and plan (1) COVID-19: Status: Acute Category: Medical Code(s): U07.1 - COVID-19 (2) Acute and chronic respiratory failure with hypoxia: Status: Acute Category: Medical Code(s): J96.21 - Acute and chronic respiratory failure with hypoxia (3) Acute exacerbation of chronic obstructive pulmonary disease: Status: Acute Category: Medical Code(s): J44.1 - Chronic obstructive pulmonary disease with (acute) exacerbation (4) Acute hypokalemia: Status: Acute Category: Medical Code(s): E87.6 - Hypokalemia (5) Tobacco use disorder: Status: Chronic Category: Medical Code(s): F17.200 - Nicotine dependence, unspecified, uncomplicated (6) Onychogryphosis: Status: Acute Category: Medical Code(s): L60.2 - Onychogryphosis (7) Onychodystrophy: Status: Acute Category: Medical Code(s): L60.3 - Nail dystrophy (8) Hyperlipidemia: Status: Chronic Category: Medical Code(s): E78.5 - Hyperlipidemia, unspecified (9) Hypertension: Status: Chronic Category: Medical Code(s): I10 - Essential (primary) hypertension (10) Hyperkeratosis of skin: Status: Acute Category: Medical Code(s): L85.9 - Epidermal thickening, unspecified (11) History of CVA (cerebrovascular accident): Status: Chronic Category: Medical Code(s): Z86.73 - Personal history of transient ischemic attack (TIA), and cerebral infarction without residual deficits (12) COPD (chronic obstructive pulmonary disease): Status: Chronic Category: Medical Code(s): J44.9 - Chronic obstructive pulmonary disease, unspecified (13) Type 2 diabetes mellitus: Status: Acute Category: Medical Code(s): E11.9 - Type 2 diabetes mellitus without complications (14) Elevated troponin: Status: Acute Category: Medical Code(s): R79.89 - Other specified abnormal findings of blood chemistry (15) Elevated brain natriuretic peptide (BNP) level: Status: Acute Category: Medical Code(s): R79.89 - Other specified abnormal findings of blood chemistry (16) Hypokalemia: Status: Acute Category: Medical Code(s): E87.6 - Hypokalemia (17) EtOH dependence: Status: Chronic Qualifiers: Substance use status: unspecified alcohol-induced disorder Qualified Code(s): F10.29 - Alcohol dependence with unspecified alcohol-induced disorder Category: Medical Code(s): F10.20 - Alcohol dependence, uncomplicated (18) Atrial fibrillation with RVR: Status: Acute Category: Medical Code(s): I48.91 - Unspecified atrial fibrillation Plan Will repeat chest x-ray today. MiraLAX daily for constipation. Dr. Mckeon entry - Saw patient, agree with above note.change management facilitator to long acti ng diltiazem today, remove bustamante catheter
--- NOTE | 2023-10-13 08:52 | XR_ITS ---
FINAL REPORT CLINICAL HISTORY: Respiratory failure COMPARISON: 10/12/2023 FINDINGS: Small bilateral pleural effusions are present, similar to the previous exam. Mild atelectasis is present. The mediastinum has a normal appearance. Mild cardiomegaly is present. IMPRESSION: Small bilateral pleural effusions with mild atelectasis. Reviewed, Interpreted and Dictated by Juan Acevedo MD Transcribed by Rosa Isela Proctor Authenticated and [facility]
[2023-10-13 09:26] LABS: Lymphocytes % 7 % (10-50); Monocytes % 4 % (2-9); Neutrophils % 89 % (42-76); Total Cells Counted 100
[2023-10-13 09:27] LABS: Anisocytosis 1+; Macrocytosis 1+; Platelet Estimate Moderate Increase
[2023-10-13] MEDS: OXYCODONE 5MG W/APAP 325MG TABLET 1 EACH PO (09:27)
[2023-10-13 09:28] LABS: Hypochromasia 1+
[2023-10-13] MEDS: IRBESARTAN 75MG TABLET 75 MG PO (09:28)
[2023-10-13] MEDS: FAMOTIDINE 20MG TABLET 20 MG PO ×2 (09:28→20:57)
[2023-10-13] MEDS: ASCORBIC ACID 500MG TAB 500 MG PO ×3 (09:28→20:57)
[2023-10-13] MEDS: ASPIRIN EC 81MG TABLET 81 MG PO (09:28)
[2023-10-13 09:29] LABS: Hypersegmented Neutrophils 1+
[2023-10-13] MEDS: ZINC SULFATE 220MG CAPSULE 220 MG PO (09:29)
[2023-10-13] MEDS: FOLIC ACID 1MG TABLET 1 MG PO (09:29)
[2023-10-13] MEDS: dilTIAZem HCL 180MG CAP.ER.24H 180 MG PO (09:29)
[2023-10-13] MEDS: EMPAGLIFLOZIN 10MG TABLET 10 MG PO (09:29)
[2023-10-13] MEDS: METOPROLOL SUCCINATE XL 25MG TABLET 25 MG PO (09:29)
[2023-10-13] MEDS: DEXAMETHASONE 4MG/ML 1ML VIAL 6 MG IV (09:29)
[2023-10-13] MEDS: POLYETHYLENE GLYCOL 3350 17 GM PACKET PO (09:29)
[2023-10-13] MEDS: ONDANSETRON 4MG/2ML VIAL 4 MG IV ×2 (09:35→18:34)
[2023-10-13] MEDS: ENOXAPARIN 40MG/0.4ML SYRINGE 40 MG SQ (09:36)
--- NOTE | 2023-10-13 09:44 | HMH.ITSTN ---
Called about taking patient down for xrays. PT was working with patient. Nurse said to wait half hour before coming to get her.
--- NOTE | 2023-10-13 09:54 | P.PN_ITS ---
Subjective *Date: 10/13/23 *Time: 11:04 Interval history: No acute respiratory events overnight. Pulmonology Exam Inpatient Vital signs and Labs for Last 24 Hours: Temp Pulse Resp BP Pulse Ox O2 Del Method O2 Flow Rate 97.7 F 75 19 129/54 L 95 Nasal Cannula 1 10/13/23 08:00 10/13/23 08:00 10/13/23 08:00 10/13/23 08:00 10/13/23 08:55 10/13/23 09:00 10/13/23 09:00 FiO2 28 10/11/23 19:09 Laboratory Results - last 24 hr 10/12/23 12:17: POC Glucose 245 H 10/12/23 16:45: POC Glucose 360 H* 10/12/23 19:44: POC Glucose 316 H* 10/13/23 06:24: POC Glucose 286 H 10/13/23 06:48: WBC 15.8 H, RBC 3.26 L, Hgb 10.7 L, Hct 32.5 L, MCV 99.8 H, MCH 32.8 H, MCHC 32.9, RDW 14.5, Plt Count 536 H D, MPV 8.4, Neut % (Auto) 88.1 H, Lymph % (Auto) 7.2 L, [place] % (Auto) 4.2, Eos % (Auto) 0.1, Baso % (Auto) 0.3, Neut # (Auto) 13.9 H, Lymph # (Auto) 1.2, [place] # (Auto) 0.7, Eos # (Auto) 0.0, Baso # (Auto) 0.1, Total Counted 100, Neutrophils % (Manual) 89 H, Lymphocytes % (Manual) 7 L, Monocytes % (Manual) 4, Hypersegmented Neuts 1+, Platelet Estimate Moderate increase, Hypochromasia 1+, Anisocytosis 1+, Macrocytosis 1+, Sodium 131 L, Potassium 5.9 H, Chloride 98, Carbon Dioxide 25, Anion Gap 13.9, BUN 47 H , Creatinine 1.70 H, Estimated Creat Clear 42, Estimated GFR 30 L, Est GFR ( Amer) 36 L, Glucose 224 H, Calcium 7.5 L I & O for Labs for Last 24 Hours: Intake & Output 10/10/23 10/11/23 10/12/2324 23:59 23:59 23:59 23:59 Intake Total 1804 / 2044 2346.333 / 2353.833 727.5 / 727.5 510 / 510 Output Total 500 / 500 450 / 950 1100 / 1500 400 / 400 Balance 1304 / 1544 1896.333 / 1403.833 -372.5 / -772.5 110 / 110 Weight 180 lb 8.937 oz 182 lb 12.211 oz 185 lb 6 oz 185 lb 11.478 oz Constitutional: Present moderate distress Head: Present normocephalic and atraumatic ENT: Present normal exam, normal oropharynx and mucous membranes moist Neck: Present normal inspection and full ROM Respiratory: Present respiratory distress, normal respiratory effort and able to speak in complete sentences; Absent wheezes or diminished air movement Cardiac: Present S1/S2, Tachycardia and radial pulses present GI: Present soft and distention; Absent tenderness or guarding Rectal (female): Present deferred (female): Present deferred Skin: Present intact; Absent cyanosis or jaundice Neuro: Present alert, awake and oriented x 3 Extremities: Present normal inspection; Absent clubbing or cyanosis Psychiatric: Present normal affect and cooperative Assessment and Plan *Assessment and plan (1) COVID-19: Status: Acute Category: Medical Code(s): U07.1 - COVID-19 (2) Acute and chronic respiratory failure with hypoxia: Status: Acute Category: Medical Code(s): J96.21 - Acute and chronic respiratory failure with hypoxia Plan Ms. Hull is a 68-year-old female current smoker greater than 30 PPD, self- reported hypertension, dyslipidemia presented to the ER on 10/07/2023 with worsening respiratory distress Patient admission was clinically concerning for COPD and CHF exacerbation, initiated on oxygen. Nebulizations IV steroids and diuretics. Chest x-ray upon admission clear with no dense consolidation. ABG upon admission did not show any mild hypercarbic respiratory failure, mild hypoxic respiratory failure while on 2 L with a PaO2 of 59 continue. COVID-19 PCR positive admission from 10/06/2023. Patient has been receiving dexamethasone 6 mg IV daily Echocardiogram low normal LV systolic function with a EF of 50%. Near Akinesis of LV apical wall. Hemodynamically stable. On initial examination patient appeared to be in mild to moderate respiratory distress. Component of anxiety contributing to her symptoms. Saturating 95% and above on 2 L nasal cannula. Poor pleth noted. Auscultation clear with no significant wheezing. Interval update: No acute respiratory events overnight. Repeat chest x-ray new small bilateral effusions. No dense consolidation / airspace disease. Plan: Incentive spirometry Continue Trelegy 100 inhaler along with DuoNebs every 6 hours only on as-needed basis Continue oxygen supplementation to maintain O2 saturation of 90 to 95%. Continue dexamethasone 6 mg IV daily for a total of 10 days We will hold off on performing CT PE at this point of time. D-dimer elevated at 0.94 with LV apical akinesis. # Thank you for involving pulmonary in this patient care. Will continue to follow.
--- NOTE | 2023-10-13 10:17 | PC.NURSE ---
Dr. Rodriguez at bedside
--- NOTE | 2023-10-13 14:11 | PC.NURSE ---
[facility]on[facility]ER[facility] cardiology at bedside
--- NOTE | 2023-10-13 14:19 | EXP.CARD.PN ---
Subjective Subjective Date: 10/13/23 Time: 14:19 Principal diagnosis: COVID, CHF, COPD Interval history: 68 yo WF in chair in NAD. States breathing is about the same. She admits to getting anxious about breathing because she is a daily drinker and uses it to relax. Denies chest pain Heart rate controlled on current meds. Exam Data for Last 24 hours Vital signs and Labs for Last 24 Hours: Temp Pulse Resp BP Pulse Ox O2 Del Method O2 Flow Rate 98.0 F 76 18 130/91 H 99 Nasal Cannula 2 10/13/23 11:52 10/13/23 11:52 10/13/23 11:52 10/13/23 11:52 10/13/23 11:52 10/13/23 13:00 10/13/23 13:00 FiO2 28 10/11/23 19:09 Laboratory Results - last 24 hr 10/12/23 16:45: POC Glucose 360 H* 10/12/23 19:44: POC Glucose 316 H* 10/13/23 06:24: POC Glucose 286 H 10/13/23 06:48: WBC 15.8 H, RBC 3.26 L, Hgb 10.7 L, Hct 32.5 L, MCV 99.8 H, MCH 32.8 H, MCHC 32.9, RDW 14.5, Plt Count 536 H D, MPV 8.4, Neut % (Auto) 88.1 H, Lymph % (Auto) 7.2 L, [place] % (Auto) 4.2, Eos % (Auto) 0.1, Baso % (Auto) 0.3, Neut # (Auto) 13.9 H, Lymph # (Auto) 1.2, [place] # (Auto) 0.7, Eos # (Auto) 0.0, Baso # (Auto) 0.1, Total Counted 100, Neutrophils % (Manual) 89 H, Lymphocytes % (Manual) 7 L, Monocytes % (Manual) 4, Hypersegmented Neuts 1+, Platelet Estimate Moderate increase, Hypochromasia 1+, Anisocytosis 1+, Macrocytosis 1+, Sodium 131 L, Potassium 5.9 H, Chloride 98, Carbon Dioxide 25, Anion Gap 13.9, BUN 47 H, Creatinine 1.70 H, Estimated Creat Clear 42, Estimated GFR 30 L, Est GFR ( Amer) 36 L, Glucose 224 H, Calcium 7.5 L I & O for Last 24 hours: Intake & Output 10/11/23 10/12/23 10/13/23 10/14/23 11:59 11:59 11:59 11:59 Intake Total 1613.5 / 1613.5 1820.333 / 1820.333 990 / 990 360 / 360 Output Total 450 / 450 500 / 500 1675 / 1675 250 / 250 Balance 1163.5 / 1163.5 1320.333 / 1320.333 -685 / -685 110 / 110 Weight 182 lb 12.211 oz 185 lb 6 oz 185 lb 11.478 oz Constitutional Constitutional: no acute distress *Routine Respiratory Exam Respiratory: Present wheezes and diminished air movement *Routine Cardiovascular Exam Cardiovascular: Present irregularly irregular Progress Note: A&P Assessment and plan (1) COVID-19: Status: Acute (2) Acute and chronic respiratory failure with hypoxia: Status: Acute (3) Acute exacerbation of chronic obstructive pulmonary disease: Status: Acute (4) Tobacco use disorder: Status: Chronic (5) Onychogryphosis: Status: Acute (6) Onychodystrophy: Status: Acute (7) Hyperlipidemia: Status: Chronic (8) Hypertension: Status: Chronic (9) Hyperkeratosis of skin: Status: Acute (10) History of CVA (cerebrovascular accident): Status: Chronic (11) Type 2 diabetes mellitus: Status: Acute (12) Elevated troponin: Status: Acute (13) Elevated brain natriuretic peptide (BNP) level: Status: Acute (14) EtOH dependence: Status: Chronic (15) Atrial fibrillation with RVR: Status: Acute Assessment and Plan Assessment and Plan for All Diagnoses:: Chest discomfort with elevated troponin (type 2 NSTEMI), likely secondary to pulmonary issues -occasional MACIAS and chest discomfort in the setting of 2 pack/day tobacco use and A1c of 11 -severe hypokalemia and COVID-19 on admission (10/06/2023) -EKG showed sinus rhythm with occasional PVCs without ST or T wave changes -Coronary artery calcifications noted on prior Abd CT, but she is not presenting with ACS picture -Add aspirin, statin, beta-nichole -Needs [facility] but unable to lie flat for procedure COPD with COVID-19 -2 pack/day smoker -On nasal cannula here -Plans per primary service and Pulmonary Type 2 diabetes, A1c 11 -New diagnosis this admission, patient had not been to a doctor in many years -Added Jardiance for CV benefit, glucose control per primary service Severe hyperkeratosis bilateral lower extremities -Likely due to prolonged edema and hyperglycemia -PT is debriding at this time A. fib with RVR over the weekend -rate controlled on diltiazem and metoprolol -On lovenox for now but will switch to oral anticoagulation prior to discharge. -CHADS-VASC score is at least 5 Thrombocytosis -Plt count 776K on 10/11/2023, now 536K Hyperkalemia -Potassium supplementation and Aldactone discontinued, 10/12/2019 -Will stop irbesartan also ISAURA -Cr 1.7 with GFR 30 Hypertension -increase metoprolol succinate to 50 mg daily -stop irbesartan to see if this is contributing to hyperkalemia -now on Diltiazem long acting Elevated BNP at 16,000/HFpEF -On Jardiance -Aldactone stopped due to hyperkalemia -Echo EF 50% with near akinesis of LV apex Coronary artery calcifications on prior abdominal CTA -on statin and ASA -EF 50% with akinesis of LV -Needs [facility] but unable to lie flat for procedure -Continue aspirin, statin, ARB and will add metoprolol stop irbesartan increase metoprolol to 50 mg daily Patient still unable to lie flat for cardiac catheterization.
[2023-10-13] MEDS: MULTIVITAMIN TABLET 1 EACH PO (16:44)
--- NOTE | 2023-10-13 16:45 | PC.NURSE ---
Pt alert and oriented. VSS. On 1-2L O2 for patient's comfort. Percocet and Zofran given for pretreatment of wound care. Up to BSC with 1 and FWW multiple times for voids and one large BM. Up in chair for entire shift. BS covered per NOV. Patient asked SRNA to cut the large mat out of her hair. Patient states she is feeling much better this afternoon.
[2023-10-13 19:56] LABS: POC Glucose,Bedside 247 (70-110)
[2023-10-13] MEDS: INSULIN GLARGINE 100 UNITS/ML 3ML FLEXPEN 30 UNIT SQ (20:55)
[2023-10-13] MEDS: ATORVASTATIN 40MG TABLET 80 MG PO (20:57)
[2023-10-14] VITALS (17 sets, daily range): BP systolic 118–148; BP diastolic 55–72; PULSE 50–80; RESP 18; TEMP 36.4–36.9; O2SAT 95–99; BMI 37.4
[2023-10-14] MEDS: IPRATROPIUM/ALBUTEROL 3 ML NEB IH ×3 (02:27→23:09)
[2023-10-14] MEDS: FLUTICASONE/UMECLIDIN/VILANTER 100/62.5/25MCG INHALER 1 PUFF IH (06:17)
[2023-10-14 07:13] LABS: Basophils # 0.1 K/mm3 (0-0.2); Basophils % 0.6 % (0.1-2.0); Eosinophils % 0.1 % (0.1-12.0); Hematocrit 35.1 % (37.0-47.0); Hemoglobin 11.4 g/dL (12.2-16.2); Lymphocytes # 1.3 K/mm3 (0.7-4.5); Lymphocytes % 8.4 % (10-50); Mean Corpuscular HGB Conc 32.4 g/dL (31.8-35.4); Mean Corpuscular Hemoglobin 32.6 pg (27.0-31.2); Mean Corpuscular Volume 100.3 fl (81-99); Mean Platelet Volume 8.3 fl (7.4-10.4); Monocytes # 0.8 K/mm3 (0.1-1.0); Neutrophils # 13.1 K/mm3 (1.8-7.8); Platelet Count 532 K/mm3 (142-424); Red Cell Distribution Width 14.6 % (11.5-17.5); White Blood Count 15.3 K/mm3 (4.8-10.8)
[2023-10-14 07:18] LABS: Anion Gap 11.9 mEq/L (5-15); Blood Urea Nitrogen 47 mg/dl (7-17); Calcium 8.1 mg/dl (8.4-10.2); Carbon Dioxide 26 mmol/L (22.0-30.0); Chloride 102 mmol/L (98-107); Creatinine Clearance Estimated 45 mL/min (50-200); Estimated Glomerular Filt Rate 32 ml/min (>60); GFR (African American) 39 ML/MIN (>60); Glucose 129 mg/dl (74-100); Potassium 5.9 mmoL/L (3.5-5.1); Sodium 134 mmol/L (136-145)
[2023-10-14 07:28] LABS: MANUAL DIFFERENTIAL MANUAL DIFFERENTIAL (MANUAL DIFF)
[2023-10-14 08:20] LABS: Anisocytosis 1+; Hypochromasia 1+; Lymphocytes % 9 % (10-50); Macrocytosis 1+; Monocytes % 7 % (2-9); Neutrophils % 84 % (42-76); Platelet Estimate Moderate Increase; Total Cells Counted 100
--- NOTE | 2023-10-14 08:28 | EXP.ACUTE.PN ---
Subjective *Date: 10/14/23 *Time: 10:52 Interval history: Patient denies any pain this morning other than in her legs. She does complain of shortness of breath when lying down. She states she has been sleeping sitting in the chair. She does complain of some fatigue this morning. Medical Exam Vital signs and Labs for Last 24 Hours: Vital Signs Temp Pulse Pulse Resp BP Pulse Ox O2 Del Method 10/14/23 07:44 97.5 F L 73 18 143/70 H 96 Room Air 10/14/23 06:56 Nasal Cannula 10/14/23 05:00 Nasal Cannula 10/14/23 06:18 64 10/14/23 06:18 68 10/14/23 06:18 95 Nasal Cannula 10/14/23 04:00 68 10/14/23 00:00 59 L 10/13/23 20:00 85 10/14/23 03:58 97.7 F 58 L 18 134/66 97 Nasal Cannula 10/14/23 03:00 Nasal Cannula 10/14/23 02:34 58 L 10/14/23 02:34 59 L 10/14/23 01:00 Nasal Cannula 10/13/23 23:53 98 F 72 20 130/73 100 Nasal Cannula 10/13/23 23:00 Nasal Cannula 10/13/23 21:00 Nasal Cannula 10/13/23 20:00 Nasal Cannula 10/13/23 20:19 62 10/13/23 20:19 66 10/13/23 20:00 97.6 F 70 20 143/74 H 100 Nasal Cannula 10/13/23 18:44 Nasal Cannula 10/13/23 18:30 Nasal Cannula 10/13/23 16:00 50 L 10/13/23 16:00 97.5 F L 54 L 18 107/69 L 100 Nasal Cannula 10/13/23 16:48 Nasal Cannula 10/13/23 15:15 Nasal Cannula 10/13/23 12:00 70 10/13/23 08:33 70 10/13/23 13:00 Nasal Cannula 10/13/23 11:52 98.0 F 76 18 130/91 H 99 Nasal Cannula 10/13/23 10:35 Nasal Cannula 10/13/23 09:00 Nasal Cannula 10/13/23 08:55 95 Nasal Cannula O2 Flow Rate 10/14/23 07:44 10/14/23 06:56 2 01/31/24 05:00 2 10/14/23 06:18 10/14/23 06:18 10/14/23 06:18 2 10/14/23 04:00 10/14/23 00:00 10/13/23 20:00 10/14/23 03:58 2 10/14/23 03:00 2 10/14/23 02:34 10/14/23 02:34 10/14/23 01:00 10/13/23 23:53 2 10/13/23 23:00 2 10/13/23 21:00 2 10/13/23 20:00 2 10/13/23 20:19 10/13/23 20:19 10/13/23 20:00 2 10/13/23 18:44 2 10/13/23 18:30 1 10/13/23 16:00 10/13/23 16:00 2 10/13/23 16:48 2 10/13/23 15:15 2 10/13/23 12:00 10/13/23 08:33 10/13/23 13:00 2 10/13/23 11:52 1 10/13/23 10:35 1 10/13/23 09:00 1 10/13/23 08:55 1 Intake and Output 10/13/23 10/14/23 10/14/23 19:59 03:59 11:59 Intake Total 1080 / 1740 660 / 1740 Output Total 250 / 1150 750 / 1150 150 / 1150 Balance 830 / 590 -750 / 590 510 / 590 Intake: Intake, Oral Amount 1080 / 1740 660 / 1740 Output: Output, Urine Amount 250 / 1150 750 / 1150 150 / 1150 Other: Number of Unmeasured Voids 1 Number of Bowel Movements 1 1 Weight 185 lb 10.067 oz Patient Weight 10/14/23 11:59 Weight 185 lb 10.067 oz Laboratory Results - last 24 hr 10/13/23 06:48: Total Counted 100, Neutrophils % (Manual) 89 H, Lymphocytes % (Manual) 7 L, Monocytes % (Manual) 4, Hypersegmented Neuts 1+, Platelet Estimate Moderate increase, Hypochromasia 1+, Anisocytosis 1+, Macrocytosis 1+ 10/13/23 19:44: POC Glucose 247 H 10/14/23 06:50: WBC 15.3 H, RBC 3.50 L, Hgb 11.4 L, Hct 35.1 L, MCV 100.3 H, MCH 32.6 H, MCHC 32.4, RDW 14.6, Plt Count 532 H, MPV 8.3, Neut % (Auto) 86.0 H, Lymph % (Auto) 8.4 L, [place] % (Auto) 5.0, Eos % (Auto) 0.1, Baso % (Auto) 0.6, Neut # (Auto) 13.1 H, Lymph # (Auto) 1.3, [place] # (Auto) 0.8, Eos # (Auto) 0.0, Baso # (Auto) 0.1, Total Counted 100, Neutrophils % (Manual) 84 H, Lymphocytes % (Manual) 9 L, Monocytes % (Manual) 7, Platelet Estimate Moderate increase, Hypochromasia 1+, Anisocytosis 1+, Macrocytosis 1+, Sodium 134 L, Potassium 5.9 H, Chloride 102, Carbon Dioxide 26, Anion Gap 11.9, BUN 47 H, Creatinine 1.60 H, Estimated Creat Clear 45, Estimated GFR 32 L, Est GFR ( Amer) 39 L, Glucose 129 H, Calcium 8.1 L I & O for Labs for Last 24 Hours: Intake & Output 10/11/23 10/12/23 10/13/23 10/14/23 11:59 11:59 11:59 11:59 Intake Total 1613.5 / 1613.5 1820.333 / 1820.333 990 / 990 1740 / 1740 Output Total 450 / 450 500 / 500 1675 / 1675 1150 / 1150 Balance 1163.5 / 1163.5 1320.333 / 1320.333 -685 / -685 590 / 590 Weight 182 lb 12.211 oz 185 lb 6 oz 185 lb 11.478 oz 185 lb 10.067 oz Constitutional: Present no acute distress Comment:: Sitting up in bedside chair. Respiratory: Present decreased breath sounds (Bilateral bases) and wheezes (Throughout posteriorly) Cardiac: Present Irregularly Regular GI: Present soft, distention and normal bowel sounds Extremities: Present edema (bilateral LE's, wraps in place) Comment:: Bilateral lower legs with dressing wraps. Neuro: Present alert and awake Assessment and Plan *Assessment and plan (1) COVID-19: Status: Acute Category: Medical Code(s): U07.1 - COVID-19 (2) Acute and chronic respiratory failure with hypoxia: Status: Acute Category: Medical Code(s): J96.21 - Acute and chronic respiratory failure with hypoxia (3) Acute exacerbation of chronic obstructive pulmonary disease: Status: Acute Category: Medical Code(s): J44.1 - Chronic obstructive pulmonary disease with (acute) exacerbation (4) Acute hypokalemia: Status: Acute Category: Medical Code(s): E87.6 - Hypokalemia (5) Tobacco use disorder: Status: Chronic Category: Medical Code(s): F17.200 - Nicotine dependence, unspecified, uncomplicated (6) Onychogryphosis: Status: Acute Category: Medical Code(s): L60.2 - Onychogryphosis (7) Onychodystrophy: Status: Acute Category: Medical Code(s): L60.3 - Nail dystrophy (8) Hyperlipidemia: Status: Chronic Category: Medical Code(s): E78.5 - Hyperlipidemia, unspecified (9) Hypertension: Status: Chronic Category: Medical Code(s): I10 - Essential (primary) hypertension (10) Hyperkeratosis of skin: Status: Acute Category: Medical Code(s): L85.9 - Epidermal thickening, unspecified (11) History of CVA (cerebrovascular accident): Status: Chronic Category: Medical Code(s): Z86.73 - Personal history of transient ischemic attack (TIA), and cerebral infarction without residual deficits (12) COPD (chronic obstructive pulmonary disease): Status: Chronic Category: Medical Code(s): J44.9 - Chronic obstructive pulmonary disease, unspecified (13) Type 2 diabetes mellitus: Status: Acute Category: Medical Code(s): E11.9 - Type 2 diabetes mellitus without complications (14) Elevated troponin: Status: Acute Category: Medical Code(s): R79.89 - Other specified abnormal findings of blood chemistry (15) Elevated brain natriuretic peptide (BNP) level: Status: Acute Category: Medical Code(s): R79.89 - Other specified abnormal findings of blood chemistry (16) Hypokalemia: Status: Acute Category: Medical Code(s): E87.6 - Hypokalemia (17) EtOH dependence: Status: Chronic Qualifiers: Substance use status: unspecified alcohol-induced disorder Qualified Code(s): F10.29 - Alcohol dependence with unspecified alcohol-induced disorder Category: Medical Code(s): F10.20 - Alcohol dependence, uncomplicated (18) Atrial fibrillation with RVR: Status: Acute Category: Medical Code(s): I48.91 - Unspecified atrial fibrillation Plan Chest x-ray shows small bilateral pleural effusions with mild atelectasis. Patient's nurse states they have had her on room air this morning and they are going to check repeat oxygen saturations. Will discuss further care with Dr. Mckeon. Dr. Mckeon entry - Patient has been weaned off of oxygen, she has improved, may be able to discharge with home health tomorrow.
[2023-10-14] MEDS: EMPAGLIFLOZIN 10MG TABLET 10 MG PO (08:44)
[2023-10-14] MEDS: POLYETHYLENE GLYCOL 3350 17 GM PACKET PO (08:44)
[2023-10-14] MEDS: ENOXAPARIN 40MG/0.4ML SYRINGE 40 MG SQ (08:44)
[2023-10-14] MEDS: ZINC SULFATE 220MG CAPSULE 220 MG PO (08:44)
[2023-10-14] MEDS: FOLIC ACID 1MG TABLET 1 MG PO (08:45)
[2023-10-14] MEDS: ASCORBIC ACID 500MG TAB 500 MG PO ×3 (08:45→20:57)
[2023-10-14] MEDS: METOPROLOL SUCCINATE XL 50MG TABLET 50 MG PO (08:45)
[2023-10-14] MEDS: ASPIRIN EC 81MG TABLET 81 MG PO (08:45)
[2023-10-14] MEDS: FAMOTIDINE 20MG TABLET 20 MG PO ×2 (08:45→20:56)
[2023-10-14] MEDS: dilTIAZem HCL 180MG CAP.ER.24H 180 MG PO (08:45)
[2023-10-14] MEDS: DEXAMETHASONE 4MG/ML 1ML VIAL 6 MG IV (08:45)
--- NOTE | 2023-10-14 09:53 | P.PN_ITS ---
Subjective *Date: 10/14/23 *Time: 11:25 Interval history: No acute respiratory events overnight. Patient denies any new respiratory complaints. Patient admits she has been tolerating well with her breathing and not needing her nebulization therapies as frequently as before Pulmonology Exam Inpatient Vital signs and Labs for Last 24 Hours: Temp Pulse Resp BP Pulse Ox O2 Del Method O2 Flow Rate 97.5 F L 73 18 143/70 H 95 Room Air 2 10/14/23 07:44 10/14/23 07:44 10/14/23 07:44 10/14/23 07:44 10/14/23 09:22 10/14/23 09:22 10/14/23 06:56 FiO2 28 10/11/23 19:09 Laboratory Results - last 24 hr 10/13/23 19:44: POC Glucose 247 H 10/14/23 06:50: WBC 15.3 H, RBC 3.50 L, Hgb 11.4 L, Hct 35.1 L, MCV 100.3 H, MCH 32.6 H, MCHC 32.4, RDW 14.6, Plt Count 532 H, MPV 8.3, Neut % (Auto) 86.0 H, Lymph % (Auto) 8.4 L, [place] % (Auto) 5.0, Eos % (Auto) 0.1, Baso % (Auto) 0.6, Neut # (Auto) 13.1 H, Lymph # (Auto) 1.3, [place] # (Auto) 0.8, Eos # (Auto) 0.0, Baso # (Auto) 0.1, Total Counted 100, Neutrophils % (Manual) 84 H, Lymphocytes % (Manual) 9 L, Monocytes % (Manual) 7, Platelet Estimate Moderate increase, Hypochromasia 1+, Anisocytosis 1+, Macrocytosis 1+, Sodium 134 L, Potassium 5.9 H, Chloride 102, Carbon Dioxide 26, Anion Gap 11.9, BUN 47 H, Creatinine 1.60 H, Estimated Creat Clear 45, Estimated GFR 32 L, Est GFR ( Amer) 39 L, Glucose 129 H, Calcium 8.1 L I & O for Labs for Last 24 Hours: Intake & Output 10/11/23 10/12/23 10/13/23 10/14/23 23:59 23:59 23:59 23:59 Intake Total 2346.333 / 2353.833 727.5 / 727.5 1590 / 1590 660 / 660 Output Total 450 / 950 1100 / 1500 1925 / 1925 300 / 300 Balance 1896.333 / 1403.833 -372.5 / -772.5 -335 / -335 360 / 360 Weight 182 lb 12.211 oz 185 lb 6 oz 185 lb 11.478 oz 185 lb 10.067 oz Constitutional: Present moderate distress Head: Present normocephalic and atraumatic ENT: Present normal exam, normal oropharynx and mucous membranes moist Neck: Present normal inspection and full ROM Respiratory: Present respiratory distress, crackles, normal respiratory effort and able to speak in complete sentences; Absent wheezes or diminished air movement Cardiac: Present S1/S2, Tachycardia and radial pulses present GI: Present soft and distention; Absent tenderness or guarding Rectal (female): Present deferred (female): Present deferred Skin: Present intact; Absent cyanosis or jaundice Neuro: Present alert, awake and oriented x 3 Extremities: Present normal inspection; Absent clubbing or cyanosis Psychiatric: Present normal affect and cooperative Assessment and Plan *Assessment and plan (1) COVID-19: Status: Acute Category: Medical Code(s): U07.1 - COVID-19 (2) Acute and chronic respiratory failure with hypoxia: Status: Acute Category: Medical Code(s): J96.21 - Acute and chronic respiratory failure with hypoxia Plan Ms. Hull is a 68-year-old female current smoker greater than 30 PPD, self-rep orted hypertension, dyslipidemia presented to the ER on 10/07/2023 with worsening respiratory distress Patient admission was clinically concerning for COPD and CHF exacerbation, initiated on oxygen. Nebulizations IV steroids and diuretics. Chest x-ray upon admission clear with no dense consolidation. ABG upon admission did not show any mild hypercarbic respiratory failure, mild hypoxic respiratory failure while on 2 L with a PaO2 of 59 continue. COVID-19 PCR positive admission from 10/06/2023. Patient has been receiving dexamethasone 6 mg IV daily Echocardiogram low normal LV systolic function with a EF of 50%. Near Akinesis of LV apical wall. Hemodynamically stable. On initial examination patient appeared to be in mild to moderate respiratory distress. Component of anxiety contributing to her symptoms. Saturating 95% and above on 2 L nasal cannula. Poor pleth noted. Auscultation clear with no significant wheezing. Interval update: No acute respiratory events overnight. Weaned to room air. Tolerating well. Continue to receive Trelegy inhaler along with DuoNebs every 6 hours only on as- needed basis. Chest x-ray from yesterday showed new bilateral pleural effusions. Renal function relatively stable. Plan: Incentive spirometry Continue Trelegy 100 inhaler along with DuoNebs every 6 hours only on as-needed basis Continue oxygen supplementation to maintain O2 saturation of 90 to 95%. Dexamethasone 6 mg IV daily for a total of 10 days since initiation We will hold off on performing CT PE at this point of time. D-dimer elevated at 0.94 with LV apical akinesis. # Thank you for involving pulmonary in this patient care. Will continue to follow.
--- NOTE | 2023-10-14 11:09 | EXP.CARD.PN ---
Subjective Subjective Date: 10/14/23 Time: 11:09 Principal diagnosis: COVID, CHF, COPD Interval history: 68 yo WF in chair in NAD. Still with SOA and on oxygen by NC. No chest pain Exam Data for Last 24 hours Vital signs and Labs for Last 24 Hours: Temp Pulse Resp BP Pulse Ox O2 Del Method O2 Flow Rate 98.0 F 66 18 148/61 H 99 Room Air 2 10/14/23 11:04 10/14/23 11:04 10/14/23 11:04 10/14/23 11:04 10/14/23 11:04 10/14/23 11:04 10/14/23 06:56 FiO2 28 10/11/23 19:09 Laboratory Results - last 24 hr 10/13/23 19:44: POC Glucose 247 H 10/14/23 06:50: WBC 15.3 H, RBC 3.50 L, Hgb 11.4 L, Hct 35.1 L, MCV 100.3 H, MCH 32.6 H, MCHC 32.4, RDW 14.6, Plt Count 532 H, MPV 8.3, Neut % (Auto) 86.0 H, Lymph % (Auto) 8.4 L, [place] % (Auto) 5.0, Eos % (Auto) 0.1, Baso % (Auto) 0.6, Neut # (Auto) 13.1 H, Lymph # (Auto) 1.3, [place] # (Auto) 0.8, Eos # (Auto) 0.0, Baso # (Auto) 0.1, Total Counted 100, Neutrophils % (Manual) 84 H, Lymphocytes % (Manual) 9 L, Monocytes % (Manual) 7, Platelet Estimate Moderate increase, Hypochromasia 1+, Anisocytosis 1+, Macrocytosis 1+, Sodium 134 L, Potassium 5.9 H, Chloride 102, Carbon Dioxide 26, Anion Gap 11.9, BUN 47 H, Creatinine 1.60 H, Estimated Creat Clear 45, Estimated GFR 32 L, Est GFR ( Amer) 39 L, Glucose 129 H, Calcium 8.1 L I & O for Last 24 hours: Intake & Output 10/11/23 10/12/23 10/13/23 10/14/23 11:59 11:59 11:59 11:59 Intake Total 1613.5 / 1613.5 1820.333 / 1820.333 990 / 990 1740 / 1740 Output Total 450 / 450 500 / 500 1675 / 1675 1150 / 1150 Balance 1163.5 / 1163.5 1320.333 / 1320.333 -685 / -685 590 / 590 Weight 182 lb 12.211 oz 185 lb 6 oz 185 lb 11.478 oz 185 lb 10.067 oz *Routine Respiratory Exam Respiratory: Present wheezes *Routine Cardiovascular Exam Cardiovascular: Present RRR Progress Note: A&P Assessment and plan (1) COVID-19: Status: Acute (2) Acute and chronic respiratory failure with hypoxia: Status: Acute (3) Acute exacerbation of chronic obstructive pulmonary disease: Status: Acute (4) Acute hypokalemia: Status: Acute (5) Tobacco use disorder: Status: Chronic (6) Onychogryphosis: Status: Acute (7) Onychodystrophy: Status: Acute (8) Hyperlipidemia: Status: Chronic (9) Hypertension: Status: Chronic (10) Hyperkeratosis of skin: Status: Acute (11) History of CVA (cerebrovascular accident): Status: Chronic (12) COPD (chronic obstructive pulmonary disease): Status: Chronic (13) Type 2 diabetes mellitus: Status: Acute (14) Elevated troponin: Status: Acute (15) Elevated brain natriuretic peptide (BNP) level: Status: Acute (16) Hypokalemia: Status: Acute (17) EtOH dependence: Status: Chronic (18) Atrial fibrillation with RVR: Status: Acute Assessment and Plan Assessment and Plan for All Diagnoses:: Chest discomfort with elevated troponin (type 2 NSTEMI), likely secondary to pulmonary issues -occasional MACIAS and chest discomfort in the setting of 2 pack/day tobacco use and A1c of 11 -severe hypokalemia and COVID-19 on admission (10/06/2023) -EKG showed sinus rhythm with occasional PVCs without ST or T wave changes -Coronary artery calcifications noted on prior Abd CT, but she is not presenting with ACS picture -Add aspirin, statin, beta-nichole -Needs [facility] but unable to lie flat for procedure COPD with COVID-19 -2 pack/day smoker -On nasal cannula here -Plans per primary service and Pulmonary Type 2 diabetes, A1c 11 -New diagnosis this admission, patient had not been to a doctor in many years -Added Jardiance for CV benefit, glucose control per primary service Severe hyperkeratosis bilateral lower extremities -Likely due to prolonged edema and hyperglycemia -PT is debriding at this time A. fib with RVR over the weekend -rate controlled on diltiazem and metoprolol -Start oral anticoagulation with eliquis -CHADS-VASC score is at least 5 Thrombocytosis -Plt count 776K on 10/11/2023, now 532K Hyperkalemia -Potassium supplementation and Aldactone discontinued, 10/12/2019 -Irbesartan stopped also ISAURA -Cr 1.6 with GFR 32 Hypertension -increase metoprolol succinate to 50 mg daily -stop irbesartan to see if this is contributing to hyperkalemia -now on Diltiazem long acting Elevated BNP at 16,000/HFpEF -On Jardiance -Aldactone stopped due to hyperkalemia -Echo EF 50% with near akinesis of LV apex Coronary artery calcifications on prior abdominal CTA -on statin and ASA -EF 50% with akinesis of LV -Needs C but unable to lie flat for procedure -Continue aspirin, statin, ARB and will add metoprolol Nothing further to add from Cardiac standpoint. Pt unable to lie flat for cardiac cath. A. fib is now rate controlled on metoprolol and diltiazem. Start eliquis 2.5 mg BID. Continue aspirin 81 mg daily Atorvastatin 80 mg daily Jardiance 10 mg daily Metoprolol succinate 50 mg daily Diltiazem 180 mg extended release daily Follow-up in our office 2 weeks after discharge
[2023-10-14] MEDS: humaLOG 100 UNITS/ML 3ML VIAL (SSI) SQ ×3 (12:01→20:55)
[2023-10-14] MEDS: APIXABAN 5MG TABLET 2.5 MG PO ×2 (12:02→20:56)
--- NOTE | 2023-10-14 14:16 | PC.NURSE ---
Education provided regarding use of insulin pen. Patient is able to place needle on end of pen and dial instructed dosage but is very reluctant to actually inject the medication even though medication was being injected into gauze. Patient states her sister in law will be able to do it for her. Education provided regarding use and storage. Patient will need reinforcement and further education. Will have patient inject herself with tonight's dose and will provide education to sister in law if she is willing
--- NOTE | 2023-10-14 14:57 | PC.NURSE ---
Patient called out requesting breathing tx. O2 sats 97% with minimal wheezing. Discussed possible anxiety secondary to insulin instruction versus actual respiratory issue. Patient continues to request breathing tx stating Dr. Rodriguez told her she could have one. RT called and will come to assess patient.
[2023-10-14] MEDS: diazePAM 5MG TABLET 5 MG PO (15:49)
[2023-10-14] MEDS: ERGOCALCIFEROL 50,000 UNITS (1.25MG) CAPSULE 50000 UNIT PO (17:57)
[2023-10-14] MEDS: MULTIVITAMIN TABLET 1 EACH PO (17:57)
[2023-10-14] MEDS: 0.9 % SODIUM CHLORIDE 1000ML 1,000 ML 125 ML IV (17:58)
--- NOTE | 2023-10-14 18:40 | PC.NURSE ---
Dr. Mckeon aware of patient's bradycardia. Order received for NS 125 ml
--- NOTE | 2023-10-14 18:41 | PC.NURSE ---
Pt alert and oriented. Bradycardic. Dr. Mckeon aware. Possibly due to increase in metoprolol. Order received for NS at 125 ml/hr 1000 ml to hopefully increase drug elimination. Up in chair all day. On room air. Attempted to educate patient regarding insulin pen administration. Increased anxiety with request for duoneb and then valium with improvement of symptoms. Up with 1 and FWW to C for voids and BM. Patient's sister in law called to discuss concerns with patient's discharge home, noncompliance and ability to care for herself. Will discuss with social work and Dr. Mckeon tomorrow.
[2023-10-14] MEDS: INSULIN GLARGINE 100 UNITS/ML 3ML FLEXPEN 30 UNIT SQ (20:55)
[2023-10-14] MEDS: ATORVASTATIN 40MG TABLET 80 MG PO (20:56)
[2023-10-14 21:09] LABS: POC Glucose,Bedside 237 (70-110)
--- NOTE | 2023-10-14 21:17 | ECG_ITS ---
APPROVED REPORT Exam: Resting ECG HR:64 bpm ECG Measurements Heart Rate 64 AXES OR 148 P 78 QRSd 90 QRS 79 QT 445 T 268 QTc 454 Conclusion SINUS RHYTHM WITH SINUS ARRHYTHMIA POSSIBLE ANTERIOR MYOCARDIAL INFARCTION , OF INDETERMINATE AGE [30 ms Q WAVE IN V3/V4, OR R < 0.2 mV IN V4] MODERATE T-WAVE ABNORMALITY, CONSIDER INFERIOR ISCHEMIA [-0.1+ mV T-WAVE IN II/aVF] ABNORMAL ECG UNCONFIRMED REPORT Electronically signed by : Jacob Delgado MD 10/15/2023 16:34:33
--- NOTE | 2023-10-14 21:38 | ECG_ITS ---
APPROVED REPORT Exam: Resting ECG HR:53 bpm ECG Measurements Heart Rate 53 AXES VA 141 P 79 QRSd 86 QRS 74 QT 486 T 266 QTc 470 Conclusion SINUS BRADYCARDIA POSSIBLE ANTERIOR MYOCARDIAL INFARCTION , OF INDETERMINATE AGE [30 ms Q WAVE IN V3/V4, OR R < 0.2 mV IN V4] MODERATE T-WAVE ABNORMALITY, CONSIDER INFERIOR ISCHEMIA [-0.1+ mV T-WAVE IN II/aVF] ABNORMAL ECG UNCONFIRMED REPORT Electronically signed by : Jacob Delgado MD 10/15/2023 16:34:07
--- NOTE | 2023-10-14 22:16 | PC.NURSE ---
Pt reported chest pain @ a 6, breathing regular, HR 66, BP 142/69. called RT @ 8 to request EKG, while RT was in the room pt reported pain was decreasing and rated pain at a 2, EKG reports read by ER doc, ER doc asked to repeat EKG for any changes and had concerns of t wave inversions, Contacted Dr. Mckeon, advised to monitor pt chest pain and report increasing pain.
[2023-10-15] VITALS (7 sets, daily range): BP systolic 113–154; BP diastolic 64–77; PULSE 48–70; RESP 16–20; TEMP 36.4–36.9; O2SAT 97–99; BMI 37.4
--- NOTE | 2023-10-15 05:28 | PC.NURSE ---
Pt remains A&Ox4 and is sating at in the high 90s on RA. Pt has C/O of some chest pain this shift (see previous note). Pt requested a neb treatment and was treated per NOV. Pt denies pain and needs at this time
[2023-10-15] MEDS: FLUTICASONE/UMECLIDIN/VILANTER 100/62.5/25MCG INHALER 1 PUFF IH (05:41)
[2023-10-15 06:01] LABS: POC Glucose,Bedside 183 (70-110)
[2023-10-15] MEDS: humaLOG 100 UNITS/ML 3ML VIAL (SSI) SQ ×4 (06:08→21:37)
[2023-10-15 06:14] LABS: Basophils # 0.1 K/mm3 (0-0.2); Basophils % 0.3 % (0.1-2.0); Eosinophils # 0.1 K/mm3 (0.0-0.4); Eosinophils % 0.6 % (0.1-12.0); Hematocrit 34.1 % (37.0-47.0); Hemoglobin 11.1 g/dL (12.2-16.2); Lymphocytes # 1.2 K/mm3 (0.7-4.5); Lymphocytes % 8.3 % (10-50); Mean Corpuscular HGB Conc 32.6 g/dL (31.8-35.4); Mean Corpuscular Hemoglobin 33.4 pg (27.0-31.2); Mean Corpuscular Volume 102.3 fl (81-99); Mean Platelet Volume 8.2 fl (7.4-10.4); Monocytes # 0.7 K/mm3 (0.1-1.0); Monocytes % 5.1 % (1.7-9.3); Neutrophils # 11.9 K/mm3 (1.8-7.8); Neutrophils % 85.7 % (37.0-80.0); Platelet Count 421 K/mm3 (142-424); Red Blood Count 3.33 M/mm3 (4.20-5.40); Red Cell Distribution Width 15.1 % (11.5-17.5); White Blood Count 13.9 K/mm3 (4.8-10.8)
[2023-10-15 06:16] LABS: MANUAL DIFFERENTIAL MANUAL DIFFERENTIAL (MANUAL DIFF)
[2023-10-15 07:31] LABS: Lymphocytes % 13 % (10-50); Macrocytosis 1+; Monocytes % 4 % (2-9); Neutrophils % 83 % (42-76); Total Cells Counted 100
[2023-10-15 07:32] LABS: Platelet Estimate Normal
[2023-10-15 08:03] LABS: Chloride 102 mmol/L (98-107)
[2023-10-15 08:04] LABS: Sodium 133 mmol/L (136-145)
[2023-10-15 08:07] LABS: Anion Gap 17.2 mEq/L (5-15); Blood Urea Nitrogen 53 mg/dl (7-17); Calcium 7.8 mg/dl (8.4-10.2); Carbon Dioxide 20 mmol/L (22.0-30.0); Creatinine Clearance Estimated 48 mL/min (50-200); Estimated Glomerular Filt Rate 35 ml/min (>60); GFR (African American) 42 ML/MIN (>60); Glucose 129 mg/dl (74-100)
[2023-10-15 08:11] LABS: Potassium 6.2 mmoL/L (3.5-5.1)
--- NOTE | 2023-10-15 08:27 | P.PN_ITS ---
Subjective *Date: 10/15/23 *Time: 09:06 Interval history: Patient states she is feeling better this morning. She had an episode of chest pain and bradycardia last night. She was given some fluids and an EKG was done. She has been on room air since yesterday with satisfactory oxygenation saturations. She is able to get up and move around the home with her walker. She denies any pain. Medical Exam Vital signs and Labs for Last 24 Hours: Vital Signs Temp Pulse Pulse Resp BP Pulse Ox O2 Del Method 10/15/23 06:45 Room Air 10/15/23 04:00 48 L 10/15/23 05:00 Room Air 10/15/23 04:00 97.6 F 55 L 20 113/70 97 Room Air 10/15/23 03:00 Room Air 10/15/23 01:00 Room Air 10/15/23 00:00 70 10/15/23 00:00 98 Room Air 10/14/23 23:45 98.4 F 60 18 118/72 96 Room Air 10/14/23 23:12 63 10/14/23 23:12 61 10/14/23 23:00 Room Air 10/14/23 21:00 Room Air 10/14/23 20:00 57 L 99 Room Air 10/14/23 20:00 54 L 10/14/23 19:58 97.8 F 57 L 18 128/63 99 Room Air 10/14/23 18:39 Room Air 10/14/23 17:00 Room Air 10/14/23 16:00 50 L 10/14/23 15:06 65 10/14/23 15:06 63 10/14/23 15:06 98 Room Air 10/14/23 14:56 97.6 F 59 L 18 118/55 L 97 Room Air 10/14/23 14:43 Room Air 10/14/23 12:00 80 10/14/23 12:48 Room Air 10/14/23 11:00 Room Air 10/14/23 11:04 98.0 F 66 18 148/61 H 99 Room Air 10/14/23 09:22 95 Room Air Intake and Output 10/14/23 10/15/23 10/15/23 19:59 03:59 11:59 Intake Total 1200 / 1825 625 / 1825 Output Total 350 / 800 250 / 800 200 / 800 Balance 850 / 1025 375 / 1025 -200 / 1025 Intake: Intake, Oral Amount 1200 / 1200 Intake, Total IV Amount 625 / 625 0.9 % Sodium Chloride 1000ML 1, 625 / 625 000 ml @ 125 mls/hr IV .Q8H [facility] Rx#:[id number] Output: Output, Urine Amount 350 / 800 250 / 800 200 / 800 Other: Number of Unmeasured Voids 1 Number of Bowel Movements 1 Weight 185 lb 10.067 oz Patient Weight 10/15/23 11:59 Weight 185 lb 10.067 oz Laboratory Results - last 24 hr 10/14/23 20:50: POC Glucose 237 H 10/15/23 05:45: WBC 13.9 H, RBC 3.33 L, Hgb 11.1 L, Hct 34.1 L, MCV 102.3 H, MCH 33.4 H, MCHC 32.6, RDW 15.1, Plt Count 421, MPV 8.2, Neut % (Auto) 85.7 H, Lymph % (Auto) 8.3 L, [place] % (Auto) 5.1, Eos % (Auto) 0.6, Baso % (Auto) 0.3, Neut # (Auto) 11.9 H, Lymph # (Auto) 1.2, [place] # (Auto) 0.7, Eos # (Auto) 0.1, Baso # (Auto) 0.1, Total Counted 100, Neutrophils % (Manual) 83 H, Lymphocytes % (Manual) 13, Monocytes % (Manual) 4, Platelet Estimate Normal, Macrocytosis 1+, Sodium 133 L, Potassium 6.2 H*, Chloride 102, Carbon Dioxide 20 L, Anion Gap 17.2 H, BUN 53 H, Creatinine 1.50 H, Estimated Creat Clear 48, Estimated GFR 35 L, Est GFR ( Amer) 42 L, Glucose 129 H, Calcium 7.8 L 10/15/23 05:49: POC Glucose 183 H I & O for Labs for Last 24 Hours: Intake & Output 10/12/23 10/13/23 10/14/23 10/15/23 11:59 11:59 11:59 11:59 Intake Total 1820.333 / 1820.333 990 / 990 1740 / 1740 1825 / 1825 Output Total 500 / 500 1675 / 1675 1150 / 1150 800 / 800 Balance 1320.333 / 1320.333 -685 / -685 590 / 590 1025 / 1025 Weight 185 lb 6 oz 185 lb 11.478 oz 185 lb 10.067 oz 185 lb 10.067 oz Constitutional: Present no acute distress Comment:: Sitting up in bedside chair. Respiratory: Present decreased breath sounds (Bilateral bases) and wheezes (improving) Cardiac: Present Irregularly Regular GI: Present soft and normal bowel sounds; Absent distention Extremities: Present edema (bilateral LE's, wraps in place) Neuro: Present alert and awake Assessment and Plan *Assessment and plan (1) COVID-19: Status: Acute Category: Medical Code(s): U07.1 - COVID-19 (2) Acute and chronic respiratory failure with hypoxia: Status: Acute Category: Medical Code(s): J96.21 - Acute and chronic respiratory failure with hypoxia (3) Acute exacerbation of chronic obstructive pulmonary disease: Status: Acute Category: Medical Code(s): J44.1 - Chronic obstructive pulmonary disease with (acute) exacerbation (4) Acute hypokalemia: Status: Acute Category: Medical Code(s): E87.6 - Hypokalemia (5) Tobacco use disorder: Status: Chronic Category: Medical Code(s): F17.200 - Nicotine dependence, unspecified, uncomplicated (6) Onychogryphosis: Status: Acute Category: Medical Code(s): L60.2 - Onychogryphosis (7) Onychodystrophy: Status: Acute Category: Medical Code(s): L60.3 - Nail dystrophy (8) Hyperlipidemia: Status: Chronic Category: Medical Code(s): E78.5 - Hyperlipidemia, unspecified (9) Hypertension: Status: Chronic Category: Medical Code(s): I10 - Essential (primary) hypertension (10) Hyperkeratosis of skin: Status: Acute Category: Medical Code(s): L85.9 - Epidermal thickening, unspecified (11) History of CVA (cerebrovascular accident): Status: Chronic Category: Medical Code(s): Z86.73 - Personal history of transient ischemic attack (TIA), and cerebral infarction without residual deficits (12) COPD (chronic obstructive pulmonary disease): Status: Chronic Category: Medical Code(s): J44.9 - Chronic obstructive pulmonary disease, unspecified (13) Type 2 diabetes mellitus: Status: Acute Category: Medical Code(s): E11.9 - Type 2 diabetes mellitus without complications (14) Elevated troponin: Status: Acute Category: Medical Code(s): R79.89 - Other specified abnormal findings of blood chemistry (15) Elevated brain natriuretic peptide (BNP) level: Status: Acute Category: Medical Code(s): R79.89 - Other specified abnormal findings of blood chemistry (16) Hypokalemia: Status: Acute Category: Medical Code(s): E87.6 - Hypokalemia (17) EtOH dependence: Status: Chronic Qualifiers: Substance use status: unspecified alcohol-induced disorder Qualified Code(s): F10.29 - Alcohol dependence with unspecified alcohol-induced disorder Category: Medical Code(s): F10.20 - Alcohol dependence, uncomplicated (18) Atrial fibrillation with RVR: Status: Acute Category: Medical Code(s): I48.91 - Unspecified atrial fibrillation Plan Patient is improving. Her potassium is elevated this morning. Will discuss wi th Dr. Mckeon. Her [id number] has expressed concern with her coming home. The patient refuses placement. Will discuss with case management. Dr. Mckeon entry - Saw patient, agree with above note. Spoke to her at length about short term placement. She is agreeable to placement. Stop Diltiazem, change to Metoprolol tartrate, give Kayexalate now.
[2023-10-15 09:18] LABS: Magnesium 1.5 mg/dl (1.6-2.3)
[2023-10-15] MEDS: SODIUM POLY SULFON 15GM/60ML ORAL.SUSP 15 GM PO (09:48)
[2023-10-15] MEDS: ZINC SULFATE 220MG CAPSULE 220 MG PO (09:49)
[2023-10-15] MEDS: FOLIC ACID 1MG TABLET 1 MG PO (09:49)
[2023-10-15] MEDS: ASCORBIC ACID 500MG TAB 500 MG PO ×3 (09:49→21:16)
[2023-10-15] MEDS: FAMOTIDINE 20MG TABLET 20 MG PO ×2 (09:50→21:16)
[2023-10-15] MEDS: ASPIRIN EC 81MG TABLET 81 MG PO (09:50)
[2023-10-15] MEDS: DEXAMETHASONE 4MG/ML 1ML VIAL 6 MG IV (09:51)
[2023-10-15] MEDS: FUROSEMIDE 40MG/4ML VIAL 40 MG IV (09:51)
[2023-10-15] MEDS: APIXABAN 5MG TABLET 2.5 MG PO ×2 (09:51→21:16)
--- NOTE | 2023-10-15 10:00 | P.PN_ITS ---
Subjective *Date: 10/15/23 *Time: 11:32 Interval history: Patient denies any new respiratory complaints. Continued to remain on room air. Pulmonology Exam Inpatient Vital signs and Labs for Last 24 Hours: Temp Pulse Resp BP Pulse Ox O2 Del Method O2 Flow Rate 97.7 F 69 18 132/64 99 Room Air 2 10/15/23 08:00 10/15/23 08:00 10/15/23 08:00 10/15/23 08:00 10/15/23 08:00 10/15/23 08:45 10/14/23 06:56 FiO2 28 10/11/23 19:09 Laboratory Results - last 24 hr 10/14/23 20:50: POC Glucose 237 H 10/15/23 05:45: WBC 13.9 H, RBC 3.33 L, Hgb 11.1 L, Hct 34.1 L, MCV 102.3 H, MCH 33.4 H, MCHC 32.6, RDW 15.1, Plt Count 421, MPV 8.2, Neut % (Auto) 85.7 H, Lymph % (Auto) 8.3 L, [place] % (Auto) 5.1, Eos % (Auto) 0.6, Baso % (Auto) 0.3, Neut # (Auto) 11.9 H, Lymph # (Auto) 1.2, [place] # (Auto) 0.7, Eos # (Auto) 0.1, Baso # (Auto) 0.1, Total Counted 100, Neutrophils % (Manual) 83 H, Lymphocytes % (Manual) 13, Monocytes % (Manual) 4, Platelet Estimate Normal, Macrocytosis 1+, Sodium 133 L, Potassium 6.2 H*, Chloride 102, Carbon Dioxide 20 L, Anion Gap 17.2 H, BUN 53 H, Creatinine 1.50 H, Estimated Creat Clear 48, Estimated GFR 35 L, Est GFR ( Amer) 42 L, Glucose 129 H, Calcium 7.8 L, Magnesium 1.5 L 10/15/23 05:49: POC Glucose 183 H I & O for Labs for Last 24 Hours: Intake & Output 10/12/23 10/13/23 10/14/23 10/15/23 23:59 23:59 23:59 23:59 Intake Total 727.5 / 727.5 1590 / 1590 1860 / 2485 1761 / 1761 Output Total 1100 / 1500 1925 / 1925 650 / 650 450 / 450 Balance -372.5 / -772.5 -335 / -335 1210 / 1835 1311 / 1311 Weight 185 lb 6 oz 185 lb 11.478 oz 185 lb 10.067 oz 185 lb 10.067 oz Constitutional: Present mild distress Head: Present normocephalic and atraumatic ENT: Present normal exam, normal oropharynx and mucous membranes moist Neck: Present normal inspection and full ROM Respiratory: Present respiratory distress, normal respiratory effort and able to speak in complete sentences; Absent wheezes or diminished air movement Cardiac: Present S1/S2, Tachycardia and radial pulses present GI: Present soft and distention; Absent tenderness or guarding Rectal (female): Present deferred (female): Present deferred Skin: Present intact; Absent cyanosis or jaundice Neuro: Present alert, awake and oriented x 3 Extremities: Present normal inspection; Absent clubbing or cyanosis Psychiatric: Present normal affect and cooperative Assessment and Plan *Assessment and plan (1) COVID-19: Status: Acute Category: Medical Code(s): U07.1 - COVID-19 (2) Acute and chronic respiratory failure with hypoxia: Status: Acute Category: Medical Code(s): J96.21 - Acute and chronic respiratory failure with hypoxia Plan Ms. Hull is a 68-year-old female current smoker greater than 30 PPD, self- reported hypertension, dyslipidemia presented to the ER on 10/07/2023 with worsening respiratory distress Patient admission was clinically concerning for COPD and CHF exacerbation, initiated on oxygen. Nebulizations IV steroids and diuretics. Chest x-ray upon admission clear with no dense consolidation. ABG upon admission did not show any mild hypercarbic respiratory failure, mild hypoxic respiratory failure while on 2 L with a PaO2 of 59 continue. COVID-19 PCR positive admission from 10/06/2023. Patient has been receiving dexamethasone 6 mg IV daily Echocardiogram low normal LV systolic function with a EF of 50%. Near Akinesis of LV apical wall. Hemodynamically stable. On initial examination patient appeared to be in mild to moderate respiratory distress. Component of anxiety contributing to her symptoms. Saturating 95% and above on 2 L nasal cannula. Poor pleth noted. Auscultation clear with no significant wheezing. Interval update: No acute respiratory events overnight. Patient continued to remain on room air. Good symptom control. Currently being actively managed for ISAURA and hyperkalemia, managed by primary team. Plan: Incentive spirometry Continue Trelegy 100 inhaler along with DuoNebs every 6 hours only on as-needed basis Continue oxygen supplementation to maintain O2 saturation of 90 to 95%. We will hold off on performing CT PE at this point of time. D-dimer elevated at 0.94 with LV apical akinesis. # Thank you for involving pulmonary in this patient care. Will follow the patient in pulmonary clinic in 4 to 6 weeks with a full PFT and 6-minute walk testing prior to clinic visit.
[2023-10-15] MEDS: EMPAGLIFLOZIN 10MG TABLET 10 MG PO (10:11)
[2023-10-15] MEDS: diazePAM 5MG TABLET 5 MG PO ×3 (10:14→23:47)
[2023-10-15] MEDS: METOPROLOL TARTRATE 50MG TABLET 50 MG PO ×2 (10:15→21:17)
[2023-10-15 10:28] LABS: Influenza A, PCR Not Detected (NotDetected); Influenza B, PCR Not Detected (NotDetected)
--- NOTE | 2023-10-15 10:32 | EXP.CARD.PN ---
Subjective Subjective Date: 10/15/23 Time: 10:33 Principal diagnosis: COVID, CHF, COPD Interval history: 68-year-old white female sitting in bedside chair in no acute distress. Clinically stable with no complaints of chest pain this morning. Brief episode of chest pain last night with EKG without significant changes or evidence of acute coronary syndrome. Heart rate was noted to be in the high 40s and low 50s beat per minute range. Potassium has increased to 6.2 overnight without additional potassium supplement or nephrotoxic drugs and at least 2 days. Exam Data for Last 24 hours Vital signs and Labs for Last 24 Hours: Temp Pulse Resp BP Pulse Ox O2 Del Method O2 Flow Rate 97.7 F 69 18 132/64 99 Room Air 2 10/15/23 08:00 10/15/23 08:00 10/15/23 08:00 10/15/23 08:00 10/15/23 08:00 10/15/23 08:45 10/14/23 06:56 FiO2 28 10/11/23 19:09 Laboratory Results - last 24 hr 10/14/23 20:50: POC Glucose 237 H 10/15/23 05:45: WBC 13.9 H, RBC 3.33 L, Hgb 11.1 L, Hct 34.1 L, MCV 102.3 H, MCH 33.4 H, MCHC 32.6, RDW 15.1, Plt Count 421, MPV 8.2, Neut % (Auto) 85.7 H, Lymph % (Auto) 8.3 L, [place] % (Auto) 5.1, Eos % (Auto) 0.6, Baso % (Auto) 0.3, Neut # (Auto) 11.9 H, Lymph # (Auto) 1.2, [place] # (Auto) 0.7, Eos # (Auto) 0.1, Baso # (Auto) 0.1, Total Counted 100, Neutrophils % (Manual) 83 H, Lymphocytes % (Manual) 13, Monocytes % (Manual) 4, Platelet Estimate Normal, Macrocytosis 1+, Sodium 133 L, Potassium 6.2 H*, Chloride 102, Carbon Dioxide 20 L, Anion Gap 17.2 H, BUN 53 H, Creatinine 1.50 H, Estimated Creat Clear 48, Estimated GFR 35 L, Est GFR ( Amer) 42 L, Glucose 129 H, Calcium 7.8 L, Magnesium 1.5 L 10/15/23 05:49: POC Glucose 183 H I & O for Last 24 hours: Intake & Output 10/12/23 10/13/23 10/14/23 10/15/23 11:59 11:59 11:59 11:59 Intake Total 1820.333 / 1820.333 990 / 990 1740 / 1740 2961 / 2961 Output Total 500 / 500 1675 / 1675 1150 / 1150 800 / 800 Balance 1320.333 / 1320.333 -685 / -685 590 / 590 2161 / 2161 Weight 185 lb 6 oz 185 lb 11.478 oz 185 lb 10.067 oz 185 lb 10.067 oz *Routine Respiratory Exam Respiratory: Present rhonchi *Routine Cardiovascular Exam Cardiovascular: Present RRR and bradycardia *Routine Extremities Exam Extremities: Present edema Progress Note: A&P Assessment and plan (1) COVID-19: Status: Acute (2) Acute and chronic respiratory failure with hypoxia: Status: Acute (3) Acute exacerbation of chronic obstructive pulmonary disease: Status: Acute (4) Tobacco use disorder: Status: Chronic (5) Onychogryphosis: Status: Acute (6) Onychodystrophy: Status: Acute (7) Hyperlipidemia: Status: Chronic (8) Hypertension: Status: Chronic (9) Hyperkeratosis of skin: Status: Acute (10) History of CVA (cerebrovascular accident): Status: Chronic (11) COPD (chronic obstructive pulmonary disease): Status: Chronic (12) Type 2 diabetes mellitus: Status: Acute (13) Elevated troponin: Status: Acute (14) Elevated brain natriuretic peptide (BNP) level: Status: Acute (15) EtOH dependence: Status: Chronic (16) Atrial fibrillation with RVR: Status: Acute (17) Hyperkalemia: Status: Acute Assessment and Plan Assessment and Plan for All Diagnoses:: Chest discomfort with elevated troponin (type 2 NSTEMI), likely secondary to pulmonary issues -occasional MACIAS and chest discomfort in the setting of 2 pack/day tobacco use and A1c of 11 -severe hypokalemia and COVID-19 on admission (10/06/2023) -EKG showed sinus rhythm with occasional PVCs without ST or T wave changes -Coronary artery calcifications noted on prior Abd CT, but she is not presenting with ACS picture -Add aspirin, statin, beta-nichole -Needs [facility] but unable to lie flat for procedure COPD with COVID-19 -2 pack/day smoker -On nasal cannula here -Plans per primary service and Pulmonary Type 2 diabetes, A1c 11 -New diagnosis this admission, patient had not been to a doctor in many years -Added Jardiance for CV benefit, glucose control per primary service Severe hyperkeratosis bilateral lower extremities -Likely due to prolonged edema and hyperglycemia -PT is debriding at this time A. fib with RVR over the weekend, returned to NSR spontaneously -Start oral anticoagulation with eliquis -CHADS-VASC score is at least 5 Thrombocytosis -Plt count 776K on 10/11/2023, now 421 Hyperkalemia -Potassium supplementation and Aldactone discontinued, 10/12/2019 -Irbesartan stopped ISAURA -Cr 1.5 with GFR 35 Hypertension -increase metoprolol succinate to 50 mg daily -stopped irbesartan -will stop diltiazem in light of bradycardia Elevated BNP at 16,000/HFpEF -On Jardiance -Aldactone stopped due to hyperkalemia -Echo EF 50% with near akinesis of LV apex Coronary artery calcifications on prior abdominal CTA -on statin and ASA -EF 50% with akinesis of LV -Needs C but unable to lie flat for procedure -Continue aspirin, statin, ARB and will add metoprolol Diltiazem to be stopped today due to rate of cardia. Continue metoprolol but switch to tartrate 50 mg twice daily Dose of Lasix being given today due to elevated potassium Plan is for possible discharge tomorrow
--- NOTE | 2023-10-15 10:58 | HMH.OTEV ---
OT Inpatient Evaluation Rehab OT IP Evaluation Start: 10/15/23 09:08 Freq: ONCE Status: Active Protocol: Document 10/15/23 10:51 [facility] (Rec: 10/15/23 10:58 [facility] [id number]) Rehab OT IP Assessment Subjective History Pt oriented x 2 on arrival. Pt agreeable to engage in therapy evaluation. Pt admitted on 10/07/23 due to Covid +, CHF, COPD, and hypokalemia. Prior to being in the hospital, she lived in a house with her sister. Pt claims normally she is independent with ADLs such as dressing, bathing, and feeding . However, she was dependent upon family for completion of most IADLs. Pt claims she was able to cook small microwavable meals and clean only her room . She also used a walker during functional transfers. History and Physical: 68 female history of hypertension, hyperlipidemia, c/o ED still smoking 2 packs a day and not on home oxygen chronic lower extreme edema presenting with shortness of breath. Patient states she has been getting short of breath the last 3 to 4 days. Has not seen a doctor in over 2 years. States that she is out of her breathing treatments, still smoking 2 packs a day. Denies chest pain, nausea or vomiting, but shortness of breath is associated with dry cough. No fevers or chills. She states that her and chronic skin changes have gotten worse and she is concerned about cellulitis as well. It should be noted the patient has not seen a family doctor in a very long time and does not manage her comorbidities, complicating care. History was obtained via conversation with patient and family. Subjective I am a little confused. Objective Patient Orientation Person,Birthday Right Upper Extremity Gross ROM Min Limitation <25% Left Upper Extremity Gross ROM Min Limitation <25% Shoulder ROM Limitations Muscle Weakness Elbow ROM Limitations Muscle Weakness Wrist Limitations of Range of Motion Muscle Weakness Transfer Training Sit/Stand Transfer Assist Level Minimal x 1 (25% assist) Chair Transfer Ability Minimal x 1 (25% assist) Chair Transfer Technique Sit to/from Ambulatory Chair Transfer Assistive Devices Rolling Walker Performing Toilet Hygiene Ability Moderate Assistance Overall Commode/Toilet Transfer Ability Minimal Assistance Commode/Toilet Transfer Technique Sit to/from Ambulatory Rehab OT IP prob,goals,plan Problems Date of Evaluation: 10/15/23 OT IP Problems Bed Mobility,Transfers,Balance ,Self care,Safety Rehab Potential Rehab Potential Good Equipment Needs Assistive Devices Rolling / Wheeled Walker Plan OT intervention Plan Bed Mobility,Transfers,Balance ,Self care,Safety,Therapeutic Exercise OT Plan Frequency Daily Duration LOS Discharge Goals Bed Mobility Ability Standby Assistance Sit to Stand Chair Transfer Ability Contact Guard/Hand Hold, Minimal x 1 (25% assist) Chair Transfer Ability Contact Guard/Hand Hold, Minimal x 1 (25% assist) Chair Transfer Technique Sit to/from Ambulatory Chair Transfer Assistive Devices Rolling Walker Feeding Ability Assist with Tray Set Up Lower Body Dressing Ability Minimal Assistance Upper Body Dressing Ability Contact Guard Bathing Ability Moderate Assistance Performing Toilet Hygiene Ability Minimal Assistance Overall Commode/Toilet Transfer Ability Minimal Assistance Commode/Toilet Transfer Technique Sit to/from Ambulatory Commode/Toilet Transfer Assistive Raised Toilet Seat,Grab Bars Devices Oral Care Assist Contact Guard Decrease in Endurance Yes Discharge Plan OT Discharge Plan Pt will continue to be seen for OT services while at [facility]. Pt would benefit most from short term rehab at SNF following hosptial stay. Continued skilled therapy is important in order for patient to improve strength, safety, endurance, ADL independence, and functional transfesr to reach PLOF. Eval Complexity Eval Charge Codes 34265 - Moderate Complexity PHYSICIAN CERTIFICATION: I certify the specified therapy services for Umm Hull are required, authorized, and reviewed every 30 days.
[2023-10-15 11:17] LABS: Coronavirus 19, PCR Detected (NotDetected)
--- NOTE | 2023-10-15 12:35 | HMH.PTEV ---
Physical Therapy Evaluation Rehab PT IP Evaluation Start: 10/15/23 09:08 Freq: ONCE Status: Active Protocol: Document 10/15/23 10:30 [facility] (Rec: 10/15/23 12:34 [facility] [id number]) Subjective/History History History Per history and physical: 68 female history of hypertension, hyperlipidemia, c/o ED still smoking 2 packs a day and not on home oxygen chronic lower extreme edema presenting with shortness of breath. Patient states she has been getting short of breath the last 3 to 4 days. Has not seen a doctor in over 2 years. States that she is out of her breathing treatments, still smoking 2 packs a day. Denies chest pain, nausea or vomiting, but shortness of breath is associated with dry cough. No fevers or chills. She states that her and chronic skin changes have gotten worse and she is concerned about cellulitis as well. It should be noted the patient has not seen a family doctor in a very long time and does not manage her comorbidities, complicating care. History was obtained via conversation with patient and family. Subjective Subjective Pt agreeable to PT evaluation. Pt reports she lives at home with sister and uses RW for all ambulation. Pt reports a few QUINN home but pt avoids leaving the house. PLOF: independent with functional mobility using RW. New diagnosis of cancer in past 12 No months? Rehab PT IP Eval Objective Appearance Patient Behavior Appropriate,Cooperative Patient Orientation Person Ambulation Patient Able to Ambulate Yes Ambulation Observation Ambulation Distance (feet) 5 Ambulation Assistive Device Rolling Walker Ambulation Ability Minimal x 1 (25% assist) Transfers Sit to Stand Bed Transfer Ability Contact Guard/Hand Hold Rehab PT IP prob,goals,plan Problems Date of Evaluation: 10/15/23 PT IP Problems Bed Mobility,Transfers,Gait, Balance,Safety Rehab Potential Rehab Potential Good Equipment Needs Assistive Devices Rolling / Wheeled Walker Plan PT Intervention Plan Bed Mobility,Transfers,Gait, Balance,Safety,Therapeutic Exercise Other Intervention Plan 1-2 times PT Plan Frequency Daily Duration LOS Discharge Goals Bed Transfer Ability Supervision/Stand by Sit to Stand Chair Transfer Ability Supervision/Stand by Ambulation Assistive Device Rolling Walker Ambulation Distance (feet) 15 Discharge Plan PT Discharge Plan Pt not safe to return home d/t current functional mobility level. Pt is an increased risk for falls, therefore, PT recommending placement in short-term rehabilitation. Pt would benefit from skilled physical therapy to address deficits and prevent further functional decline. Eval Complexity Eval Charge Codes 84994 - High Complexity PHYSICIAN CERTIFICATION: I certify the specified therapy services for Umm Hull are required, authorized, and reviewed every 30 days.
[2023-10-15 13:23] LABS: Potassium 5.8 mmoL/L (3.5-5.1)
[2023-10-15] MEDS: MULTIVITAMIN TABLET 1 EACH PO (17:07)
--- NOTE | 2023-10-15 18:38 | PC.NURSE ---
Dressings changed on bilateral legs per wound care recommendations.
[2023-10-15] MEDS: ATORVASTATIN 40MG TABLET 80 MG PO (21:17)
[2023-10-15] MEDS: INSULIN GLARGINE 100 UNITS/ML 3ML FLEXPEN 30 UNIT SQ (21:17)
[2023-10-15] MEDS: MAGNESIUM OXIDE 400MG TABLET 400 MG PO (21:37)
[2023-10-16] VITALS: BP 161/77; PULSE 57; PULSE 60; RESP 18; TEMP 36.5; O2SAT 98
[2023-10-16 04:00] VITALS: BP 128/68; PULSE 63; PULSE 70; RESP 18; TEMP 36.5; O2SAT 100; BMI 37.3
--- NOTE | 2023-10-16 05:43 | PC.NURSE ---
Patient has had a good shift. The patient did have some anxiousness, nausea and headache to score her CIWAs to a 2. Those symptoms went away with PRN medication. The patient has had no other issues and has rested well both in the chair and in the bed. The patient has been up multiple times to the bedside toilet and voided well.
[2023-10-16 05:54] LABS: POC Glucose,Bedside 96 (70-110)
[2023-10-16 06:46] LABS: Basophils # 0.1 K/mm3 (0-0.2); Basophils % 0.8 % (0.1-2.0); Eosinophils % 0.1 % (0.1-12.0); Hematocrit 38.5 % (37.0-47.0); Hemoglobin 11.7 g/dL (12.2-16.2); Lymphocytes # 0.9 K/mm3 (0.7-4.5); Lymphocytes % 8.7 % (10-50); Mean Corpuscular HGB Conc 30.4 g/dL (31.8-35.4); Mean Corpuscular Hemoglobin 32.5 pg (27.0-31.2); Mean Corpuscular Volume 106.9 fl (81-99); Mean Platelet Volume 8.9 fl (7.4-10.4); Monocytes # 0.5 K/mm3 (0.1-1.0); Neutrophils # 8.6 K/mm3 (1.8-7.8); Neutrophils % 85.4 % (37.0-80.0); Platelet Count 351 K/mm3 (142-424); Red Cell Distribution Width 14.7 % (11.5-17.5); White Blood Count 10.1 K/mm3 (4.8-10.8)
[2023-10-16 06:58] LABS: MANUAL DIFFERENTIAL MANUAL DIFFERENTIAL (MANUAL DIFF)
[2023-10-16] MEDS: FLUTICASONE/UMECLIDIN/VILANTER 100/62.5/25MCG INHALER 1 PUFF IH (06:58)
[2023-10-16 07:25] LABS: Chloride 101 mmol/L (98-107)
[2023-10-16 07:26] LABS: Sodium 133 mmol/L (136-145)
[2023-10-16 07:29] LABS: Blood Urea Nitrogen 52 mg/dl (7-17); Calcium 7.7 mg/dl (8.4-10.2); Carbon Dioxide 26 mmol/L (22.0-30.0); Creatinine Clearance Estimated 55 mL/min (50-200); Estimated Glomerular Filt Rate 41 ml/min (>60); GFR (African American) 49 ML/MIN (>60); Glucose 113 mg/dl (74-100)
[2023-10-16 08:00] VITALS: BP 148/74; PULSE 50; PULSE 70; RESP 19; TEMP 36.8; O2SAT 96
[2023-10-16 08:31] LABS: Lymphocytes % 6 % (10-50); Macrocytosis 2+; Monocytes % 2 % (2-9); Neutrophils % 92 % (42-76); Platelet Estimate Normal; Total Cells Counted 100
--- NOTE | 2023-10-16 09:10 | P.PN_ITS ---
Subjective *Date: 10/16/23 *Time: 09:10 Interval history: Patient with no new complaints today. Medical Exam Vital signs and Labs for Last 24 Hours: Vital Signs Temp Pulse Pulse Resp BP Pulse Ox O2 Del Method 10/16/23 08:00 98.2 F 70 19 148/74 H 96 Room Air 10/16/23 06:49 Room Air 10/16/23 04:00 70 10/16/23 00:00 60 10/16/23 05:00 Room Air 10/16/23 04:00 97.7 F 63 18 128/68 100 Room Air 10/16/23 01:00 Room Air 10/15/23 20:00 70 10/16/23 00:00 97.7 F 57 L 18 161/77 H 98 Room Air 10/16/23 03:00 Room Air 10/15/23 23:00 Room Air 10/15/23 21:00 Room Air 10/15/23 20:00 Room Air 10/15/23 20:00 97.8 F 70 18 154/73 H 97 Room Air 10/15/23 18:37 Room Air 10/15/23 17:00 Room Air 10/15/23 16:30 98.5 F 63 16 141/77 H 99 Room Air 10/15/23 16:00 65 10/15/23 15:00 Room Air 10/15/23 13:00 Room Air 10/15/23 12:00 60 10/15/23 12:00 97.8 F 61 18 142/64 H 97 Room Air 10/15/23 10:51 Room Air Intake and Output 10/15/23 10/16/23 10/16/23 23:59 07:59 15:59 Intake Total 990 / 3021 360 / 360 Output Total 1050 / 2600 800 / 1200 400 / 1200 Balance -60 / 421 -800 / -840 -40 / -840 Intake: Intake, Oral Amount 990 / 1530 360 / 360 Output: Output, Urine Amount 1050 / 2600 800 / 1200 400 / 1200 Other: Number of Voids 1 1 Weight 185 lb 3.013 oz Patient Weight 10/16/23 23:59 Weight 185 lb 3.013 oz Laboratory Results - last 24 hr 10/15/23 05:45: Magnesium 1.5 L 10/15/23 10:27: SARS-CoV-2 (PCR) Detected A, Influenza A Untype (PCR) Not detected, Influenza Type B (PCR) Not detected 10/15/23 13:05: Potassium 5.8 H 10/16/23 05:46: POC Glucose 96 10/16/23 06:25: WBC 10.1 D, RBC 3.60 L, Hgb 11.7 L, Hct 38.5, MCV 106.9 H, MCH 32.5 H, MCHC 30.4 L, RDW 14.7, Plt Count 351, MPV 8.9, Neut % (Auto) 85.4 H, Lymph % (Auto) 8.7 L, [place] % (Auto) 5.0, Eos % (Auto) 0.1, Baso % (Auto) 0.8, Neut # (Auto) 8.6 H, Lymph # (Auto) 0.9, [place] # (Auto) 0.5, Eos # (Auto) 0.0, Baso # (Auto) 0.1, Total Counted 100, Neutrophils % (Manual) 92 H, Lymphocytes % (Manual) 6 L, Monocytes % (Manual) 2, Platelet Estimate Normal, Macrocytosis 2+, Sodium 133 L, Potassium 5.0, Chloride 101, Carbon Dioxide 26, Anion Gap 11.0, BUN 52 H, Creatinine 1.30 H, Estimated Creat Clear 55, Estimated GFR 41 L, Est GFR ( Amer) 49 L, Glucose 113 H, Calcium 7.7 L I & O for Labs for Last 24 Hours: Intake & Output 10/13/23 10/14/23 10/15/23 10/16/23 23:59 23:59 23:59 23:59 Intake Total 1590 / 1590 1860 / 2485 3021 / 3021 360 / 360 Output Total 1925 / 1925 650 / 650 2600 / 2600 1200 / 1200 Balance -335 / -335 1210 / 1835 421 / 421 -840 / -840 Weight 185 lb 11.478 oz 185 lb 10.067 oz 185 lb 10.067 oz 185 lb 3.013 oz Constitutional: Present no acute distress Comment:: Sitting up in bedside chair. Respiratory: Present decreased breath sounds (Bilateral bases) and wheezes (improving) Cardiac: Present Irregularly Regular GI: Present soft and normal bowel sounds; Absent distention Extremities: Present edema (bilateral LE's, wraps in place) Neuro: Present alert and awake Assessment and Plan *Assessment and plan (1) COVID-19: Status: Acute Category: Medical Code(s): U07.1 - COVID-19 (2) Acute and chronic respiratory failure with hypoxia: Status: Acute Category: Medical Code(s): J96.21 - Acute and chronic respiratory failure with hypoxia (3) Acute exacerbation of chronic obstructive pulmonary disease: Status: Acute Category: Medical Code(s): J44.1 - Chronic obstructive pulmonary disease with (acute) exacerbation (4) Acute hypokalemia: Status: Acute Category: Medical Code(s): E87.6 - Hypokalemia (5) Tobacco use disorder: Status: Chronic Category: Medical Code(s): F17.200 - Nicotine dependence, unspecified, uncomplicated (6) Onychogryphosis: Status: Acute Category: Medical Code(s): L60.2 - Onychogryphosis (7) Onychodystrophy: Status: Acute Category: Medical Code(s): L60.3 - Nail dystrophy (8) Hyperlipidemia: Status: Chronic Category: Medical Code(s): E78.5 - Hyperlipidemia, unspecified (9) Hypertension: Status: Chronic Category: Medical Code(s): I10 - Essential (primary) hypertension (10) Hyperkeratosis of skin: Status: Acute Category: Medical Code(s): L85.9 - Epidermal thickening, unspecified (11) History of CVA (cerebrovascular accident): Status: Chronic Category: Medical Code(s): Z86.73 - Personal history of transient ischemic attack (TIA), and cerebral infarction without residual deficits (12) COPD (chronic obstructive pulmonary disease): Status: Chronic Category: Medical Code(s): J44.9 - Chronic obstructive pulmonary disease, unspecified (13) Type 2 diabetes mellitus: Status: Acute Category: Medical Code(s): E11.9 - Type 2 diabetes mellitus without complications (14) Elevated troponin: Status: Acute Category: Medical Code(s): R79.89 - Other specified abnormal findings of blood chemistry (15) Elevated brain natriuretic peptide (BNP) level: Status: Acute Category: Medical Code(s): R79.89 - Other specified abnormal findings of blood chemistry (16) Hypokalemia: Status: Acute Category: Medical Code(s): E87.6 - Hypokalemia (17) EtOH dependence: Status: Chronic Qualifiers: Substance use status: unspecified alcohol-induced disorder Qualified Code(s): F10.29 - Alcohol dependence with unspecified alcohol-induced disorder Category: Medical Code(s): F10.20 - Alcohol dependence, uncomplicated (18) Atrial fibrillation with RVR: Status: Acute Category: Medical Code(s): I48.91 - Unspecified atrial fibrillation Plan Patient has improved, potassium is normal, awaiting placement.
[2023-10-16] MEDS: DEXAMETHASONE 4MG/ML 1ML VIAL 6 MG IV (09:35)
[2023-10-16] MEDS: POLYETHYLENE GLYCOL 3350 17 GM PACKET PO (09:36)
[2023-10-16] MEDS: FAMOTIDINE 20MG TABLET 20 MG PO (09:36)
[2023-10-16] MEDS: EMPAGLIFLOZIN 10MG TABLET 10 MG PO (09:36)
[2023-10-16] MEDS: APIXABAN 5MG TABLET 2.5 MG PO (09:36)
[2023-10-16] MEDS: ZINC SULFATE 220MG CAPSULE 220 MG PO (09:36)
[2023-10-16] MEDS: METOPROLOL TARTRATE 50MG TABLET 50 MG PO (09:36)
[2023-10-16] MEDS: FOLIC ACID 1MG TABLET 1 MG PO (09:36)
[2023-10-16] MEDS: ASCORBIC ACID 500MG TAB 500 MG PO ×2 (09:36→13:37)
[2023-10-16] MEDS: ASPIRIN EC 81MG TABLET 81 MG PO (09:36)
[2023-10-16] MEDS: diazePAM 5MG TABLET 5 MG PO (09:42)
--- NOTE | 2023-10-16 09:57 | P.PN_ITS ---
Subjective *Date: 10/16/23 *Time: 12:33 Interval history: No acute respiratory vents overnight. Patient denies any new respiratory complaints. Pulmonology Exam Inpatient Vital signs and Labs for Last 24 Hours: Temp Pulse Resp BP Pulse Ox O2 Del Method O2 Flow Rate 98.2 F 70 19 148/74 H 96 Room Air 2 10/16/23 08:00 10/16/23 08:00 10/16/23 08:00 10/16/23 08:00 10/16/23 08:00 10/16/23 08:00 10/14/23 06:56 FiO2 28 10/11/23 19:09 Laboratory Results - last 24 hr 10/15/23 10:27: SARS-CoV-2 (PCR) Detected A, Influenza A Untype (PCR) Not detected, Influenza Type B (PCR) Not detected 10/15/23 13:05: Potassium 5.8 H 10/16/23 05:46: POC Glucose 96 10/16/23 06:25: WBC 10.1 D, RBC 3.60 L, Hgb 11.7 L, Hct 38.5, MCV 106.9 H, MCH 32.5 H, MCHC 30.4 L, RDW 14.7, Plt Count 351, MPV 8.9, Neut % (Auto) 85.4 H, Lymph % (Auto) 8.7 L, [place] % (Auto) 5.0, Eos % (Auto) 0.1, Baso % (Auto) 0.8, Neut # (Auto) 8.6 H, Lymph # (Auto) 0.9, [place] # (Auto) 0.5, Eos # (Auto) 0.0, Baso # (Auto) 0.1, Total Counted 100, Neutrophils % (Manual) 92 H, Lymphocytes % (Manual) 6 L, Monocytes % (Manual) 2, Platelet Estimate Normal, Macrocytosis 2+, Sodium 133 L, Potassium 5.0, Chloride 101, Carbon Dioxide 26, Anion Gap 11.0, BUN 52 H, Creatinine 1.30 H, Estimated Creat Clear 55, Estimated GFR 41 L, Est GFR ( Amer) 49 L, Glucose 113 H, Calcium 7.7 L I & O for Labs for Last 24 Hours: Intake & Output 10/13/23 10/14/23 10/15/23 10/16/23 23:59 23:59 23:59 23:59 Intake Total 1590 / 1590 1860 / 2485 3021 / 3021 360 / 360 Output Total 1925 / 1925 650 / 650 2600 / 2600 1200 / 1200 Balance -335 / -335 1210 / 1835 421 / 421 -840 / -840 Weight 185 lb 11.478 oz 185 lb 10.067 oz 185 lb 10.067 oz 185 lb 3.013 oz Constitutional: Present mild distress Head: Present normocephalic and atraumatic ENT: Present normal exam, normal oropharynx and mucous membranes moist Neck: Present normal inspection and full ROM Respiratory: Present normal respiratory effort and able to speak in complete sentences; Absent respiratory distress, wheezes or diminished air movement Cardiac: Present S1/S2, Tachycardia and radial pulses present GI: Present soft and distention; Absent tenderness or guarding Rectal (female): Present deferred (female): Present deferred Skin: Present intact; Absent cyanosis or jaundice Neuro: Present alert, awake and oriented x 3 Extremities: Present normal inspection; Absent clubbing or cyanosis Psychiatric: Present normal affect and cooperative Assessment and Plan *Assessment and plan (1) COVID-19: Status: Acute Category: Medical Code(s): U07.1 - COVID-19 (2) Acute and chronic respiratory failure with hypoxia: Status: Acute Category: Medical Code(s): J96.21 - Acute and chronic respiratory failure with hypoxia Plan Ms. Hull is a 68-year-old female current smoker greater than 30 PPD, self- reported hypertension, dyslipidemia presented to the ER on 10/07/2023 with worsening respiratory distress Patient admission was clinically concerning for COPD and CHF exacerbation, initiated on oxygen. Nebulizations IV steroids and diuretics. Chest x-ray upon admission clear with no dense consolidation. ABG upon admission did not show any mild hypercarbic respiratory failure, mild hypoxic respiratory failure while on 2 L with a PaO2 of 59 continue. COVID-19 PCR positive admission from 10/06/2023. Patient has been receiving dexamethasone 6 mg IV daily Echocardiogram low normal LV systolic function with a EF of 50%. Near Akinesis of LV apical wall. Hemodynamically stable. D-dimer elevated at 0.94 with LV apical akinesis. On initial examination patient appeared to be in mild to moderate respiratory distress. Component of anxiety contributing to her symptoms. Saturating 95% and above on 2 L nasal cannula. Poor pleth noted. Auscultation clear with no significant wheezing. Interval update: No acute respiratory vents overnight. Hyperkalemia renal function improving. Discharging to rehab today. Plan: Incentive spirometry Continue Trelegy 100 inhaler along with DuoNebs every 6 hours only on as-needed basis Continue oxygen supplementation if needed to maintain O2 saturation of 90 to 95%. # Thank you for involving pulmonary in this patient care. Will follow the patient in pulmonary clinic in 4 to 6 weeks with a full PFT and 6-minute walk testing prior to clinic visit.
[2023-10-16] MEDS: MAGNESIUM OXIDE 400MG TABLET 400 MG PO (10:03)
--- NOTE | 2023-10-16 10:24 | EXP.CARD.PN ---
Subjective Subjective Date: 10/16/23 Time: 10:25 Principal diagnosis: COVID, CHF, COPD Interval history: 68-year-old white female in bedside chair in no acute distress. Slowly improving. Potassium down to 5 after IV Lasix yesterday Heart rate and blood pressure controlled on beta-nichole Patient reportedly [facility]. Exam Data for Last 24 hours Vital signs and Labs for Last 24 Hours: Temp Pulse Resp BP Pulse Ox O2 Del Method O2 Flow Rate 98.2 F 70 19 148/74 H 96 Room Air 2 10/16/23 08:00 10/16/23 08:00 10/16/23 08:00 10/16/23 08:00 10/16/23 08:00 10/16/23 08:00 10/14/23 06:56 FiO2 28 10/11/23 19:09 Laboratory Results - last 24 hr 10/15/23 10:27: SARS-CoV-2 (PCR) Detected A, Influenza A Untype (PCR) Not detected, Influenza Type B (PCR) Not detected 10/15/23 13:05: Potassium 5.8 H 10/16/23 05:46: POC Glucose 96 10/16/23 06:25: WBC 10.1 D, RBC 3.60 L, Hgb 11.7 L, Hct 38.5, MCV 106.9 H, MCH 32.5 H, MCHC 30.4 L, RDW 14.7, Plt Count 351, MPV 8.9, Neut % (Auto) 85.4 H, Lymph % (Auto) 8.7 L, [place] % (Auto) 5.0, Eos % (Auto) 0.1, Baso % (Auto) 0.8, Neut # (Auto) 8.6 H, Lymph # (Auto) 0.9, [place] # (Auto) 0.5, Eos # (Auto) 0.0, Baso # (Auto) 0.1, Total Counted 100, Neutrophils % (Manual) 92 H, Lymphocytes % (Manual) 6 L, Monocytes % (Manual) 2, Platelet Estimate Normal, Macrocytosis 2+, Sodium 133 L, Potassium 5.0, Chloride 101, Carbon Dioxide 26, Anion Gap 11.0, BUN 52 H, Creatinine 1.30 H, Estimated Creat Clear 55, Estimated GFR 41 L, Est GFR ( Amer) 49 L, Glucose 113 H, Calcium 7.7 L I & O for Last 24 hours: Intake & Output 10/13/23 10/14/23 10/15/23 10/16/23 11:59 11:59 11:59 11:59 Intake Total 990 / 990 1740 / 1740 2961 / 2961 1620 / 1620 Output Total 1675 / 1675 1150 / 1150 1500 / 1800 2650 / 2650 Balance -685 / -685 590 / 590 1461 / 1161 -1030 / -1030 Weight 185 lb 11.478 oz 185 lb 10.067 oz 185 lb 10.067 oz 185 lb 3.013 oz *Routine Respiratory Exam Respiratory: Present rhonchi *Routine Cardiovascular Exam Cardiovascular: Present RRR *Routine Extremities Exam Extremities: Present edema Progress Note: A&P Assessment and plan (1) COVID-19: Status: Acute (2) Acute and chronic respiratory failure with hypoxia: Status: Acute (3) Acute exacerbation of chronic obstructive pulmonary disease: Status: Acute (4) Tobacco use disorder: Status: Chronic (5) Onychogryphosis: Status: Acute (6) Onychodystrophy: Status: Acute (7) Hyperlipidemia: Status: Chronic (8) Hypertension: Status: Chronic (9) Hyperkeratosis of skin: Status: Acute (10) History of CVA (cerebrovascular accident): Status: Chronic (11) COPD (chronic obstructive pulmonary disease): Status: Chronic (12) Type 2 diabetes mellitus: Status: Acute (13) Elevated troponin: Status: Acute (14) Elevated brain natriuretic peptide (BNP) level: Status: Acute (15) EtOH dependence: Status: Chronic (16) Atrial fibrillation with RVR: Status: Acute (17) Hyperkalemia: Status: Acute Assessment and Plan Assessment and Plan for All Diagnoses:: Chest discomfort with elevated troponin (type 2 NSTEMI), likely secondary to pulmonary issues -occasional MACIAS and chest discomfort in the setting of 2 pack/day tobacco use and A1c of 11 -severe hypokalemia and COVID-19 on admission (10/06/2023) -EKG showed sinus rhythm with occasional PVCs without ST or T wave changes -Coronary artery calcifications noted on prior Abd CT, but she is not presenting with ACS picture -Add aspirin, statin, beta-nichole -Needs LHC but unable to lie flat for procedure COPD with COVID-19 -2 pack/day smoker -On nasal cannula here -Plans per primary service and Pulmonary Type 2 diabetes, A1c 11 -New diagnosis this admission, patient had not been to a doctor in many years -Added Jardiance for CV benefit, glucose control per primary service Severe hyperkeratosis bilateral lower extremities -Likely due to prolonged edema and hyperglycemia -PT is debriding at this time A. fib with RVR over the weekend, returned to NSR spontaneously -On eliquis -CHADS-VASC score is at least 5 Thrombocytosis -Plt count [id number] on 10/11/2023, now 421 Hyperkalemia -Potassium supplementation and Aldactone discontinued, 10/12/2019 -Irbesartan stopped -Resolved after IV Lasix ISAURA -Cr 1.5 with GFR 35 Hypertension -Stable on metoprolol tartrate 50 mg twice daily -stopped irbesartan -will stop diltiazem in light of bradycardia Elevated BNP at 16,000/HFpEF -On Jardiance -Aldactone stopped due to hyperkalemia -Echo EF 50% with near akinesis of LV apex Coronary artery calcifications on prior abdominal CTA -on statin and ASA -EF 50% with akinesis of LV -Needs [facility] but unable to lie flat for procedure -Continue aspirin, statin, ARB and will add metoprolol Stable from cardiac standpoint for discharge Patient being [facility] to [facility] today. Medication recommendations: Aspirin 81 mg daily Atorvastatin 80 mg daily Jardiance 10 mg daily Apixaban 2.5 mg twice daily Metoprolol tartrate 50 mg twice daily Follow-up in our office in 2 weeks.
[2023-10-16 12:00] VITALS: BP 156/63; PULSE 55; PULSE 57; RESP 18; O2SAT 98
--- NOTE | 2023-10-16 12:26 | EXP.DC.SUM ---
General Admission date:: 10/06/23 Discharge date: 10/16/23 HPI HPI HPI: 68 female history of hypertension, hyperlipidemia, c/o ED still smoking 2 packs a day and not on home oxygen chronic lower extreme edema presenting with shortness of breath. Patient states she has been getting short of breath the last 3 to 4 days. Has not seen a doctor in over 2 years. States that she is out of her breathing treatments, still smoking 2 packs a day. Denies chest pain, nausea or vomiting, but shortness of breath is associated with dry cough. No fevers or chills. She states that her and chronic skin changes have gotten worse and she is concerned about cellulitis as well. It should be noted the patient has not seen a family doctor in a very long time and does not manage her comorbidities, complicating care. History was obtained via conversation with patient and family. On arrival, patient hemodynamically stable, alert, oriented x4, appropriate, GCS 15, moving all extremities spontaneously, pupils equal and reactive to light. Full physical exam performed and significant for chronically ill, unkempt woman in no acute distress. Lungs have diffuse end expiratory wheezes, but no focal breath sounds. No increased work of breathing or hypoxemia. No lower extremity edema, the patient does have chronic skin changes that appear to be secondary to hygiene. Tree bark appearance, no evidence of cellulitis or edema. Differential includes COPD exacerbation, pneumonia, bronchitis, CHF, ACS, [place], pneumothorax, among others. Patient was given DuoNeb, Solu-Medrol for symptomatic management and correction of underlying abnormalities. Workup independently interpreted and significant for no leukocytosis. Patient does have elevated BNP at 7100 and troponin elevated 0.6, likely stress troponin. Chest x-ray without acute cardiopulmonary airspace disease. Chemistry concerning for hypokalemia of 2.3, this was repleted with 60 mill equivalent p.o. as well as 20 mill equivalent IV. See radiology read for full review of final results. Heart score 6. Given full dose aspirin. On reevaluation, patient resting comfortably in bed. Patient was also given irbesartan 75 mg for blood pressure. Admitting team, Dr. Bose from [place] was contacted and patient to be admitted for CHF exacerbation. Given patient presentation, workup, history, this most likely represents acute CHF exacerbation and COPD exacerbation. Because patient high risk for clinical decompensation, deemed appropriate for inpatient admission. Results were relayed to patient who voiced understanding and patient was agreeable to inpatient admission and management. Patient was admitted to the hospital for further definitive management. (above as per ER physician) Patient's covid test came back positive as well. She states along with the SOA, she has had some stomach cramping and diarrhea for the past 4 days. Hospital Course Hospital Course Hospital Course: The patient's chest x-ray showed nothing acute. She was started on oxygen, nebs, steroids, and Lasix. Physical therapy was consulted for wound care of her legs and podiatry was consulted for her feet and nails. Potassium was replaced. Podiatry saw the patient and debrided her nails. Physical therapy came and debrided and wrapped her legs. She did have quite a bit of leg pain after the debridement and was started on some tramadol. She was initially given 3 runs of potassium and had to be given 3 more due to critically low potassium. Her glucose returned elevated and she was started on sliding scale insulin. She was given Serax and felt it caused a panic attack. This was therefore discontinued and she was started on diazepam for alcohol withdrawal. She did begin eating and sleeping better. Her shortness of breath improved slowly. Cardiology was consulted as she was having chest pain and had some elevated cardiac enzymes. They added aspirin, a statin, beta-nichole and checked a 2D echo. They also added Jardiance for cardiovascular benefit. On 10/11/2023, she had some difficulty breathing and was found to be in A-fib with RVR with a rate in the 170s. She was transferred to stepdown and started on a diltiazem drip. Her heart rate improved into the 80s, but she remained in A-fib. She was weaned off the diltiazem drip and was started on oral diltiazem 60 mg every 8 hours. Her potassium returned elevated and potassium replacement was discontinued and her Aldactone was discontinued as wel. Her echo showed an EF of 50% with near akinesis of the left ventricular apex. Cardiology recommended pulmonary consult. Pulmonology saw the patient and ordered Trelegy 100 mg along with DuoNebs every 6 hours. He recommended oxygen supplementation to maintain sats of 90 to 95%. He also wanted her continued on dexamethasone 6 mg IV daily for a total of 10 days. A repeat chest x-ray was ordered and she was started on some MiraLAX for constipation. Repeat chest x-ray showed new small bilateral effusions, but there was no dense consolidation or airspace disease. She was started on incentive spirometry. Cardiology felt the patient would need a left heart cath, but she was unable to lie flat for the procedure. Her metoprolol was increased and her irbesartan was discontinued as this was felt to be contributing to hyperkalemia. She was switched over to long-acting diltiazem. She was able to be weaned to room air oxygen. She was not needing nebulization therapies as frequently as before. She was started on Eliquis for anticoagulation due to A-fib. She was still unable to lay flat for cardiac cath procedure, therefore cardiology had no further input and wanted to follow-up with the patient 2 weeks post discharge. The patient did have an episode of chest pain and bradycardia on the evening of 10/15/2023 and had to be given fluids and an EKG was done. By the morning of 10/15/2023 she was no longer having chest pain and felt much better. She was able to get up and move around the room with her walker. Her [id number]-ph-cvr expressed some concern with her coming home and Dr. Mckeon discussed short-term placement for rehabilitation with her at length. She was agreeable to placement. Due to her bradycardic episodes her diltiazem was stopped and her metoprolol was changed from succinate to tartrate 50 mg twice a day. She was given some Kayexalate for elevated potassium and was also given a dose of IV Lasix. By 10/16/23, she was improving. Her potassium was normal and she was feeling much better. A bed was found for her at [facility] and she was stable to be discharged. She will need to follow-up with cardiology in 2 weeks. She will need to continue her incentive spirometer and Trelegy inhaler along with DuoNebs every 6 hours on an as-needed basis. Pulmonology wanted to continue oxygen supplementation if needed to maintain oxygen saturations of 90 to 95%. He wants to follow-up with her in the pulmonology clinic in 4 to 6 weeks. She will also follow-up with Dr. Mckeon in the office once discharged from rehab. Exam Data for Last 24 hours Vital signs and Labs for Last 24 Hours: Temp Pulse Resp BP Pulse Ox O2 Del Method O2 Flow Rate 98.2 F 70 19 148/74 H 96 Room Air 2 10/16/23 08:00 10/16/23 08:00 10/16/23 08:00 10/16/23 08:00 10/16/23 08:00 10/16/23 11:00 10/14/23 06:56 FiO2 28 10/11/23 19:09 Laboratory Results - last 24 hr 10/15/23 13:05: Potassium 5.8 H 10/16/23 05:46: POC Glucose 96 10/16/23 06:25: WBC 10.1 D, RBC 3.60 L, Hgb 11.7 L, Hct 38.5, MCV 106.9 H, MCH 32.5 H, MCHC 30.4 L, RDW 14.7, Plt Count 351, MPV 8.9, Neut % (Auto) 85.4 H, Lymph % (Auto) 8.7 L, Tucker % (Auto) 5.0, Eos % (Auto) 0.1, Baso % (Auto) 0.8, Neut # (Auto) 8.6 H, Lymph # (Auto) 0.9, Tucker # (Auto) 0.5, Eos # (Auto) 0.0, Baso # (Auto) 0.1, Total Counted 100, Neutrophils % (Manual) 92 H, Lymphocytes % (Manual) 6 L, Monocytes % (Manual) 2, Platelet Estimate Normal, Macrocytosis 2+, Sodium 133 L, Potassium 5.0, Chloride 101, Carbon Dioxide 26, Anion Gap 11.0, BUN 52 H, Creatinine 1.30 H, Estimated Creat Clear 55, Estimated GFR 41 L, Est GFR ( Amer) 49 L, Glucose 113 H, Calcium 7.7 L I & O for Last 24 hours: Intake & Output 10/14/23 10/15/23 10/16/23 10/17/23 11:59 11:59 11:59 11:59 Intake Total 1740 / 1740 2961 / 2961 1620 / 1620 Output Total 1150 / 1150 1500 / 1800 3050 / 3050 Balance 590 / 590 1461 / 1161 -1430 / -1430 Weight 185 lb 10.067 oz 185 lb 10.067 oz 185 lb 3.013 oz Narrative: Constitutional Constitutional: no acute distress *Routine HEENT Exam Head: Present normocephalic and atraumatic Eye: Present EOMI and PERRL ENT: Present mucous membranes dry *Routine Neck Exam Neck: Present supple and full ROM *Routine Respiratory Exam Respiratory: Present wheezes; Absent crackles *Routine Cardiovascular Exam Cardiovascular: Present RRR *Routine Abdominal Exam Abdominal: Present soft and normoactive bowel sounds; Absent tenderness *Routine Rectal Exam Rectal:: deferred *Routine Genitalia Exam Genitalia:: deferred *Routine Extremities Exam Extremities: Present edema (bilateral LE's); Absent cyanosis or clubbing *Routine Skin Exam Skin: Present intact and cracked (extremely dry and cracked skin on the bilateral lower extremities, nails are extremely long and yellow in color); Absent erythema *Routine Neurological Exam Neurological: Present alert and oriented X3 Results Data Completed and Pending Labs on day of discharge: Labs from last 24 hours 10/16/23 10/16/23 10/15/23 06:25 05:46 13:05 WBC 10.1 D RBC 3.60 L Hgb 11.7 L Hct 38.5 MCV 106.9 H MCH 32.5 H MCHC 30.4 L RDW 14.7 Plt Count 351 MPV 8.9 Neut % (Auto) 85.4 H Lymph % (Auto) 8.7 L Tucker % (Auto) 5.0 Eos % (Auto) 0.1 Baso % (Auto) 0.8 Neut # (Auto) 8.6 H Lymph # (Auto) 0.9 Tucker # (Auto) 0.5 Eos # (Auto) 0.0 Baso # (Auto) 0.1 Total Counted 100 Neutrophils % (Manual) 92 H Lymphocytes % (Manual) 6 L Monocytes % (Manual) 2 Platelet Estimate Normal Macrocytosis 2+ Sodium 133 L Potassium 5.0 5.8 H Chloride 101 Carbon Dioxide 26 Anion Gap 11.0 BUN 52 H Creatinine 1.30 H Estimated Creat Clear 55 Estimated GFR 41 L Est GFR ( Amer) 49 L Glucose 113 H POC Glucose 96 Calcium 7.7 L DS: Diagnosis Discharge Diagnosis (1) COVID-19: Status: Acute Code(s): U07.1 - COVID-19 (2) Acute and chronic respiratory failure with hypoxia: Status: Acute Code(s): J96.21 - Acute and chronic respiratory failure with hypoxia (3) Acute exacerbation of chronic obstructive pulmonary disease: Status: Acute Code(s): J44.1 - Chronic obstructive pulmonary disease with (acute) exacerbation (4) Tobacco use disorder: Status: Chronic Code(s): F17.200 - Nicotine dependence, unspecified, uncomplicated (5) Onychogryphosis: Status: Acute Code(s): L60.2 - Onychogryphosis (6) Onychodystrophy: Status: Acute Code(s): L60.3 - Nail dystrophy (7) Hyperlipidemia: Status: Chronic Code(s): E78.5 - Hyperlipidemia, unspecified (8) Hypertension: Status: Chronic Code(s): I10 - Essential (primary) hypertension (9) Hyperkeratosis of skin: Status: Acute Code(s): L85.9 - Epidermal thickening, unspecified (10) History of CVA (cerebrovascular accident): Status: Chronic Code(s): Z86.73 - Personal history of transient ischemic attack (TIA), and cerebral infarction without residual deficits (11) COPD (chronic obstructive pulmonary disease): Status: Chronic Code(s): J44.9 - Chronic obstructive pulmonary disease, unspecified (12) Type 2 diabetes mellitus: Status: Acute Code(s): E11.9 - Type 2 diabetes mellitus without complications (13) Elevated troponin: Status: Acute Code(s): R79.89 - Other specified abnormal findings of blood chemistry (14) Elevated brain natriuretic peptide (BNP) level: Status: Acute Code(s): R79.89 - Other specified abnormal findings of blood chemistry (15) EtOH dependence: Status: Chronic Code(s): F10.20 - Alcohol dependence, uncomplicated Qualifiers: Substance use status: unspecified alcohol-induced disorder Qualified Code(s): F10.29 - Alcohol dependence with unspecified alcohol-induced disorder (16) Atrial fibrillation with RVR: Status: Acute Code(s): I48.91 - Unspecified atrial fibrillation (17) Hyperkalemia: Status: Acute Code(s): E87.5 - Hyperkalemia Meds Home Medications and Allergies Home Medications Medication Instructions Recorded Confirmed Type apixaban 5 mg tablet (Eliquis) 2.5 mg PO BID #60 tabs 10/16/23 Rx aspirin 81 mg tablet,delayed 81 mg PO DAILY #60 tabs 10/16/23 Rx release atorvastatin 40 mg tablet 80 mg PO HS #30 tabs 10/16/23 Rx diazepam 5 mg tablet 5 mg PO Q6HP PRN anxiety/alcohol 10/16/23 Rx withdrawal #30 tabs empagliflozin 10 mg tablet 10 mg PO DAILY #30 tabs 10/16/23 Rx (Jardiance) famotidine 20 mg tablet 20 mg PO BID #60 tabs 10/16/23 Rx fluticasone fur. 100 mcg-umeclid 1 inh inhalation DAILY #1 ea 10/16/23 Rx 62.5 mcg-vilant 25 mcg inhalat.powder (Trelegy Ellipta) insulin glargine 100 unit/mL (3 30 unit (0.3 mL) SQ HS #15 mL 10/16/23 Rx mL) subcutaneous pen (Lantus Solostar U-100 Insulin) metoprolol tartrate 50 mg tablet 50 mg PO BID #60 tabs 10/16/23 Rx multivitamin with folic acid 400 1 tab PO 1700 #30 tabs 10/16/23 Rx mcg tablet (Tab-A-Sahra) nicotine 21 mg/24 hr daily 21 mg transdermal DAILYP PRN 10/16/23 Rx transdermal patch Nicotine Cravings #28 ea ondansetron HCl 4 mg tablet 4 mg PO Q8H PRN nausea and 10/16/23 Rx vomiting #30 tabs oxycodone-acetaminophen 5 mg-325 1 tab PO Q6HP PRN Breakthru Severe 10/16/23 Rx mg tablet Pain (7-10) #30 tabs New Prescriptions to Start Prescriptions: apixaban [Eliquis] [place] aspirin [place] atorvastatin [place] diazepam [place] empagliflozin [Jardiance] [place] famotidine [place],[facility]ung cgnuuscydkq-ljkryqvqn-vaxmuekd [Trelegy Ellipta] [place],[facility] insulin glargine [Lantus Solostar U-100 Insulin] [place],[facility]ung metoprolol tartrate [place],[facility]ung multivitamin with folic acid [Tab-A-Sahra] [place],[facility] nicotine [place]ung ondansetron HCl [place],[facility]ung oxycodone-acetaminophen [place],[facility]ung Allergies Allergy/AdvReac Type Severity Reaction Status Date / Time codeine [CODEINE] Allergy Unknown Verified 11/07/20 23:47 Penicillins [PENICILLINS] Allergy Unknown Verified 11/07/20 23:47 Discharge Plan Disposition Patient Disposition: Xfer SNF Condition: Fair Discharge Order Discharge Orders: Discharge Order (Routine); Ordered 10/16/23 Ordered By: Chung Mckeon Follow up Plan Follow up with: Hunter Rodriguez MD [Physician] - 11/16/23 1:00 pm (PFT and 6 minute walk : November 12 at 10:00 AM ) Brandon Antonio MD [Staff Physician] - 10/28/23 2:00 pm Prescriptions/Medication Reconciliation: New aspirin 81 mg Tablet,Delayed Release (Dr/Ec) 81 mg PO DAILY Qty: 60 0RF Eliquis 5 mg Tablet 2.5 mg PO BID Qty: 60 0RF atorvastatin 40 mg Tablet 80 mg PO HS Qty: 30 0RF famotidine 20 mg Tablet 20 mg PO BID Qty: 60 0RF diazepam 5 mg Tablet 5 mg PO Q6HP PRN (Reason: anxiety/alcohol withdrawal) Qty: 30 0RF insulin glargine [Lantus Solostar U-100 Insulin] 100 unit/mL (3 mL) Insulin Pen 30 unit SQ HS Qty: 15 0RF Jardiance 10 mg Tablet 10 mg PO DAILY Qty: 30 0RF Trelegy Ellipta 100-62.5-25 mcg Blister With Device 1 inh inhalation DAILY Qty: 1 0RF metoprolol tartrate 50 mg Tablet 50 mg PO BID Qty: 60 0RF nicotine 21 mg/24 hr Patch 24 Hour 21 mg transdermal DAILYP PRN (Reason: Nicotine Cravings) Qty: 28 0RF oxycodone-acetaminophen 5-325 mg Tablet 1 tab PO Q6HP PRN (Reason: Breakthru Severe Pain (7-10)) Qty: 30 0RF multivitamin with folic acid [Tab-A-Sahra] 400 mcg Tablet 1 tab PO 1700 Qty: 30 0RF ondansetron HCl 4 mg tablet 4 mg PO Q8H PRN (Reason: nausea and vomiting) Qty: 30 0RF Other Ambulatory Orders: RT walk test 6 minutes (Routine) Timeframe: 4 Weeks Facility: [facility] - Location: Respiratory Therapy Ordered By: Hunter Rodriguez RT complete PFT (Routine) Timeframe: 4 Weeks Facility: [facility] - Location: Respiratory Therapy Ordered By: Hunter Rodriguez Problem Reconciliation Problems Reviewed?: Yes Patient Discharge Instructions ACTIVITY: Continue current activity DIET: diabetic diet, low salt diet and cardiac Patient Instructions: Heart Failure, DI for Heart Failure, DI for Chronic Obstructive Pulmonary Disease, DI for COVID-19 (Suspected or Confirmed ), Catheter-Associated Urinary Tract Infection Providers Primary Care Provider: Chung Mckeon Admit Provider: Juan Bose Attending Provider: Chung Mckeon
== END 2023-10-16 15:48 | DRG 291 ==
LOC: ER 19:10 → 2ND 19:18
PROVIDERS: Physician Assistant; Podiatrist; Admitting Provider Family Medicine; Emergency Provider Emergency Medicine; PCP Family Medicine; Visit Provider Family Medicine
DX: I11.0 Hypertensive heart disease with heart failure (principal); I50.33 Acute on chronic diastolic (congestive) heart failure; U07.1 COVID-19; J96.21 Acute and chronic respiratory failure with hypoxia; F10.29 Alcohol dependence with unspecified alcohol-induced disorder; J44.1 Chronic obstructive pulmonary disease with (acute) exacerbation; I48.91 Unspecified atrial fibrillation; F17.210 Nicotine dependence, cigarettes, uncomplicated; E87.6 Hypokalemia; Z99.81 Dependence on supplemental oxygen; I50.9 Heart failure, unspecified; Z86.73 Personal history of transient ischemic attack (TIA), and cerebral infarction without residual deficits; E66.9 Obesity, unspecified; Z68.37 Body mass index [BMI] 37.0-37.9, adult; E11.9 Type 2 diabetes mellitus without complications; D75.839 Thrombocytosis, unspecified; E87.5 Hyperkalemia
CPT/HCPCS: 36415; 71045; 71046; 80048; 80053; 82803; 82962; 83036; 83735; 83880; 84132; 84484; 85007; 85025; 85378; 85610; 85730; 87507; 87636; 93005; 93306; 94640; 94760; 94761; 97116; 97163; 97166; 97530; 99291; J2405